=== PATIENT | female | born 1975 | race Caucasian/White ===

== ENCOUNTER 2020-04-11 20:56 | Emergency (ER) | payer MEDICAID ==
[~2020-04-11] VITALS: Ht 157 cm; Wt 61.3 kg
--- OUTSIDE RECORDS SUMMARY | 2020-04-11 21:02 | XMS REPORT | CCD ---
Author Author PRAVEENA PETE Organization Unknown Address [address] [place], [place] [id number] Care Team Providers Care Pipe Line Walker Name Role Phone MIGUEL GRULLON MD Attphys CHACHA Razo NASST Vital Signs Vital Sign Value Unit Date/Time Recent/I nitial? Weight Measured 141 lbs 02/17/2015 05:51 Initial VS Height 61 in 02/17/2015 05:51 Initi al VS BMI (Body Mass Index) 26.64 kg/m^2 02/17/2015 05 :51 Initial VS BSA (Body Surface Area) 1.66 m^2 02/17/2015 05:51 Initial VS BP Systolic 100 mmHg 02/17/2015 05:51 Initial VS BP Diastolic 61 mmHg 02/17/2015 05:51 Initial VS Respiratory Rate 18 bpm 02/17/2015 05:51 Initial VS Heart Rate 76 bpm 02/17/2015 05:51 I nitial VS O2 % BldC Oximetry 98 % 02/17/2015 05:51 Initial VS Body Temperature 98.3 degrees 02/17/2015 05:51 Initial VS BP Systolic 114 mmHg 02/19/2015 06:00 Most Recent VS BP Diastolic 66 mmHg 02/19/2015 06:00 Most Recent VS Respiratory Rate 18 bpm 02/19/2015 06:00 Most Recent VS Heart Rate 77 bpm 02/19/2015 06:00 M ost Recent VS O2 % BldC Oximetry 99 % 02/19/2015 06:00 Most Recent VS Body Temperature 98.2 degrees 02/19/2015 06:00 Most Recent VS Allergies Allergy Code Allergy Type Reaction Status No Known Allergies 0 No known allergies Active Procedures Procedure Code Procedure Type Date LOW CERVICAL 741 ICD-9 CM, Volume 3 02/17/2015 REMOVE BOTH FALLOP TUBES 6651 ICD-9 CM, Volume 3 02/17/2015 PATHOLOGY ORDER [id number] SNOMED CT 02/17/2015 [id number] ^CBC W/AUTO DIFF [id number] [facility] CT 5 CBC W/ AUTO DIFF (RFLX MAN DIFF IF IND) [id number] SN [facility] CT 02/17/2015 TYPE AND SCREEN [id number] [facility] CT 02/17/2015 INCENTIVE SPIROMETRY EA 15 MINUTES [id number] [facility] CT 02/17/2015 History of Immunizations Immunization Code Date influenza, split (incl. purified surface antigen) 15 09/05/2008 DTaP-Hep B-IPV 110 08/24/2003 Problems Problem Code Start Date Resolved Date Sta tus delivery [id number] 02/17/2015 Active Results CBC W/ AUTO DIFF (RFLX MAN DIFF IF IND) - Collect Date/Time: 02/17/2015 05:55 Test Name Code Test Result Test Units Jonna t Ref Range WBC 07287-4 11.3 TH/CMM L=4.5 H=1 0.8 RBC 789-8 3.54 ML/CMM L=4.20 H=5. 40 HGB 718-7 11.4 G/DL L=12.0 H=16 .0 HCT 4544-3 33.9 % L=37.0 H=47 .0 MCV 96 FL L=81 H=99 MCH 32.2 PG L=27.0 H=33 .0 MCHC 33.6 G/DL L=31.0 H=36 .0 RDW SD 48 FL L=36 H=50 RDW CV 13.8 % L=0.0 H=14 .8 MPV 9.9 FL L=9.3 H=12 .5 PLT 777-3 337 TH/CMM L=130 H=44 0 NRBC# 0.00 TH/CMM L=0.00 H=0. 00 NRBC% 0.0 /100WBC L=0.0 H=2 .0 %NEUT 68.6 % %LYMP 19.6 % %MONO 10.4 % %EOS 1.3 % %BASO 0.1 % #NEUT 7.74 TH/CMM L=2.10 H=8. 20 #LYMP 2.22 TH/CMM L=0.90 H=5. 20 #MONO 1.18 TH/CMM L=0.16 H=1. 00 #EOS 0.15 TH/CMM L=0.00 H=0. 80 #BASO 0.01 TH/CMM L=0.00 H=0. 20 MANUAL DIFF NOT IND N/A HEMOGRAM - Collect Date/Time: 02/18/2015 06:45 Test Name Code Test Result Test Units Jonna t Ref Range WBC 56409-4 18.5 TH/CMM L=4.5 H=1 0.8 RBC 789-8 3.24 ML/CMM L=4.20 H=5. 40 HGB 718-7 10.4 G/DL L=12.0 H=16 .0 HCT 4544-3 31.3 % L=37.0 H=47 .0 MCV 97 FL L=81 H=99 MCH 32.1 PG L=27.0 H=33 .0 MCHC 33.2 G/DL L=31.0 H=36 .0 RDW SD 50 FL L=36 H=50 RDW CV 14.0 % L=0.0 H=14 .8 MPV 10.0 FL L=9.3 H=12 .5 PLT 777-3 318 TH/CMM L=130 H=44 0 NRBC# 0.00 TH/CMM L=0.00 H=0. 00 NRBC% 0.0 /100WBC L=0.0 H=2 .0 TYPE AND SCREEN - Collect Date/Time: 08:00 Test Name Code Test Result Test Units Jonna t Ref Range ABO/Rh Type B Positive N/A Antibody Screen-Gel Negative N/A Active Medications Medication Code Dose Units Frequency Rou te Modification Start Date/Time Ferrous Sulfate 325MG Oral Tablet [id number] 325 M ILLIGRAMS PCBID BY MOUTH 02/19/2015 08:17 Ibuprofen 800MG Oral Tablet 058542 800 MILLIGR AMS EVERY 8 HOURS BY MOUTH 02/19/2015 08:17 oxyCODONE And Acetaminophen 5MG-325MG Oral Tablet [id number] 1 TABLET NEEDED BY MOUTH 02/19/2015 08:17 Oral Tablet 499299 1 EACH DAILY ORAL 02/19/2015 08:17 Medications Administered During Visit Medication Dose Units Frequency Route D ate/Time of Last Dose LR 1000ML IV [PREDEFINED] CONT IV IV 02/17/2015 18:04 VITAMIN TABS 1 TAB DAILY PO 02/19/2015 09:15 IBUPROFEN (MOTRIN) TAB:800 MG 800 MG Q8H PO 02/19/2015 06:05 SIMETHICONE [MYLICON] CHEW TAB: 80 MG 80 MG PRN CHEW 02/18/2015 21:38 PERCOCET 5/325 MG TABLET (ROXICET) 1 TAB PRN PO 02/19/2015 09:15 LR 1000ML IV [PREDEFINED] CONT IV IV 02/18/2015 01:07 Encounters Encounter Diagnosis Diagnosis Code Start Date PREV C-SECT NOS-DELIVER 48160 02/17/2015 Social History Smoking Status Code Start Date End Date Current every day smoker [id number] Patient Decision Aids Unknown or Not Available. Discharge Instructions You were admitted to [facility] on 02/17/2015 with a principal diagnosis of PREV C-SECT NOS-DELIVER. You had the following procedures done: LOW CERVICAL REMOVE BOTH FALLOP TUBES You were discharged from [facility] on 02/19/2015. Should you have any questions prior to discharge, please contact a member of your healthcare team. If you have left the hospital and have any questions, please contact your primary care physician. DIET: Regular, As tolerated. HOME MEDICATION INSTRUCTIONS: Continue taking your vitamins, Continue Home Meds as listed above. DON'T continue home meds, Call doc before taking new or OTC meds. IF : Breastfeed on demand, Incr flds and cals to promote mlk prdctn. Avoid spicy/gas producing foods, Exprs milk every 3-4 hrs if unable to BF. If breast engorgement occurs:, apply moist heat/massage/or icepacks. Wear supportive bra, Ensure areola latch 1-1.5"past nipple. Observe for cracked and bleeding nipples. Use "soothies"for sore or cracked nipple. Use tea bags for sore or cracked nipples. Colostrum to nipples after each feed. ACTIVITIES: Refrain from smoking, Rest as possible. Limit walking,standing & stair climbing, No heavy lifting. Gradually resume normal activity. HYGIENE: May shower, Use daniela-bottle with Betasept:. after each urine and BM until flow stops. Change pads with each urination or BM. BOWEL MOVEMENTS Stool softeners as needed, Avoid constipation. May take senokot, Milk of Magnesia. SEXUAL ACTIVITY Refrain from intercourse until pp exam. [id number] Abdominal exercises in 3-4 wks, Start slowly and increase as raf. Post blues; Hormonal changes You may have emotional changes, You may be tearful. This shouldn't last more than 2-3 wks, Call physician if you are concerned. PAIN MANAGEMENT Non drug pain control methods, When to contact physician. NOTIFY PHYSICIAN OF: Chills, fever, painful urination, foul- smelling vaginal discharge. bleeding more than a period, temperature is greater than 100.4. dizziness or fainting, Painful breasts, Red, hot and extremely HARD breasts. redness or drainage from incision, unrelieved pain with medication. nausea or vomiting, cough or shortness of breath. cramping or swelling of legs. RELEVANT CONTACT INFORMATION: Dr. Fernie Proctor: [phone]. FOLLOW-UP: Post visit: See in __6____ wks. Follow up with Dr. Grullon on 02/23/15 for staple removal. Call office for appt. TREATMENTS: Always keep incisional area dry & clean, Cover incision with light dressing. Leave incision open to air if desired, Tucks, frequent sitz baths. stool softeners and hemmorrhoid cream, Wash incision with soap and water. Cleanse with alcohol several times per d, No driving for at least 1 week. Leave steri-strips intact. SPECIAL INSTRUCTIONS: If you receive a Rubella vaccine:, is not recommended for 3 mnths. If you have cold/canker sores:, do not kiss/nuzzle NB til lesions clear. Wear binder as desires. IMPORTANT: INSURE YOUR BABY! Provided info on need to insure baby!. PATIENT/FAMILY UNDERSTANDS INSTRUCTIONS: Verbalizes. PATIENT PORTAL EDUCATION INFO PROVIDED? YES, patient verbalized understanding. PATIENT PORTAL DEMONSTRATION PERFORMED? YES, patient verbalized understanding. DISCHARGED TO: Home. ACCOMPANIED BY: , placed in car seat. MODE OF TRANSPORTATION: Via wheelchair, to car. Chief Complaint and Reason For Visit Chief Complaint Date of Onset OB REPEAT CSECTION Function Status Unknown or Not Available. Plan of Care Unknown or Not Available. Referral/Transition of Care Unknown or Not Available.
--- OUTSIDE RECORDS SUMMARY | 2020-04-11 21:02 | XMS REPORT ---
Discharge Summary 2.1 Created on: PRAVEENA FUENTES : 1975 Sex: Female Author Author PRAVEENA LOONEY Organization Unknown Address [address] [place], [place] [address] Care Team Providers Care Nuclear Medicine Officer Name Role Phone GLADYS TEAL Watchlist LOVELY FOISTER Watchlist Xwatchlist DANISH Slater MD [facility] MAGI Deng MD [facility] Deng MD Secondary Functional Status No Data Found Immunization Immunization Date Status Additional Notes Code Code System influenza, split (incl. purified surface antigen) 09/05/2008 Completed 15 CVX DTaP-Hep B-IPV 08/24/2003 Completed 110 CVX Mental Status No Data Found Results RETIC COUNT - Collect Date/Time: 018 06:46 [facility] [employer] [facility] ID: [id number] [address], [place], [address] [facility] ID: [id number] [address] [address], [place], [address] LOINC: 77206-7 Test Value Unit Reference Range Code Code System RETIC % 1.30 % L=0.50 H=1.70 RETIC # 4.63 10^4/uL L=1.64 H=7.76 IRF 9.9 % L=3.0 H=15.9 CBC W/ AUTO DIFF (RFLX MAN DIFF IF IND) - Collect Date/Time: 09/28/2018 06:46 [facility] ID: [id number] [address], [place], [address] [facility] ID: [id number] [address], [place], [address] LOINC: 50520-3 Test Value Unit Reference Range Code Code System WBC 7.5 TH/CMM L=4.5 H=10.8 24284-0 LOINC RBC 3.58 ML/CMM L=4.20 H=5.40 789-8 LOINC HGB 11.4 G/DL L=12.0 H=16.0 718-7 LOINC HCT 35.1 % L=37.0 H=47.0 4544-3 LOINC MCV 98 FL L=81 H=99 MCH 31.8 PG L=27.0 H=33.0 MCHC 32.5 G/DL L=31.0 H=36.0 RDW SD 47 FL L=36 H=50 RDW CV 13.9 % L=0.0 H=14.8 MPV 9.1 FL L=9.3 H=12.5 PLT 349 TH/CMM L=130 H=440 777-3 LOINC NRBC# L=0.00 H=0.00 NRBC% L=0.0 H=2.0 %NEUT 59.7 % %LYMP 24.1 % %MONO 11.5 % %EOS 4.3 % %BASO 0.4 % #NEUT 4.48 TH/CMM L=2.10 H=8.20 #LYMP 1.81 TH/CMM L=0.90 H=5.20 #MONO 0.86 TH/CMM L=0.16 H=1.00 #EOS 0.32 TH/CMM L=0.00 H=0.80 #BASO 0.03 TH/CMM L=0.00 H=0.20 MANUAL DIFF SEE BELOW SEGS 51 % BANDS 4 % LYMPHS 31 % MONOS 8 % EOS 5 % BASO METAS 1 % MYELO PROS BLASTS ATYP LYMPHS RBC MORPH VITAMIN B12 & FOLATE - Collect Date/Time : 09/28/2018 06:46 [facility] ID: [id number] [address] [facility] [address], [place], [place], [address] [employer] ID: [id number] [address] [facility] [address], [place], [place], [address] LOINC: Test Value Unit Reference Range Code Code System VITAMIN B12 276 PG/ML L=213 H=816 2132-9 LOINC FOLATE 14.50 ng/mL 2284-8 LOINC FERRITIN - Collect Date/Time: 09/28/2018 06:46 [facility] ID: [id number] [address], [place], [place], [address] [facility] ID: [id number] [address] [address], [place], [place], [address] LOINC: 2276-4 Test Value Unit Reference Range Code Code System FERRITIN 50 ng/mL L=10 H=291 2276-4 LOINC IRON PANEL - Collect Date/Time: 09/28/20 06:46 [facility] ID: [id number] - [id number] [address], [place], [place], [address] [facility] ID: [id number] [address] [facility] [address], [place], [place], [address] LOINC: 2500-7 Test Value Unit Reference Range Code Code System IRON TOTAL 50 MCG/DL L=50 H=212 2498-4 LOINC Transferrin 170 MG/DL L=175 H=375 3034-6 LOINC TIBC Calculation 213 MG/ DL L=250 H=450 %Saturation Calc 24 % L=15 H=55 T4 - Collect Date/Time: 09/28/2018 06:46 [facility] ID: [id number] [address] [address] [address], [place], [place], [address] [facility] ID: [id number] [address], [place], [address] LOINC: 3026-2 Test Value Unit Reference Range Code Code System T4 6.8 UG/DL L=4.5 H=12.0 3026-2 LOINC PHOSPHORUS - Collect Date/Time: 09/28/20 18 06:46 [facility] ID: [id number] [address], [place], [place], [address] [facility] ID: [id number] [address], [place], [place], [address] LOINC: 2777-1 Test Value Unit Reference Range Code Code System PHOSPHORUS 3.0 MG/DL L=2.5 H=4.5 2777-1 LOINC MAGNESIUM - Collect Date/Time: 8 06:46 [facility] ID: [id number] [address], [place], [place], [address] [facility] ID: [id number] [address], [place], [place], [address] LOINC: 17053-2 Test Value Unit Reference Range Code Code System MAGNESIUM 2.1 MG/DL L=1.7 H=2.8 92831-4 LOINC COMPREHENSIVE METABOLIC PANEL - Collect Date/Time: 09/28/2018 06:46 [facility] ID: [id number] [address], [place], [place], [address] [facility] ID: [id number] [address], [place], [place], [address] LOINC: 89335-8 Test Value Unit Reference Range Code Code System GLUCOSE 89 MG/DL L=70 H=100 2345-7 LOINC SODIUM 143 MEQ/L L=135 H=148 2951-2 LOINC POTASSIUM 4.0 MEQ/L L=3.5 H=5.3 2823-3 LOINC CHLORIDE 112 MEQ/L L=96 H=110 2075-0 LOINC CO2 26 MEQ/L L=22 H=29 2028-9 LOINC BUN 6 MG/DL L=8 H=22 3094-0 LOINC CREATININE 0.6 MG/DL L=0.6 H=1.6 2160-0 LOINC SGOT/AST 17 IU/L L=10 H=40 1920-8 LOINC SGPT/ALT 11 IU/L L=8 H=54 1742-6 LOINC ALK PHOS 46 IU/L L=35 H=115 6768-6 LOINC TOTAL PROTEIN 5.3 G/DL L=5.5 H=8.5 2885-2 LOINC ALBUMIN 3.5 G/DL L=3.1 H=5.4 1751-7 LOINC TOTAL BILI 0.4 MG/DL L=0.0 H=1.5 1975-2 LOINC CALCIUM 8.2 MG/DL L=8.2 H=10.6 45241-0 LOINC AGE 43 yrs GFR NonAA 109 GFR AA 132 eGFR 109 mL/min/1.7 eGFR AA* >60 GASTROINTESTINAL PANEL - Collect Date/Ti me: 09/28/2018 04:10 [facility] [employer] ID: [id number] [address], [place], [address] [facility] ID: [id number] [address] [address] [address], [place], [address] LOINC: Test Value Unit Reference Range Code Code System Campylobacter Not Detected NEG: Not Detected C difficile A/B Not Detected NEG: Not Detected Plesiomonas shigell Not Detected NEG: Not Detected Salmonella Not Detected NEG: Not Detected Vibrio Not Detected NEG: Not Detected Vibrio cholerae Not Detected NEG: Not Detected Yersinia enterocoli Not Detected NEG: Not Detected Enteroaggreg E coli Not Detected NEG: Not Detected Enteropathog E coli Not Detected NEG: Not Detected Enterotoxigen E coli Not Detected NEG: Not Detected Shiga-like E coli Not Detected NEG: Not Detected E coli O157 Not Detected NEG: Not Detected Shigella/Enter Ecoli Not Detected NEG: Not Detected Cryptosporidium Not Detected NEG: Not Detected Cyclospora cayetanen Not Detected NEG: Not Detected Entamoeba histolytic Not Detected NEG: Not Detected Giardia lamblia Not Detected NEG: Not Detected Adenovirus F 40/41 Not Detected NEG: Not Detected Astrovirus Not Detected NEG: Not Detected Norovirus GI/GII Not Detected NEG: Not Detected Rotavirus A Not Detected NEG: Not Detected Sapovirus Not Detected NEG: Not Detected OCCULT BLOOD iFOBT - Collect Date/Time: 09/28/2018 04:10 [facility] ID: [id number] [address] [facility] [address], [place], [place], [address] [facility] [employer] ID: [id number] [address], [place], [place], [address] LOINC: 2335-8 Test Value Unit Reference Range Code Code System OCC BLD STOOL POSITIVE NORMAL: NEGATIVE 2335-8 LOINC HEMOGLOBIN A1C - Collect Date/Time: 08/31 06:30 [facility] ID: [id number] [address], [place], [place], [address] [facility] [employer] ID: [id number] [address] [facility] [address], [place], [place], [address] LOINC: 74663-7 Test Value Unit Reference Range Code Code System HGB A1C 5.0 % L=4.0 H=6.4 76840-9 LOINC Est Avg Glucose 96.8 mg/ dL 28797-4 LOINC PHOSPHORUS - Collect Date/Time: 09/27/20 06:30 [facility] [employer] ID: [id number] [address] [facility] [address], [place], [address] [employer] ID: [id number] [address] [facility] [address], [place], [place], [address] LOINC: 2777-1 Test Value Unit Reference Range Code Code System PHOSPHORUS 2.4 MG/DL L=2.5 H=4.5 2777-1 LOINC LIPID PANEL - Collect Date/Time: 06:30 [facility] [employer] ID: [id number] [address] [facility] [address], [place], [place], [address] [facility] ID: [id number] [address] [facility] [address] [place], [place], [address] LOINC: 70023-4 Test Value Unit Reference Range Code Code System TRIGLYCERIDES 73 MG/DL L=0 H=135 3043-7 LOINC CHOLESTEROL 148 MG/DL L=0 H=199 2093-3 LOINC HDL 22 MG/DL L=29 H=89 2085-9 LOINC TOT CHOL/HDL 6.7 L=0.0 H=5.0 LDL (CALC) 111 MG/DL L=0 H=129 44963-6 LOINC TSH - Collect Date/Time: 09/27/2018 06:3 0 [facility] [employer] ID: [id number] [address] [facility] [address], [address] [facility] ID: [id number] [address] [facility] [facility] [address] [place], [place], [address] LOINC: 15588-8 Test Value Unit Reference Range Code Code System TSH 0.27 mIU/L L=0.35 H=4.94 37305-6 LOINC COMPREHENSIVE METABOLIC PANEL - Collect Date/Time: 09/27/2018 06:30 [facility] ID: [id number] [address], [place], [place], [address] [facility] [employer] [facility] ID: [id number] [address], [place], [place], [address] LOINC: 63520-6 Test Value Unit Reference Range Code Code System GLUCOSE 95 MG/DL L=70 H=100 2345-7 LOINC SODIUM 142 MEQ/L L=135 H=148 2951-2 LOINC POTASSIUM 3.1 MEQ/L L=3.5 H=5.3 2823-3 LOINC CHLORIDE 110 MEQ/L L=96 H=110 2075-0 LOINC CO2 24 MEQ/L L=22 H=29 2028-9 LOINC BUN 10 MG/DL L=8 H=22 3094-0 LOINC CREATININE 0.7 MG/DL L=0.6 H=1.6 2160-0 LOINC SGOT/AST 16 IU/L L=10 H=40 1920-8 LOINC SGPT/ALT 6 IU/L L=8 H=54 1742-6 LOINC ALK PHOS 51 IU/L L=35 H=115 6768-6 LOINC TOTAL PROTEIN 5.6 G/DL L=5.5 H=8.5 2885-2 LOINC ALBUMIN 3.4 G/DL L=3.1 H=5.4 1751-7 LOINC TOTAL BILI 0.8 MG/DL L=0.0 H=1.5 1975-2 LOINC CALCIUM 8.1 MG/DL L=8.2 H=10.6 14517-1 LOINC AGE 43 yrs GFR NonAA 91 GFR AA 110 eGFR 91 mL/min/1.7 eGFR AA* >60 CBC W/ AUTO DIFF (RFLX MAN DIFF IF IND) - Collect Date/Time: 09/27/2018 06:30 [facility] ID: [id number] [address], [place], [place], [address] [facility] [employer] [facility] ID: [id number] [address], [place], [place], [address] LOINC: 30770-5 Test Value Unit Reference Range Code Code System WBC 9.4 TH/CMM L=4.5 H=10.8 84654-3 LOINC RBC 3.60 ML/CMM L=4.20 H=5.40 789-8 LOINC HGB 11.5 G/DL L=12.0 H=16.0 718-7 LOINC HCT 34.0 % L=37.0 H=47.0 4544-3 LOINC MCV 94 FL L=81 H=99 MCH 31.9 PG L=27.0 H=33.0 MCHC 33.8 G/DL L=31.0 H=36.0 RDW SD 46 FL L=36 H=50 RDW CV 13.2 % L=0.0 H=14.8 MPV 9.0 FL L=9.3 H=12.5 PLT 351 TH/CMM L=130 H=440 777-3 LOINC NRBC# 0.00 TH/CMM L=0.00 H=0.00 NRBC% 0.0 /100WBC L=0.0 H=2.0 %NEUT 70.8 % %LYMP 17.7 % %MONO 10.4 % %EOS 0.0 % %BASO 0.5 % #NEUT 6.66 TH/CMM L=2.10 H=8.20 #LYMP 1.67 TH/CMM L=0.90 H=5.20 #MONO 0.98 TH/CMM L=0.16 H=1.00 #EOS 0.00 TH/CMM L=0.00 H=0.80 #BASO 0.05 TH/CMM L=0.00 H=0.20 MANUAL DIFF NOT IND HEPATITIS PANEL + HBsAb - Collect Date/T radha: 09/26/2018 14:25 [facility] ID: [id number] [address], [place], [address] LOINC: 05457-8 Test Value Unit Reference Range Code Code System Hep A Ab, IgM Negative Negative 25472-1 LOINC HBsAg Screen Negative Negative 5196-1 LOINC Hep B Core Ab, IgM Negative Negative 31630-4 LOINC Hep B Surface Ab, Qual Non Reactive 33053-5 LOINC HCV Ab < 0.1 s/coratio 0.0-0.9 17451-9 LOINC Comment: COMMENT LACTIC ACID - Collect Date/Time: 018 14:25 [place] [employer] ID: [id number] [address] [facility] [address], [place], [place], [address] [facility] ID: [id number] [address] [facility] [address], [place], [place], [address] LOINC: 2524-7 Test Value Unit Reference Range Code Code System LACTIC ACID 1.5 mmol/L L=0.5 H=1.6 2524-7 LOINC UA ROUTINE C&S IF IND - Collect Date/Gustavo e: 09/26/2018 10:40 [facility] ID: [id number] [address], [place], [place], [address] [facility] ID: [id number] [address] [facility] [address], [place], [place], [address] LOINC: Test Value Unit Reference Range Code Code System COLOR YELLOW NL: YELLOW APPEARANCE SL CLOUDY NL: CLEAR SPEC GRAV 1.015 NL: 1.002 - 1.022 pH 7.5 N L: 5 - 9 PROTEIN 30 NL: NEGATIVE mg/dl GLUCOSE NEGATIVE NL: NEGATIVE mg/dl KETONE 15 NL: NEGATIVE mg/dl BILIRUBIN SMALL NL: NEGATIVE BLOOD MODERATE NL: NEGATIVE NITRITE NEGATIVE NL: NEGATIVE LEUK SCREEN NEGATIVE NL: NEGATIVE MICRO INDICATED? SEE BELOW WBC/HPF RARE NL: NEGATIVE RBC/HPF 10-20 NL: NEGATIVE CASTS/LPF NEGATIVE NL: NEGATIVE CRYSTALS NEGATIVE NL: NEGATIVE MUCOUS THRDS FEW NL: NEGATIVE BACTERIA FEW NL: NEGATIVE EPITH CELLS 1+ SQUAMOUS NL: NEGATIVE TRICHOMONAS NEGATIVE NL: NEGATIVE YEAST NEGATIVE NL: NEGATIVE CULT SET UP? NO PT/PTT - Collect Date/Time: 09/26/2018 0 8:30 [facility] ID: [id number] [address] [facility] [address], [place], [address] [facility] ID: [id number] [address] [facility] [facility] [address], [place], [address] LOINC: Test Value Unit Reference Range Code Code System PROTIME 13.5 SEC L=9.4 H=12.5 5964-2 LOINC INR 1.2 88926-5 LOINC PTT 26.3 SEC L=25.1 H=36.5 3173-2 LOINC COMPREHENSIVE METABOLIC PANEL - Collect Date/Time: 09/26/2018 08:30 [facility] ID: [id number] [address] [facility] [address], [place], [address] [facility] ID: [id number] [address] [facility] [facility] [address], [place], [address] LOINC: Test Value Unit Reference Range Code Code System GLUCOSE 163 MG/DL L=70 H=100 2345-7 LOINC SODIUM 140 MEQ/L L=135 H=148 2951-2 LOINC POTASSIUM 2.8 MEQ/L L=3.5 H=5.3 2823-3 LOINC CHLORIDE 95 MEQ/L L=96 H=110 2075-0 LOINC CO2 24 MEQ/L L=22 H=29 2028-9 LOINC BUN 25 MG/DL L=8 H=22 3094-0 LOINC CREATININE 0.9 MG/DL L=0.6 H=1.6 2160-0 LOINC SGOT/AST 23 IU/L L=10 H=40 1920-8 LOINC SGPT/ALT 9 IU/L L=8 H=54 1742-6 LOINC ALK PHOS 76 IU/L L=35 H=115 6768-6 LOINC TOTAL PROTEIN 8.6 G/DL L=5.5 H=8.5 2885-2 LOINC ALBUMIN 5.1 G/DL L=3.1 H=5.4 1751-7 LOINC TOTAL BILI 1.1 MG/DL L=0.0 H=1.5 1975-2 LOINC CALCIUM 10.4 MG/DL L=8.2 H=10.6 47757-0 LOINC AGE 43 yrs GFR NonAA 68 GFR AA 82 eGFR 68 mL/min/1.7 eGFR AA* >60 LIPASE - Collect Date/Time: 09/26/2018 0 8:30 [facility] [employer] ID: [id number] [address] [facility] [address], [place], [place], [address] [facility] ID: [id number] [address] [facility] [address], [place], [place], [address] LOINC: Test Value Unit Reference Range Code Code System LIPASE 10 U/L L=8 H=78 3040-3 LOINC LACTIC ACID - Collect Date/Time: 018 08:30 [facility] ID: [id number] [address] [facility] [facility] [address], [place], [place], [address] [facility] [employer] ID: [id number] [address] [facility] [address], [place], [place], [address] LOINC: Test Value Unit Reference Range Code Code System LACTIC ACID 3.7 mmol/L L=0.5 H=1.6 2524-7 LOINC C REACTIVE PROTEIN - Collect Date/Time: 09/26/2018 08:30 [facility] ID: [id number] [address] [facility] [address], [place], [place], [address] [facility] [employer] ID: [id number] [address] [facility] [address], [place], [place], [address] LOINC: Test Value Unit Reference Range Code Code System C REACTIVE PROTEIN 3.5 M G/DL L=0.0 H=1.0 1988-5 LOINC CBC W/ AUTO DIFF (RFLX MAN DIFF IF IND) - Collect Date/Time: 09/26/2018 08:30 [facility] ID: [id number] [address] [facility] [address] [place], [place], [address] [facility] ID: [id number] [address] [facility] [address] [place], [place], [address] LOINC: Test Value Unit Reference Range Code Code System WBC 17.5 TH/CMM L=4.5 H=10.8 68004-2 LOINC RBC 4.86 ML/CMM L=4.20 H=5.40 789-8 LOINC HGB 15.1 G/DL L=12.0 H=16.0 718-7 LOINC HCT 43.3 % L=37.0 H=47.0 4544-3 LOINC MCV 89 FL L=81 H=99 MCH 31.1 PG L=27.0 H=33.0 MCHC 34.9 G/DL L=31.0 H=36.0 RDW SD 41 FL L=36 H=50 RDW CV 12.7 % L=0.0 H=14.8 MPV 8.9 FL L=9.3 H=12.5 PLT 471 TH/CMM L=130 H=440 777-3 LOINC NRBC# 0.00 TH/CMM L=0.00 H=0.00 NRBC% 0.0 /100WBC L=0.0 H=2.0 %NEUT 88.4 % %LYMP 5.6 % %MONO 5.3 % %EOS 0.0 % %BASO 0.2 % #NEUT 15.45 TH/CMM L=2.10 H=8.20 #LYMP 0.97 TH/CMM L=0.90 H=5.20 #MONO 0.92 TH/CMM L=0.16 H=1.00 #EOS 0.00 TH/CMM L=0.00 H=0.80 #BASO 0.03 TH/CMM L=0.00 H=0.20 MANUAL DIFF SEE BELOW SEGS 90 % BANDS 1 % LYMPHS 5 % MONOS 4 % EOS BASO METAS MYELO PROS BLASTS ATYP LYMPHS RBC MORPH ABDOMEN ACUTE SERIES - Completed: 2017 10:41 LOINC: EXAMINATION:ABDOMEN ACUTE SERIESREASON F OR EXAM:Abdominal Pain;Nausea/Vomiting COMPARISON:01/30/2018FINDINGS:The cardiac silhouette is normal in size.No consolidation, pleural effusion, or sizable pneumothorax. Generalized paucity of bowel gas without visualized bowel dilation.Mild to moderate rectosigmoid colon fecal burden.Probable pelvic phleboliths.IMPRESSION:No acute abdominal radiographic findings.Reviewed and Electronically Signed by: Delon Jean Date/Time: 09/26/2018 11:38 AMJob ID#: [id number] CT ABD AND PELVIS W/CONTRAST - Completed : 09/26/2018 11:42 LOINC: EXAMINATION: CT ABD AND PELVIS W/CONTRAS T REASON FOR EXAM:sepsis ;Abdominal Pain;Nausea/Vomiting, leukocytosis COMPARISON:Same day ultrasoundTECHNIQUE:CT of the abdomen and pelvis with intravenous contrast. Coronal reformats were obtained. 100 ml of Omnipaque-300 was administered intravenously.Automated exposure control was performed using [employer]ose [employer], which adjusts mA and/or kV according to patient size.FINDINGS:Vessels: Calcified and noncalcified aortoiliac atherosclerotic plaque.Lymph nodes: No bulky lymphadenopathy.Liver: Minimal triangular focal fatty infiltration along the anterior falciform ligament.Gallbladder: Nonspecific gallbladder distension.Biliary tree: No intra or extrahepatic biliary ductal dilation. Pancreas: Unremarkable.Spleen: Unremarkable.Adrenal glands: Unremarkable.Kidneys and ureters: Subcentimeter hypoattenuating renal structures too small to accurately characterize.Bladder: Unremarkable.Bowel: Pronounced distal gastric wall thickening. No bowel dilation. The appendix is unremarkable. Colonic wall thickening.Peritoneum: No ascites, free air, or other focal fluid collection.Reproductive organs: Grossly unremarkable.Abdominopelvic wall: Unremarkable.Osseous structures: Unremarkable.IMPRESSION:Pronounced distal gastric wall thickening, the differential includes gastritis versus peptic ulcer disease. A follow-up endoscopy may be helpful for additional evaluation.Colonic wall thickening consider incomplete distension versus low-grade colitis.Additional findings as above. Early report discussed with Dr. Smiley.Reviewed and Electronically Signed by: Delon Jean Date/Time: 09/26/2018 12:02 PMJob ID#: [id number] [employer] (SINGLE [employer]GAN) - Completed: 1 11/26/2017 12:01 LOINC: EXAMINATION:US ABD LTD (SINGLE ORGAN)MARY SON FOR EXAM:Abdominal Pain;Nausea/Vomiting; right upper quadrant abdominal painCOMPARISON:None available.TECHNIQUE:The right upper quadrant of the abdomen was examined with ultrasound.FINDINGS:Pancreas: Unremarkable where visualized. Aorta: Calcified atherosclerotic plaque.Gallbladder: Nonspecific gallbladder distension without visualized calculi or wall thickening. Positive Chun sign, if there is clinical concern for biliary dyskinesis a follow-up HIDA scan may be helpful.Common bile duct: The common bile duct measures 2 mm in diameter.Liver: Unremarkable.Right kidney: Partially visualized, no gross right hydronephrosis. Inferior vena cava: Unremarkable where visualized.IMPRESSION:Nonspecific gallbladder distension. Reviewed and Electronically Signed by: Delon Jean Date/Time: 09/27/2018 12:15 PMJob ID#: [id number] Social History Type Status Start Date End Date Code Code System Smoking History Current every day smoker 212308681 SNOMED-CT Smoking History Never smoker (Never Smoked ) 480968844 SNOMED-CT Vital Signs Vital Sign Value Unit Graham Value Graham Unit Date/Time Recent/Initial? Code Cod e System Body Mass Index 22.67 kg /m2 09/27/2018 03:35 Most Recent 90818-9 [facility] Body Mass Index 22.18 kg /m2 09/26/2018 13:45 Inital 74107-8 LOINC Systolic Blood Pressure 92 mm[Hg] 09/28/2018 11:02 Most Recent 8480-6 LOINC Diastolic Blood Pressure 60 mm[Hg] 09/28/2018 11:02 Most Recent 8462-4 INC Systolic Blood Pressure 100 mm[Hg] 09/26/2018 13:45 Inital 8480-6 LOINC Diastolic Blood Pressure 62 mm[Hg] 09/26/2018 13:45 Inital 8462-4 LOINC Body Surface Area 1.53 m2 09/27/2018 03:35 Most Recent 3140-1 LOINC Body Surface Area 1.51 m2 09/26/2018 13:45 Inital 3140-1 LOINC Height 154.9400 cm 61.00 in 09/27/2018 03:35 Most Recent 8302-2 LOINC Height 154.9400 cm 61.00 in 09/26/2018 13:45 Init al 8302-2 LOINC O2 Saturation 94 % 09/28/2018 11:02 Most Recent 06797-5 LOINC O2 Saturation 97 % 09/26/2018 13:45 Inita l 41622-5 LOINC Pulse 97.0 /min 09/28/2018 11:02 Most Recent 8867-4 LOINC Pulse 83.0 /min 09/26/2018 13:45 Inita l 8867-4 LOINC Respiration 18 /min 09/28/2018 11:02 Most Recent 9279-1 LOINC Respiration 16 /min 09/26/2018 13:45 Inita l 9279-1 LOINC Temperature 36.8 Marina 98.2 F 09/28/2018 11:02 Most Recent 8310-5 LOINC Temperature 36.7 Marina 98.1 F 09/26/2018 13:45 Inita l 8310-5 LOINC Weight 54.4311 kg 120.00 lbs 09/27/2018 03:35 Mos t Recent 80781-2 LOINC Weight 53.2404 kg 117.37 lbs 09/26/2018 13:45 Ini vanessa 24216-0 LOINC Assessment You had the following problems: SEPSIS GASTRITIS DEHYDRATION DEPRESSION ANXIETY PANIC DISORDER GERD ASTHMA Hospital Discharge Instructions Should you have any questions prior to discharge, please contact a member of your healthcare team. If you have left the hospital and have any questions, please contact your primary care physician. HOME MEDICATION INSTRUCTIONS: Continue home meds as instructed. HOME MEDS RETURNED TO PATIENT: N/A. HOME DIET: Regular. ACTIVITY INSTRUCTIONS(list limitations): Activity as Tolerated. SCRIPTS WRITTEN BY DOCTOR GIVEN TO PATIENT? No-none written by physician:. FOLLOW UP APPOINTMENT: Follow-up with PCP in 1 week. Follow-up in 2 weeks with surgery for positive FOCT gastritis. Call to make appointments. Dr. Fernandez [phone] CONTACT PHYSICIAN IF YOU EXPERIENCE ANY: Nausea/Vomiting, pain, fever, or blood in stool. PERSONAL ITEMS RETURNED: N/A. INSTRUCTIONS GIVEN AND DISCHARGE TO: Patient. INSTRUCTIONS GIVEN BY (TYPE IN NAME AND DATE) Chung Rodarte RN Reason For Referral No Data Found Hospital Course You were admitted to [facility] on 09/26/2018 12:43 Medications Medication Start Date En d Date Route Frequency Dose Code Code System Levaquin 750MG Oral Tablet 09/28/2018 Unknown BY MOUTH DAILY 1 TABLET 549837 RxNorm Protonix 40MG Oral Tablet, Enteric Coated 09/28/2018 Unknown BY MOUTH DAILY 1 TABLET 668004 RxNorm Zofran 4MG Oral Tablet, Disintegrating 09/28/2018 Unknown BY MOUTH 1 TABLET 266716 RxNorm hydrOXYzine HCl 25MG Oral Tablet 8 Unknown ORAL NEEDED EVERY 8 HR 25 MILLIGRAMS 200807 RxN orm ZyPREXA 10MG Oral Tablet 09/28/2018 Unknown ORAL AT BEDTIME 10 MILLIGRAMS 752303 RxNorm Vraylar 3MG Oral Capsule 09/28/2018 Unknown ORAL DAILY 3 MILLIGRAMS 9837721 RxNorm Symbicort 160/4.5 160MCG-4.5MCG/1 Actu I nhalation Aerosol Liquid 09/28/2018 Unknown INHAL ATION TWO TIMES A DAY 2 PUFF 1 258286 RxNorm Sertraline 50MG Oral Tablet 09/28/2018 Unknown ORAL DAILY 50 MILLIGRAMS 004679 RxNorm Propranolol HCl 20MG Oral Tablet 8 Unknown ORAL TWO TIMES A DAY 20 MILLIGRAMS 166959 RxN orm ProAir HFA 0.09MG/1 INH Inhalation Aerosol Powder 09/28/2018 Unknown INHALATION NEEDED EVERY 4 HR 2 PUFF RxNorm Flonase 0.05MG/Actuation Nasal [place] 09/28/2018 Unknown NASAL DAILY 2 SPRAY 3511649 RxNorm Procedures Procedure Name Date Stat us Code Code System C section completed 48784087 SNOMED CT [place] tooth completed 95171659 SNOMED CT Tonsillectomy completed 804399560 SNOMED CT Implants No Data Found Problems Problem Start Date Resol bobby Date Status Code Code System SEPSIS active 26518467 SNOMED-CT GASTRITIS active 1343733 SNOMED-CT DEHYDRATION active 72359812 SNOMED-CT DEPRESSION active 39635141 SNOMED-CT ANXIETY active 17217076 SNOMED-CT PANIC DISORDER active 439973522 SNOMED-CT GERD a ctive 215620896 SNOMED-CT ASTHMA active 144678118 SNOMED-CT CERVICAL CANCER 2017 resolved 779055379 SNOME D-CT DELIVERY 08/31 resolved 694768904 SNOME D-CT Allergies Allergy Substance Reaction Severity Start Date Concern Status Code Code System No Known Drug Allergies Active RxNorm Plan of Treatment T3 TOTAL 09/28/2018 STEPHANIE C: 3053-6 Encounters No Data Found Goals No Data Found Discharge Medications No Data Found Discharge Diagnosis No Data Found Health Concerns Section No Data Found
--- OUTSIDE RECORDS SUMMARY | 2020-04-11 21:02 | XMS REPORT ---
Discharge Summary 2.1 Created on: PRAVEENA FUENTES : 1975 Sex: Female Author Author PRAVEENA ALBERT Organization Unknown Address [address] [place], [place] [address] Care Team Providers Care Agent Producer Name Role Phone [employer]AD[employer] TEAL Watchlist LOVELY FOISTER Watchlist Xwatchlist DANISH Slater MD Attending [facility] ER Erdoc1 MAGI Deng MD [facility] Deng MD Secondary Functional Status No Data Found Immunization Immunization Date Status Additional Notes Code Code System influenza, split (incl. purified surface antigen) 09/05/2008 Completed 15 CVX DTaP-Hep B-IPV 08/24/2003 Completed 110 CVX Mental Status No Data Found Results RETIC COUNT - Collect Date/Time: 018 06:46 [employer] ID: [id number] - [id number] [address] [facility] [address], [place], [place], [address] [facility] [employer] ID: [id number] [address] [facility] [address], [place], [place], [address] LOINC: 32518-6 Test Value Unit Reference Range Code Code System RETIC % 1.30 % L=0.50 H=1.70 RETIC # 4.63 10^4/uL L=1.64 H=7.76 IRF 9.9 % L=3.0 H=15.9 CBC W/ AUTO DIFF (RFLX MAN DIFF IF IND) - Collect Date/Time: 09/28/2018 06:46 [facility] [employer] ID: [id number] [address] [facility] [address], [place], [place], [address] [employer] ID: [id number] [address], [address] LOINC: 27307-4 Test Value Unit Reference Range Code Code System WBC 7.5 TH/CMM L=4.5 H=10.8 10564-8 LOINC RBC 3.58 ML/CMM L=4.20 H=5.40 789-8 [...] FOLATE - Collect Date/Time : 09/28/2018 06:46 [employer] ID: [id number] [address], [place], [address] [facility] [employer] ID: [id number] [address], [place], [address] LOINC: Test Value Unit Reference Range Code Code System VITAMIN B12 276 PG/ML L=213 H=816 2132-9 LOINC FOLATE 14.50 ng/mL 2284-8 LOINC FERRITIN - Collect Date/Time: 09/28/2018 06:46 [employer] ID: [id number] [address], [place], [address] [facility] [employer] ID: [id number] [address] [facility] [address], [place], [place], [address] LOINC: 2276-4 Test Value Unit Reference Range Code Code System FERRITIN 50 ng/mL L=10 H=291 2276-4 LOINC IRON PANEL - Collect Date/Time: 09/28/20 06:46 [facility] [employer] ID: [id number] [address] [facility] [address], [place], [place], [address] [employer] ID: [id number] [address] [facility] [address], [place], [address] LOINC: 2500-7 Test Value Unit Reference Range Code Code System IRON TOTAL 50 MCG/DL L=50 H=212 2498-4 LOINC Transferrin 170 MG/DL L=175 H=375 3034-6 LOINC TIBC Calculation 213 MG/ DL L=250 H=450 %Saturation Calc 24 % L=15 H=55 T4 - Collect Date/Time: 09/28/2018 06:46 [facility] [employer] ID: [id number] [address] [facility] [address], [place], [address] [employer] ID: [id number] [address], [place], [place], [address] LOINC: 3026-2 Test Value Unit Reference Range Code Code System T4 6.8 UG/DL L=4.5 H=12.0 3026-2 LOINC PHOSPHORUS - Collect Date/Time: 09/28/20 18 06:46 [facility] ID: [id number] [address], [place], [place], [address] [facility] ID: [id number] [address], [place], [place], [address] LOINC: 2777-1 Test Value Unit Reference Range Code Code System PHOSPHORUS 3.0 MG/DL L=2.5 H=4.5 2777-1 LOINC MAGNESIUM - Collect Date/Time: 8 06:46 [facility] ID: [id number] [address], [place], [place], [address] [facility] ID: [id number] [address], [place], [place], [address] LOINC: 47183-8 Test Value Unit Reference Range Code Code System MAGNESIUM 2.1 MG/DL L=1.7 H=2.8 89958-6 LOINC COMPREHENSIVE METABOLIC PANEL - Collect Date/Time: 09/28/2018 06:46 [facility] ID: [id number] [address], [place], [place], [address] [facility] ID: [id number] [address], [place], [place], [address] LOINC: 08954-9 Test Value Unit Reference Range Code Code [...] 1975-2 LOINC CALCIUM 8.2 MG/DL L=8.2 H=10.6 73546-5 LOINC AGE 43 yrs GFR NonAA 109 GFR AA 132 eGFR 109 mL/min/1.7 eGFR AA* >60 GASTROINTESTINAL PANEL - Collect Date/Ti me: 09/28/2018 04:10 [facility] [employer] ID: [id number] [address] [facility] [address], [place], [address] [employer] ID: [id number] [address] [facility] [address], [place], [place], [address] LOINC: Test Value Unit Reference Range Code [...] BLOOD iFOBT - Collect Date/Time: 09/28/2018 04:10 [employer] ID: [id number] [address] [facility] [address], [place], [address] [facility] [employer] ID: [id number] [address] [facility] [address], [address] LOINC: 2335-8 Test Value Unit Reference Range Code Code System OCC BLD STOOL POSITIVE NORMAL: NEGATIVE 2335-8 LOINC HEMOGLOBIN A1C - Collect Date/Time: 08/31 06:30 [facility] [employer] ID: [id number] [address] [facility] [address], [address] [employer] ID: [id number] [address] [facility] [address], [place], [address] LOINC: 23679-0 Test Value Unit Reference Range Code Code System HGB A1C 5.0 % L=4.0 H=6.4 12854-5 LOINC Est Avg Glucose 96.8 mg/ dL 74072-5 LOINC PHOSPHORUS - Collect Date/Time: 09/27/20 06:30 [facility] [employer] ID: [id number] [address] [facility] [address], [place], [address] [employer] ID: [id number] [address], [place], [place], [address] LOINC: 2777-1 Test Value Unit Reference Range Code Code System PHOSPHORUS 2.4 MG/DL L=2.5 H=4.5 2777-1 LOINC LIPID PANEL - Collect Date/Time: 06:30 [facility] ID: [id number] [address], [place], [place], [address] [employer] ID: [id number] [address], [place], [place], [address] LOINC: 11000-5 Test Value Unit Reference Range Code Code System TRIGLYCERIDES 73 MG/DL L=0 H=135 3043-7 LOINC CHOLESTEROL 148 MG/DL L=0 H=199 2093-3 LOINC HDL 22 MG/DL L=29 H=89 2085-9 LOINC TOT CHOL/HDL 6.7 L=0.0 H=5.0 LDL (CALC) 111 MG/DL L=0 H=129 07098-4 LOINC TSH - Collect Date/Time: 09/27/2018 06:3 0 [employer] ID: [id number] [address], [place], [place], [address] [facility] ID: [id number] [address], [place], [place], [address] LOINC: 36830-9 Test Value Unit Reference Range Code Code System TSH 0.27 mIU/L L=0.35 H=4.94 73173-2 LOINC COMPREHENSIVE METABOLIC PANEL - Collect Date/Time: 09/27/2018 06:30 [facility] [employer] ID: [id number] [address] [facility] [address], [place], [place], [address] [employer] ID: [id number] [address], [place], [address] LOINC: 69607-8 Test Value Unit Reference Range Code Code [...] 1975-2 LOINC CALCIUM 8.1 MG/DL L=8.2 H=10.6 61376-3 LOINC AGE 43 yrs GFR NonAA 91 GFR AA 110 eGFR 91 mL/min/1.7 eGFR AA* >60 CBC W/ AUTO DIFF (RFLX MAN DIFF IF IND) - Collect Date/Time: 09/27/2018 06:30 [facility] [employer] [facility] ID: [id number] [address], [place], [address] [employer] ID: [id number] [address], [place], [address] LOINC: 75779-6 Test Value Unit Reference Range Code Code System WBC 9.4 TH/CMM L=4.5 H=10.8 58869-8 LOINC RBC 3.60 ML/CMM L=4.20 H=5.40 789-8 [...] HBsAb - Collect Date/T radha: 09/26/2018 14:25 [facility] ID: [id number] [address], [place], [place], [address] LOINC: 30003-8 Test Value Unit Reference Range Code Code System Hep A Ab, IgM Negative Negative 77209-4 LOINC HBsAg Screen Negative Negative 5196-1 LOINC Hep B Core Ab, IgM Negative Negative 17964-6 LOINC Hep B Surface Ab, Qual Non Reactive 94930-0 LOINC HCV Ab < 0.1 s/coratio 0.0-0.9 99954-7 LOINC Comment: COMMENT LACTIC ACID - Collect Date/Time: 018 14:25 [facility] ID: [id number] [address] [facility] [address] [place], [place], [address] [facility] ID: [id number] [address] [facility] [address] [place], [place], [address] LOINC: 2524-7 Test Value Unit Reference Range Code Code System LACTIC ACID 1.5 mmol/L L=0.5 H=1.6 2524-7 LOINC UA ROUTINE C&S IF IND - Collect Date/Gustavo e: 09/26/2018 10:40 [facility] [employer] ID: [id number] [address] [facility] [address] [place], [place], [address] [facility] ID: [id number] [address] [facility] [address] [place], [place], [address] LOINC: Test Value Unit Reference Range Code [...] PT/PTT - Collect Date/Time: 09/26/2018 0 8:30 [facility] [employer] ID: [id number] [address] [facility] [address] [place], [place], [address] [facility] ID: [id number] [address], [place], [place], [address] LOINC: Test Value Unit Reference Range Code Code System PROTIME 13.5 SEC L=9.4 H=12.5 5964-2 LOINC INR 1.2 49923-5 LOINC PTT 26.3 SEC L=25.1 H=36.5 3173-2 LOINC COMPREHENSIVE METABOLIC PANEL - Collect Date/Time: 09/26/2018 08:30 [facility] ID: [id number] [address], [place], [place], [address] [facility] ID: [id number] [address], [place], [place], [address] LOINC: Test Value Unit Reference Range Code [...] 1975-2 LOINC CALCIUM 10.4 MG/DL L=8.2 H=10.6 19936-5 LOINC AGE 43 yrs GFR NonAA 68 GFR AA 82 eGFR 68 mL/min/1.7 eGFR AA* >60 LIPASE - Collect Date/Time: 09/26/2018 0 8:30 [facility] ID: [id number] [address], [place], [place], [address] [facility] ID: [id number] [address], [place], [place], [address] LOINC: Test Value Unit Reference Range Code Code System LIPASE 10 U/L L=8 H=78 3040-3 LOINC LACTIC ACID - Collect Date/Time: 018 08:30 [facility] ID: [id number] [address], [place], [place], [address] [facility] ID: [id number] [address], [place], [place], [address] LOINC: Test Value Unit Reference Range Code Code System LACTIC ACID 3.7 mmol/L L=0.5 H=1.6 2524-7 LOINC C REACTIVE PROTEIN - Collect Date/Time: 09/26/2018 08:30 [facility] ID: [id number] [address], [place], [place], [address] [facility] ID: [id number] [address], [place], [place], [address] LOINC: Test Value Unit Reference Range Code Code System C REACTIVE PROTEIN 3.5 M G/DL L=0.0 H=1.0 1988-5 LOINC CBC W/ AUTO DIFF (RFLX MAN DIFF IF IND) - Collect Date/Time: 09/26/2018 08:30 [facility] ID: [id number] [address] [facility] [address], [address] [facility] ID: [id number] [address] [facility] [address], [address] LOINC: Test Value Unit Reference Range Code Code System WBC 17.5 TH/CMM L=4.5 H=10.8 03506-0 LOINC RBC 4.86 ML/CMM L=4.20 H=5.40 789-8 [...] Delon Jean Date/Time: 09/26/2018 11:38 AMJob ID#: [id number] CT ABD AND PELVIS W/CONTRAST - Completed : 09/26/2018 11:42 LOINC: EXAMINATION: CT ABD AND PELVIS W/CONTRAS T REASON FOR EXAM:sepsis ;Abdominal Pain;Nausea/Vomiting, leukocytosis COMPARISON:Same day ultrasoundTECHNIQUE:CT of the abdomen and pelvis with intravenous contrast. Coronal reformats were obtained. 100 ml of Omnipaque-300 was administered intravenously.Automated exposure control was performed using [employer] Dose Management, which adjusts mA and/or kV [...] with Dr. Smiley.Reviewed and Electronically Signed by: Deoln Jean Date/Time: 09/26/2018 12:02 PMJob ID#: [id number] US ABD LTD (SINGLE ORGAN) - Completed: 11/26/2017 12:01 LOINC: EXAMINATION:US ABD LTD (SINGLE [...] Delon Jean Date/Time: 09/27/2018 12:15 PMJob ID#: [id number] Social History Type Status Start Date End Date Code Code System Smoking History Current every day smoker 090817479 SNOMED-CT Smoking History Never smoker (Never Smoked ) 930474706 SNOMED-CT Vital Signs Vital Sign Value Unit [place] Value [place] Unit Date/Time Recent/Initial? Code Cod e System Body Mass Index 22.67 kg /m2 09/27/2018 03:35 Most Recent 79330-3 LOINC Body Mass Index 22.18 kg /m2 09/26/2018 13:45 Inital 32497-2 LOINC Systolic Blood Pressure 92 mm[Hg] 09/28/2018 11:02 Most Recent 8480-6 LOINC Diastolic Blood Pressure 60 mm[Hg] 09/28/2018 11:02 Most Recent 8462-4 LOINC Systolic Blood Pressure 100 mm[Hg] 09/26/2018 13:45 Inital 8480-6 LOINC Diastolic Blood Pressure 62 mm[Hg] 09/26/2018 13:45 Inital 8462-4 LOINC Body Surface Area 1.53 m2 09/27/2018 03:35 Most Recent 3140-1 LOINC Body Surface Area 1.51 m2 09/26/2018 13:45 Inital 3140-1 LOINC Height 154.9400 cm 61.00 in 09/27/2018 03:35 Most Recent 8302-2 LOINC Height 154.9400 cm 61.00 in 09/26/2018 13:45 Init ok 8302-2 LOINC O2 Saturation 94 % 09/28/2018 11:02 Most Recent 59891-9 LOINC O2 Saturation 97 % 09/26/2018 13:45 Inita l 74154-5 LOINC Pulse 97.0 /min 09/28/2018 11:02 Most [...] 120.00 lbs 09/27/2018 03:35 Mos t Recent 38081-5 LOINC Weight 53.2404 kg 117.37 lbs 09/26/2018 13:45 Ini vanessa 97386-6 LOINC Assessment You had the following problems: [...] gastritis. Call to make appointments. Dr. Fernandez [phone] CONTACT PHYSICIAN IF YOU EXPERIENCE ANY: Nausea/Vomiting, pain, fever, or blood in stool. PERSONAL ITEMS RETURNED: N/A. INSTRUCTIONS GIVEN AND DISCHARGE TO: Patient. INSTRUCTIONS GIVEN BY (TYPE IN NAME AND DATE) Chung Rodarte RN Reason For Referral No Data Found Hospital Course You were admitted to [facility] on 09/26/2018 12:43 with a principal diagnosis of Sepsis, unspecified organism You were discharged from [facility] on 09/28/2018 13:10 Medications Medication Start Date En d Date Route Frequency Dose Code Code System Levaquin 750MG Oral Tablet 09/28/2018 Unknown BY MOUTH DAILY 1 TABLET 921643 RxNorm Protonix 40MG Oral Tablet, Enteric Coated 09/28/2018 Unknown BY MOUTH DAILY 1 TABLET 778572 RxNorm Zofran 4MG Oral Tablet, Disintegrating 09/28/2018 Unknown BY MOUTH 1 TABLET 359784 RxNorm hydrOXYzine HCl 25MG Oral Tablet 8 Unknown ORAL NEEDED EVERY 8 HR 25 MILLIGRAMS 977485 RxN orm ZyPREXA 10MG Oral Tablet 09/28/2018 Unknown ORAL AT BEDTIME 10 MILLIGRAMS 736970 RxNorm Vraylar 3MG Oral Capsule 09/28/2018 Unknown ORAL DAILY 3 MILLIGRAMS 0142230 RxNorm Symbicort 160/4.5 160MCG-4.5MCG/1 Actu I nhalation Aerosol Liquid 09/28/2018 Unknown INHAL ATION TWO TIMES A DAY 2 PUFF 1 025277 RxNorm Sertraline 50MG Oral Tablet 09/28/2018 Unknown ORAL DAILY 50 MILLIGRAMS 391922 RxNorm Propranolol HCl 20MG Oral Tablet 8 Unknown ORAL TWO TIMES A DAY 20 MILLIGRAMS 055039 RxN orm ProAir HFA 0.09MG/1 INH Inhalation Aerosol Powder 09/28/2018 Unknown INHALATION NEEDED EVERY 4 HR 2 PUFF RxNorm Flonase 0.05MG/Actuation Nasal [place] 09/28/2018 Unknown NASAL DAILY 2 SPRAY 5182107 RxNorm Procedures Procedure Name Date Stat us Code Code System C section completed 06032373 SNOMED CT [place] tooth completed 34660019 SNOMED CT Tonsillectomy completed 088616427 SNOMED CT Implants No Data Found Problems Problem Start Date Resol bobby Date Status Code Code System SEPSIS active 73104523 SNOMED-CT GASTRITIS active 2027250 SNOMED-CT DEHYDRATION active 07522302 SNOMED-CT DEPRESSION active 10586558 SNOMED-CT ANXIETY active 69745596 SNOMED-CT PANIC DISORDER active 019116483 SNOMED-CT GERD a ctive 834229885 SNOMED-CT ASTHMA active 960577515 SNOMED-CT CERVICAL CANCER 2017 resolved 999714655 SNOME D-CT DELIVERY 08/31 resolved 537124359 SNOME D-CT Allergies Allergy Substance Reaction Severity Start Date Concern Status Code Code System No Known Drug Allergies Active RxNorm Plan of Treatment T3 TOTAL 09/28/2018 LOIN C: 3053-6 Encounters No Data Found Goals No Data Found Discharge Medications No Data Found Discharge Diagnosis Discharge Diagnosis Diagnosis Code Start Date Sepsis, unspecified organism A419 09/26/2018 Health Concerns Section No Data Found
--- OUTSIDE RECORDS SUMMARY | 2020-04-11 21:02 | XMS REPORT | CCD ---
Author PRAVEENA Mcneill Organization Unknown Address [address] [place], [place] [address] Care Team Providers Care Project Associate Name Role Phone HALL, JOHN DO Attphys HALL, JOHN DO Prisurg Vital Signs Unknown or Not Available. Allergies Allergy Code Allergy Type Reaction Status No Known Allergies 0 No known allergies Active Procedures Unknown or Not Available. History of Immunizations Immunization Code Date influenza, split (incl. purified surface antigen) 15 09/05/2008 DTaP-Hep B-IPV 110 08/24/2003 Problems Problem Code Start Date Resolved Date Sta tus delivery 385996620 02/17/2015 Active Results Unknown or Not Available. Active Medications Medication Code Dose Units Frequency Rou te Modification Start Date/Time Ibuprofen 800MG Oral Tablet 249685 800 MILLIGR AMS EVERY 8 HOURS BY MOUTH 02/19/2015 08:17 Prescription Detail 800 MILLIGRAMS BY MOUTH MIGDALIA RY 8 HOURS prn oxyCODONE And Acetaminophen 5MG-325MG Oral Tablet 8655589 1 TABLET NEEDED BY MOUTH 02/19/2015 08:17 Prescription Detail 1 TABLET BY MOUTH NEEDED Oral Tablet 102009 1 EACH DAILY ORAL 02/19/2015 08:17 Prescription Detail 1 EACH ORAL DAILY Medications Administered During Visit Unknown or Not Available. Encounters Unknown or Not Available. Social History Smoking Status Code Start Date End Date Current every day smoker 861645111 Patient Decision Aids Unknown or Not Available. Discharge Instructions You were admitted to [facility] on 11/10/2015 05:18 with a principal diagnosis of Allergy, unspecified, initial encounter You were discharged from [facility] on 11/10/2015 07:33 Should you have any questions prior to discharge, please contact a member of your healthcare team. If you have left the hospital and have any questions, please contact your primary care physician. Chief Complaint and Reason For Visit Chief Complaint Date of Onset EYE PROBLEM HAND AND LEG SWELLING FLANK PAIN Function Status Unknown or Not Available. Plan of Care Unknown or Not Available. Referral/Transition of Care Unknown or Not Available.
--- OUTSIDE RECORDS SUMMARY | 2020-04-11 21:03 | XMS REPORT ---
Author Author Ana Gilliam Organization [facility] Address [address] [place], [place] [address] Care Team Providers Care Director [employer] Name Role Phone India Gilliam PCP Allergies and Adverse Reactions Name Reaction Notes NO KNOWN DRUG ALLERGIES Plan of Treatment Planned Activity Comments Planned Date Planned Time Plan/Goal Pap smear auto thin prep w manual MD screen 02/28/2019 12:00 AM Medications Active Name Start Date Estimated Completion Date SIG Co mments Diflucan 150 mg oral tablet 02/27/2019 02/28/2019 take 1 tablet (150 mg) by oral route once for 1 day Name Start Date Expiration Date SIG Comments Flagyl 500 mg oral tablet 01/14/2015 01/21/2015 take 1 tablet (500 mg) by oral route 2 times per day for 7 days Discontinued Name Start Date Discontinued Date SIG Comments Xanax 1 mg oral tablet 02/16/2015 take 1 ta blet by oral route 3 times a day as needed Dexedrine oral 15mg 02/16/2015 Take 2 table ts in the morning and 2 in the afternoon Concept DHA 35-1-200 mg oral capsule 07/14/2014 10/04/2017 take 1 capsule by oral route once daily for 30 days nystatin 100,000 unit/gram topical powder 02/25/2015 017 apply to the affected area(s) by topical route 2- 3 times per day Trintellix oral 02/27/2019 Flagyl 500 mg oral tablet 10/09/2017 02/27/2019 take 1 tablet (500 mg) by oral route 2 times per day for 7 days Problem List Description Status Onset Anxiety Active Headache Active Vital Signs Date Time BP-Sys(mm[Hg] BP-Pearl(mm[Hg]) HR(bpm) RR(rpm) Temp WT HT HC BMI BSA BMI Percentile O2 Sat(%) 02/27/2019 11:12:00 AM 94 mmHg 67 mmHg 60 bpm 98.8 F 124 lbs 61.5 in 23.0499 kg/m 1.5622 m 10/04/2017 11:11:00 AM 100 mmHg 59 mmHg 66 bpm 99.9 F 124 lbs 61.5 in 23.05 kg/m2 1.56 m2 02/27/2015 10:01:00 AM 126 mmHg 74 mmHg 73 bpm 98.7 F 02/25/2015 1:36:00 PM 117 mmHg 76 mmHg 72 bpm 99.1 F 02/16/2015 11:09:00 AM 111 mmHg 67 mmHg 82 bpm 97.8 F 141.375 lbs 61. 5 in 26.2797 kg/m 1.6681 m 100 % 07/10/2014 9:49:00 AM 110 mmHg 71 mmHg 120 bpm 99 F 112.5 lbs 61.5 i n 20.91 kg/m2 1.49 m2 Social History Name Description Comments Alcohol Current every day stopped when she fou nd out she was Tobacco Current every day smoker Denies illicit substance abuse No history of foreign travel History of Procedures Date Ordered Description Order Status 10/04/2017 12:00 AM SPECIMEN HANDLING OFFICE-LAB Reviewed 10/04/2017 12:00 AM CYTOPATH C/V THIN LAYER Reviewed 10/04/2017 12:00 AM MAMMOGRAM BOTH BREASTS Reviewed 07/10/2014 12:00 AM CYTOPATH C/V THIN LAYER Reviewed 07/10/2014 12:00 AM SPECIMEN HANDLING OFFICE-LAB Reviewed 07/10/2014 12:00 AM N.GONORRHOEAE DNA AMP PROB Reviewed 07/10/2014 12:00 AM CHLAMYDIA CULTURE Reviewed 07/10/2014 12:00 AM HIV-1ANTIBODY Reviewed 07/10/2014 12:00 AM URINALYSIS AUTO W/SCOPE Reviewed 07/10/2014 12:00 AM OBSTETRIC PANEL Reviewed 07/10/2014 12:00 AM US PREG UTERUS REAL TIME W/IMAGE DCMTN T RANSVAG Reviewed 07/10/2014 12:00 AM Urine toxicology screen Reviewed 12/24/2014 12:00 AM Type and screen Reviewed 12/24/2014 12:00 AM GLUCOSE TOLERANCE TEST (GTT) Reviewed 12/24/2014 12:00 AM COMPLETE CBC W/AUTO DIFF WBC Reviewed 01/01/2015 12:00 AM GLUCOSE TOLERANCE TEST (GTT) Reviewed 01/23/2015 12:00 AM CULTURE OTHR SPECIMN AEROBIC Reviewed 01/29/2015 12:00 AM OB US LIMITED FETUS(S) Reviewed 02/16/2015 12:00 AM COMPLETE CBC W/AUTO DIFF WBC Reviewed 02/16/2015 12:00 AM Type and screen Reviewed Results Summary Date and Description Results 07/10/2014 11:10 AM WBC 12.5 RBC 3.88 HGB 12.30 g/dLHCT 36.60 %MCV 94.0 fLMCH 31.70 pgMCHC 33.60 g/dLRDW SD 46 RDW CV 13.50 %MPV 8.80 fLPLT 385 NRBC# 0.00 NRBC% 0.0 %NEUT 75.50 %%LYMP 14.80 %%MONO 7.40 %%EOS 2.10 %%BASO 0.20 %#NEUT 9.42 #LYMP 1.84 #MONO 0.92 #EOS 0.26 #BASO 0.03 MANUAL DIFF NOT IND HBsAg Screen Negative HIV AG/AB COMBO 0.08 RPR Non Reactive Rubella Antibodies, IgG 3.75 Index 07/10/2014 11:14 AM Cannabinoids (THC) NEGATIVE Phencyclidine (PCP) NEGATIVE Cocaine NEGATIVE Methamphetamine NEGATIVE Opiates NEGATIVE Amphetamine NON- NEGATIVE Benzodiazepines NON-NEGATIVE Tricyclic Antidepres NEGATIVE Methadone NEGATIVE Barbiturates NEGATIVE Oxycodone NEGATIVE Propoxyphene (PPX) NEGATIVE COLOR YELLOW APPEARANCE CLEAR SPEC GRAV 1.010 pH 6.0 PROTEIN NEGATIVE GLUCOSE NEGATIVE KETONE NEGATIVE BILIRUBIN NEGATIVE BLOOD TRACE-INTACT NITRITE NEGATIVE LEUK SCREEN NEGATIVE WBC/HPF RARE RBC/HPF RARE CASTS/LPF NEGATIVE CRYSTALS NEGATIVE MUCOUS THRDS NEGATIVE BACTERIA FEW EPITH CELLS FEW SQUAMOUS TRICHOMONAS NEGATIVE YEAST NEGATIVE CULT ORDERED YES 12/24/2014 12:38 PM WBC 13.0 RBC 3.91 HGB 12.60 g/dLHCT 37.50 %MCV 96.0 fLMCH 32.20 pgMCHC 33.60 g/dLRDW SD 48 RDW CV 13.70 %MPV 9.40 fLPLT 508 NRBC# 0.00 NRBC% 0.0 %NEUT 73.50 %%LYMP 19.40 %%MONO 5.90 %%EOS 0.90 %%BASO 0.30 %#NEUT 9.53 #LYMP 2.51 #MONO 0.77 #EOS 0.12 #BASO 0.04 MANUAL DIFF SEE BELOW SEGS 71 LYMPHS 19 MONOS 10 ANISO 1+ 10/04/2017 11:39 AM Pap Smear Collected History Of Immunizations Not available. History of Past Illness Name Date of Onset Comments Anxiety Headache test confirmed positive Jul 10 2014 9:50AM , High Risk Dec 24 2014 11:45AM Impaired glucose tolerance test (oral) Jan 01 2015 1:15PM Group B Strep Screening, Jan 23 2015 10:52AM Uterine size date discrepancy; antepartum condition or complication Jan 23 2015 12:03PM Advanced maternal age in multigravida Jan 23 2015 12:03PM Tobacco abuse Jan 23 2015 12:03PM Candidiasis Feb 27 2015 10:03AM Routine gynecological examination Oct 04 2017 11:20AM Encounter for screening mammogram for malignant neopla sm of breast Oct 04 2017 11:20AM Encounter for screening mammogram for breast cancer Oct 04 3:53PM Routine gynecological examination Feb 27 2019 11:16AM Encounter for screening mammogram for breast cancer February 27 11:45AM Genital ulcer, female Feb 27 2019 11:16AM Vaginal yeast infection Feb 27 2019 11:16AM Payers Insurance Name Company Name Plan Name Plan Number Policy Number Jourdan cy Group Number Start Date A[employer]na Better Health - [place] A[employer] Better Health - [place]HC [id number] N/A [employer] [place] [employer] [place] [id number] N/[place] [employer] [place] [employer] [place] [id number] N/A History of Encounters Visit Date Visit Type Provider 02/27/2019 Office visit India saucedo CONSUMER EDUCATION SPECIALIST 09/26/2018 [facility] Heber Gan MD 10/04/2017 Office visit 10/04/2017 Office visit India saucedo CONSUMER EDUCATION SPECIALIST 02/27/2015 Office visit YANIRA GRULLON MD 02/25/2015 Office visit YANIRA GRULLON MD 02/17/2015 [facility] Miko Medley MD 02/17/2015 [facility] YANIRA GRULLON MD 02/16/2015 Office visit Yanira Grullon MD 02/09/2015 Office visit Fernie Tse MD 02/02/2015 Office visit Fernie Tse MD 01/23/2015 Office visit Fernie Tse MD 01/07/2015 Office visit Fernie Tse MD 12/24/2014 Office visit Fernie Tse MD 10/01/2014 Office visit Fernie Tse MD 08/27/2014 Office visit Fernie Tse MD 07/10/2014 Office visit Fernie Tse MD
--- OUTSIDE RECORDS SUMMARY | 2020-04-11 21:03 | XMS REPORT ---
Author Author Ana Gilliam Organization [facility] Address [address] [place], [place] [address] Care Team Providers Care Cooler Room Worker Name Role Phone India Gilliam PCP Allergies and Adverse Reactions Name Reaction Notes NO KNOWN DRUG ALLERGIES Plan of Treatment Planned Activity Comments Planned Date Planned Time Plan/Goal Pap smear auto thin prep w manual MD screen 10/04/2017 12:00 AM Medications Active Name Start Date Estimated Completion Date SIG Co mments Trintellix oral Name Start Date Expiration Date SIG Comments [...] topical route 2- 3 times per day Problem List Description Status Onset Anxiety Active Headache Active Vital Signs Date Time BP-Sys(mm[Hg] BP-Pearl(mm[Hg]) HR(bpm) RR(rpm) Temp WT HT HC BMI BSA BMI Percentile O2 Sat(%) 10/04/2017 11:11:00 AM 100 mmHg 59 mmHg [...] 99 F 112.5 lbs 61.5 i n 20.9122 kg/m 1.49 m2 Social History Name Description Comments Alcohol Current every day stopped when she fou nd out she was Tobacco Current every day smoker Denies illicit substance abuse No history of foreign travel History of Procedures Date Ordered Description Order Status 10/04/2017 12:00 AM MAMMOGRAM BOTH BREASTS Reviewed [...] 71 LYMPHS 19 MONOS 10 ANISO 1+ History Of Immunizations Not available. History of [...] mammogram for breast cancer Oct 04 3:53PM Payers Insurance Name Company Name Plan Name Plan Number Policy Number Jourdan cy Group Number Start Date [employer] [place] [employer] [place] [id number] N/[place] [employer] [place] [employer] [place] [id number] N/A History of Encounters Visit Date Visit Type Provider 10/04/2017 Office visit 10/04/2017 Office visit India saucedo MANAGEMENT AIDE 02/27/2015 Office visit YANIRA GRULLON MD 02/25/2015 Office visit YANIRA GRULLON MD 02/17/2015 Hospital Miko Medley MD 02/17/2015 [facility] YANIRA GRULLON MD 02/16/2015 Office visit Yanira [...]
--- OUTSIDE RECORDS SUMMARY | 2020-04-11 21:03 | XMS REPORT ---
Author Author Ana Gilliam Organization [facility] Address [address] [place], [place] [address] Care Team Providers Care Wig Dresser Name Role Phone India Gilliam PCP Allergies [...] sm of breast Oct 04 2017 11:20AM Payers Insurance Name Company Name Plan Name Plan Number Policy Number Jourdan cy Group Number Start Date [employer] [place] [employer] [place] [id number] N/[place] [employer] [place] [employer] [place] [id number] N/A History of Encounters Visit Date Visit Type Provider 10/04/2017 Office visit 10/04/2017 Office visit India saucedo ELECTRIC SEALING MACHINE OPERATOR 02/27/2015 Office visit YANIRA GRULLON MD 02/25/2015 Office visit YANIRA GRULLON MD 02/17/2015 Hospital Miko Medley MD 02/17/2015 [facility] YANIRA GRULLON MD 02/16/2015 Office visit [...]
--- OUTSIDE RECORDS SUMMARY | 2020-04-11 21:03 | XMS REPORT ---
Author Author Ana Gilliam Organization [facility] Address [address] [place], [place] [address] Care Team Providers Care Mcat Tutor Name Role Phone India Gilliam PCP Allergies and Adverse Reactions Name Reaction Notes NO KNOWN DRUG ALLERGIES Plan of Treatment Planned Activity Comments Planned Date Planned Time Plan/Goal Pap smear auto thin prep w manual MD screen 02/27/2019 11:42 AM Medications Active Name Start Date Estimated [...] mammogram for breast cancer February 27 11:45AM Payers Insurance Name Company Name Plan Name Plan Number Policy Number Jourdan cy Group Number Start Date Aetna Better Health - [facility] Aetna [employer] [facility] - [facility] [id number] N/A [employer] [place] [employer] - [facility] [place] State [place] [id number] N/A [employer] [place] [employer] [place] [id number] N/A History of Encounters Visit Date Visit Type Provider 02/27/2019 Office visit India saucedo DECONTAMINATION TECHNICIAN 09/26/2018 [facility] Heber Gan MD 10/04/2017 Office visit 10/04/2017 Office visit India saucedo DECONTAMINATION TECHNICIAN 02/27/2015 Office visit YANIRA GRULLON MD 02/25/2015 Office visit YANIRA GRULLON MD 02/17/2015 [facility] Miko Medley MD 02/17/2015 [facility] YANIRA GRULLON MD 02/16/2015 Office visit [...]
--- OUTSIDE RECORDS SUMMARY | 2020-04-11 21:03 | XMS REPORT ---
Author Author Ana Gilliam Organization [facility] Address [address] [place], [place] [address] Care Team Providers Care Silk Screen Operator Name Role Phone India Gilliam PCP Allergies [...] Plan [employer] [place] [id number] N/[place] [employer] [place] [employer] [place] [id number] N/A History of Encounters Visit Date Visit Type Provider 10/04/2017 Office visit 10/04/2017 Office visit India saucedo ELECTRIC ORGAN ASSEMBLER 02/27/2015 Office visit YANIRA GRULLON MD 02/25/2015 Office visit YANIRA GRULLON MD 02/17/2015 Hospital Miko Medley MD 02/17/2015 [facility] YANIRA GRULLON MD 02/16/2015 Office [...]
--- OUTSIDE RECORDS SUMMARY | 2020-04-11 21:03 | XMS REPORT ---
Author Author Ana Gilliam Organization [facility] Address [address] [place], [place] [address] Care Team Providers Care Morning Babysitter Name Role Phone India Gilliam PCP Allergies and Adverse Reactions Name Reaction Notes NO KNOWN DRUG ALLERGIES Plan of Treatment Planned Activity Comments Planned Date Planned Time Plan/Goal Pap smear auto thin prep w manual MD screen 02/27/2019 11:42 AM Medications Name Start Date Expiration Date SIG Comments [...] - RHC [employer] Better Health - [place]HC [id number] N/A [employer] [place] [employer] [place] [id number] N/[place] [employer] [place] [employer] [place] [id number] N/A History of Encounters Visit Date Visit Type Provider 02/27/2019 Office visit India saucedo SPANISH INSTRUCTOR 09/26/2018 [facility] Heber Gan MD 10/04/2017 Office visit 10/04/2017 Office visit India saucedo SPANISH INSTRUCTOR 02/27/2015 Office visit YANIRA GRULLON MD 02/25/2015 Office visit YANIRA GRULLON MD 02/17/2015 [facility] Miko Medley MD 02/17/2015 [facility] YANIRA GRULLON MD 02/16/2015 Office [...]
--- OUTSIDE RECORDS SUMMARY | 2020-04-11 21:03 | XMS REPORT ---
Author Author Ana Gilliam Organization [facility] Address [address] [place], [place] [address] Care Team Providers Care Frame Straightener Name Role Phone India Gilliam PCP Allergies and Adverse Reactions Name Reaction Notes NO KNOWN DRUG ALLERGIES Plan of Treatment Not available. Medications Active Name Start Date Estimated Completion Date SIG Co mments Flagyl 500 mg oral tablet 03/05/2019 take 4 tablets (2 gram) by oral route once Name Start Date Expiration Date SIG Comments Flagyl 500 mg oral tablet 01/14/2015 01/21/2015 take 1 tablet (500 mg) by oral route 2 times per day for 7 days Diflucan 150 mg oral tablet 02/27/2019 02/28/2019 take 1 tablet (150 mg) by oral route once for 1 day Discontinued Name Start Date Discontinued Date SIG [...] 10/04/2017 12:00 AM MAMMOGRAM BOTH BREASTS Reviewed 02/28/2019 12:00 AM CYTOPATH C/V THIN LAYER Returned 02/28/2019 12:00 AM Genital Ulcer Disease Panel Reviewed 07/10/2014 12:00 AM CYTOPATH C/V THIN [...] Date Aetna Better Health - RHC Aetna [facility] - [place] [id number] N/A [employer] - [place] State [place] [employer] [place] [id number] N/[place] [employer] [place] [employer] [place] State Plan [id number] N/A History of Encounters Visit Date Visit Type Provider 02/27/2019 Office visit India saucedo RESTAURANT CREW PERSON 09/26/2018 [facility] Heber Gan MD 10/04/2017 Office visit 10/04/2017 Office visit India saucedo RESTAURANT CREW PERSON 02/27/2015 Office visit YANIRA GRULLON MD 02/25/2015 Office visit YANIRA GRULLON MD 02/17/2015 [facility] Miko Medley MD 02/17/2015 [facility] YANIRA GRULLON MD 02/16/2015 Office visit Yanira [...]
--- OUTSIDE RECORDS SUMMARY | 2020-04-11 21:04 | XMS REPORT ---
Author Author Ana Sawant Doctor Organization [facility] Address Unknown Phone Unavailable Care Team Providers Care Manager Ethics Name Role Phone Migration, Doctor Unavailable Unavailable PROBLEMS Type Condition ICD9-CM Code CYB13-QO Code Onset Dates Condition S tatus SNOMED Code Problem Non-seasonal allergic rhinitis, unspecified trigger J30.89 Active 78726206 Problem Tobacco use disorder F17.200 Active 773607061 Problem Moderate persistent asthma without complication J4 5.40 Active 383744864 Problem Panic disorder F41.0 Active 90567 1005 Problem PTSD (post-traumatic stress disorder) F43.10 Active [id number] ALLERGIES No Information ENCOUNTERS Encounter Location Date Diagnosis [facility] [address] [id number] [place] [address] May, PTSD (post-traumatic stress disorder) F4 3.10 [facility] [address] [id number] [place] [address] Jan, Acute severe exacerbation of moderate pe rsistent asthma J45.41 ; Non- seasonal allergic rhinitis, unspecified trigger J30.89 ; Acute non-recurrent maxillary sinusitis J01.00 and Tobacco use disorder F17.200 [facility] [address] [facility] [id number] [address] [place] [phone] Jan, [facility] [address] [facility] [id number] [address] [place] [id number] Jan, [facility] [address] [facility] [id number] [address] [place] [id number] Aug, [facility] [address] [facility] [id number] [address] [place] [phone] Aug, [facility] [address] [facility] [id number] [address] [place] [address] Jul, [facility] [address] [facility] [id number] [address] [place] [address] Jul, [facility] [address] [id number] [address] [place] [address], [place] [address] Jul, [facility] [address] [id number] [address] [place] [address], [place] [address] Jul, [facility] [address] [id number] [address] [place] [address], [place] [address] Jul, [facility] [address] [id number] [address] [place] [address], [place] [address] Jul, [facility] [address] [id number] [address] [place] [address], [place] [address] Jul, [facility] [address] [id number] [address] [place] [address], [place] [address] May, [facility] [address] [id number] [address] [place] [address], [place] [address] Apr, [facility] [address] [id number] [address] [place] [address], [place] [address] Apr, [facility] [address] [id number] [address] [place] [address], [place] [address] Mar, [facility] [address] [id number] [address] [place] [address], [place] [address] February, [facility] [address] [id number] [address] [place] [address], [place] [address] February, [facility] [address] [id number] [address] [place] [address], [place] [address] Jan, [facility] [address] [id number] [address] [place] [address], [place] [address] Dec, [facility] [address] [id number] [address] [place] [address], [place] [address] Dec, [facility] [address] [id number] [address] [place] [address], [place] [address] Nov, [facility] [address] [id number] [address] [place] [phone] Oct, [facility] [address] [id number] [address] [place] [phone] Oct, [facility] [address] [id number] [address] [place] [address] Aug, [facility] [address] [id number] [address] [place] [id number] Jul, [facility] [address] [id number] [address] [place] [phone] Jul, [facility] [address] [id number] [address] [place] [phone] Jul, [facility] [address] [id number] [address] [place] [id number] Sep, [facility] [address] [id number] [address] [place] [phone] Aug, IMMUNIZATIONS No Known Immunizations SOCIAL HISTORY Never Assessed REASON FOR VISIT EMR-[facility] PLAN OF CARE VITAL SIGNS MEDICATIONS No Known Medications RESULTS No Results PROCEDURES No Known procedures INSTRUCTIONS MEDICATIONS ADMINISTERED No Known Medications MEDICAL (GENERAL) HISTORY Type Description Date Medical History anxiety Medical History panic disorder Medical History Tobacco use disorder Medical History Tobacco use disorder Medical History PTSD (post-traumatic stress disorder) Medical History Panic disorder Medical History Non-seasonal allergic rhinitis, unspecif ied trigger Medical History Moderate persistent asthma without compl ication Surgical History section X 5 Hospitalization History child Hospitalization History inpatient treatment psychiatric x 3, last one 2007
--- OUTSIDE RECORDS SUMMARY | 2020-04-11 21:04 | XMS REPORT ---
Author Author Ana Sawant Doctor Organization [facility] Address Unknown Phone Unavailable Care Team Providers Care Currency Examiner Name Role Phone Migration, Doctor Unavailable Unavailable PROBLEMS Type Condition ICD9-CM Code LIU83-XB Code Onset Dates Condition S tatus SNOMED Code Problem Non-seasonal allergic rhinitis, unspecified trigger J30.89 Active 80329868 Problem Tobacco use disorder F17.200 Active 787463185 Problem Moderate persistent asthma without complication J4 5.40 Active 399507313 Problem Panic disorder F41.0 Active 49914 1005 Problem PTSD (post-traumatic stress disorder) F43.10 Active 23083918 ALLERGIES No Information ENCOUNTERS Encounter Location Date Diagnosis [facility] [address] [id number] [place] [address] May, PTSD (post-traumatic stress disorder) F4 3.10 [facility] [address] [id number] [place] [address] Jan, Acute severe exacerbation of moderate pe rsistent asthma J45.41 ; Non- seasonal allergic rhinitis, unspecified trigger J30.89 ; Acute non-recurrent maxillary sinusitis J01.00 and Tobacco use disorder F17.200 [facility] [address] [facility] [id number] [address] [place] [address] Jan, [facility] [address] [facility] [id number] [address] [place] [address] Jan, [facility] [address] [facility] [id number] [address] [place] [address] Aug, [facility] [address] [facility] [id number] [address] [place] [address] Aug, [facility] [address] [facility] [id number] [address] [place] [address] Jul, [facility] [address] [facility] [id number] [address] [place] [address] Jul, [facility] [address] [id number] [address] [place] [address], [place] [address] Jul, [facility] [address] [id number] [address] [place] [address], [place] [address] Jul, [facility] [address] [id number] [address] [place] [address], [place] [address] Jul, [facility] [address] [id number] [address] [place] [address], [place] [address] Jul, [facility] [address] [id number] [address] [place] [address], [place] [address] Jul, [facility] [address] [id number] [address] [place] [address], [place] [address] May, [facility] [address] [id number] [address] [place] [address], [place] [address] Apr, [facility] [address] [id number] [address] [place] [address], [place] [address] Apr, [facility] [address] [id number] [address] [place] [address], [place] [address] Mar, [facility] [address] [id number] [address] [place] [address], [place] [address] February, [facility] [address] [id number] [address] [place] [address], [place] [address] February, [facility] [address] [id number] [address] [place] [address], [place] [address] Jan, [facility] [address] [id number] [address] [place] [address], [place] [address] Dec, [facility] [address] [id number] [address] [place] [address], [place] [address] Dec, [facility] [address] [id number] [address] [place] [address], [place] [address] Nov, [facility] [address] [id number] [address] [place] [address] Oct, [facility] [address] [id number] [address] [place] [address] Oct, [facility] [address] [id number] [address] [place] [address] Aug, [facility] [address] [id number] [address] [place] [address] Jul, [facility] [address] [id number] [address] [place] [address] Jul, [facility] [address] [id number] [address] [place] [address] Jul, [facility] [address] [id number] [address] [place] [address] Sep, [facility] [address] [id number] [address] [place] [address] Aug, IMMUNIZATIONS No Known Immunizations SOCIAL HISTORY Never Assessed REASON FOR VISIT EMR-[facility] PLAN OF CARE VITAL SIGNS MEDICATIONS No [...]
--- OUTSIDE RECORDS SUMMARY | 2020-04-11 21:04 | XMS REPORT ---
Author Author [facility] Organization [facility] Address [address] [place], [place] [address] Care Team Providers Care Rf Design Engineer Name Role Phone PCP Unavailable Allergies and Adverse Reactions Name Reaction Notes NO KNOWN DRUG ALLERGIES Plan of Treatment Planned Activity Comments Planned Date Planned Time Plan/Goal COMPLETE CBC W/AUTO DIFF WBC 02/16/2015 12:00 AM Medications Active Name Start Date Estimated Completion Date SIG Co mments Concept DHA Oral capsule 35-1-200 mg 07/14/2014 take 1 capsule by oral route once daily for 30 days nystatin topical powder 100,000 unit/gram 02/25/2015 apply to the affected area(s) by topical route 2- 3 times per day Name Start Date Expiration Date SIG Comments Flagyl oral tablet 500 mg 01/14/2015 01/21/2015 take 1 tablet (500 mg) by oral route 2 times per day for 7 days Discontinued Name Start Date Discontinued Date SIG Comments Xanax oral tablet 1 mg 02/16/2015 take 1 ta blet by oral route 3 times a day as needed Dexedrine oral 15mg 02/16/2015 Take 2 table ts in the morning and 2 in the afternoon Problem List Description Status Onset Anxiety Active Headache Active Vital Signs Date Time BP-Sys(mm[Hg] BP-Pearl(mm[Hg]) HR(bpm) RR(rpm) Temp WT HT HC BMI BSA BMI Percentile O2 Sat(%) 02/27/2015 10:01:00 AM 126 mmHg 74 mmHg 73 bpm 98.7 F 02/25/2015 1:36:00 PM 117 mmHg 76 mmHg 72 bpm 99.1 F 02/16/2015 11:09:00 AM 111 mmHg 67 mmHg 82 bpm 97.8 F 141.375 lbs 61. 5 in 26.28 kg/m2 1.67 m2 100 % 07/10/2014 9:49:00 AM 110 mmHg 71 mmHg 120 bpm 99 F 112.5 lbs 61.5 i n 20.9122 kg/m 1.488 m Social History Name Description Comments Alcohol stopped when she fou nd out she was Tobacco Current every day smoker Denies illicit substance abuse No history of foreign travel History of Procedures Date Ordered Description Order Status 07/10/2014 12:00 AM CYTOPATH C/V THIN LAYER Returned 07/10/2014 12:00 AM SPECIMEN HANDLING OFFICE-LAB Reviewed 07/10/2014 12:00 AM N.GONORRHOEAE DNA AMP PROB Returned 07/10/2014 12:00 AM CHLAMYDIA CULTURE Returned 07/10/2014 12:00 AM HIV-1ANTIBODY Returned 07/10/2014 12:00 AM URINALYSIS AUTO W/SCOPE Returned 07/10/2014 12:00 AM OBSTETRIC PANEL Returned 07/10/2014 12:00 AM Urine toxicology screen Returned 12/24/2014 12:00 AM GLUCOSE TOLERANCE TEST (GTT) Returned 12/24/2014 12:00 AM COMPLETE CBC W/AUTO DIFF WBC Returned 01/01/2015 12:00 AM GLUCOSE TOLERANCE TEST (GTT) Returned 01/23/2015 12:00 AM CULTURE OTHR SPECIMN AEROBIC Returned 01/29/2015 12:00 AM OB US LIMITED FETUS(S) Returned Results Summary Data and Description Results 07/10/2014 11:10 AM WBC 12.5 RBC 3.88 HGB 12.30 g/dLHCT 36.60 %MCV 94.0 fLMCH 31.70 pgMCHC 33.60 g/dLRDW CV 13.50 %MPV 8.80 fLPLT 385 %NEUT 75.50 %%LYMP 14.80 %%MONO 7.40 %%EOS 2.10 %%BASO 0.20 %#NEUT 9.42 #LYMP 1.84 #MONO 0.92 #EOS 0.26 #BASO 0.03 HBsAg Screen Negative HIV AG/AB COMBO 0.08 07/10/2014 11:14 AM Cannabinoids (THC) NEGATIVE Phencyclidine (PCP) NEGATIVE Cocaine NEGATIVE Methamphetamine NEGATIVE Opiates NEGATIVE Amphetamine NON- NEGATIVE Benzodiazepines NON-NEGATIVE Methadone NEGATIVE Barbiturates NEGATIVE Oxycodone NEGATIVE Propoxyphene (PPX) NEGATIVE COLOR YELLOW APPEARANCE CLEAR SPEC GRAV 1.010 pH 6.0 PROTEIN NEGATIVE GLUCOSE NEGATIVE KETONE NEGATIVE BILIRUBIN NEGATIVE BLOOD TRACE-INTACT NITRITE NEGATIVE LEUK SCREEN NEGATIVE CASTS/LPF NEGATIVE CRYSTALS NEGATIVE MUCOUS THRDS NEGATIVE BACTERIA FEW EPITH CELLS FEW SQUAMOUS TRICHOMONAS NEGATIVE YEAST NEGATIVE 12/24/2014 12:38 PM WBC 13.0 RBC 3.91 HGB 12.60 g/dLHCT 37.50 %MCV 96.0 fLMCH 32.20 pgMCHC 33.60 g/dLRDW CV 13.70 %MPV 9.40 fLPLT 508 %NEUT 73.50 %%LYMP 19.40 %%MONO 5.90 %%EOS 0.90 %%BASO 0.30 %#NEUT 9.53 #LYMP 2.51 #MONO 0.77 #EOS 0.12 #BASO 0.04 History Of Immunizations Not available. History of [...] 2015 12:03PM Candidiasis Feb 27 2015 10:03AM Payers Insurance Name Company Name Plan Name Plan Number Policy Number Jourdan cy Group Number Start Date [employer] [place] [employer] [place] [id number] N/A History of Encounters Visit Date Visit Type Provider 02/27/2015 Office visit YANIRA GRULLON MD 02/25/2015 Office visit Yanira Grullon MD 02/16/2015 Office visit Yanira Grullon MD 02/09/2015 Office visit Fernie Tse MD 02/02/2015 Office visit Fernie Tse MD 01/23/2015 Office visit Fernie Tse MD 01/07/2015 Office visit Fernie Tse MD 12/24/2014 Office visit Fernie Tse MD 10/01/2014 Office visit Fernie Tse MD 08/27/2014 Office visit Fernie Tse MD 07/10/2014 Office visit Fernie Tse MD
--- OUTSIDE RECORDS SUMMARY | 2020-04-11 21:04 | XMS REPORT ---
Author Author Ana WREN CLARISSE Organization [facility] Address [address] [place] [address] Care Team Providers Care Site Promotion Agent Name Role Phone CHADMICK CABEZASA Unavailable PROBLEMS Type Condition ICD9-CM Code UUF18-AT Code Onset Dates Condition S tatus SNOMED Code Problem Tobacco use disorder F17.200 Active 140150236 Problem Non-seasonal allergic rhinitis, unspecified trigger J30.89 Active 02570427 Problem Moderate persistent asthma without complication J4 5.40 Active 820591120 Problem PTSD (post-traumatic stress disorder) F43.10 Active 58738345 Problem Panic disorder F41.0 Active 62739 1005 ALLERGIES No Known Allergies ENCOUNTERS Encounter Location Date Diagnosis [facility] [address] [id number] [place] [address] Jul, [facility] [address] [id number] [place] [address] May, PTSD (post-traumatic stress disorder) F4 3.10 [facility] [address] [id number] [place] [address] Jan, Acute severe exacerbation of moderate pe rsistent asthma J45.41 ; Non- seasonal allergic rhinitis, unspecified trigger J30.89 ; Acute non-recurrent maxillary sinusitis J01.00 and Tobacco use disorder F17.200 [facility] [address] [facility] [id number] [address] [place] [address] Jan, [facility] [address] [facility] [id number] [address] [place] [address] Jan, [facility] [address] [facility] [id number] [address] [place] [address] Aug, [facility] [address] [facility] [id number] [address] [place] [address] Aug, [facility] [address] [id number] [address] [place] [address], [place] [address] Jul, [facility] [address] [id number] [address] [place] [address], [place] [address] Jul, [facility] [address] [id number] [address] [place] [address], [place] [address] Jul, [facility] [address] [id number] [address] [place] [address], [place] [address] Jul, [facility] [address] [id number] [address] [place] [address], [place] [address] Jul, [facility] [address] [id number] [address] [place] [address], [place] [address] Jul, [facility] [address] [id number] [address] [place] [address], [place] [address] Jul, [facility] [address] [id number] [address] [place] [address], [place] [address] May, [facility] [address] [id number] [address] [place] [address], [place] [address] Apr, [facility] [address] [id number] [address] [place] [address], [place] [address] Apr, [facility] [address] [id number] [address] [place] [address], [place] [address] Mar, [facility] [address] [id number] [address] [place] [address], [place] [address] February, [facility] [address] [id number] [address] [place] [address], [place] [address] February, [facility] [address] [id number] [address] [place] [address], [place] [address] Jan, [facility] [address] [id number] [address] [place] [address], [place] [address] Dec, [facility] [address] [id number] [address] [place] [address] Dec, [facility] [address] [id number] [address] [place] [address] Nov, [facility] [address] [id number] [address] [place] [address] Oct, [facility] [address] [id number] [address] [place] [address] Oct, [facility] [address] [id number] [address] [place] [address] Aug, [facility] [address] [id number] [address] [place] [address] Jul, [facility] [address] [id number] [address] [place] [address] Jul, [facility] [address] [id number] [address] [place] [address] Jul, [facility] [address] [id number] [address] [place] [address] Sep, [facility] [address] [id number] [address] [place] [address] Aug, IMMUNIZATIONS No Known Immunizations SOCIAL HISTORY Never Assessed REASON FOR VISIT intake PLAN OF CARE Activity Details Follow Up 6 Weeks Reason: VITAL SIGNS MEDICATIONS Medication Instructions Dosage Frequency Start Date End Date Duration S tatus Multivitamin Active HydrOXYzine HCl 25 MG Orally TID prn 0.5-2 tabs May, 30 day(s) Active Zoloft 50 MG Orally Once a day 0.5 tablet for one week then t betsy full tablet 24h May, 30 day(s) Active RESULTS No Results PROCEDURES No Known procedures [...]
--- OUTSIDE RECORDS SUMMARY | 2020-04-11 21:04 | XMS REPORT | Continuity of Care Document ---
Demographics Preferred Language Unknown Marital Status Unknown Baptism Affiliation Unknown Race Unknown Ethnic Group Unknown Author Organization Unknown Address Unknown Phone Unavailable Allergies Active Description Code Type Severity Reaction Onset Reported/Identified Relationship to Patient Clinical Status Yes No Known Allergies 22720440 N/A N/A Yes No Known Drug Allergies 92716304 N/A N/A Yes No Known Environmental Allergies 98882 997 N/A N/A Yes No Known Food Allergies 64853959 N/A N/A Medications There is no data. 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 Results There is no data. Encounters ACCT No. Visit Date/Time Discharge Status Pt. Type Provider Facility Loc./Unit Complaint [id number] 02/27/2019 11:42:56 Document Registration [id number] 09/26/2018 08:21:33 Document Registration [id number] 09/26/2018 08:05:50 Document Registration [id number] 08/28/2018 10:07:11 Document Registration [id number] 01/30/2018 08:01:09 Document Registration [id number] 10/16/2017 07:25:11 Document Registration [id number] 10/16/2017 07:20:58 Document Registration [id number] 10/04/2017 15:48:52 Document Registration [id number] 02/27/2019 12:05:29 02/27/2019 23:59: 59 CLS Outpatient India Gilliam [id number] 10/11/2018 16:27:20 10/11/2018 23:59: 59 CLS Outpatient Heber Gan [id number] 10/04/2017 12:05:00 10/04/2017 23:59: 59 CLS Outpatient [place] Gilliam [id number] 06/08/2015 21:27:15 06/08/2015 23:59: 59 CLS Outpatient Miko Medley [id number] 06/08/2015 21:27:14 06/08/2015 23:59: 59 CLS Outpatient Tse, Fernie Smith [id number] 02/27/2015 10:55:45 02/27/2015 23:59: 59 CLS Outpatient Tse, Fernie Smith [id number] 02/25/2015 14:29:04 02/25/2015 23:59: 59 CLS Outpatient TseFernie [id number] 02/16/2015 11:58:53 02/16/2015 23:59: 59 CLS Outpatient Lainey Vázquez [id number] 02/09/2015 12:16:26 02/09/2015 23:59: 59 CLS Outpatient Tse, Fernie Smith [id number] 02/02/2015 12:32:15 02/02/2015 23:59: 59 CLS Outpatient Tse, Fernie Smith [id number] 01/23/2015 11:32:46 01/23/2015 23:59: 59 CLS Outpatient TseFernie [id number] 10/01/2014 16:18:48 10/01/2014 23:59: 59 CLS Outpatient TseFernie [id number] 08/27/2014 10:43:53 08/27/2014 23:59: 59 CLS Outpatient TseFernie [id number] 07/10/2014 10:16:53 07/10/2014 23:59: 59 CLS Outpatient TseFernie [id number] 01/29/2018 14:20:00 01/29/2018 23:59:5 9 CLS Outpatient GUILLE CALDERON LACSandie GASTON [id number] 06/19/2012 15:33:00 06/19/2012 23:59:5 9 CLS Outpatient STEVO MAJOR APRN
--- OUTSIDE RECORDS SUMMARY | 2020-04-11 21:04 | XMS REPORT ---
Author Author Ana Sawant Doctor Organization [facility] Address Unknown Phone Unavailable Care Team Providers Care Photographer Still Name Role Phone Migration, Doctor Unavailable Unavailable PROBLEMS Type Condition ICD9-CM Code GNK00-NR Code Onset Dates Condition S tatus SNOMED Code Problem Non-seasonal allergic rhinitis, unspecified trigger J30.89 Active 81799273 Problem Tobacco use disorder F17.200 Active 162107103 Problem Moderate persistent asthma without complication J4 5.40 Active 347202636 Problem Panic disorder F41.0 Active 11739 1005 Problem PTSD (post-traumatic stress disorder) F43.10 Active 60427376 ALLERGIES No Information ENCOUNTERS Encounter Location Date Diagnosis [facility] [address] [id number] [place] [address] May, PTSD (post-traumatic stress disorder) F4 3.10 [facility] [address] [id number] [place] [address] Jan, Acute severe exacerbation of moderate pe rsistent asthma J45.41 ; Non- seasonal allergic rhinitis, unspecified trigger J30.89 ; Acute non-recurrent maxillary sinusitis J01.00 and Tobacco use disorder F17.200 [facility] [address] [facility] [id number] [address] [place] [address] Jan, [facility] [address] [facility] [id number] [address] [place] [address] Jan, [facility] [address] [facility] [id number] [address] [place] [address] Aug, [facility] [address] [facility] [id number] [address] [place] [address] Aug, [facility] [address] [facility] [id number] [address] [place] [address] Jul, [facility] [address] [facility] [id number] [address] [place] [address] Jul, [facility] [address] [id number] [address] [place] [address], [place] [address] Jul, [facility] [address] [id number] [address] [place] [address], [place] [address] Jul, [facility] [address] [id number] [address] [place] [address], [place] [address] Jul, [facility] [address] [id number] [address] [place] [address], [place] [address] Jul, [facility] [address] [id number] [address] [place] [address], [place] [address] Jul, [facility] [address] [id number] [address] [place] [address], [place] [address] May, [facility] [address] [id number] [address] [place] [address], [place] [address] Apr, [facility] [address] [id number] [address] [place] [address], [place] [address] Apr, [facility] [address] [id number] [address] [place] [address], [place] [address] Mar, [facility] [address] [id number] [address] [place] [address], [place] [address] February, [facility] [address] [id number] [address] [place] [address], [place] [address] February, [facility] [address] [id number] [address] [place] [address], [place] [address] Jan, [facility] [address] [id number] [address] [place] [address], [place] [address] Dec, [facility] [address] [id number] [address] [place] [address], [place] [address] Dec, [facility] [address] [id number] [address] [place] [address], [place] [address] Nov, [facility] [address] [id number] [address] [place] [address] Oct, [facility] [address] [id number] [address] [place] [address] Oct, [facility] [address] [id number] [address] [place] [address] Aug, [facility] [address] [id number] [address] [place] [address] Jul, [facility] [address] [id number] [address] [place] [address] Jul, [facility] [address] [id number] [address] [place] [address] Jul, [facility] [address] [id number] [address] [place] [address] Sep, [facility] [address] [id number] [address] [place] [address] Aug, IMMUNIZATIONS No Known Immunizations SOCIAL HISTORY Never Assessed REASON FOR VISIT EMR-[facility] [place] PLAN OF CARE VITAL SIGNS MEDICATIONS No [...]
--- OUTSIDE RECORDS SUMMARY | 2020-04-11 21:04 | XMS REPORT ---
Author Author Ana Sawant Doctor Organization [facility] Address Unknown Phone Unavailable Care Team Providers Care Food Trades Assistants Name Role Phone Migration, Doctor Unavailable Unavailable PROBLEMS Type Condition ICD9-CM Code ZBF26-CO Code Onset Dates Condition S tatus SNOMED Code Problem Non-seasonal allergic rhinitis, unspecified trigger J30.89 Active 27132248 Problem Tobacco use disorder F17.200 Active 844228029 Problem Moderate persistent asthma without complication J4 5.40 Active 931749347 Problem Panic disorder F41.0 Active 65776 1005 Problem PTSD (post-traumatic stress disorder) F43.10 Active 85495732 ALLERGIES No Information ENCOUNTERS Encounter Location Date Diagnosis [facility] [address] [id number] [place] [address] Jan, [facility] [employer] [address] [id number] [place] [address] May, PTSD (post-traumatic stress disorder) F4 3.10 [facility] [employer] [address] [id number] [place] [address] Jan, Acute severe exacerbation of moderate pe rsistent asthma J45.41 ; Non- seasonal allergic rhinitis, unspecified trigger J30.89 ; Acute non-recurrent maxillary sinusitis J01.00 and Tobacco use disorder F17.200 [facility] [place] [address] [id number] [address] [place] [phone] Jan, [facility] [place] [address] [id number] [address] [place] [address] Jan, [facility] [place] [address] [id number] [address] [place] [phone] Aug, [facility] [place] [address] [id number] [address] [place] [phone] Aug, [facility] [place] [address] [id number] [address] [place] [address] Jul, [facility] [address] [id number] [address] [place] [address], [place] [address] Jul, [facility] [address] [id number] [address] [place] [address], [place] [address] Jul, [facility] [address] [id number] [address] [place] [address], [place] [address] Jul, [facility] [address] [id number] [address] [place] [address], [place] [address] Jul, [facility] [address] [id number] [address] [place] [address], [place] [address] Jul, [facility] [address] [id number] [address] [place] [address], [place] [address] Jul, [facility] [address] [id number] [address] [place] [address], [place] [address] May, [facility] [address] [id number] [address] [place] [address], [place] [address] Apr, [facility] [address] [id number] [address] [place] [address], [place] [address] Apr, [facility] [address] [id number] [address] [place] [address], [place] [address] Mar, [facility] [address] [id number] [address] [place] [address], [place] [address] February, [facility] [address] [id number] [address] [place] [address], [place] [address] February, [facility] [address] [id number] [address] [place] [address], [place] [address] Jan, [facility] [address] [id number] [address] [place] [address], [place] [address] Dec, [facility] [address] [id number] [address] [place] [address], [place] [address] Dec, [facility] [address] [id number] [address] [place] [phone] Nov, [facility] [place] [address] [id number] [address] [place] [phone] Oct, [facility] [place] [address] [id number] [address] [place] [phone] Oct, [facility] [place] [address] [id number] [address] [place] [phone] Aug, [facility] [place] [address] [id number] [address] [place] [phone] Jul, [facility] [place] [address] [id number] [address] [place] [phone] Jul, [facility] [place] [address] [id number] [address] [place] [phone] Jul, [facility] [place] [address] [id number] [address] [place] [phone] Sep, [facility] [place] [address] [id number] [address] [place] [phone] Aug, IMMUNIZATIONS No Known Immunizations SOCIAL HISTORY Never Assessed REASON FOR VISIT [facility] PLAN OF CARE VITAL SIGNS MEDICATIONS Medication Instructions Dosage Frequency Start Date End Date Duration S tatus Ambien 10 mg 1 tablet by Oral route 1 time per dayPRN May, Active Xanax 1 mg 1 tablet by Oral route 3 times per day Jul Active dextroamphetamine 15 mg 2 Capsule by Ora l route 2 times per dayin morning and at noon for adhd Jul, Active RESULTS No Results PROCEDURES No Known [...]
--- OUTSIDE RECORDS SUMMARY | 2020-04-11 21:04 | XMS REPORT ---
Author Author Ana Gililam Organization [facility] Address [address] [place], [place] [address] Care Team Providers Care Mail Teller Name Role Phone India Gilliam PCP Allergies and Adverse Reactions Name Reaction Notes NO KNOWN DRUG ALLERGIES Plan of Treatment Not available. Medications Active Name Start Date Estimated Completion Date SIG Co mments Trintellix oral Flagyl 500 mg oral tablet 10/09/2017 take 1 tablet (500 mg) by oral route 2 times per day for 7 days Name Start Date Expiration Date SIG Comments [...] Plan [employer] [id number] N[place] [employer] [place] [employer] [place] [id number] N/A History of Encounters Visit Date Visit Type Provider 10/04/2017 Office visit 10/04/2017 Office visit India Bob n FERRYBOAT PILOT 02/27/2015 Office visit YANIRA GRULLON MD 02/25/2015 Office visit YANIRA GRULLON MD 02/17/2015 [facility] Miko Medley MD 02/17/2015 [facility] YANIRA GRULLON MD 02/16/2015 Office visit Yanira Grullon MD 02/09/2015 Office visit Fernie Tse MD 02/02/2015 Office visit Fernie Tse MD 01/23/2015 Office visit Fernie Tse MD 01/07/2015 Office visit Fernei Tse MD 12/24/2014 Office visit Fernie Tse MD 10/01/2014 Office visit Fernie Tse MD 08/27/2014 Office visit Fernie Tse MD 07/10/2014 Office visit Fernie Tse MD
--- OUTSIDE RECORDS SUMMARY | 2020-04-11 21:04 | XMS REPORT ---
Author Author Ana CHIU Organization [facility] Address [address] [place] [address] Care Team Providers Care Retoucher Name Role Phone AUSTYN CHIU Unavailable PROBLEMS Type Condition ICD9-CM Code XTN22-LG Code Onset Dates Condition S tatus SNOMED Code Problem Tobacco use disorder F17.200 Active 700430051 Problem Non-seasonal allergic rhinitis, unspecified trigger J30.89 Active 41989137 Problem Moderate persistent asthma without complication J4 5.40 Active 651542686 Problem PTSD (post-traumatic stress disorder) F43.10 Active 28437310 Problem Panic disorder F41.0 Active 48164 1005 ALLERGIES No Known Allergies ENCOUNTERS Encounter Location Date Diagnosis [facility] [id number] [place] [address] Jan, Acute severe exacerbation of moderate pe rsistent asthma J45.41 ; Non- seasonal allergic rhinitis, unspecified trigger J30.89 ; Acute non-recurrent maxillary sinusitis J01.00 and Tobacco use disorder F17.200 [facility] [place] [address] [facility] [id number] [address] [place] [address] Jan, [facility] [place] [address] [facility] [id number] [address] [place] [phone] Jan, [facility] [place] [address] [facility] [id number] [address] [place] [phone] Aug, [facility] [place] [address] [facility] [id number] [address] [place] [phone] Aug, [facility] [place] [address] [facility] [id number] [address] [place] [phone] Jul, [facility] [place] [address] [facility] [id number] [address] [place] [phone] Jul, [facility] [address] [id number] [address] [place] [address], [place] [address] Jul, [facility] [address] [id number] [address] [place] [address], [place] [address] Jul, [facility] [address] [id number] [address] [place] [address], [place] [address] Jul, [facility] [address] [id number] [address] [place] [address], [place] [address] Jul, [facility] [address] [id number] [address] [place] [address], [place] [address] Jul, [facility] [address] [id number] [address] [place] [address], [place] [address] May, [facility] [address] [id number] [address] [place] [address], [place] [address] Apr, [facility] [address] [id number] [address] [place] [address], [place] [address] Apr, [facility] [address] [id number] [address] [place] [address], [place] [address] Mar, [facility] [address] [id number] [address] [place] [address], [place] [address] February, [facility] [address] [id number] [address] [place] [address], [place] [address] February, [facility] [address] [id number] [address] [place] [address], [place] [address] Jan, [facility] [address] [id number] [address] [place] [address], [place] [address] Dec, [facility] [address] [id number] [address] [place] [address], [place] [address] Dec, [facility] [address] [id number] [address] [place] [address], [place] [address] Nov, [facility] [address] [id number] [address] [place] [phone] Oct, [facility] [place] [address] [id number] [address] [place] [phone] Oct, [facility] [place] [address] [id number] [address] [place] [address] Aug, [facility] [place] [address] [id number] [address] [place] [phone] Jul, [facility] [place] [address] [id number] [address] [place] [phone] Jul, [facility] [place] [address] [id number] [address] [place] [phone] Jul, [facility] [place] [address] [id number] [address] [place] [phone] Sep, [facility] [place] [address] [facility] [id number] [address] [place] [address] Aug, IMMUNIZATIONS No Known Immunizations SOCIAL HISTORY Never Assessed REASON FOR VISIT Congestion, Pt states being congested for aboout 6 months., Pt has a productive cough, sinus drainage, Rt ear pain. GIANNA Gutierrez PLAN OF CARE Activity Details Follow Up 2 Weeks Reason:Cough VITAL SIGNS Height 61.5 in 2018-01-29 Weight 125.8 lbs 2018-01-29 Temperature 98.7 degrees Fahrenheit 2018-01-29 Heart Rate 94 bpm 2018-01-29 Respiratory Rate 18 2018-01-29 Oximetry 97 % 2018-01-29 BMI 23.38 kg/m2 2018-01-29 Blood pressure systolic 100 mmHg 2018-01-29 Blood pressure diastolic 62 mmHg 2018-01-29 MEDICATIONS Medication Instructions Dosage Frequency Start Date End Date Duration S tatus PredniSONE 10 mg Orally Once a day 4 tablets 24h 5 d ays Active Augmentin 875-125 MG Orally every 12 hrs 1 tablet 12h 10 days Active Symbicort 160-4.5 MCG/ACT Inhalation Twice a day 2 puffs 12h Active Flonase 50 MCG/ACT Nasally Once a day 2 sprays in each nostril 24h Active ProAir HFA 108 (90 Base) MCG/ACT Inhalation every 4 hrs 2 pu ffs as needed for cough or wheezing 4h Active RESULTS Name Result Date Reference Range Xray : Chest (PA lateral) 2018-01-30 Xray : Chest (PA lateral) 2018-01-30 PROCEDURES No Known procedures INSTRUCTIONS MEDICATIONS ADMINISTERED [...]
--- OUTSIDE RECORDS SUMMARY | 2020-04-11 21:04 | XMS REPORT ---
Author Author Ana Sawant Doctor Organization [facility] Address Unknown Phone Unavailable Care Team Providers Care Naval Architect Specialist Name Role Phone Migration, Doctor Unavailable Unavailable PROBLEMS Type Condition ICD9-CM Code IMT02-KM Code Onset Dates Condition S tatus SNOMED Code Problem Non-seasonal allergic rhinitis, unspecified trigger J30.89 Active 65117169 Problem Tobacco use disorder F17.200 Active 806158873 Problem Moderate persistent asthma without complication J4 5.40 Active 621944231 Problem Panic disorder F41.0 Active 74720 1005 Problem PTSD (post-traumatic stress disorder) F43.10 Active 50500498 ALLERGIES No Information ENCOUNTERS Encounter Location Date Diagnosis [address] [id number] [place] [address] Mar, [place] [address] [id number] [address] [place] [phone] Jan, PTSD (post-traumatic stress disorder) F43.[address] [address] Jul, PTSD (post-traumatic stress disorder) F43.10 [facility] [address] [id number] [place] [address] May, PTSD (post-traumatic stress disorder) F4 3.10 [facility] [address] [id number] [place] [address] Jan, Acute severe exacerbation of moderate pe rsistent asthma J45.41 ; Non- seasonal allergic rhinitis, unspecified trigger J30.89 ; Acute non-recurrent maxillary sinusitis J01.00 and Tobacco use disorder F17.200 [place] [address] [id number] [address] [place] [address] Jan, [place] [address] [address] Jan, [facility] [address] [id number] [address] [place] [address], [place] [address] Aug, [facility] [address] [id number] [address] [place] [address], [place] [address] Aug, [facility] [address] [id number] [address] [place] [address], [place] [address] Jul, [facility] [address] [id number] [address] [place] [address], [place] [address] Jul, [facility] [address] [id number] [address] [place] [address], [place] [address] Jul, [facility] [address] [id number] [address] [place] [address], [place] [address] Jul, [facility] [address] [id number] [address] [place] [address], [place] [address] Jul, [facility] [address] [id number] [address] [place] [address], [place] [address] Jul, [facility] [address] [id number] [address] [place] [address], [place] [address] Jul, [facility] [address] [id number] [address] [place] [address], [place] [address] May, [facility] [address] [id number] [address] [place] [address], [place] [address] Apr, [facility] [address] [id number] [address] [place] [address], [place] [address] Apr, [facility] [address] [id number] [address] [place] [address], [place] [address] Mar, [facility] [address] [id number] [address] [place] [address], [place] [address] February, [facility] [address] [id number] [address] [place] [address], [place] [address] February, [facility] [address] [id number] [address] [place] [phone] Jan, [facility] [place] [address] [id number] [address] [place] [address] Dec, [facility] [place] [address] [id number] [address] [place] [phone] Dec, [facility] [place] [address] [id number] [address] [place] [address] Nov, [facility] [place] [address] [id number] [address] [place] [address] Oct, [facility] [place] [address] [id number] [address] [place] [address] Oct, [facility] [place] [address] [id number] [address] [place] [address] Aug, [facility] [place] [address] [id number] [address] [place] [address] Jul, [facility] [place] [address] [id number] [address] [place] [address] Jul, [facility] [place] [address] [id number] [address] [place] [phone] Jul, [facility] [place] [address] [id number] [address] [place] [address] Sep, [facility] [place] [address] [id number] [address] [place] [address] Aug, IMMUNIZATIONS No Known Immunizations SOCIAL HISTORY Never Assessed REASON FOR VISIT PLAN OF CARE VITAL SIGNS Height 61.5 in 2012-04-19 Heart Rate 88 bpm 2012-04-19 Blood pressure systolic 108 mmHg 2012-04-19 Blood pressure diastolic 70 mmHg 2012-04-19 MEDICATIONS Unknown Medications RESULTS No Results PROCEDURES No Known [...]
--- OUTSIDE RECORDS SUMMARY | 2020-04-11 21:04 | XMS REPORT | CCD ---
Author Author PRAVEENA ALSTON Organization Unknown Address [address] [facility] [address] [place], [place] [id number] Care Team Providers Care Shirt Line Operator Name Role Phone [facility], ERIN DO Attphys [facility], ERIN DO Prisurg Vital Signs Unknown. Allergies Allergy Code Allergy Type Reaction Status No Known Allergies 0 No known allergies Active Procedures Unknown. History of Immunizations Unknown. Problems Unknown. Results Unknown. Medications Unknown. Medications Administered Unknown. Encounters Encounter Diagnosis Diagnosis Code Start Date FX METATARSAL-CLOSED 21582 05/14/2014 Social History Smoking Status Code Start Date End Date Current every day smoker [id number] Patient Decision Aids Unknown. Discharge Instructions You were admitted to [facility] on 05/14/2014 with a principle diagnosis of FX METATARSAL-CLOSED. You were discharged from [facility] on 05/14/2014. Should you have any questions prior to discharge, please contact a member of your healthcare team. If you have left the hospital and have any questions, please contact your primary care physician. Chief Complaint and Reason For Visit Chief Complaint Date of Onset FOOT PAIN LAC ON FACE Function Status Unknown. Referral/Transition of Care Unknown.
--- OUTSIDE RECORDS SUMMARY | 2020-04-11 21:04 | XMS REPORT ---
Author Author [facility] Organization [facility] Address [address] [place], [place] [address] Care Team Providers Care Residential Program Director Name Role Phone PCP Unavailable Allergies and [...] HC BMI BSA BMI Percentile O2 Sat(%) 02/25/2015 1:36:00 PM 117 mmHg 76 mmHg 72 bpm 99.1 F 02/16/2015 11:09:00 AM 111 mmHg 67 mmHg 82 bpm 97.8 F 141.375 lbs 61. 5 in 26.2797 kg/m 1.6681 m 100 % 07/10/2014 9:49:00 AM 110 mmHg 71 mmHg 120 bpm 99 F 112.5 lbs 61.5 i n 20.91 kg/m2 1.49 m2 Social History Name Description Comments Alcohol stopped [...] 12:03PM Tobacco abuse Jan 23 2015 12:03PM Payers Insurance Name Company Name Plan Name Plan Number Policy Number Jourdan cy Group Number Start Date [employer] [place] [employer] [id number] N/A History of Encounters Visit Date Visit Type Provider 02/25/2015 Office visit Yanira Grullon MD 02/16/2015 [...]
[2020-04-11] MEDS ORDERED: QUET100T PO (21:20)
[2020-04-11] MEDS ORDERED: SERT100T PO (21:20)
[2020-04-11] MEDS ORDERED: NS IV 1000 ML 1,000 ML IV SCH (21:25)
[2020-04-11] MEDS ORDERED: fentaNYL INJECTION 100 MCG/2 ML AMP IVP ONE (21:30)
[2020-04-11 21:42] LABS: BASOPHILS % (AUTO) 1 % (0-10); EOSINOPHILS # (AUTO) 0.2 10^3/uL (0.0-0.3); EOSINOPHILS % (AUTO) 2 % (0-10); HEMATOCRIT 46 % (35-52); HEMOGLOBIN 15.9 G/DL (11.5-16.0); LYMPHOCYTES # (AUTO) 2.7 X 10^3 (1.0-4.0); LYMPHOCYTES % (AUTO) 32 % (12-44); MEAN CORPUSCULAR HEMOGLOBIN 33 PG (25-34); MEAN CORPUSCULAR HGB CONC 35 G/DL (32-36); MEAN CORPUSCULAR VOLUME 93 FL (80-99); MEAN PLATELET VOLUME 8.9 FL (7.4-10.4); MONOCYTES # (AUTO) 0.8 X 10^3 (0.0-1.0); MONOCYTES % (AUTO) 10 % (0-12); NEUTROPHILS # (AUTO) 4.6 X 10^3 (1.8-7.8); NEUTROPHILS % (AUTO) 56 % (42-75); PLATELET COUNT 466 10^3/uL (130-400); RED CELL DISTRIBUTION WIDTH 14.9 % (10.0-14.5); WHITE BLOOD COUNT 8.4 10^3/uL (4.3-11.0)
[2020-04-11 21:54] LABS: ALBUMIN 4.2 GM/DL (3.2-4.5); CHLORIDE 108 MMOL/L (98-107); POTASSIUM 2.8 MMOL/L (3.6-5.0); SODIUM 143 MMOL/L (135-145)
[2020-04-11 21:55] LABS: CALCIUM 8.8 MG/DL (8.5-10.1)
[2020-04-11 21:57] LABS: GLUCOSE 94 MG/DL (70-105); TOTAL PROTEIN 7.3 GM/DL (6.4-8.2)
[2020-04-11 21:58] LABS: BILIRUBIN,TOTAL 0.4 MG/DL (0.1-1.0); CARBON DIOXIDE 23 MMOL/L (21-32)
[2020-04-11 22:00] LABS: ALKALINE PHOSPHATASE 78 U/L (40-136); GFR ESTIMATED > 60
[2020-04-11 22:01] LABS: BUN/CREATININE RATIO 9
[2020-04-11 22:03] LABS: ALANINE AMINOTRANSFERASE 11 U/L (0-55)
[2020-04-11] MEDS ORDERED: HOLD METFORMIN - RECEIVED CONTRAST 20 ML VIAL IV SCH (22:15)
[2020-04-11] MEDS ORDERED: IOHEXOL 350 MG/ML 100 ML (OMNIPAQUE 350) VIAL IV ONE (22:15)
[2020-04-11] MEDS ORDERED: NS 100 ML (IVPB) BAG IV ONE (22:15)
[2020-04-11 23:11] LABS: BILIRUBIN,URINE NEGATIVE (NEGATIVE); CLARITY,URINE CLEAR; COLOR,URINE YELLOW; GLUCOSE, URINE (UA) NEGATIVE (NEGATIVE); KETONES,URINE NEGATIVE (NEGATIVE); LEUKOCYTE ESTERASE ,URINE NEGATIVE (NEGATIVE); NITRITE,URINE NEGATIVE (NEGATIVE); PH,URINE 6.5 (5-9); PROTEIN,URINE NEGATIVE (NEGATIVE)
[2020-04-11 23:18] LABS: BACTERIA,URINE NEGATIVE /HPF; RBC,URINE 0-2 /HPF; SQUAMOUS EPITHELIAL CELL,UR RARE /HPF
--- NOTE | 2020-04-11 23:20 | ED Fall/Injury ---
General Chief Complaint: Trauma-Non Activation Stated Complaint: L HIP LAC, SOB Nursing Triage Note: PATIENT FELL ON METAL BARS AT THE PARK. SHE IS COMPLAINING OF LEFT HIP/GROIN PAIN. THERE IS AN ABRASION PRESENT WITH BRUISING AND SWELLING. PATIENT ALSO COMPLAINING OF LEFT RIB PAIN THAT GETS WORSE WITH TAKING A DEEP BREATH. NO BRUISING OR DEFORMITIES FOUND TO RIB AREA. Source: patient Exam Limitations: no limitations History of Present Illness Date Seen by Provider: Apr 11, 2020 Time Seen by Provider: 21:20 Initial Comments This 44-year-old woman presents to the emergency room by private vehicle with pain in the left upper quadrant and left lower chest after falling on monkey bar-like playground equipment. She struck her left side directly on the metal bars. She now has pain with breathing and moving. She is quite concerned and in mild distress. She has also an abrasion on the right groin/hip area. There was no head or neck injury. Occurred: just prior to arrival Allergies and Home Medications Allergies Coded Allergies: No Known Drug Allergies (Unverified , 04/11/20) Home Medications Quetiapine Fumarate 100 Mg Tablet, 100 MG PO Q6H, (Reported) Sertraline HCl 100 Mg Tablet, 100 MG PO DAILY, (Reported) Patient Home Medication List Home Medication List Reviewed: Yes Review of Systems Review of Systems Constitutional: no symptoms reported Eyes: No Symptoms Reported Ears, Nose, Mouth, Throat: no symptoms reported Respiratory: see HPI Cardiovascular: no symptoms reported Gastrointestinal: see HPI Genitourinary: no symptoms reported : No Musculoskeletal: see HPI Skin: no symptoms reported Psychiatric/Neurological: No Symptoms Reported Past Hzerdxu-Ezidjw-Vjrlxm Hx Patient Social History Alcohol Use: Occasionally Uses Recreational Drug Use: No Smoking Status: Current Everyday Smoker Type Used: Cigarettes 2nd Hand Smoke Exposure: No Recent Foreign Travel: No Contact w/Someone Who Travel: No Recent Infectious Disease Expo: No Recent Hopitalizations: No Physical Abuse: No Sexual Abuse: No Mistreated: No Fear: No Immunizations Up To Date Tetanus Booster (TDap): Unknown Seasonal Allergies Seasonal Allergies: No Past Medical History Surgeries: Yes (LEEP, X 5) Section Respiratory: No Cardiac: No Neurological: No Last Menstrual Period: Apr 11, 2020 Genitourinary: No Gastrointestinal: No Musculoskeletal: No Endocrine: No HEENT: No Cancer: No Psychosocial: Yes Depression Physical Exam Vital Signs Vital Signs - First Documented 04/11/20 21:00 Temp 36.2 Pulse 110 Resp 16 B/P (MAP) 92/79 (83) Pulse Ox 96 O2 Delivery Room Air Capillary Refill : Less Than 3 Seconds Height, Weight, BMI Height: '" Weight: lbs. oz. 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, no motor/sensory deficits, alert, oriented x 3, other (anxious) Skin: warm/dry, ecchymosis Progress/Results/Core Measures Results/Orders Lab Results Laboratory Tests Test 04/11/20 21:30 04/11/20 23:04 Range/Units White Blood Count 8.4 4.3-11.0 10^3/uL Red Blood Count 4.89 4.35-5.85 10^6/uL Hemoglobin 15.9 11.5-16.0 G/DL Hematocrit 46 35-52 % Mean Corpuscular Volume 93 80-99 FL Mean Corpuscular Hemoglobin 33 25-34 PG Mean Corpuscular Hemoglobin Concent 35 32-36 G/DL Red Cell Distribution Width 14.9 H 10.0-14.5 % Platelet Count 466 H 130-400 10^3/uL Mean Platelet Volume 8.9 7.4-10.4 FL Neutrophils (%) (Auto) 56 42-75 % Lymphocytes (%) (Auto) 32 12-44 % Monocytes (%) (Auto) 10 0-12 % Eosinophils (%) (Auto) 2 0-10 % Basophils (%) (Auto) 1 0-10 % Neutrophils # (Auto) 4.6 1.8-7.8 X 10^3 Lymphocytes # (Auto) 2.7 1.0-4.0 X 10^3 Monocytes # (Auto) 0.8 0.0-1.0 X 10^3 Eosinophils # (Auto) 0.2 0.0-0.3 10^3/uL Basophils # (Auto) 0.0 0.0-0.1 10^3/uL Sodium Level 143 135-145 MMOL/L Potassium Level 2.8 L 3.6-5.0 MMOL/L Chloride Level 108 H 98-107 MMOL/L Carbon Dioxide Level 23 21-32 MMOL/L Anion Gap 12 5-14 MMOL/L Blood Urea Nitrogen 6 L 7-18 MG/DL Creatinine 0.70 0.60-1.30 MG/DL Estimat Glomerular Filtration Rate > 60 BUN/Creatinine Ratio 9 Glucose Level 94 70-105 MG/DL Calcium Level 8.8 8.5-10.1 MG/DL Corrected Calcium 8.6 8.5-10.1 MG/DL Total Bilirubin 0.4 0.1-1.0 MG/DL Aspartate Amino Transf (AST/SGOT) 27 5-34 U/L Alanine Aminotransferase (ALT/SGPT) 11 0-55 U/L Alkaline Phosphatase 78 40-136 U/L Total Protein 7.3 6.4-8.2 GM/DL Albumin 4.2 3.2-4.5 GM/DL Serum Alcohol 265 H <10 MG/DL Urine Color YELLOW Urine Clarity CLEAR Urine pH 6.5 5-9 Urine Specific [place] <=1.005 1.016-1.022 Urine Protein NEGATIVE NEGATIVE Urine Glucose (UA) NEGATIVE NEGATIVE Urine Ketones NEGATIVE NEGATIVE Urine Nitrite NEGATIVE NEGATIVE Urine Bilirubin NEGATIVE NEGATIVE Urine Urobilinogen 0.2 < = 1.0 MG/DL Urine Leukocyte Esterase NEGATIVE NEGATIVE Urine RBC (Auto) 3+ H NEGATIVE Urine RBC 0-2 /HPF Urine WBC NONE /HPF Urine Squamous Epithelial Cells RARE /HPF Urine Crystals NONE /LPF Urine Bacteria NEGATIVE /HPF Urine Casts NONE /LPF Urine Mucus NEGATIVE /LPF Urine Culture Indicated NO My Orders Orders - INES ABREU MD Alcohol (04/11/20 21:25) Cbc With Automated Diff (04/11/20 21:25) Comprehensive Metabolic Panel (04/11/20 21:25) Ua Culture If Indicated (04/11/20 21:25) Ed Iv/Invasive Line Start (04/11/20 21:25) Ns Iv 1000 Ml (Sodium Chloride 0.9%) (04/11/20 21:25) Fentanyl Injection (Sublimaze Injection (04/11/20 21:30) Ct Chest/Abdomen/Pelvis W (04/11/20 21:25) Iohexol Injection (Omnipaque 350 Mg/Ml 1 (04/11/20 22:15) Received Contrast (Hold Metformin- Contr (04/11/20 22:15) Ns (Ivpb) (Sodium Chloride 0.9% Ivpb Bag (04/11/20 22:15) Ketorolac Injection (Toradol Injection) (04/11/20 23:30) Medications Given in ED Vital Signs/I&O 04/11/20 04/11/20 21:00 23:30 Temp 36.2 36.5 Pulse 110 107 Resp 16 18 B/P (MAP) 92/79 (83) 97/76 (83) Pulse Ox 96 97 O2 Delivery Room Air Room Air 04/12/20 00:00 Intake Total 1000 ml Balance 1000 ml Blood Pressure Mean: 83 Progress Progress Note : Progress Note Patient's pain was treated first with fentanyl and then with Toradol. CT imaging was obtained as she had both tenderness in the soft portion of the abdomen and the chest wall. No injuries were identified at the time of her ER visit. However, the [employer] over read of the CT suggested possible eighth rib fracture. I've been unable to contact the patient to communicate this. Patient received a liter of IV fluid and had been discharged home. Diagnostic Imaging Diagonstic Imaging: CT Plain Films/CT/US/NM/MRI: chest, abdomen, pelvis Comments CT scan was viewed by me and [employer] report reviewed. No serious injuries were identified on stat rad report were by my interpretation. The [employer] over read however did suggested possible eighth rib fracture. I did attempt to contact the patient by phone. Her number was not a working number and no alternative contacts were noted. NAME: PRAVEENA FUENTES MED REC#: [id number] PT STATUS: DEP ER : 1975 PHYSICIAN: INES ABREU MD ADMIT DATE: 04/11/20/ER Signed Date of Exam:04/11/20 CT CHEST/ABDOMEN/PELVIS W PROCEDURE: CT chest, abdomen, and pelvis with contrast. TECHNIQUE: Multiple contiguous axial images were obtained through the chest, abdomen, and pelvis after the administration of intravenous contrast. Auto Exposure Controls were utilized during the CT exam to meet ALARA standards for radiation dose reduction. INDICATION: Fall, complaining of left hip and groin pain. Patient also complains of left rib pain. CT CHEST: No definite mediastinal hematoma or great vessel injury is identified. No pericardial or pleural fluid is identified. No pneumothorax or pulmonary contusion is seen. There is some minimal scarring or subsegmental atelectasis in the posterior left lower lobe. There is a questionable nondisplaced fracture involving the lateral aspect of the left 8th rib. No other rib fractures are identified. IMPRESSION: Probable nondisplaced left lateral 8th rib fracture. No other significant abnormalities detected. CT abdomen and pelvis: No focal liver or splenic laceration is seen. Gallbladder is unremarkable. The pancreas, adrenal glands and kidneys are unremarkable. Aorta is non-aneurysmal. Bowel loops are normal caliber. There is no free fluid identified. There is a cyst in the right adnexa measuring 4.5 cm likely ovarian. The uterus and bladder are unremarkable. Bony structures are unremarkable. IMPRESSION: 1. Right adnexal cyst. 2. No evidence of abdominal or pelvic visceral injury. Dictated by: Dictated on workstation # [id number] Dict: 04/12/2012 Trans: 04/12/20 [id number] [id number] Interpreted by: JIMMY CARLOS MD Electronically signed by: JIMMY CARLOS MD 04/12/20 1341 Departure Impression Primary Impression: Contusion, chest wall Qualified Codes: S20.212A - Contusion of left front wall of thorax, initial encounter Additional Impressions: Contusion of left hip Qualified Codes: S70.02XA - Contusion of left hip, initial encounter Fall from playground equipment Qualified Codes: W09.8XXA - Fall on or from other playground equipment, initial encounter Rib fracture Qualified Codes: S22.32XA - Fracture of one rib, left side, initial encounter for closed fracture Disposition: HOME, SELF-CARE Condition: Improved Departure-Patient Inst. Decision time for Depature: 23:19 Referrals: NO,LOCAL PHYSICIAN (PCP/Family) Primary Care Physician Patient Instructions: Contusion (DC) Add. Discharge Instructions: You may ice injured areas in 20 minute intervals. You may take ibuprofen up to 600 mg every 6 hours as needed and/or Tylenol (acetaminophen) up to 1000 mg every 6 hours as needed. Return to care if you have worsening symptoms. All discharge instructions reviewed with patient and/or family. Voiced u dotty. INES ABREU MD Apr 11, 2020 23:20
[2020-04-11 23:30] VITALS: BP 97/76
[2020-04-11] MEDS ORDERED: KETOROLAC 30 MG/ML VIAL IVP ONE (23:30)
--- NOTE | 2020-04-12 06:25 | Diagnostic Imaging Report ---
PROCEDURE: CT chest, abdomen, and pelvis with contrast. TECHNIQUE: Multiple contiguous axial images were obtained through the chest, abdomen, and pelvis after the administration of intravenous contrast. Auto Exposure Controls were utilized during the CT exam to meet ALARA standards for radiation dose reduction. INDICATION: Fall, complaining of left hip and groin pain. Patient also complains of left rib pain. CT CHEST: No definite mediastinal hematoma or great vessel injury is identified. No pericardial or pleural fluid is identified. No pneumothorax or pulmonary contusion is seen. There is some minimal scarring or subsegmental atelectasis in the posterior left lower lobe. There is a questionable nondisplaced fracture involving the lateral aspect of the left 8th rib. No other rib fractures are identified. IMPRESSION: Probable nondisplaced left lateral 8th rib fracture. No other significant abnormalities detected. CT abdomen and pelvis: No focal liver or splenic laceration is seen. Gallbladder is unremarkable. The pancreas, adrenal glands and kidneys are unremarkable. Aorta is non-aneurysmal. Bowel loops are normal caliber. There is no free fluid identified. There is a cyst in the right adnexa measuring 4.5 cm likely ovarian. The uterus and bladder are unremarkable. Bony structures are unremarkable. IMPRESSION: 1. Right adnexal cyst. 2. No evidence of abdominal or pelvic visceral injury. Dictated by: Dictated on workstation # [id number]
== END 2020-04-11 23:31 | disposition home or self-care (01) ==
LOC: EDUNIT# 20:56 → ER 20:58
DX: S22.32XA Fracture of one rib, left side, initial encounter for closed fracture (principal); S20.212A Contusion of left front wall of thorax, initial encounter; S70.02XA Contusion of left hip, initial encounter; F32.9 Major depressive disorder, single episode, unspecified; F17.210 Nicotine dependence, cigarettes, uncomplicated; W09.8XXA Fall on or from other playground equipment, initial encounter; Y92.830 Public park as the place of occurrence of the external cause
CPT/HCPCS: 36415; 71260; 74177; 80053; 80320; 81000; 85025

== ENCOUNTER 2020-10-31 09:39 | Emergency (ER) | payer MEDICAID ==
[~2020-10-31] VITALS: Ht 154.9 cm; Wt 63.5 kg
[~2020-10-31 09:39] MED LIST: QUET100T PO; SERT100T PO
--- NOTE | 2020-10-31 10:08 | ED Psychosocial ---
General Chief Complaint: Psych/Social Disorder Stated Complaint: ANXIETY ATTACK Nursing Triage Note: Pt reports waking up feeling anxious today. Pt reports having a panic attack. Pt reports taking two seroquel 100 mg this morning. Pt reports dry heaving. Source: patient Exam Limitations: no limitations History of Present Illness Date Seen by Provider: Oct 31, 2020 Time Seen by Provider: 10:08 Initial Comments Patient is a 45-year-old female who presents to the emergency department today with a chief complaint of a panic attack. Patient states she woke up this morning with symptoms of rapid heartbeat and anxiety and shortness of breath and feeling like "I just want to crawl out of my skin". Patient has a long history of anxiety disorder. She has a therapist that she sees [facility]. Patient is on Seroquel for her panic disorder. She is had 1 previous hospitalization approximately 10 years ago for panic disorder. She denies any recent illnesses, fevers, chills, productive cough. No GI or complaints. All other review of systems reviewed and negative except as stated. Timing/Duration: just prior to arrival Associated Symptoms: anxiety, impaired concentration, other (short of breath) Allergies and Home Medications Allergies Coded Allergies: No Known Drug Allergies (Unverified , 04/11/20) Home Medications Quetiapine Fumarate 100 Mg Tablet, 100 MG PO Q6H, (Reported) Sertraline HCl 100 Mg Tablet, 100 MG PO DAILY, (Reported) Patient Home Medication List Home Medication List Reviewed: Yes Review of Systems Constitutional: see HPI EENTM: no symptoms reported Respiratory: short of breath Cardiovascular: no symptoms reported Gastrointestinal: no symptoms reported Genitourinary: no symptoms reported Musculoskeletal: no symptoms reported Skin: no symptoms reported All Other Systems Reviewed Negative Unless Noted: Yes Past Zotxlvx-Pheqxd-Jamlcr Hx Patient Social History Alcohol Use: Occasionally Uses Recreational Drug Use: No Smoking Status: Current Everyday Smoker Type Used: Cigarettes 2nd Hand Smoke Exposure: No Recent Foreign Travel: No Contact w/Someone Who Travel: No Recent Infectious Disease Expo: No Recent Hopitalizations: No Immunizations Up To Date Tetanus Booster (TDap): Unknown Seasonal Allergies Seasonal Allergies: No Past Medical History Surgeries: Yes (LEEP, X 5) Section Respiratory: No Cardiac: No Neurological: No Last Menstrual Period: Oct 27, 2020 Genitourinary: No Gastrointestinal: No Musculoskeletal: No Endocrine: No HEENT: No Cancer: No Psychosocial: Yes Depression Physical Exam Vital Signs - First Documented 10/31/20 09:45 Temp 37.0 Pulse 123 Resp 24 B/P (MAP) 114/82 (93) Pulse Ox 95 O2 Delivery Room Air Capillary Refill : Less Than 3 Seconds Height, Weight, BMI Height: '" Weight: lbs. oz. kg; 26.00 BMI Method: General Appearance: WD/WN, mild distress HEENT: PERRL/EOMI Neck: full range of motion, supple Respiratory: lungs clear, normal breath sounds, no respiratory distress Cardiovascular: regular rate, rhythm Gastrointestinal: non tender, soft Extremities: normal range of motion, non-tender, normal inspection Neurologic/Psychiatric: alert, oriented x 3, other (anxious) Appearance/Memory: appropriate appearance, appropriate insight, neat, no memory impairment Behavior/Eye Contact: good eye contact, increased rate of speech Thoughts/Hallucinations: normal thought pattern, no apparent hallucination Skin: normal color, warm/dry Progress/Results/Core Measures Results/Orders My Orders Orders - BURAK WARNER MD Hydroxyzine Cap/Tab (Vistaril) (10/31/20 10:15) Medications Given in ED Current Medications Medications Dose Ordered Sig/Talia Route Start Time Stop Time Status Last Admin Dose Admin Hydroxyzine Pamoate 50 mg ONCE ONCE PO 10/31/20 10:15 10/31/20 10:16 DC 10/31/20 10:21 50 MG Vital Signs/I&O 10/31/20 09:45 Temp 37.0 Pulse 123 Resp 24 B/P (MAP) 114/82 (93) Pulse Ox 95 O2 Delivery Room Air Blood Pressure Mean: 93 Progress Progress Note : Time: 10:47 Progress Note Patient is feeling better and would like to be discharged. Will send her home with a prescription of vistaril. Encouraged to follow up with her therapist. Counseling-Symptomatic: 3-10 Minutes Follow-up with PCP to: Discuss Further Options Departure Impression Primary Impression: Panic attack Disposition: 01 HOME, SELF-CARE Condition: Stable Departure-Patient Inst. Decision time for Depature: 10:48 Referrals: [facility] NO,LOCAL PHYSICIAN (PCP) Primary Care Physician Patient Instructions: Anxiety, Adult ED Add. Discharge Instructions: Continue your routine prescribed daily medications. I have given you a prescription for Vistaril you can use 1 to 2 tablets every 6 hours as needed for anxiety and panic. Please follow-up with your psychotherapist. Return to the emergency room for any worsening symptoms or new concerns. Scripts Hydroxyzine Pamoate (Vistaril) 25 Mg Capsule 25 MG PO Q6H PRN for ANXIETY, #20 CAP Prov: BURAK WARNER MD 10/31/20 BURAK WARNER MD Oct 31, 2020 10:08
[2020-10-31] MEDS ORDERED: hydrOXYzine (VISTARIL/ATARAX) 25 MG capsule/tablet PO ONE (10:15)
[2020-10-31 10:55] VITALS: BP 114/82
[2020-10-31] MEDS ORDERED: HYDR25CA PO (10:56)
== END 2020-10-31 10:55 | disposition home or self-care (01) ==
LOC: EDUNIT# 09:39 → ER 09:41
DX: F41.0 Panic disorder [episodic paroxysmal anxiety] (principal); F41.9 Anxiety disorder, unspecified; F17.210 Nicotine dependence, cigarettes, uncomplicated; F32.9 Major depressive disorder, single episode, unspecified
CPT/HCPCS: 99283

== ENCOUNTER 2021-01-24 14:32 | Emergency (ER) | payer MEDICAID ==
[~2021-01-24] VITALS: Ht 157 cm; Wt 58.0 kg
[~2021-01-24 14:32] MED LIST changes: +HYDR25CA PO
[2021-01-24] MEDS ORDERED: NS IV 1000 ML 1,000 ML ONE (14:36)
[2021-01-24] MEDS ORDERED: ONDANSETRON 4 MG/2 ML (SDV) Z0FRAN ONE (14:36)
[2021-01-24] MEDS ORDERED: LORazepam INJ 2 MG/ML (ATIVAN) VIAL ONE (14:37)
[2021-01-24] MEDS ORDERED: LORazepam INJ 2 MG/ML (ATIVAN) VIAL IVP PRN ×2 (14:45→16:15)
[2021-01-24] MEDS ORDERED: ONDANSETRON 4 MG/2 ML (SDV) Z0FRAN IVP ONE (14:45)
[2021-01-24] MEDS ORDERED: NS IV 1000 ML 1,000 ML IV SCH (14:45)
--- NOTE | 2021-01-24 14:47 | ED General ---
General Stated Complaint: POSS ALCOHOL POISONING/ANXIETY Source of Information: Patient, Family Exam Limitations: No Limitations History of Present Illness Date Seen by Provider: Jan 24, 2021 Time Seen by Provider: 14:42 Initial Comments Patient presents to ER with anxiety and possible alcohol poisoning. Over the past 3 days she has had 1/5 of a liter of vodka which began after she lost her mother 3 days ago. Her last drink was yesterday none today. She feels very anxious as if she may crawl out of her own skin she states. She is not homicidal or suicidal. She typically does not drink alcohol. She is on Seroquel for anxiety and has not missed any doses. She does smoke cigarettes .She is unable to keep water down because of recurrent vomiting but she denies any abdominal pain. Timing/Duration: 1-2 Days Severity: Moderate Associated Systoms: No Headaches; Nausea/Vomiting Allergies and Home Medications Allergies Coded Allergies: No Known Drug Allergies (Unverified , 04/11/20) Home Medications Diazepam 5 Mg Tablet, 5 MG PO BID Prescribed by: BETO DELAROSA on 01/24/21 1658 Hydroxyzine Pamoate 25 Mg Capsule, 25 MG PO Q6H PRN for ANXIETY Prescribed by: BURAK WARNER on 10/31/20 1056 Potassium Chloride 20 Meq Tablet.er, 40 MEQ PO DAILY Prescribed by: BETO DELAROSA on 01/24/21 1657 Quetiapine Fumarate 100 Mg Tablet, 100 MG PO Q6H, (Reported) Sertraline HCl 100 Mg Tablet, 100 MG PO DAILY, (Reported) Patient Home Medication List Home Medication List Reviewed: Yes Review of Systems Review of Systems Constitutional: see HPI EENTM: see HPI Respiratory: no symptoms reported Cardiovascular: no symptoms reported Gastrointestinal: No abdominal pain, No diarrhea; nausea, vomiting Genitourinary: no symptoms reported Musculoskeletal: no symptoms reported Skin: no symptoms reported Psychiatric/Neurological: See HPI, Anxiety Past Wrpkexn-Vyzojd-Scbptj Hx Patient Social History Type Used: Cigarettes 2nd Hand Smoke Exposure: No Recent Hopitalizations: No Immunizations Up To Date Tetanus Booster (TDap): Unknown Seasonal Allergies Seasonal Allergies: No Past Medical History Surgeries: Yes (LEEP, X 5) Section Respiratory: No Cardiac: No Neurological: No Genitourinary: No Gastrointestinal: No Musculoskeletal: No Endocrine: No HEENT: No Cancer: No Psychosocial: Yes Depression Physical Exam Vital Signs Vital Signs - First Documented 01/24/21 14:35 Temp 36.4 Pulse 136 Resp 24 B/P (MAP) 113/95 (101) Capillary Refill : Height, Weight, BMI Height: '" Weight: lbs. oz. kg; 26.00 BMI Method: General Appearance: No Apparent Distress, WD/WN, Anxious, Other (Tachycardia rate of 140-150 very anxious appearing) Eyes: Bilateral Eye Normal Inspection, Bilateral Eye PERRL, Bilateral Eye EOMI Respiratory: Normal Breath Sounds, No Accessory Muscle Use Cardiovascular: Normal Peripheral Pulses, Tachycardia Gastrointestinal: Normal Bowel Sounds, Non Tender, Soft Extremity: Normal Capillary Refill, Normal Inspection Neurologic/Psychiatric: Alert, Oriented x3 Skin: Normal Color, Warm/Dry Progress/Results/Core Measures Suspected Sepsis SIRS Temperature: Pulse: Respiratory Rate: Laboratory Tests 01/24/21 14:30: White Blood Count 15.5H Blood Pressure / Mean: Laboratory Tests 01/24/21 14:30: Creatinine 0.70, INR Comment 1.0, Platelet Count 445H, Total Bilirubin 0.7 Results/Orders Lab Results Laboratory Tests Test 01/24/21 14:30 Range/Units White Blood Count 15.5 H 4.3-11.0 10^3/uL Red Blood Count 5.09 3.80-5.11 10^6/uL Hemoglobin 15.9 11.5-16.0 g/dL Hematocrit 46 35-52 % Mean Corpuscular Volume 91 80-99 fL Mean Corpuscular Hemoglobin 31 25-34 pg Mean Corpuscular Hemoglobin Concent 34 32-36 g/dL Red Cell Distribution Width 13.6 10.0-14.5 % Platelet Count 445 H 130-400 10^3/uL Mean Platelet Volume 8.9 L 9.0-12.2 fL Immature Granulocyte % (Auto) 1 % Neutrophils (%) (Auto) 85 H 42-75 % Lymphocytes (%) (Auto) 9 L 12-44 % Monocytes (%) (Auto) 6 0-12 % Eosinophils (%) (Auto) 0 0-10 % Basophils (%) (Auto) 0 0-10 % Neutrophils # (Auto) 13.1 H 1.8-7.8 10^3/uL Lymphocytes # (Auto) 1.4 1.0-4.0 10^3/uL Monocytes # (Auto) 0.9 0.0-1.0 10^3/uL Eosinophils # (Auto) 0.0 0.0-0.3 10^3/uL Basophils # (Auto) 0.1 0.0-0.1 10^3/uL Immature Granulocyte # (Auto) 0.1 0.0-0.1 10^3/uL Neutrophils % (Manual) 85 % Lymphocytes % (Manual) 9 % Monocytes % (Manual) 6 % Acanthocytes MARKED Blood Morphology Comment NA Prothrombin Time 13.6 12.2-14.7 SEC INR Comment 1.0 0.8-1.4 Sodium Level 140 135-145 MMOL/L Potassium Level 2.5 *L 3.6-5.0 MMOL/L Chloride Level 93 L 98-107 MMOL/L Carbon Dioxide Level 25 21-32 MMOL/L Anion Gap 22 H 5-14 MMOL/L Blood Urea Nitrogen 7 7-18 MG/DL Creatinine 0.70 0.60-1.30 MG/DL Estimat Glomerular Filtration Rate > 60 BUN/Creatinine Ratio 10 Glucose Level 110 H 70-105 MG/DL Calcium Level 8.5 8.5-10.1 MG/DL Corrected Calcium 8.4 L 8.5-10.1 MG/DL Magnesium Level 1.8 1.6-2.4 MG/DL Total Bilirubin 0.7 0.1-1.0 MG/DL Aspartate Amino Transf (AST/SGOT) 22 5-34 U/L Alanine Aminotransferase (ALT/SGPT) 12 0-55 U/L Alkaline Phosphatase 103 40-136 U/L Total Protein 7.1 6.4-8.2 GM/DL Albumin 4.1 3.2-4.5 GM/DL Lipase 7 L 8-78 U/L Serum Alcohol < 10 <10 MG/DL My Orders Orders - BETO DELAROSA APRN Cbc With Automated Diff (01/24/21 14:40) Comprehensive Metabolic Panel (01/24/21 14:40) Protime With Inr (01/24/21 14:40) Lorazepam Injection (Ativan Injection) (01/24/21 14:45) Ns Iv 1000 Ml (Sodium Chloride 0.9%) (01/24/21 14:45) Ondansetron Injection (Zofran Injectio (01/24/21 14:45) Lipase (01/24/21 14:40) Ns Iv 1000 Ml (Sodium Chloride 0.9%) (01/24/21 14:36) Ondansetron Injection (Zofran Injectio (01/24/21 14:36) Lorazepam Injection (Ativan Injection) (01/24/21 14:37) Alcohol (01/24/21 14:58) Manual Differential (01/24/21 14:30) Potassium Cl 10meq/50ml Ivpb (Kcl 10 Meq (01/24/21 15:30) Potassium Chloride (Tablet) (K Dur Table (01/24/21 15:30) Ns Iv 500 Ml (Sodium Chloride 0.9%) (01/24/21 15:30) Magnesium (01/24/21 15:23) Ekg Tracing (01/24/21 15:26) Lorazepam Injection (Ativan Injection) (01/24/21 16:15) Medications Given in ED Current Medications Medications Dose Ordered Sig/Talia Route Start Time Stop Time Status Last Admin Dose Admin Lorazepam 0.5 mg ONCE PRN IVP 01/24/21 16:15 01/24/21 16:08 0.25 MG Lorazepam 1 mg ONCE PRN IVP 01/24/21 14:45 01/24/21 14:45 1 MG Ondansetron HCl 8 mg ONCE ONCE IVP 01/24/21 14:45 01/24/21 14:46 DC 01/24/21 14:44 8 MG Potassium Chloride 40 meq ONCE ONCE PO 01/24/21 15:30 01/24/21 15:31 DC 01/24/21 16:08 40 MEQ Vital Signs/I&O 01/24/21 14:35 Temp 36.4 Pulse 136 Resp 24 B/P (MAP) 113/95 (101) Capillary Refill : Departure Communication (Admissions) 1525-her heart rate has fallen to 110 sinus after only 1 L of fluids and 1 mg of lorazepam. Blood pressure 110/79. Nausea is improved. She does have a low potassium. Will obtain an EKG, supplement her with IV and oral potassium. 1812-heart rate 107 is sinus. Blood pressure 119/86. Respiratory rate is 18. No ectopy on monitor other than sinus tachycardia. She received 20 mEq of IV potassium and 40 mEq of oral potassium. We will discharged home with continued replacement over the next 2 to 3 days. Impression Primary Impression: Hypokalemia Additional Impressions: Anxiety Alcohol use Disposition: 01 HOME, SELF-CARE Condition: Improved Departure-Patient Inst. Decision time for Depature: 16:56 Referrals: NO,LOCAL PHYSICIAN (PCP/Family) Primary Care Physician Patient Instructions: Hypokalemia (DC), Anxiety, Adult (DC) Add. Discharge Instructions: 1. Return to ER for any concerns. Take the potassium supplement as directed. Anxiety medication as needed. Return to ER for any concerns. Scripts Diazepam (Valium) 5 Mg Tablet 5 MG PO BID, #2 TAB Prov: BETO DELAROSA APRN 01/24/21 Potassium Chloride (K-Tab ER) 20 Meq Tablet.er 40 MEQ PO DAILY, #6 TAB Prov: BETO DELAROSA APRN 01/24/21 BETO DELAROSA APRN Jan 24, 2021 14:47
[2021-01-24 15:00] LABS: ALBUMIN 4.1 GM/DL (3.2-4.5); CHLORIDE 93 MMOL/L (98-107); SODIUM 140 MMOL/L (135-145)
[2021-01-24 15:01] LABS: CALCIUM 8.5 MG/DL (8.5-10.1)
[2021-01-24 15:02] LABS: BASOPHILS # (AUTO) 0.1 10^3/uL (0.0-0.1); BASOPHILS % (AUTO) 0 % (0-10); EOSINOPHILS % (AUTO) 0 % (0-10); GLUCOSE 110 MG/DL (70-105); HEMATOCRIT 46 % (35-52); HEMOGLOBIN 15.9 g/dL (11.5-16.0); LYMPHOCYTES # (AUTO) 1.4 10^3/uL (1.0-4.0); LYMPHOCYTES % (AUTO) 9 % (12-44); MEAN CORPUSCULAR HEMOGLOBIN 31 pg (25-34); MEAN CORPUSCULAR HGB CONC 34 g/dL (32-36); MEAN CORPUSCULAR VOLUME 91 fL (80-99); MEAN PLATELET VOLUME 8.9 fL (9.0-12.2); MONOCYTES # (AUTO) 0.9 10^3/uL (0.0-1.0); MONOCYTES % (AUTO) 6 % (0-12); NEUTROPHILS # (AUTO) 13.1 10^3/uL (1.8-7.8); NEUTROPHILS % (AUTO) 85 % (42-75); PLATELET COUNT 445 10^3/uL (130-400); TOTAL PROTEIN 7.1 GM/DL (6.4-8.2); WHITE BLOOD COUNT 15.5 10^3/uL (4.3-11.0)
[2021-01-24 15:03] LABS: CARBON DIOXIDE 25 MMOL/L (21-32)
[2021-01-24 15:04] LABS: BILIRUBIN,TOTAL 0.7 MG/DL (0.1-1.0)
[2021-01-24 15:05] LABS: ALKALINE PHOSPHATASE 103 U/L (40-136)
[2021-01-24 15:06] LABS: GFR ESTIMATED > 60
[2021-01-24 15:07] LABS: BUN/CREATININE RATIO 10
[2021-01-24 15:09] LABS: ALANINE AMINOTRANSFERASE 12 U/L (0-55); LIPASE 7 U/L (8-78)
[2021-01-24 15:13] LABS: PROTHROMBIN TIME PATIENT 13.6 SEC (12.2-14.7)
[2021-01-24 15:23] LABS: POTASSIUM 2.5 MMOL/L (3.6-5.0)
[2021-01-24] MEDS ORDERED: POTASSIUM CL 10MEQ/50ML IVPB 50 ML IV SCH (15:30)
[2021-01-24] MEDS ORDERED: NS IV 500 ML 500 ML IV SCH (15:30)
[2021-01-24] MEDS ORDERED: KCL 20 MEQ TAB (K-DUR) PO ONE (15:30)
[2021-01-24 16:03] LABS: ACANTHOCYTES MARKED; LYMPHOCYTES % (MANUAL) 9 %; MONOCYTES % (MANUAL) 6 %; NEUTROPHILS % (MANUAL) 85 %
[2021-01-24] MEDS ORDERED: DIAZ5TAB PO (16:57)
[2021-01-24] MEDS ORDERED: POTA-53 PO (16:57)
[2021-01-24 18:20] VITALS: BP 119/86
== END 2021-01-24 18:22 | disposition home or self-care (01) ==
LOC: EDUNIT# 14:32 → ER 14:33
DX: E87.6 Hypokalemia (principal); F41.9 Anxiety disorder, unspecified; F10.99 Alcohol use, unspecified with unspecified alcohol-induced disorder; F32.9 Major depressive disorder, single episode, unspecified
CPT/HCPCS: 36415; 80053; 80320; 83690; 83735; 85007; 85027; 85610; 93005

== ENCOUNTER 2021-03-18 17:52 | Emergency (ER) | payer MEDICAID ==
[~2021-03-18] VITALS: Ht 154 cm; Wt 63.5 kg
[~2021-03-18 17:52] MED LIST changes: +DIAZ5TAB PO; +POTA-53 PO
--- NOTE | 2021-03-18 18:10 | ED Chest Pain ---
General Stated Complaint: CHEST PAIN/ANXIETY Source: patient Exam Limitations: no limitations History of Present Illness Date Seen by Provider: March 18, 2021 Time Seen by Provider: 18:08 Initial Comments To ER with reports of central chest tightness and anxiety that started at about 11:45 AM today. History of anxiety. She is got spasms in both of her hands that are bothering her as well. Severity/Quality: moderate Location: central Radiation: no radiation Activities at Onset: none ASA po SCRAP PICKER: No NTG SL SCRAP PICKER: No Associated Symptoms: shortness of breath Allergies and Home Medications Allergies Coded Allergies: No Known Drug Allergies (Unverified , 04/11/20) Home Medications Diazepam 5 Mg Tablet, 5 MG PO BID Prescribed by: BETO DELAROSA on 01/24/21 1658 Hydroxyzine Pamoate 25 Mg Capsule, 25 MG PO Q6H PRN for ANXIETY Prescribed by: BURAK WARNER on 10/31/20 1056 Potassium Chloride 20 Meq Tablet.er, 40 MEQ PO DAILY Prescribed by: BETO DELAROSA on 01/24/21 1657 Quetiapine Fumarate 100 Mg Tablet, 100 MG PO Q6H, (Reported) Sertraline HCl 100 Mg Tablet, 100 MG PO DAILY, (Reported) Patient Home Medication List Home Medication List Reviewed: Yes Review of Systems Review of Systems Constitutional: see HPI; No chills, No fever EENTM: No Symptoms Reported Respiratory: No Symptoms Reported Cardiovascular: See HPI, Chest Pain Gastrointestinal: See HPI Genitourinary: No Symptoms Reported Musculoskeletal: no symptoms reported Skin: no symptoms reported Psychiatric/Neurological: See HPI, Anxiety Endocrine: No Symptoms Reported Hematologic/Lymphatic: No Symptoms Reported Past Kariudf-Mwrvnq-Xlbfms Hx Patient Social History Type Used: Cigarettes 2nd Hand Smoke Exposure: No Recent Hopitalizations: No Immunizations Up To Date Tetanus Booster (TDap): Unknown Seasonal Allergies Seasonal Allergies: No Past Medical History Surgeries: Yes (LEEP, X 5) Section Respiratory: No Cardiac: No Neurological: No Genitourinary: No Gastrointestinal: No Musculoskeletal: No Endocrine: No HEENT: No Cancer: No Psychosocial: Yes Depression Physical Exam Vital Signs Vital Signs - First Documented 03/18/21 18:00 Temp 37.5 Pulse 110 Resp 20 B/P (MAP) 115/85 (95) O2 Delivery Room Air Capillary Refill : Height, Weight, BMI Height: '" Weight: lbs. oz. kg; 23.00 BMI Method: General Appearance: No Apparent Distress, WD/WN, Anxious Respiratory: Normal Breath Sounds, No Accessory Muscle Use, No Respiratory Distress Cardiovascular: Regular Rate, Rhythm, Normal Peripheral Pulses Gastrointestinal: Non Tender, Soft Extremity: Normal Capillary Refill, Normal Inspection Neurologic/Psychiatric: Alert, Oriented x3 Skin: Normal Color, Warm/Dry Other comments Anxious appearing, carpal spasms bilaterally Progress/Results/Core Measures Results/Orders Lab Results Laboratory Tests Test 03/18/21 18:15 Range/Units White Blood Count 8.2 4.3-11.0 10^3/uL Red Blood Count 4.94 3.80-5.11 10^6/uL Hemoglobin 15.6 11.5-16.0 g/dL Hematocrit 44 35-52 % Mean Corpuscular Volume 90 80-99 fL Mean Corpuscular Hemoglobin 32 25-34 pg Mean Corpuscular Hemoglobin Concent 35 32-36 g/dL Red Cell Distribution Width 14.6 H 10.0-14.5 % Platelet Count 391 130-400 10^3/uL Mean Platelet Volume 8.8 L 9.0-12.2 fL Immature Granulocyte % (Auto) 0 % Neutrophils (%) (Auto) 67 42-75 % Lymphocytes (%) (Auto) 21 12-44 % Monocytes (%) (Auto) 11 0-12 % Eosinophils (%) (Auto) 0 0-10 % Basophils (%) (Auto) 1 0-10 % Neutrophils # (Auto) 5.5 1.8-7.8 10^3/uL Lymphocytes # (Auto) 1.7 1.0-4.0 10^3/uL Monocytes # (Auto) 0.9 0.0-1.0 10^3/uL Eosinophils # (Auto) 0.0 0.0-0.3 10^3/uL Basophils # (Auto) 0.1 0.0-0.1 10^3/uL Immature Granulocyte # (Auto) 0.0 0.0-0.1 10^3/uL D-Dimer < 0.27 0.00-0.49 UG/ML Sodium Level 139 135-145 MMOL/L Potassium Level 3.0 L 3.6-5.0 MMOL/L Chloride Level 98 98-107 MMOL/L Carbon Dioxide Level 30 21-32 MMOL/L Anion Gap 11 5-14 MMOL/L Blood Urea Nitrogen 10 7-18 MG/DL Creatinine 0.65 0.60-1.30 MG/DL Estimat Glomerular Filtration Rate > 60 BUN/Creatinine Ratio 15 Glucose Level 109 H 70-105 MG/DL Calcium Level 9.0 8.5-10.1 MG/DL Corrected Calcium 9.0 8.5-10.1 MG/DL Total Bilirubin 0.4 0.1-1.0 MG/DL Aspartate Amino Transf (AST/SGOT) 24 5-34 U/L Alanine Aminotransferase (ALT/SGPT) 14 0-55 U/L Alkaline Phosphatase 73 40-136 U/L Troponin I < 0.028 <0.028 NG/ML Total Protein 6.9 6.4-8.2 GM/DL Albumin 4.0 3.2-4.5 GM/DL Serum Alcohol 17 H <10 MG/DL My Orders Orders - BETO DELAROSA APRN Cbc With Automated Diff (03/18/21 18:07) Comprehensive Metabolic Panel (03/18/21 18:07) Troponin I (03/18/21 18:07) Ekg Tracing (03/18/21 18:07) Fibrin Degradation Products (03/18/21 18:07) Chest 1 View, Ap/Pa Only (03/18/21 18:07) Alcohol (03/18/21 18:07) Ed Iv/Invasive Line Start (03/18/21 18:07) Lorazepam Injection (Ativan Injection) (03/18/21 18:15) Medications Given in ED Current Medications Medications Dose Ordered Sig/Talia Route Start Time Stop Time Status Last Admin Dose Admin Lorazepam 2 mg ONCE ONCE IVP 03/18/21 18:15 03/18/21 18:16 DC 03/18/21 18:22 2 MG Vital Signs/I&O 03/18/21 03/18/21 18:00 18:00 Temp 37.5 Pulse 110 Resp 20 B/P (MAP) 115/85 (95) O2 Delivery Room Air Room Air Departure Impression Primary Impression: Anxiety Additional Impression: Chest pain Disposition: 01 HOME, SELF-CARE Condition: Stable Departure-Patient Inst. Decision time for Depature: 19:07 Referrals: NO,LOCAL PHYSICIAN (PCP) Primary Care Physician Patient Instructions: Chest Pain That Is Not Caused by the Heart (DC) Add. Discharge Instructions: 1. 1. Return to ER for any concerns. Scripts Hydroxyzine Pamoate (Vistaril) 25 Mg Capsule 25 MG PO Q4H PRN for ANXIETY, #14 CAP Prov: BETO DELAROSA APRN 03/18/21 Potassium Chloride (Potassium Chloride) 20 Meq Tablet.er 20 MEQ PO DAILY, #10 TAB Prov: BETO DELAROSA APRN 03/18/21 BETO DELAROSA APRN March 18, 2021 18:10
[2021-03-18] MEDS: LORazepam INJ 2 MG/ML (ATIVAN) VIAL IVP ONE (18:22)
[2021-03-18 18:23] LABS: BASOPHILS # (AUTO) 0.1 10^3/uL (0.0-0.1); BASOPHILS % (AUTO) 1 % (0-10); EOSINOPHILS % (AUTO) 0 % (0-10); HEMATOCRIT 44 % (35-52); HEMOGLOBIN 15.6 g/dL (11.5-16.0); LYMPHOCYTES # (AUTO) 1.7 10^3/uL (1.0-4.0); LYMPHOCYTES % (AUTO) 21 % (12-44); MEAN CORPUSCULAR HEMOGLOBIN 32 pg (25-34); MEAN CORPUSCULAR HGB CONC 35 g/dL (32-36); MEAN CORPUSCULAR VOLUME 90 fL (80-99); MEAN PLATELET VOLUME 8.8 fL (9.0-12.2); MONOCYTES # (AUTO) 0.9 10^3/uL (0.0-1.0); MONOCYTES % (AUTO) 11 % (0-12); NEUTROPHILS # (AUTO) 5.5 10^3/uL (1.8-7.8); NEUTROPHILS % (AUTO) 67 % (42-75); PLATELET COUNT 391 10^3/uL (130-400); WHITE BLOOD COUNT 8.2 10^3/uL (4.3-11.0)
[2021-03-18 18:37] LABS: CHLORIDE 98 MMOL/L (98-107); SODIUM 139 MMOL/L (135-145)
[2021-03-18 18:40] LABS: GLUCOSE 109 MG/DL (70-105); TOTAL PROTEIN 6.9 GM/DL (6.4-8.2)
[2021-03-18 18:41] LABS: BILIRUBIN,TOTAL 0.4 MG/DL (0.1-1.0); CARBON DIOXIDE 30 MMOL/L (21-32)
[2021-03-18 18:43] LABS: ALKALINE PHOSPHATASE 73 U/L (40-136); CREATININE SERUM 0.65 MG/DL (0.60-1.30); GFR ESTIMATED > 60
[2021-03-18 18:44] LABS: BUN/CREATININE RATIO 15
[2021-03-18 18:46] LABS: ALANINE AMINOTRANSFERASE 14 U/L (0-55)
--- NOTE | 2021-03-18 19:03 | Diagnostic Imaging Report ---
EXAMINATION: Chest 1 view. HISTORY: Chest pain. COMPARISON: 01/05/2009. FINDINGS: The lungs are clear without edema or pneumonia. No pleural effusion or pneumothorax. Heart size is normal. IMPRESSION: Clear lungs. Dictated by: Dictated on workstation # [id number]
[2021-03-18] MEDS ORDERED: HYDR25CA PO (19:09)
[2021-03-18] MEDS ORDERED: POTA-51 PO (19:09)
[2021-03-18 19:18] VITALS: BP 122/96
== END 2021-03-18 19:18 | disposition home or self-care (01) ==
LOC: EDUNIT# 17:52 → ER 17:54
DX: R07.9 Chest pain, unspecified (principal); F41.9 Anxiety disorder, unspecified; F32.9 Major depressive disorder, single episode, unspecified; Z79.899 Other long term (current) drug therapy
CPT/HCPCS: 36415; 71045; 80053; 80320; 84484; 85025; 85379; 93005

== ENCOUNTER 2021-04-05 09:25 | Emergency (ER) | payer MEDICARE, MEDICAID ==
[~2021-04-05] VITALS: Ht 154 cm; Wt 63.5 kg
[~2021-04-05 09:25] MED LIST changes: +POTA-51 PO
--- NOTE | 2021-04-05 09:54 | ED Psychosocial ---
General Chief Complaint: Psych/Social Disorder Stated Complaint: PANIC ATTACK Nursing Triage Note: PT PRESENTS TO ED FOR AN ANXIETY ATTACK THAT STARTED THIS MORNING AROUND 0400. PT STATES HER HANDS LOCK UP WHEN THIS HAPPENS. PT AMB. TO ROOM 05 WITH ASSISSTANCE OF PARTNER. Source: patient Exam Limitations: no limitations History of Present Illness Date Seen by Provider: Apr 05, 2021 Time Seen by Provider: 09:45 Initial Comments Patient is a 45-year-old female who presents to the emergency department today with a chief complaint of "panic attack". Patient states that she woke up suddenly from sleep this morning at around 4 AM with symptoms of shortness of breath and nausea. Patient states that her hands are "cramping up". Patient states that she has had prior emergency room visits for panic and she believes she was treated with Ativan. Patient is on multiple medications for depression and PTSD. She denies any homicidal or suicidal ideation, no auditory or visual hallucinations. She does not believe she needs to be hospitalized for this attack. She denies recent illnesses such as fevers, chills, productive cough. She is as stated a little short of breath and nauseous all morning. She denies abdominal pain or chest pain. She states she had a little chest discomfort when she first woke up with her symptoms. She is a smoker. All other review of systems reviewed and negative except as stated above. Timing/Duration: this morning Associated Symptoms: anxiety Allergies and Home Medications Allergies Coded Allergies: No Known Drug Allergies (Unverified , 04/11/20) Home Medications Diazepam 5 Mg Tablet, 5 MG PO BID Prescribed by: BETO DELAROSA on 01/24/21 165 Hydroxyzine Pamoate 25 Mg Capsule, 25 MG PO Q6H PRN for ANXIETY Prescribed by: BURAK WARNER on 10/31/20 1056 Hydroxyzine Pamoate 25 Mg Capsule, 25 MG PO Q4H PRN for ANXIETY Prescribed by: BETO DELAROSA on 03/18/211908 Potassium Chloride 20 Meq Tablet.er, 40 MEQ PO DAILY Prescribed by: BETO DELAROSA on 01/24/211656 Potassium Chloride 20 Meq Tablet.er, 20 MEQ PO DAILY Prescribed by: BETO DELAROSA on 03/18/211908 Quetiapine Fumarate 100 Mg Tablet, 100 MG PO Q6H, (Reported) Sertraline HCl 100 Mg Tablet, 100 MG PO DAILY, (Reported) Patient Home Medication List Home Medication List Reviewed: Yes Review of Systems Constitutional: see HPI EENTM: no symptoms reported Respiratory: short of breath Cardiovascular: no symptoms reported Gastrointestinal: nausea Genitourinary: no symptoms reported Musculoskeletal: no symptoms reported Skin: no symptoms reported Psychiatric/Neurological: Anxiety, Emotional Problems, Tingling (Hands "cramping up") Past Wucrtta-Yszsia-Jfbshx Hx Patient Social History Alcohol Use: Occasionally Uses Number of Drinks Today: 0 Alcohol Beverage of Choice: Vodka Smoking Status: Current Everyday Smoker Type Used: Cigarettes 2nd Hand Smoke Exposure: No Recent Infectious Disease Expo: No Recent Hopitalizations: No Immunizations Up To Date Tetanus Booster (TDap): Unknown Seasonal Allergies Seasonal Allergies: No Past Medical History Surgeries: Yes (LEEP, X 5) Section Respiratory: No Cardiac: No Neurological: No Genitourinary: No Gastrointestinal: No Musculoskeletal: No Endocrine: No HEENT: No Cancer: No Psychosocial: Yes Depression Physical Exam Vital Signs - First Documented 04/05/21 04/05/21 09:31 10:54 Temp 36.5 Pulse 118 Resp 18 B/P (MAP) 120/89 (99) Pulse Ox 20 O2 Delivery Room Air Capillary Refill : Less Than 3 Seconds Height, Weight, BMI Height: '" Weight: lbs. oz. kg; 26.00 BMI Method: General Appearance: WD/WN, mild distress HEENT: PERRL/EOMI Neck: full range of motion Respiratory: lungs clear, normal breath sounds, no respiratory distress, no accessory muscle use Cardiovascular: regular rate, rhythm, tachycardia Gastrointestinal: non tender, soft Extremities: non-tender, normal inspection, no pedal edema Neurologic/Psychiatric: hand winder II-XII nml as tested, no motor/sensory deficits, alert, normal mood/affect, oriented x 3 Appearance/Memory: appropriate appearance (Slightly disheveled) Behavior/Eye Contact: cooperative, good eye contact, normal speech Thoughts/Hallucinations: normal thought pattern, no apparent hallucination Skin: normal color, warm/dry Progress/Results/Core Measures Results/Orders My Orders Orders - BURAK WARNER MD Lorazepam Tablet (Ativan Tablet) (04/05/21 09:55) Ondansetron Oral Dissolve Tab (Zofran (04/05/21 10:00) Medications Given in ED Current Medications Medications Dose Ordered Sig/Talia Route Start Time Stop Time Status Last Admin Dose Admin Ondansetron HCl 4 mg ONCE ONCE PO 04/05/21 10:00 04/05/21 10:01 DC 04/05/21 10:08 4 MG Vital Signs/I&O 04/05/21 04/05/21 09:31 10:54 Temp 36.5 35.6 Pulse 118 106 Resp 18 B/P (MAP) 120/89 (99) 108/79 Pulse Ox 20 97 O2 Delivery Room Air Room Air Blood Pressure Mean: 99 Progress Progress Note : Time: 10:45 Progress Note Patient is feeling better after p.o. Ativan and Zofran. Resting comfortably. It is of note that the patient did drop her oxygen saturations while resting quietly down to 85% or so. Patient is counseled again on smoking cessation. She is advised to use her home nebulizer as previously prescribed. She verbalizes understanding. Patient seems ready for discharge. All questions are sought and answered. Counseling-Symptomatic: 3-10 Minutes Departure Impression Primary Impression: Anxiety attack Disposition: HOME, SELF-CARE Condition: Stable Departure-Patient Inst. Decision time for Depature: 10:46 Referrals: [facility],LOCAL PHYSICIAN (PCP) Primary Care Physician Patient Instructions: Anxiety, Adult ED Add. Discharge Instructions: Continue your home daily medications as previously prescribed. Please try and cut down on smoking and quit. Return to the emergency room for any new, concerning or emergent complaints. Please follow-up with your primary care physician. Scripts Ondansetron (Ondansetron Odt) 4 Mg Tab.rapdis 4 MG PO Q6H PRN for nausea and vomiting, #20 TAB Prov: BURAK WARNER MD 04/05/21 BURAK WARNER MD Apr 05, 2021 09:54
[2021-04-05] MEDS ORDERED: LORazepam 0.5 MG (ATIVAN) TABLET PO STA (09:55)
[2021-04-05] MEDS ORDERED: ONDANSETRON 4 MG (ZOFRAN) ORAL DISSOLVE TAB PO ONE (10:00)
[2021-04-05 10:54] VITALS: BP 108/79
[2021-04-05] MEDS ORDERED: ONDA4TAB11 PO (11:44)
[2021-04-05] MEDS ORDERED: POTA20PA28 PO (20:21)
== END 2021-04-05 10:54 | disposition home or self-care (01) ==
LOC: EDUNIT# 09:25 → ER 09:28
DX: F41.0 Panic disorder [episodic paroxysmal anxiety] (principal); F32.9 Major depressive disorder, single episode, unspecified; F17.210 Nicotine dependence, cigarettes, uncomplicated; Z71.6 Tobacco abuse counseling; Z79.899 Other long term (current) drug therapy
CPT/HCPCS: 99283

== ENCOUNTER 2021-04-05 17:58 | Emergency (ER) | payer MEDICARE, MEDICAID ==
[~2021-04-05] VITALS: Ht 160 cm; Wt 72.6 kg
[~2021-04-05 17:58] MED LIST changes: +ONDA4TAB11 PO
[2021-04-05] MEDS ORDERED: LORazepam 0.5 MG (ATIVAN) TABLET PO STA (18:14)
[2021-04-05] MEDS ORDERED: ONDANSETRON 4 MG (ZOFRAN) ORAL DISSOLVE TAB PO STA (18:14)
--- NOTE | 2021-04-05 18:15 | ED General ---
General Chief Complaint: Abdominal/GI Problems Stated Complaint: "POSS ALCOHOL POISONING" Source of Information: Patient, Family Exam Limitations: No Limitations History of Present Illness Date Seen by Provider: Apr 05, 2021 Time Seen by Provider: 17:55 Initial Comments ER with nausea vomiting. She was seen here this morning for the same and given Zofran. She took 1 at noon and then decided to get drunk. She is now here because she thinks she might be alcohol poisoned. Shes still puking. Timing/Duration: 12 Hours Severity: Moderate Associated Systoms: Nausea/Vomiting Allergies and Home Medications Allergies Coded Allergies: No Known Drug Allergies (Unverified , 04/11/20) Home Medications Diazepam 5 Mg Tablet, 5 MG PO BID Prescribed by: BETO DELAROSA on 01/24/21 1658 Hydroxyzine Pamoate 25 Mg Capsule, 25 MG PO Q6H PRN for ANXIETY Prescribed by: BURAK WARNER on 10/31/20 1056 Hydroxyzine Pamoate 25 Mg Capsule, 25 MG PO Q4H PRN for ANXIETY Prescribed by: BETO DELAROSA on 03/18/21 1909 Ondansetron 4 Mg Tab.rapdis, 4 MG PO Q6H PRN for nausea and vomiting Prescribed by: BURAK WARNER on 04/05/21 1144 Potassium Chloride 20 Meq Tablet.er, 40 MEQ PO DAILY Prescribed by: BETO DELAROSA on 01/24/21 1657 Potassium Chloride 20 Meq Tablet.er, 20 MEQ PO DAILY Prescribed by: BETO DELAROSA on 03/18/21 1909 Quetiapine Fumarate 100 Mg Tablet, 100 MG PO Q6H, (Reported) Sertraline HCl 100 Mg Tablet, 100 MG PO DAILY, (Reported) Patient Home Medication List Home Medication List Reviewed: Yes Review of Systems Review of Systems Constitutional: see HPI EENTM: see HPI Respiratory: no symptoms reported Genitourinary: no symptoms reported Musculoskeletal: no symptoms reported Skin: no symptoms reported Psychiatric/Neurological: No Symptoms Reported Hematologic/Lymphatic: No Symptoms Reported Immunological/Allergic: no symptoms reported Past Vmfjrbc-Mpnaer-Bdatlo Hx Patient Social History Alcohol Beverage of Choice: Vodka Type Used: Cigarettes 2nd Hand Smoke Exposure: No Recent Hopitalizations: No Immunizations Up To Date Tetanus Booster (TDap): Unknown Seasonal Allergies Seasonal Allergies: No Past Medical History Surgeries: Yes (LEEP, X 5) Section Respiratory: No Cardiac: No Neurological: No Genitourinary: No Gastrointestinal: No Musculoskeletal: No Endocrine: No HEENT: No Cancer: No Psychosocial: Yes Depression Physical Exam Vital Signs Vital Signs - First Documented 04/05/21 18:05 Temp 37.0 Pulse 87 Resp 16 B/P (MAP) 113/87 (96) O2 Delivery Room Air Capillary Refill : Height, Weight, BMI Height: '" Weight: lbs. oz. kg; 26.00 BMI Method: General Appearance: No Apparent Distress, WD/WN, Other (Alert and oriented no distress) Eyes: Bilateral Eye Normal Inspection, Bilateral Eye PERRL, Bilateral Eye EOMI Neck: Full Range of Motion, Normal Inspection Respiratory: No Accessory Muscle Use, No Respiratory Distress Cardiovascular: Regular Rate, Rhythm, Normal Peripheral Pulses Gastrointestinal: Normal Bowel Sounds, Non Tender, Soft Neurologic/Psychiatric: Alert, Oriented x3 Skin: Normal Color, Warm/Dry Progress/Results/Core Measures Suspected Sepsis SIRS Temperature: Pulse: Respiratory Rate: Laboratory Tests 04/05/21 18:45: White Blood Count 15.6H Blood Pressure / Mean: Laboratory Tests 04/05/21 18:45: Creatinine 0.72, INR Comment 1.0, Platelet Count 411H, Total Bilirubin 0.9 Results/Orders Lab Results Laboratory Tests Test 04/05/21 18:40 04/05/21 18:45 Range/Units Urine Color ASIF H Urine Clarity CLEAR Urine pH 5.5 5-9 Urine Specific [place] 1.020 1.016-1.022 Urine Protein TRACE H NEGATIVE Urine Glucose (UA) NEGATIVE NEGATIVE Urine Ketones NEGATIVE NEGATIVE Urine Nitrite NEGATIVE NEGATIVE Urine Bilirubin NEGATIVE NEGATIVE Urine Urobilinogen 0.2 < = 1.0 MG/DL Urine Leukocyte Esterase NEGATIVE NEGATIVE Urine RBC (Auto) 3+ H NEGATIVE Urine RBC 2-5 H /HPF Urine WBC 0-2 /HPF Urine Crystals PRESENT H /LPF Urine Amorphous Sediment RARE ROGER URATES H /LPF Urine Bacteria NEGATIVE /HPF Urine Casts NONE /LPF Urine Mucus SMALL H /LPF Urine Culture Indicated NO Urine Opiates Screen NEGATIVE NEGATIVE Urine Oxycodone Screen NEGATIVE NEGATIVE Urine Methadone Screen NEGATIVE NEGATIVE Urine Propoxyphene Screen NEGATIVE NEGATIVE Urine Barbiturates Screen NEGATIVE NEGATIVE Ur Tricyclic Antidepressants Screen POSITIVE H NEGATIVE Urine Phencyclidine Screen NEGATIVE NEGATIVE Urine Amphetamines Screen NEGATIVE NEGATIVE Urine Methamphetamines Screen NEGATIVE NEGATIVE Urine Benzodiazepines Screen POSITIVE H NEGATIVE Urine Cocaine Screen NEGATIVE NEGATIVE Urine Cannabinoids Screen POSITIVE H NEGATIVE White Blood Count 15.6 H 4.3-11.0 10^3/uL Red Blood Count 5.29 H 3.80-5.11 10^6/uL Hemoglobin 16.8 H 11.5-16.0 g/dL Hematocrit 47 35-52 % Mean Corpuscular Volume 88 80-99 fL Mean Corpuscular Hemoglobin 32 25-34 pg Mean Corpuscular Hemoglobin Concent 36 32-36 g/dL Red Cell Distribution Width 14.8 H 10.0-14.5 % Platelet Count 411 H 130-400 10^3/uL Mean Platelet Volume 9.1 9.0-12.2 fL Immature Granulocyte % (Auto) 1 % Neutrophils (%) (Auto) 78 H 42-75 % Lymphocytes (%) (Auto) 16 12-44 % Monocytes (%) (Auto) 5 0-12 % Eosinophils (%) (Auto) 0 0-10 % Basophils (%) (Auto) 1 0-10 % Neutrophils # (Auto) 12.1 H 1.8-7.8 10^3/uL Lymphocytes # (Auto) 2.5 1.0-4.0 10^3/uL Monocytes # (Auto) 0.8 0.0-1.0 10^3/uL Eosinophils # (Auto) 0.0 0.0-0.3 10^3/uL Basophils # (Auto) 0.1 0.0-0.1 10^3/uL Immature Granulocyte # (Auto) 0.1 0.0-0.1 10^3/uL Neutrophils % (Manual) 78 % Lymphocytes % (Manual) 16 % Monocytes % (Manual) 5 % Basophils % (Manual) 1 % Blood Morphology Comment NORMAL Prothrombin Time 13.1 12.2-14.7 SEC INR Comment 1.0 0.8-1.4 Sodium Level 141 135-145 MMOL/L Potassium Level 2.9 L 3.6-5.0 MMOL/L Chloride Level 99 98-107 MMOL/L Carbon Dioxide Level 24 21-32 MMOL/L Anion Gap 18 H 5-14 MMOL/L Blood Urea Nitrogen 9 7-18 MG/DL Creatinine 0.72 0.60-1.30 MG/DL Estimat Glomerular Filtration Rate > 60 BUN/Creatinine Ratio 13 Glucose Level 106 H 70-105 MG/DL Calcium Level 9.0 8.5-10.1 MG/DL Corrected Calcium 8.8 8.5-10.1 MG/DL Total Bilirubin 0.9 0.1-1.0 MG/DL Aspartate Amino Transf (AST/SGOT) 42 H 5-34 U/L Alanine Aminotransferase (ALT/SGPT) 19 0-55 U/L Alkaline Phosphatase 76 40-136 U/L Total Protein 7.2 6.4-8.2 GM/DL Albumin 4.2 3.2-4.5 GM/DL Serum Test, Qualitative NEGATIVE NEGATIVE Serum Alcohol 262 H <10 MG/DL My Orders Orders - BETO DELAROSA APRN Protime With Inr (04/05/21 18:09) Cbc With Automated Diff (04/05/21 18:09) Comprehensive Metabolic Panel (04/05/21 18:09) Alcohol (04/05/21 18:09) Ua Culture If Indicated (04/05/21 18:09) Drug Screen Stat (Urine) (04/05/21 18:09) Hcg,Qualitative Serum (04/05/21 18:09) Ekg Tracing (04/05/21 18:09) Lorazepam Tablet (Ativan Tablet) (04/05/21 18:14) Ondansetron Oral Dissolve Tab (Zofran (04/05/21 18:14) Manual Differential (04/05/21 18:45) Promethazine Injection (Phenergan Injec (04/05/21 19:15) Ns Iv 1000 Ml (Sodium Chloride 0.9%) (04/05/21 19:15) Antacid Suspension (Mylanta Suspension (04/05/21 19:30) Lidocaine 2% Viscous 15 Ml (Xylocaine Vi (04/05/21 19:30) Lorazepam Injection (Ativan Injection) (04/05/21 19:30) Potassium Chloride (Tablet) (K Dur Table (04/05/21 20:30) Medications Given in ED Current Medications Medications Dose Ordered Sig/Talia Route Start Time Stop Time Status Last Admin Dose Admin Al Hydrox/Mg Hydrox/Simethicone 30 ml ONCE ONCE PO 04/05/21 19:30 04/05/21 19:32 DC 04/05/21 19:40 30 ML Lidocaine HCl 10 ml ONCE ONCE PO 04/05/21 19:30 04/05/21 19:32 DC 04/05/21 19:41 10 ML Lorazepam 1 mg ONCE ONCE IVP 04/05/21 19:30 04/05/21 19:32 DC 04/05/21 19:40 1 MG Promethazine HCl 25 mg ONCE ONCE IVP 04/05/21 19:15 04/05/21 19:16 DC 04/05/21 19:20 25 MG Vital Signs/I&O 04/05/21 18:05 Temp 37.0 Pulse 87 Resp 16 B/P (MAP) 113/87 (96) O2 Delivery Room Air Capillary Refill : Departure Communication (Admissions) Her EKG is normal sinus rhythm no ST segment change Impression Primary Impression: Alcohol use Additional Impressions: Hypokalemia Nausea and vomiting Disposition: 01 HOME, SELF-CARE Condition: Stable Departure-Patient Inst. Decision time for Depature: 19:21 Referrals: NO,LOCAL PHYSICIAN (PCP/Family) Primary Care Physician Patient Instructions: No Instuctions Given Add. Discharge Instructions: All discharge instructions reviewed with patient and/or family. Voiced understanding. Scripts Potassium Chloride (Potassium Chloride) 20 Meq Packet 20 MEQ PO BID, #6 PACKET Prov: BETO DELAROSA [employer]INKLING TRUCK DRIVER 04/05/21 BETO DELAROSA [employer]LING TRUCK DRIVER Apr 05, 2021 18:15
[2021-04-05 18:49] LABS: BILIRUBIN,URINE NEGATIVE (NEGATIVE); CLARITY,URINE CLEAR; COLOR,URINE AMBER; GLUCOSE, URINE (UA) NEGATIVE (NEGATIVE); KETONES,URINE NEGATIVE (NEGATIVE); LEUKOCYTE ESTERASE ,URINE NEGATIVE (NEGATIVE); NITRITE,URINE NEGATIVE (NEGATIVE); PH,URINE 5.5 (5-9); PROTEIN,URINE TRACE (NEGATIVE)
[2021-04-05 18:51] LABS: BASOPHILS # (AUTO) 0.1 10^3/uL (0.0-0.1); BASOPHILS % (AUTO) 1 % (0-10); EOSINOPHILS % (AUTO) 0 % (0-10); HEMATOCRIT 47 % (35-52); HEMOGLOBIN 16.8 g/dL (11.5-16.0); LYMPHOCYTES # (AUTO) 2.5 10^3/uL (1.0-4.0); LYMPHOCYTES % (AUTO) 16 % (12-44); MEAN CORPUSCULAR HEMOGLOBIN 32 pg (25-34); MEAN CORPUSCULAR HGB CONC 36 g/dL (32-36); MEAN CORPUSCULAR VOLUME 88 fL (80-99); MEAN PLATELET VOLUME 9.1 fL (9.0-12.2); MONOCYTES # (AUTO) 0.8 10^3/uL (0.0-1.0); MONOCYTES % (AUTO) 5 % (0-12); NEUTROPHILS # (AUTO) 12.1 10^3/uL (1.8-7.8); NEUTROPHILS % (AUTO) 78 % (42-75); PLATELET COUNT 411 10^3/uL (130-400); WHITE BLOOD COUNT 15.6 10^3/uL (4.3-11.0)
[2021-04-05 19:03] LABS: AMPHETAMINE SCREEN, URINE NEGATIVE (NEGATIVE); BARBITURATE SCREEN URINE NEGATIVE (NEGATIVE); BENZODIAZEPINES SCREEN URINE POSITIVE (NEGATIVE); CANNABINOID SCREEN, URINE POSITIVE (NEGATIVE); COCAINE SCREEN URINE NEGATIVE (NEGATIVE); METHADONE STAT NEGATIVE (NEGATIVE); METHAMPHETAMINE SCREEN URINE S NEGATIVE (NEGATIVE); OPIATE SCREEN URINE NEGATIVE (NEGATIVE); OXYCODONE STAT NEGATIVE (NEGATIVE); TRICYCLIC ANTIDEPRESSANTS SCRE POSITIVE (NEGATIVE)
[2021-04-05 19:04] LABS: PROPOXYPHENE STAT NEGATIVE (NEGATIVE)
[2021-04-05 19:07] LABS: PROTHROMBIN TIME PATIENT 13.1 SEC (12.2-14.7)
[2021-04-05 19:11] LABS: AMORPHOUS SEDIMENT,UR RARE AMOR URATES /LPF; BACTERIA,URINE NEGATIVE /HPF; WBC,URINE 0-2 /HPF
[2021-04-05 19:12] LABS: ALANINE AMINOTRANSFERASE 19 U/L (0-55); ALBUMIN 4.2 GM/DL (3.2-4.5); ALKALINE PHOSPHATASE 76 U/L (40-136); BILIRUBIN,TOTAL 0.9 MG/DL (0.1-1.0); BUN/CREATININE RATIO 13; CARBON DIOXIDE 24 MMOL/L (21-32); CHLORIDE 99 MMOL/L (98-107); CREATININE SERUM 0.72 MG/DL (0.60-1.30); GFR ESTIMATED > 60; GLUCOSE 106 MG/DL (70-105); POTASSIUM 2.9 MMOL/L (3.6-5.0); SODIUM 141 MMOL/L (135-145); TOTAL PROTEIN 7.2 GM/DL (6.4-8.2)
[2021-04-05] MEDS ORDERED: PROMETHAZINE INJ 25 MG/ML (PHENERGAN) AMP IVP ONE (19:15)
[2021-04-05] MEDS ORDERED: NS IV 1000 ML 1,000 ML IV SCH (19:15)
[2021-04-05 19:26] LABS: BASOPHILS % (MANUAL) 1 %; LYMPHOCYTES % (MANUAL) 16 %; MONOCYTES % (MANUAL) 5 %; NEUTROPHILS % (MANUAL) 78 %; RBC MORPH NORMAL
[2021-04-05] MEDS ORDERED: ANTACID SUSP 30 ML UDC (MYLANTA) PO ONE (19:30)
[2021-04-05] MEDS ORDERED: LIDOCAINE 2% VISCOUS 15 ML UDC PO ONE (19:30)
[2021-04-05] MEDS ORDERED: LORazepam INJ 2 MG/ML (ATIVAN) VIAL IVP ONE (19:30)
[2021-04-05] MEDS ORDERED: POTA20PA28 PO (20:21)
[2021-04-05 20:30] VITALS: BP 119/64
[2021-04-05] MEDS ORDERED: KCL 20 MEQ TAB (K-DUR) PO ONE (20:30)
== END 2021-04-05 20:29 | disposition home or self-care (01) ==
LOC: EDUNIT# 17:58 → ER 17:59
DX: E87.6 Hypokalemia (principal); R11.2 Nausea with vomiting, unspecified; F32.9 Major depressive disorder, single episode, unspecified; Z72.89 Other problems related to lifestyle; Z79.899 Other long term (current) drug therapy
CPT/HCPCS: 80053; 80306; 81000; 84703; 85007; 85025; 85027; 85610; G0480; 36415; 80320; 93005

== ENCOUNTER 2021-04-07 14:28 | Emergency (ER) | payer MEDICARE, MEDICAID ==
[~2021-04-07] VITALS: Ht 154 cm; Wt 64.4 kg
[~2021-04-07 14:28] MED LIST changes: +POTA20PA28 PO
[2021-04-07 14:54] LABS: BASOPHILS % (AUTO) 0 % (0-10); EOSINOPHILS # (AUTO) 0.1 10^3/uL (0.0-0.3); EOSINOPHILS % (AUTO) 1 % (0-10); HEMATOCRIT 42 % (35-52); HEMOGLOBIN 14.7 g/dL (11.5-16.0); LYMPHOCYTES # (AUTO) 0.9 10^3/uL (1.0-4.0); LYMPHOCYTES % (AUTO) 10 % (12-44); MEAN CORPUSCULAR HEMOGLOBIN 32 pg (25-34); MEAN CORPUSCULAR HGB CONC 35 g/dL (32-36); MEAN CORPUSCULAR VOLUME 92 fL (80-99); MEAN PLATELET VOLUME 9.4 fL (9.0-12.2); MONOCYTES # (AUTO) 0.4 10^3/uL (0.0-1.0); MONOCYTES % (AUTO) 5 % (0-12); NEUTROPHILS # (AUTO) 7.3 10^3/uL (1.8-7.8); NEUTROPHILS % (AUTO) 83 % (42-75); PLATELET COUNT 261 10^3/uL (130-400); WHITE BLOOD COUNT 8.7 10^3/uL (4.3-11.0)
--- NOTE | 2021-04-07 14:56 | ED Cardiac General ---
History of Present Illness General Chief Complaint: Chest Pain Stated Complaint: CP Nursing Triage Note: pt brought to ER via [facility] from [facility] with c/o chestp ain. Pt states approximately 3 days ago she had a anxiety attack and vomited. She began to have pain in her throat 3 days ago and the pain radiates into the midsternal chest and into the left breast area. Pain gets worse with eating or drinking. Source: patient Exam Limitations: no limitations History of Present Illness Date Seen by Provider: Apr 07, 2021 Time Seen by Provider: 14:32 Initial Comments This is a well appearing 45-year-old female who present to the ER via [facility] for complaints of chest pain that has been present for approximately 3 days. States 3 days ago she had a really bad anxiety attack and vomited. States pain began after vomiting and originates in her throat. Whenever she takes a drink or tends to eat anything the pain radiates into her midsternal chest and left breast area. At rest said it feels like something is stuck on the right side of her throat. Currently denying active chest pain at this time. Denies fever, chills, cough, shortness of breath, nausea, vomiting, diarrhea, abdominal pain. Does smoke half a pack of cigarettes per day. Has occasional alcoholic beverage. Denies any illicit drug use. Denies any cardiac history. NTG SL SUPERVISOR BLOOD: No ASA po SUPERVISOR BLOOD: Yes (324 mg) Allergies and Home Medications Allergies Coded Allergies: No Known Drug Allergies (Unverified , 04/11/20) Home Medications Diazepam 5 Mg Tablet, 5 MG PO BID Prescribed by: BETO DELAROSA on 01/24/21 1658 Hydroxyzine Pamoate 25 Mg Capsule, 25 MG PO Q6H PRN for ANXIETY Prescribed by: BURAK WARNER on 10/31/20 1056 Hydroxyzine Pamoate 25 Mg Capsule, 25 MG PO Q4H PRN for ANXIETY Prescribed by: BETO DELAROSA on 03/18/21 1909 Ondansetron 4 Mg Tab.rapdis, 4 MG PO Q6H PRN for nausea and vomiting Prescribed by: BURAK WARNER on 04/05/21 1144 Potassium Chloride 20 Meq Tablet.er, 40 MEQ PO DAILY Prescribed by: BETO DELAROSA on 01/24/21 1657 Potassium Chloride 20 Meq Tablet.er, 20 MEQ PO DAILY Prescribed by: BETO DELAROSA on 03/18/21 190 Potassium Chloride 20 Meq Packet, 20 MEQ PO BID Prescribed by: BETO DELAROSA on 04/05/212020 Quetiapine Fumarate 100 Mg Tablet, 100 MG PO Q6H, (Reported) Sertraline HCl 100 Mg Tablet, 100 MG PO DAILY, (Reported) Sucralfate 1 Gm Tablet, 1 GM PO TIDAC Prescribed by: FREDDY VILLARREAL on 04/07/21 1541 Patient Home Medication List Home Medication List Reviewed: Yes Review of Systems Review of Systems Constitutional: no symptoms reported EENTM: See HPI Respiratory: No Symptoms Reported Cardiovascular: See HPI Gastrointestinal: No Symptoms Reported Genitourinary: No Symptoms Reported Musculoskeletal: no symptoms reported Skin: no symptoms reported Psychiatric/Neurological: No Symptoms Reported Endocrine: No Symptoms Reported Hematologic/Lymphatic: No Symptoms Reported Past Gewljcs-Rsbniw-Jxyvtl Hx Patient Social History Alcohol Use: Occasionally Uses Number of Drinks Today: FF Alcohol Beverage of Choice: Vodka Smoking Status: Current Everyday Smoker Type Used: Cigarettes 2nd Hand Smoke Exposure: No Recent Infectious Disease Expo: No Recent Hopitalizations: No Immunizations Up To Date Tetanus Booster (TDap): Unknown Seasonal Allergies Seasonal Allergies: No Past Medical History Surgeries: Yes (LEEP, X 5) Section Respiratory: No Cardiac: No Neurological: No Last Menstrual Period: Mar 30, 2021 Genitourinary: No Gastrointestinal: No Musculoskeletal: No Endocrine: No HEENT: No Cancer: No Psychosocial: Yes Anxiety, PTSD, Depression Physical Exam Vital Signs Vital Signs - First Documented 04/07/21 14:28 Temp 36.2 Pulse 122 Resp 16 B/P (MAP) 97/47 (64) Pulse Ox 97 O2 Delivery Room Air Capillary Refill : Less Than 3 Seconds Height, Weight, BMI Height: '" Weight: lbs. oz. kg; 27.00 BMI Method: General Appearance: No Apparent Distress, WD/WN HEENT: PERRL/EOMI, TMs Normal, Normal ENT Inspection, Pharynx Normal, Other Neck: Full Range of Motion, Supple; No Lymphadenopathy (L), No Lymphadenopathy (R); Other (Tenderness to palpation over right anterior neck.) Respiratory: Chest Non Tender, Lungs Clear, Normal Breath Sounds, No Accessory Muscle Use Cardiovascular: Regular Rate, Rhythm, No Edema, No Murmur, Normal Peripheral Pulses Gastrointestinal: Normal Bowel Sounds, Non Tender, Soft Extremity: Normal Capillary Refill, Normal Inspection Neurologic/Psychiatric: Alert, Oriented x3, No Motor/Sensory Deficits, Normal Mood/Affect Skin: Normal Color, Warm/Dry Progress/Results/Core Measures Results/Orders Lab Results Laboratory Tests Test 04/07/21 14:45 Range/Units White Blood Count 8.7 4.3-11.0 10^3/uL Red Blood Count 4.57 3.80-5.11 10^6/uL Hemoglobin 14.7 11.5-16.0 g/dL Hematocrit 42 35-52 % Mean Corpuscular Volume 92 80-99 fL Mean Corpuscular Hemoglobin 32 25-34 pg Mean Corpuscular Hemoglobin Concent 35 32-36 g/dL Red Cell Distribution Width 15.2 H 10.0-14.5 % Platelet Count 261 130-400 10^3/uL Mean Platelet Volume 9.4 9.0-12.2 fL Immature Granulocyte % (Auto) 1 % Neutrophils (%) (Auto) 83 H 42-75 % Lymphocytes (%) (Auto) 10 L 12-44 % Monocytes (%) (Auto) 5 0-12 % Eosinophils (%) (Auto) 1 0-10 % Basophils (%) (Auto) 0 0-10 % Neutrophils # (Auto) 7.3 1.8-7.8 10^3/uL Lymphocytes # (Auto) 0.9 L 1.0-4.0 10^3/uL Monocytes # (Auto) 0.4 0.0-1.0 10^3/uL Eosinophils # (Auto) 0.1 0.0-0.3 10^3/uL Basophils # (Auto) 0.0 0.0-0.1 10^3/uL Immature Granulocyte # (Auto) 0.1 0.0-0.1 10^3/uL Prothrombin Time 12.5 12.2-14.7 SEC INR Comment 0.9 0.8-1.4 Activated Partial Thromboplast Time 31 24-35 SEC D-Dimer 0.28 0.00-0.49 UG/ML Sodium Level 139 135-145 MMOL/L Potassium Level 3.2 L 3.6-5.0 MMOL/L Chloride Level 99 98-107 MMOL/L Carbon Dioxide Level 26 21-32 MMOL/L Anion Gap 14 5-14 MMOL/L Blood Urea Nitrogen 6 L 7-18 MG/DL Creatinine 0.67 0.60-1.30 MG/DL Estimat Glomerular Filtration Rate > 60 BUN/Creatinine Ratio 9 Glucose Level 115 H 70-105 MG/DL Calcium Level 9.6 8.5-10.1 MG/DL Corrected Calcium 9.8 8.5-10.1 MG/DL Magnesium Level 1.7 1.6-2.4 MG/DL Total Bilirubin 0.8 0.1-1.0 MG/DL Aspartate Amino Transf (AST/SGOT) 36 H 5-34 U/L Alanine Aminotransferase (ALT/SGPT) 18 0-55 U/L Alkaline Phosphatase 72 40-136 U/L Myoglobin 18.0 10.0-92.0 NG/ML Troponin I < 0.028 <0.028 NG/ML Total Protein 6.6 6.4-8.2 GM/DL Albumin 3.7 3.2-4.5 GM/DL My Orders Orders - FREDDY VILLARREAL APRN Cbc With Automated Diff (04/07/21 14:43) Magnesium (04/07/21 14:43) Chest 1 View, Ap/Pa Only (04/07/21 14:43) Ekg Tracing (04/07/21 14:43) Comprehensive Metabolic Panel (04/07/21 14:43) Myoglobin Serum (04/07/21 14:43) Protime With Inr (04/07/21 14:43) Partial Thromboplastin Time (04/07/21 14:43) O2 (04/07/21 14:43) Monitor-Rhythm Ecg Trace Only (04/07/21 14:43) Ed Iv/Invasive Line Start (04/07/21 14:43) Fibrin Degradation Products (04/07/21 14:43) Troponin I (04/07/21 14:43) Ketorolac Injection (Toradol Injection) (04/07/21 15:15) Pantoprazole Injection (Protonix Injecti (04/07/21 15:15) Lidocaine 2% Viscous 15 Ml (Xylocaine Vi (04/07/21 15:30) Antacid Suspension (Mylanta Suspension (04/07/21 15:30) Medications Given in ED Vital Signs/I&O 04/07/21 04/07/21 14:28 15:50 Temp 36.2 Pulse 122 105 Resp 16 16 B/P (MAP) 97/47 (64) 100/82 Pulse Ox 97 96 O2 Delivery Room Air Room Air Blood Pressure Mean: 64 Progress Progress Note : Progress Note Patient examined and in no acute distress. She is not actively having chest pain at this time. States that the discomfort is in the right side of her neck whenever she attempts to drink anything it causes severe sharp pain in her neck that radiates down into her chest. She is a little tachycardic, but states that she did take her propanolol this morning. Orders placed for cardiac work-up. Chest x-ray negative for acute pathology. Cardiac work-up negative. Discussed case with Dr. Melo that this appears to be a form of esophagitis. As patient is stable, states he will see her in office tomorrow and to call to schedule appointment. She was given GI cocktail and Toradol which did improve her symptoms. Reviewed discharge plan of care and she is agreeable with plan. Initial ECG Impression Date: Apr 07, 2021 Initial ECG Impression Time: 14:29 Initial ECG Rate: 108 Initial ECG Rhythm: S.Tach Initial ECG Intervals: Normal Initial ECG Impression: Nonspecific Changes Diagnostic Imaging Diagonstic Imaging: Xray Plain Films/CT/US/NM/MRI: chest Comments [facility], [place] NAME: PRAVEENA FUENTES [facility] REC#: [id number] PT STATUS: DEP ER : 1975 PHYSICIAN: FREDDY VILLARREAL APRN ADMIT DATE: 04/07/21/ER Signed Date of Exam:04/07/21 CHEST 1 VIEW, AP/PA ONLY INDICATION: Chest pain. EXAMINATION: Portable chest at 3:18 PM. FINDINGS: The heart size and pulmonary vascularity are normal. The lungs are clear. There are no effusions or pneumothoraces. IMPRESSION: Negative chest. Dictated by: Dictated on workstation # [id number] Dict: 04/07/21 1520 Trans: 04/07/21 1601 [id number] Interpreted by: TORRES ESCALERA MD Electronically signed by: TORRES ESCALERA MD 04/07/21 1601 Reviewed: Reviewed by Me Departure Impression Primary Impression: Esophagitis Disposition: HOME, SELF-CARE Condition: Improved Departure-Patient Inst. Decision time for Depature: 15:32 Referrals: NO,LOCAL PHYSICIAN (PCP/Family) Primary Care Physician Patient Instructions: Chest Pain That Is Not Caused by the Heart (DC) Add. Discharge Instructions: Plan: 1. Follow up with Dr. Melo April 08 at 3:00pm. 2. Take Sulcarafate one hour before meals. You can dilute tablet in small amount of water and drink as a slurry. 3. Return for any new, concerning, or worsening symptoms. All discharge instructions reviewed with patient and/or family. Voiced understanding. Scripts Sucralfate (Carafate) 1 Gm Tablet 1 GM PO TIDAC for 7 Days, #21 TAB 0 Refills Prov: FREDDY VILLARREAL ELECTRON BEAM OPERATOR 04/07/21 Copy Copies To 1: GABINO MELO STORMY D ELECTRON BEAM OPERATOR Apr 07, 2021 14:56
[2021-04-07 15:08] LABS: ALBUMIN 3.7 GM/DL (3.2-4.5)
[2021-04-07 15:09] LABS: CHLORIDE 99 MMOL/L (98-107); POTASSIUM 3.2 MMOL/L (3.6-5.0); SODIUM 139 MMOL/L (135-145)
[2021-04-07 15:10] LABS: CALCIUM 9.6 MG/DL (8.5-10.1); INR 0.9 (0.8-1.4); PROTHROMBIN TIME PATIENT 12.5 SEC (12.2-14.7)
[2021-04-07 15:11] LABS: GLUCOSE 115 MG/DL (70-105); TOTAL PROTEIN 6.6 GM/DL (6.4-8.2)
[2021-04-07 15:12] LABS: CARBON DIOXIDE 26 MMOL/L (21-32)
[2021-04-07 15:13] LABS: BILIRUBIN,TOTAL 0.8 MG/DL (0.1-1.0)
[2021-04-07 15:14] LABS: ALKALINE PHOSPHATASE 72 U/L (40-136)
[2021-04-07 15:15] LABS: CREATININE SERUM 0.67 MG/DL (0.60-1.30); GFR ESTIMATED > 60
[2021-04-07] MEDS ORDERED: PANTOPRAZOLE 40 MG (PROTONIX) VIAL IV ONE (15:15)
[2021-04-07] MEDS ORDERED: KETOROLAC 30 MG/ML VIAL IVP ONE (15:15)
[2021-04-07 15:16] LABS: BUN/CREATININE RATIO 9
[2021-04-07 15:17] LABS: ALANINE AMINOTRANSFERASE 18 U/L (0-55); MAGNESIUM 1.7 MG/DL (1.6-2.4)
--- NOTE | 2021-04-07 15:21 | Diagnostic Imaging Report ---
INDICATION: Chest pain. EXAMINATION: Portable chest at 3:18 PM. FINDINGS: The heart size and pulmonary vascularity are normal. The lungs are clear. There are no effusions or pneumothoraces. IMPRESSION: Negative chest. Dictated by: Dictated on workstation # [id number]
[2021-04-07] MEDS ORDERED: LIDOCAINE 2% VISCOUS 15 ML UDC PO ONE (15:30)
[2021-04-07] MEDS ORDERED: ANTACID SUSP 30 ML UDC (MYLANTA) PO ONE (15:30)
[2021-04-07] MEDS ORDERED: SUCR1TAB36 PO (15:41)
[2021-04-07 15:50] VITALS: BP 100/82
== END 2021-04-07 15:50 | disposition home or self-care (01) ==
LOC: EDUNIT# 14:28 → ER 14:30
DX: K20.90 Esophagitis, unspecified without bleeding (principal); F41.9 Anxiety disorder, unspecified; F32.9 Major depressive disorder, single episode, unspecified; F17.210 Nicotine dependence, cigarettes, uncomplicated; Z79.899 Other long term (current) drug therapy
CPT/HCPCS: 36415; 71045; 80053; 83735; 83874; 84484; 85025; 85379; 85610; 85730; 93005; 93041

== ENCOUNTER 2021-04-26 05:30 | Outpatient (RCR) | payer MEDICARE, MEDICAID ==
[~2021-04-26] VITALS: Ht 154.9 cm; Wt 65.8 kg
[~2021-04-26 05:30] MED LIST changes: +PROP40TA5 PO; +QUET400T PO; +SUCR1TAB36 PO
== END 2021-04-26 09:11 | disposition home or self-care (01) ==
LOC: PREOP 05:30
PROVIDERS: ATTEND Surgery
DX: Z01.812 Encounter for preprocedural laboratory examination (principal); R10.13 Epigastric pain; R13.10 Dysphagia, unspecified; Z20.822 Contact with and (suspected) exposure to COVID-19
CPT/HCPCS: 87635

== ENCOUNTER 2021-05-07 09:34 | Emergency (ER) | payer MEDICARE, MEDICAID ==
[~2021-05-07] VITALS: Ht 154 cm; Wt 65.0 kg
[2021-05-07 09:54] LABS: BASOPHILS # (AUTO) 0.1 10^3/uL (0.0-0.1); BASOPHILS % (AUTO) 1 % (0-10); EOSINOPHILS % (AUTO) 0 % (0-10); HEMATOCRIT 45 % (35-52); HEMOGLOBIN 15.9 g/dL (11.5-16.0); LYMPHOCYTES # (AUTO) 2.4 10^3/uL (1.0-4.0); LYMPHOCYTES % (AUTO) 25 % (12-44); MEAN CORPUSCULAR HEMOGLOBIN 32 pg (25-34); MEAN CORPUSCULAR HGB CONC 35 g/dL (32-36); MEAN CORPUSCULAR VOLUME 90 fL (80-99); MEAN PLATELET VOLUME 9.5 fL (9.0-12.2); MONOCYTES # (AUTO) 0.8 10^3/uL (0.0-1.0); MONOCYTES % (AUTO) 8 % (0-12); NEUTROPHILS # (AUTO) 6.1 10^3/uL (1.8-7.8); NEUTROPHILS % (AUTO) 65 % (42-75); PLATELET COUNT 389 10^3/uL (130-400); WHITE BLOOD COUNT 9.4 10^3/uL (4.3-11.0)
[2021-05-07 10:00] LABS: CHLORIDE 99 MMOL/L (98-107); POTASSIUM 3.1 MMOL/L (3.6-5.0); PROTHROMBIN TIME PATIENT 13.3 SEC (12.2-14.7); SODIUM 137 MMOL/L (135-145)
[2021-05-07] MEDS ORDERED: LORazepam INJ 2 MG/ML (ATIVAN) VIAL IVP ONE (10:00)
[2021-05-07] MEDS ORDERED: PROPRANOLOL 20 MG (INDERAL) TABLET PO ONE (10:00)
[2021-05-07 10:01] LABS: CALCIUM 9.4 MG/DL (8.5-10.1)
[2021-05-07 10:02] LABS: GLUCOSE 110 MG/DL (70-105)
[2021-05-07 10:03] LABS: CARBON DIOXIDE 20 MMOL/L (21-32)
[2021-05-07 10:05] LABS: ALKALINE PHOSPHATASE 79 U/L (40-136)
[2021-05-07 10:06] LABS: CREATININE SERUM 0.74 MG/DL (0.60-1.30); GFR ESTIMATED > 60
[2021-05-07 10:07] LABS: BUN/CREATININE RATIO 15
[2021-05-07 10:09] LABS: ALANINE AMINOTRANSFERASE 18 U/L (0-55)
--- NOTE | 2021-05-07 11:00 | ED Chest Pain ---
General Chief Complaint: Chest Pain Stated Complaint: CP Nursing Triage Note: TO ED PER EMS REPORTS THAT SHE WOKE UP 2AM WITH CHEST PAIN AND IN A PANIC. HAS PMH OF PANIC ATTACK. REPORTS PAIN WORSE ON INSPIRATION. Source: patient Exam Limitations: no limitations History of Present Illness Date Seen by Provider: May 07, 2021 Time Seen by Provider: 09:37 Initial Comments Here with report of right upper chest pain that started at about 2 AM and has persisted since. States it feels like a panic attack. She will occasionally have to come in for this. She is out of her propranolol and did not take her yesterday dose. She has called for refill. Denies nausea, vomiting, weakness or diaphoresis. Denies fever chills. Does report numbness and tingling in her hands and states that her hands are cramping. States this is typical when she has been breathing fast. 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) NTG SL SYNTHETIC STAPLE EXTRUDER: No Associated Symptoms: No abdominal pain, No diaphoresis, No fever/chills, No isac sea/vomiting, No shortness of breath, No weakness Allergies and Home Medications Allergies Coded Allergies: No Known Drug Allergies (Unverified , 04/11/20) Home Medications Propranolol HCl 40 Mg Tablet, 40 MG PO BID, (Reported) Quetiapine Fumarate 400 Mg Tablet, 400 MG PO DAILY, (Reported) Sertraline HCl 100 Mg Tablet, 100 MG PO DAILY, (Reported) Patient Home Medication List Home Medication List Reviewed: Yes Review of Systems Review of Systems Constitutional: see HPI; No chills, No fever EENTM: No Symptoms Reported Respiratory: See HPI; Denies Cough, Denies Wheezing Cardiovascular: Chest Pain, Lightheadedness, Palpitations Gastrointestinal: Denies Nausea, Denies Vomiting Genitourinary: No Symptoms Reported Musculoskeletal: no symptoms reported Psychiatric/Neurological: See HPI, Anxiety, Numbness Endocrine: No Symptoms Reported All Other Systems Reviewed Negative Unless Noted: Yes Past Vcrkvph-Cerfwz-Grtvtz Hx Patient Social History Tobacco Use?: Yes Tobacco type used: Cigarettes Substance use?: No Alcohol Use?: Yes Alcohol Frequency: Once in a while Immunizations Up To Date Tetanus Booster (TDap): Unknown Influenza Vaccine Up-to-Date: No; Not Current First/Initial COVID19 Vaccinat: NO VACCAINE Seasonal Allergies Seasonal Allergies: Yes Past Medical History Surgeries: Yes Section Respiratory: No Cardiac: Yes Hypertension Neurological: No Genitourinary: No Gastrointestinal: No Musculoskeletal: No Endocrine: No HEENT: No Cancer: No Psychosocial: Yes Anxiety, Depression Integumentary: No Blood Disorders: No Family Medical History Reviewed Nursing Family Hx No Pertinent Family Hx Physical Exam Vital Signs Vital Signs - First Documented 05/07/21 09:38 Temp 37.0 Pulse 115 Resp 18 B/P (MAP) 129/69 (89) Pulse Ox 98 Capillary Refill : Less Than 3 Seconds Height, Weight, BMI Height: '" Weight: lbs. oz. kg; 27.00 BMI Method: General Appearance: WD/WN, Anxious HEENT: PERRL/EOMI, Pharynx Normal Neck: Non Tender, Supple Respiratory: Lungs Clear, Normal Breath Sounds Cardiovascular: No Murmur, Tachycardia Gastrointestinal: Non Tender, Soft Extremity: Normal Range of Motion, Non Tender Neurologic/Psychiatric: Alert, Oriented x3 Skin: Normal Color, Warm/Dry Progress/Results/Core Measures Results/Orders Lab Results Laboratory Tests Test 05/07/21 09:40 Range/Units White Blood Count 9.4 4.3-11.0 10^3/uL Red Blood Count 4.97 3.80-5.11 10^6/uL Hemoglobin 15.9 11.5-16.0 g/dL Hematocrit 45 35-52 % Mean Corpuscular Volume 90 80-99 fL Mean Corpuscular Hemoglobin 32 25-34 pg Mean Corpuscular Hemoglobin Concent 35 32-36 g/dL Red Cell Distribution Width 14.6 H 10.0-14.5 % Platelet Count 389 130-400 10^3/uL Mean Platelet Volume 9.5 9.0-12.2 fL Immature Granulocyte % (Auto) 1 % Neutrophils (%) (Auto) 65 42-75 % Lymphocytes (%) (Auto) 25 12-44 % Monocytes (%) (Auto) 8 0-12 % Eosinophils (%) (Auto) 0 0-10 % Basophils (%) (Auto) 1 0-10 % Neutrophils # (Auto) 6.1 1.8-7.8 10^3/uL Lymphocytes # (Auto) 2.4 1.0-4.0 10^3/uL Monocytes # (Auto) 0.8 0.0-1.0 10^3/uL Eosinophils # (Auto) 0.0 0.0-0.3 10^3/uL Basophils # (Auto) 0.1 0.0-0.1 10^3/uL Immature Granulocyte # (Auto) 0.1 0.0-0.1 10^3/uL Prothrombin Time 13.3 12.2-14.7 SEC INR Comment 1.0 0.8-1.4 Activated Partial Thromboplast Time 31 24-35 SEC Sodium Level 137 135-145 MMOL/L Potassium Level 3.1 L 3.6-5.0 MMOL/L Chloride Level 99 98-107 MMOL/L Carbon Dioxide Level 20 L 21-32 MMOL/L Anion Gap 18 H 5-14 MMOL/L Blood Urea Nitrogen 11 7-18 MG/DL Creatinine 0.74 0.60-1.30 MG/DL Estimat Glomerular Filtration Rate > 60 BUN/Creatinine Ratio 15 Glucose Level 110 H 70-105 MG/DL Calcium Level 9.4 8.5-10.1 MG/DL Corrected Calcium 9.4 8.5-10.1 MG/DL Magnesium Level 2.0 1.6-2.4 MG/DL Total Bilirubin 1.0 0.1-1.0 MG/DL Aspartate Amino Transf (AST/SGOT) 29 5-34 U/L Alanine Aminotransferase (ALT/SGPT) 18 0-55 U/L Alkaline Phosphatase 79 40-136 U/L Myoglobin 27.3 10.0-92.0 NG/ML Troponin I < 0.028 <0.028 NG/ML Total Protein 7.0 6.4-8.2 GM/DL Albumin 4.0 3.2-4.5 GM/DL My Orders Orders - TORRES FLETCHER MD Cbc With Automated Diff (05/07/21 09:43) Magnesium (05/07/21 09:43) Chest 1 View, Ap/Pa Only (05/07/21 09:43) Ekg Tracing (05/07/21 09:43) Comprehensive Metabolic Panel (05/07/21 09:43) Myoglobin Serum (05/07/21 09:43) Protime With Inr (05/07/21 09:43) Partial Thromboplastin Time (7/9/21 09:43) O2 (05/07/21 09:43) Monitor-Rhythm Ecg Trace Only (05/07/21 09:43) Lipid Panel (05/08/21 06:00) Ed Iv/Invasive Line Start (05/07/21 09:43) Troponin I (05/07/21 09:43) Lorazepam Injection (Ativan Injection) (05/07/21 10:00) Propranolol Tablet (Inderal Tablet) (05/07/21 10:00) Medications Given in ED Current Medications Medications Dose Ordered Sig/Talia Route Start Time Stop Time Status Last Admin Dose Admin Lorazepam 0.5 mg ONCE ONCE IVP 05/07/21 10:00 05/07/21 10:01 DC 05/07/21 10:00 0.5 MG Propranolol HCl 40 mg ONCE ONCE PO 05/07/21 10:00 05/07/21 10:01 DC 05/07/21 10:06 40 MG Vital Signs/I&O 05/07/21 09:38 Temp 37.0 Pulse 115 Resp 18 B/P (MAP) 129/69 (89) Pulse Ox 98 Blood Pressure Mean: 89 Initial ECG Impression Date: May 07, 2021 Initial ECG Impression Time: 09:37 Initial ECG Rate: 95 Initial ECG Rhythm: S.Tach Comment Sinus rhythm with mild tachycardia. No evidence of ST elevation CO. Normal axis. Similar to previous of 04/07/2021. Interpreted by me. Diagnostic Imaging Diagonstic Imaging: Xray Plain Films/CT/US/NM/MRI: chest Comments No acute findings Reviewed: Reviewed by Me Departure Impression Primary Impression: Chest pain Qualified Codes: R07.9 - Chest pain, unspecified Additional Impression: Anxiety Disposition: 01 HOME, SELF-CARE Condition: Improved Departure-Patient Inst. Decision time for Depature: 11:01 Referrals: NO,LOCAL PHYSICIAN (PCP/Family) Primary Care Physician Patient Instructions: Anxiety, Adult (DC), Chest Pain, Adult ED Add. Discharge Instructions: All discharge instructions reviewed with patient and/or family. Voiced understanding. Take meds as prescribed. Follow up with your doctor in a few days for recheck. Return for worse pain, fever, vomiting, weakness or other concerns as needed. TORRES FLETCHER MD May 07, 2021 11:00
--- NOTE | 2021-05-07 11:01 | Diagnostic Imaging Report ---
Indication: Chest pain. Time of exam: 10:50 AM Correlation is made with prior chest from 04/07/2021. The heart size is normal. The pulmonary vascularity is unremarkable. The lungs are clear. No infiltrate, effusion or pneumothorax is detected. Impression: No acute cardiopulmonary process is detected. Dictated by: Dictated on workstation # [id number]
[2021-05-07 11:28] VITALS: BP 118/92
== END 2021-05-07 11:28 | disposition home or self-care (01) ==
LOC: ER 09:35
DX: R07.9 Chest pain, unspecified (principal); F41.9 Anxiety disorder, unspecified; I10 Essential (primary) hypertension; F32.9 Major depressive disorder, single episode, unspecified; Z79.899 Other long term (current) drug therapy
CPT/HCPCS: 36415; 71045; 80053; 83735; 83874; 84484; 85025; 85610; 85730; 93041

== ENCOUNTER 2021-05-28 05:29 | Outpatient (RCR) | payer MEDICAID, MEDICARE ==
[~2021-05-28] VITALS: Ht 154.9 cm; Wt 65.8 kg
[2021-05-31] MEDS ORDERED: ACET-2267 PO (10:15)
[2021-05-31] MEDS ORDERED: IBUP-2473 PO (10:15)
[2021-05-31] MEDS ORDERED: MULT-577 PO (10:15)
[2021-05-31] MEDS ORDERED: MIRT-69 PO (10:15)
[2021-05-31] MEDS ORDERED: SERT-414 PO (10:15)
[2021-05-31] MEDS ORDERED: PROP40TA5 PO (10:15)
[2021-05-31] MEDS ORDERED: QUET200T29 PO (10:15)
[2021-06-01] MEDS ORDERED: ALPR0.5T7 PO (12:48)
[2021-08-04] MEDS ORDERED: LORA-404 PO (11:59)
[2021-08-04] MEDS ORDERED: SERT50TA2 PO (11:59)
== END 2021-08-22 | disposition home or self-care (01) ==
LOC: PREOP 05:29
PROVIDERS: ATTEND Surgery
DX: Z01.818 Encounter for other preprocedural examination (principal)

== ENCOUNTER 2021-05-30 08:34 | Observation (INO) | payer MEDICAID, MEDICARE ==
[~2021-05-30] VITALS: Ht 165 cm; Wt 100.0 kg
--- NOTE | 2021-05-30 09:21 | ED Psychosocial ---
General Chief Complaint: Psych/Social Disorder Stated Complaint: ANXIETY ATTACK Source: patient, family Exam Limitations: no limitations History of Present Illness Date Seen by Provider: May 30, 2021 Time Seen by Provider: 09:21 Initial Comments Ana is a 46-year-old female who presents to the emergency department today with a chief complaint of panic and anxiety, nausea and vomiting and right upper quadrant abdominal pain. She relates that her mother about a month and a half ago and her daughter just in [place] in the service 9 days ago. She states that she went on a "drinking binge" over the course of the last 4 days and has had about 2/5 of vodka. Patient states that she feels like she almost drink herself to . She has a history of depression and anxiety she follows with [facility]. She has reached out to them but has not established an appointment. Patient denies any recent illnesses, fevers, chills, cough, Covid concerns. She is not having chest pain or shortness of breath. She does feel like her heart is about to "jump out of my chest". No history of A. fib in the past or coronary artery disease that she is aware of. She does not have a primary care physician. Patient denies any suicidal or homicidal ideation. She is fighting feelings of anger and despair. Otherwise has appropriate insight. All other review of systems reviewed and negative except as stated. Timing/Duration: week Severity: severe Associated Symptoms: anxiety, impaired concentration Allergies and Home Medications Allergies Coded Allergies: No Known Drug Allergies (Unverified , 04/11/20) Home Medications Quetiapine Fumarate 400 Mg Tablet, 400 MG PO DAILY, (Reported) Sertraline HCl 100 Mg Tablet, 100 MG PO DAILY, (Reported) Patient Home Medication List Home Medication List Reviewed: Yes Review of Systems Constitutional: see HPI EENTM: no symptoms reported Respiratory: no symptoms reported Cardiovascular: palpitations Gastrointestinal: abdominal pain (RUQ), nausea, vomiting Genitourinary: no symptoms reported : No Musculoskeletal: no symptoms reported Psychiatric/Neurological: Anxiety, Depressed, Emotional Problems All Other Systems Reviewed Negative Unless Noted: Yes Past Iogplip-Rubbjb-Hftaio Hx Patient Social History Tobacco Use?: Yes Tobacco type used: Cigarettes Smoking Status: Current Everyday Smoker Substance use?: No Alcohol Use?: Yes Alcohol type: Hard Liquor Alcohol Frequency: Once in a while Pt feels they are or have been: No Immunizations Up To Date Tetanus Booster (TDap): Unknown Seasonal Allergies Seasonal Allergies: Yes Past Medical History Surgeries: Yes Section Respiratory: No Cardiac: Yes Hypertension Neurological: No Genitourinary: No Gastrointestinal: No Musculoskeletal: No Endocrine: No HEENT: No Cancer: No Psychosocial: Yes Anxiety, Depression Integumentary: No Blood Disorders: No Family Medical History No Pertinent Family Hx Physical Exam Vital Signs - First Documented 05/30/21 08:50 Temp 36.1 Pulse 164 Resp 24 B/P (MAP) 106/96 (99) Pulse Ox 97 O2 Delivery Room Air Capillary Refill : Height, Weight, BMI Height: '" Weight: lbs. oz. kg; 27.42 BMI Method: General Appearance: WD/WN, moderate distress HEENT: normal ENT inspection Neck: normal inspection Respiratory: lungs clear, normal breath sounds, no respiratory distress, no accessory muscle use Cardiovascular: tachycardia Gastrointestinal: soft, tenderness (Right upper quadrant) Extremities: non-tender, normal inspection Neurologic/Psychiatric: no motor/sensory deficits, alert, normal mood/affect, oriented x 3 Appearance/Memory: appropriate appearance Behavior/Eye Contact: cooperative, good eye contact, normal speech Thoughts/Hallucinations: normal thought pattern, no apparent hallucination Skin: normal color, warm/dry Progress/Results/Core Measures Results/Orders Lab Results Laboratory Tests Test 05/30/21 09:00 05/30/21 09:47 Range/Units White Blood Count 27.5 H 4.3-11.0 10^3/uL Red Blood Count 4.84 3.80-5.11 10^6/uL Hemoglobin 15.7 11.5-16.0 g/dL Hematocrit 44 35-52 % Mean Corpuscular Volume 91 80-99 fL Mean Corpuscular Hemoglobin 32 25-34 pg Mean Corpuscular Hemoglobin Concent 36 32-36 g/dL Red Cell Distribution Width 14.6 H 10.0-14.5 % Platelet Count 425 H 130-400 10^3/uL Mean Platelet Volume 9.7 9.0-12.2 fL Immature Granulocyte % (Auto) 1 % Neutrophils (%) (Auto) 87 H 42-75 % Lymphocytes (%) (Auto) 7 L 12-44 % Monocytes (%) (Auto) 6 0-12 % Eosinophils (%) (Auto) 0 0-10 % Basophils (%) (Auto) 0 0-10 % Neutrophils # (Auto) 23.9 H 1.8-7.8 10^3/uL Lymphocytes # (Auto) 1.8 1.0-4.0 10^3/uL Monocytes # (Auto) 1.6 H 0.0-1.0 10^3/uL Eosinophils # (Auto) 0.0 0.0-0.3 10^3/uL Basophils # (Auto) 0.1 0.0-0.1 10^3/uL Immature Granulocyte # (Auto) 0.2 H 0.0-0.1 10^3/uL Neutrophils % (Manual) 82 % Lymphocytes % (Manual) 4 % Monocytes % (Manual) 7 % Eosinophils % (Manual) 1 % Band Neutrophils 6 % Blood Morphology Comment NORMAL Sodium Level 143 135-145 MMOL/L Potassium Level 3.3 L 3.6-5.0 MMOL/L Chloride Level 97 L 98-107 MMOL/L Carbon Dioxide Level 19 L 21-32 MMOL/L Anion Gap 27 H 5-14 MMOL/L Blood Urea Nitrogen 8 7-18 MG/DL Creatinine 0.82 0.60-1.30 MG/DL Estimat Glomerular Filtration Rate 75 BUN/Creatinine Ratio 10 Glucose Level 135 H 70-105 MG/DL Calcium Level 9.1 8.5-10.1 MG/DL Corrected Calcium 8.9 8.5-10.1 MG/DL Total Bilirubin 0.7 0.1-1.0 MG/DL Aspartate Amino Transf (AST/SGOT) 34 5-34 U/L Alanine Aminotransferase (ALT/SGPT) 11 0-55 U/L Alkaline Phosphatase 76 40-136 U/L Total Protein 8.0 6.4-8.2 GM/DL Albumin 4.3 3.2-4.5 GM/DL Lipase 14 8-78 U/L Salicylates Level < 5.0 L 5.0-20.0 MG/DL Acetaminophen Level < 10 L 10-30 UG/ML Serum Alcohol 130 H <10 MG/DL Urine Color YELLOW Urine Clarity CLEAR Urine pH 5.5 5-9 Urine Specific [place] >=1.030 1.016-1.022 Urine Protein NEGATIVE NEGATIVE Urine Glucose (UA) NEGATIVE NEGATIVE Urine Ketones NEGATIVE NEGATIVE Urine Nitrite NEGATIVE NEGATIVE Urine Bilirubin NEGATIVE NEGATIVE Urine Urobilinogen 0.2 < = 1.0 MG/DL Urine Leukocyte Esterase 1+ H NEGATIVE Urine RBC (Auto) 2+ H NEGATIVE Urine RBC RARE /HPF Urine WBC 10-25 H /HPF Urine Squamous Epithelial Cells 2-5 /HPF Urine Crystals NONE /LPF Urine Bacteria MODERATE H /HPF Urine Casts NONE /LPF Urine Mucus MODERATE H /LPF Urine Culture Indicated YES Urine Test NEGATIVE NEGATIVE Urine Opiates Screen NEGATIVE NEGATIVE Urine Oxycodone Screen NEGATIVE NEGATIVE Urine Methadone Screen NEGATIVE NEGATIVE Urine Propoxyphene Screen NEGATIVE NEGATIVE Urine Barbiturates Screen NEGATIVE NEGATIVE Ur Tricyclic Antidepressants Screen POSITIVE H NEGATIVE Urine Phencyclidine Screen NEGATIVE NEGATIVE Urine Amphetamines Screen NEGATIVE NEGATIVE Urine Methamphetamines Screen NEGATIVE NEGATIVE Urine Benzodiazepines Screen NEGATIVE NEGATIVE Urine Cocaine Screen NEGATIVE NEGATIVE Urine Cannabinoids Screen POSITIVE H NEGATIVE My Orders Orders - BURAK WARNER MD Ed Iv/Invasive Line Start (05/30/21 09:22) Cbc With Automated Diff (05/30/21 09:22) Comprehensive Metabolic Panel (05/30/21 09:22) Salicylate (05/30/21 09:22) Acetaminophen (05/30/21 09:22) Alcohol (05/30/21 09:22) Drug Screen Stat (Urine) (05/30/21 09:22) Hcg,Qualitative Urine (05/30/21 09:22) Ua Culture If Indicated (05/30/21 09:22) Ns Iv 1000 Ml (Sodium Chloride 0.9%) (05/30/21 09:30) Promethazine Injection (Phenergan Injec (05/30/21 09:30) Lorazepam Injection (Ativan Injection) (05/30/21 09:22) Manual Differential (05/30/21 09:00) Lipase (05/30/21 10:37) Urine Culture (05/30/21 09:47) Ceftriaxone (Rocephin) (05/30/21 11:30) Lorazepam Injection (Ativan Injection) (05/30/21 11:46) Diltiazem Injection (Cardizem Injection) (05/30/21 12:00) Ekg Tracing (05/30/21 12:36) Ns Iv 1000 Ml (Sodium Chloride 0.9%) (05/30/21 13:00) Medications Given in ED Current Medications Medications Dose Ordered Sig/Talia Route Start Time Stop Time Status Last Admin Dose Admin Ceftriaxone Sodium 1000 mg/ Sterile Water 10 ml @ 200 mls/hr ONCE ONCE IV 05/30/21 11:30 05/30/21 11:32 DC 05/30/21 11:33 200 MLS/HR Diltiazem HCl 20 mg ONCE ONCE IVP 05/30/21 12:00 05/30/21 12:01 DC 05/30/21 11:58 20 MG Promethazine HCl 25 mg ONCE ONCE IVP 05/30/21 09:30 05/30/21 09:31 DC 05/30/21 09:31 25 MG Vital Signs/I&O 05/30/21 08:50 Temp 36.1 Pulse 164 Resp 24 B/P (MAP) 106/96 (99) Pulse Ox 97 O2 Delivery Room Air Progress Progress Note : Time: 11:45 Progress Note Patient reevaluated after 2 L of normal saline and 25 mg of Phenergan, she still nauseated and still going 150. I suspect that her heart rate in the 150s is really atrial fibrillation with rapid ventricular response. I am going to give her a little Cardizem. I discussed the case with Dr. Springer on for the hospitalist service. Will admit the patient observation for monitoring further fluid resuscitation. Patient's heart rate was down to 141 with second EKG does look a lot like sinus tachycardia. Will give the patient 1 more liter of fluids with MVI and thiamine. Initial ECG Impression Date: May 30, 2021 Initial ECG Impression Time: 09:10 Initial ECG Rate: 156 Initial ECG Rhythm: S.Tach, A Fib/Flutter Initial ECG Intervals OR 125 QRS 83 QTC 585 EKG : EKG Time: 13:03 Rate: 141 Rhythm: S.Tach Intervals: QT (440) ECG Comparisson: Changed Departure Communication (Admissions) Time/Spoke to Admitting Phy: 11:[address] Springer Impression Primary Impression: Alcoholic ketoacidosis Additional Impression: Atrial fibrillation with rapid ventricular response Disposition: ADMITTED INPATIENT Condition: Stable Admissions Decision to Admit Reason: Admit from ER (General) Decision to Admit/Date: May 30, 2021 Time/Decision to Admit Time: 11:48 Departure-Patient Inst. Referrals: NO,LOCAL PHYSICIAN (PCP/Family) Primary Care Physician BURAK WARNER MD May 30, 2021 09:21
[2021-05-30] MEDS ORDERED: LORazepam INJ 2 MG/ML (ATIVAN) VIAL IVP STA ×2 (09:22→11:46)
[2021-05-30] MEDS: NS IV 1000 ML 1,000 ML IV SCH ×5 (09:29→19:01)
[2021-05-30 09:30] LABS: ALBUMIN 4.3 GM/DL (3.2-4.5); CHLORIDE 97 MMOL/L (98-107); POTASSIUM 3.3 MMOL/L (3.6-5.0); SODIUM 143 MMOL/L (135-145)
[2021-05-30] MEDS ORDERED: PROMETHAZINE INJ 25 MG/ML (PHENERGAN) AMP IVP ONE (09:30)
[2021-05-30 09:31] LABS: CALCIUM 9.1 MG/DL (8.5-10.1)
[2021-05-30 09:32] LABS: GLUCOSE 135 MG/DL (70-105)
[2021-05-30 09:33] LABS: CARBON DIOXIDE 19 MMOL/L (21-32)
[2021-05-30 09:34] LABS: BILIRUBIN,TOTAL 0.7 MG/DL (0.1-1.0)
[2021-05-30 09:36] LABS: ALKALINE PHOSPHATASE 76 U/L (40-136); CREATININE SERUM 0.82 MG/DL (0.60-1.30); GFR ESTIMATED 75
[2021-05-30 09:38] LABS: BUN/CREATININE RATIO 10
[2021-05-30 09:39] LABS: ALANINE AMINOTRANSFERASE 11 U/L (0-55); SALICYLATE < 5.0 MG/DL (5.0-20.0)
[2021-05-30 09:40] LABS: BASOPHILS # (AUTO) 0.1 10^3/uL (0.0-0.1); BASOPHILS % (AUTO) 0 % (0-10); EOSINOPHILS % (AUTO) 0 % (0-10); HEMATOCRIT 44 % (35-52); HEMOGLOBIN 15.7 g/dL (11.5-16.0); LYMPHOCYTES # (AUTO) 1.8 10^3/uL (1.0-4.0); LYMPHOCYTES % (AUTO) 7 % (12-44); MEAN CORPUSCULAR HEMOGLOBIN 32 pg (25-34); MEAN CORPUSCULAR HGB CONC 36 g/dL (32-36); MEAN CORPUSCULAR VOLUME 91 fL (80-99); MEAN PLATELET VOLUME 9.7 fL (9.0-12.2); MONOCYTES # (AUTO) 1.6 10^3/uL (0.0-1.0); MONOCYTES % (AUTO) 6 % (0-12); NEUTROPHILS # (AUTO) 23.9 10^3/uL (1.8-7.8); NEUTROPHILS % (AUTO) 87 % (42-75); PLATELET COUNT 425 10^3/uL (130-400); WHITE BLOOD COUNT 27.5 10^3/uL (4.3-11.0)
[2021-05-30 09:42] LABS: ACETAMINOPHEN < 10 UG/ML (10-30)
[2021-05-30 09:54] LABS: BILIRUBIN,URINE NEGATIVE (NEGATIVE); CLARITY,URINE CLEAR; COLOR,URINE YELLOW; GLUCOSE, URINE (UA) NEGATIVE (NEGATIVE); KETONES,URINE NEGATIVE (NEGATIVE); LEUKOCYTE ESTERASE ,URINE 1+ (NEGATIVE); NITRITE,URINE NEGATIVE (NEGATIVE); PH,URINE 5.5 (5-9); PROTEIN,URINE NEGATIVE (NEGATIVE)
[2021-05-30 09:59] LABS: HCG,QUALITATIVE URINE NEGATIVE (NEGATIVE)
[2021-05-30 10:15] LABS: AMPHETAMINE SCREEN, URINE NEGATIVE (NEGATIVE); BARBITURATE SCREEN URINE NEGATIVE (NEGATIVE); CANNABINOID SCREEN, URINE POSITIVE (NEGATIVE); COCAINE SCREEN URINE NEGATIVE (NEGATIVE); METHADONE STAT NEGATIVE (NEGATIVE); METHAMPHETAMINE SCREEN URINE S NEGATIVE (NEGATIVE); OPIATE SCREEN URINE NEGATIVE (NEGATIVE); TRICYCLIC ANTIDEPRESSANTS SCRE POSITIVE (NEGATIVE)
[2021-05-30 10:16] LABS: BENZODIAZEPINES SCREEN URINE NEGATIVE (NEGATIVE); OXYCODONE STAT NEGATIVE (NEGATIVE); PROPOXYPHENE STAT NEGATIVE (NEGATIVE)
[2021-05-30 10:26] LABS: BAND NEUTROPHILS 6 %; EOSINOPHILS % (MANUAL) 1 %; LYMPHOCYTES % (MANUAL) 4 %; MONOCYTES % (MANUAL) 7 %; NEUTROPHILS % (MANUAL) 82 %; RBC MORPH NORMAL
[2021-05-30 10:35] LABS: RBC,URINE RARE /HPF
[2021-05-30 10:36] LABS: BACTERIA,URINE MODERATE /HPF
[2021-05-30] MEDS ORDERED: cefTRIAXone 1,000 MG in WATER (STERILE) FOR INJECTION 10 ML IV ONE (11:30)
[2021-05-30] MEDS ORDERED: NS IV 1000 ML 1,000 ML IV SCH (13:15)
--- NOTE | 2021-05-30 14:58 | History & Physical-Hospitalist ---
History of Present Illness HPI/Chief Complaint Pt is a 46yoCF with anxiety and depression who presented to the ER due to anxiety. She has been having a few very hard days with her anxiety and had panic attacks. She lost her mother last month and found out her daughter in [place] 9 days ago. She attempted to console her grief with alcohol and has been on a drinking binge for 4 days. She normally only drinks socially. She has drank roughly 2 fifths in that time frame. She feels a little better now that she has had some fluids and her heart is not racing as fast. She has no other concerns. Source: patient Date Seen 05/30/21 Time Seen by a Provider: 14:52 Attending Physician Dc Springer MD PCP No,Local Physician Referring Physician Date of Admission May 30, 2021 at 12:39 Home Medications & Allergies Home Medications Reviewed patient Home Medication Reconciliation performed by pharmacy medication reconciliations research and development technician and/or nursing. Patients Allergies have been reviewed. Allergies Allergies Coded Allergies No Known Drug Allergies (Unverified04/11/20) Past Zbekwzl-Zsgzmu-Midoki Hx Patient Social History Tobacco Use?: Yes Tobacco type used: Cigarettes (10 per day) Smoking Status: Current Everyday Smoker Substance use?: No Alcohol Use?: Yes Alcohol type: Hard Liquor Alcohol Frequency: Once in a while Pt feels they are or have been: No Immunizations Up To Date Tetanus Booster (TDap): Unknown Seasonal Allergies Seasonal Allergies: Yes Current Status Advance Directives: No Communicates: Verbally Primary Language: Faroese Preferred Spoken Language: Faroese Is interpretation needed?: No Past Medical History Surgeries: Section Hypertension Anxiety, Depression Blood Disorders: No Family Medical History Reviewed Nursing Family Hx No Pertinent Family Hx Review of Systems Constitutional: weakness EENTM: no symptoms reported Respiratory: cough (chronic) Cardiovascular: No edema; palpitations Gastrointestinal: nausea Genitourinary: no symptoms reported Musculoskeletal: no symptoms reported Skin: no symptoms reported Psychiatric/Neurological: See HPI Physical Exam Physical Exam Vital Signs Vital Signs - First Documented 05/30/21 08:50 Temp 36.1 Pulse 164 Resp 24 B/P (MAP) 106/96 (99) Pulse Ox 97 O2 Delivery Room Air Capillary Refill : Less Than 3 Seconds Height, Weight, BMI Height: '" Weight: lbs. oz. kg; 36.00 BMI Method: General Appearance: No Apparent Distress, WD/WN, Anxious, Other (occasionally tearful) HEENT: PERRL/EOMI, Moist Mucous Membranes; No Scleral Icterus (L), No Scleral Icterus (R) Neck: Normal Inspection, Supple Respiratory: Lungs Clear, No Accessory Muscle Use, No Respiratory Distress Cardiovascular: Regular Rate, Rhythm, No Murmur Gastrointestinal: Normal Bowel Sounds, Non Tender, Soft Extremity: Normal Capillary Refill, No Calf Tenderness, No Pedal Edema Neurologic/Psychiatric: Alert, Oriented x3, Normal Mood/Affect Results Results/Procedures Labs Laboratory Tests 05/30/21 09:00 Patient resulted labs reviewed. Assessment/Plan Admission Diagnosis Alcoholic ketoacidosis Admission Status: Inpatient Order (span 2 midnights) Reason for Inpatient Admission: see below Assessment and Plan Alcoholic ketoacidosis Dehydration Acute grief reaction Continue IVF Does have a high anion gap likely related to alochol use and dehydration though interestedin urine ketones are negative, denies ingestion Will repeat BMP Continue on banana bag career services director consulted Continue home meds phenergan prn Prolonged Qt Monitor on tele avoid zofran UTI Continue rocephin Await cultures Tobacco abuse offered nicotine patch, she declines DVT ppx: Lovenox Diagnosis/Problems Diagnosis/Problems (1) Dehydration (2) Alcoholic ketoacidosis Status: Acute (3) Anxiety Status: Acute (4) Alcohol use Status: Acute (5) Nausea and vomiting Status: Acute (6) Panic attack Status: Acute Clinical Quality Measures Smoking Cessation Counseling: Counseling-Symptomatic: 3-10 Minutes DC SPRINGER MD May 30, 2021 14:58
[2021-05-30 15:00] VITALS: BP 164/74
[2021-05-30] MEDS ORDERED: LORazepam INJ 2 MG/ML (ATIVAN) VIAL IVP PRN (15:15)
[2021-05-30 15:29] VITALS: BP 106/96
[2021-05-30] MEDS: LORazepam 0.5 MG (ATIVAN) TABLET PO PRN ×2 (15:35→23:31)
[2021-05-30] MEDS ORDERED: RT-ALBUTEROL SULF 2.5 MG/3 ML PRE-MIX VIAL INH PRN (15:45)
[2021-05-30 15:57] LABS: CALCIUM 7.3 MG/DL (8.5-10.1); CREATININE SERUM 0.62 MG/DL (0.60-1.30); POTASSIUM 2.6 MMOL/L (3.6-5.0)
[2021-05-30 16:00] VITALS: BP 117/81
[2021-05-30] MEDS: PROMETHAZINE INJ 25 MG/ML (PHENERGAN) AMP IV PRN (16:40)
[2021-05-30] MEDS ORDERED: KCL 20 MEQ TAB (K-DUR) PO ONE (16:45)
[2021-05-30 20:00] VITALS: BP 122/73
[2021-05-30] MEDS: diphenhydrAMINE 25 MG TAB (BENADRYL) PO PRN (21:14)
[2021-05-30] MEDS: ACETAMINOPHEN 500 MG TAB (TYLENOL) PO PRN (23:31)
[2021-05-30 23:32] VITALS: BP 116/61
[2021-05-31] MEDS: NS IV 1000 ML 1,000 ML IV SCH ×4 (02:28→20:22)
[2021-05-31] MEDS: PROMETHAZINE INJ 25 MG/ML (PHENERGAN) AMP IV PRN (02:32)
[2021-05-31 03:45] VITALS: BP 125/84
[2021-05-31 07:14] LABS: ALBUMIN 3.1 GM/DL (3.2-4.5)
[2021-05-31 07:16] LABS: CALCIUM 6.9 MG/DL (8.5-10.1)
[2021-05-31 07:17] LABS: TOTAL PROTEIN 5.2 GM/DL (6.4-8.2)
[2021-05-31 07:19] LABS: BILIRUBIN,TOTAL 1.2 MG/DL (0.1-1.0)
[2021-05-31 07:21] LABS: CREATININE SERUM 0.6 MG/DL (0.60-1.30)
[2021-05-31 07:24] LABS: MAGNESIUM 1.3 MG/DL (1.6-2.4)
[2021-05-31 07:26] LABS: POTASSIUM 2.5 MMOL/L (3.6-5.0)
[2021-05-31] MEDS: MAGNESIUM 1 GM/100 ML IVPB 100 ML IV SCH ×5 (07:30→11:22)
[2021-05-31] MEDS: KCL 20 MEQ TAB (K-DUR) PO SCH (07:30)
[2021-05-31] MEDS: POTASSIUM CL 10MEQ/50ML IVPB 50 ML IV SCH ×7 (07:30→13:41)
[2021-05-31] MEDS: LORazepam 0.5 MG (ATIVAN) TABLET PO PRN ×2 (08:11→16:56)
[2021-05-31 08:13] LABS: BASOPHILS % (AUTO) 0 % (0-10); EOSINOPHILS % (AUTO) 0 % (0-10); HEMATOCRIT 35 % (35-52); LYMPHOCYTES # (AUTO) 1.3 10^3/uL (1.0-4.0); LYMPHOCYTES % (AUTO) 12 % (12-44); MEAN CORPUSCULAR HEMOGLOBIN 33 pg (25-34); MEAN CORPUSCULAR HGB CONC 35 g/dL (32-36); MEAN CORPUSCULAR VOLUME 94 fL (80-99); MEAN PLATELET VOLUME 9.9 fL (9.0-12.2); MONOCYTES # (AUTO) 0.7 10^3/uL (0.0-1.0); MONOCYTES % (AUTO) 7 % (0-12); NEUTROPHILS # (AUTO) 8.4 10^3/uL (1.8-7.8); NEUTROPHILS % (AUTO) 80 % (42-75); PLATELET COUNT 271 10^3/uL (130-400); WHITE BLOOD COUNT 10.5 10^3/uL (4.3-11.0)
[2021-05-31 08:32] VITALS: BP 114/70
[2021-05-31] MEDS: ACETAMINOPHEN 500 MG TAB (TYLENOL) PO PRN ×3 (08:38→19:03)
[2021-05-31] MEDS ORDERED: THIAMINE INJECTION 100 MG in NS (IVPB) 50 ML IV SCH (09:00)
[2021-05-31] MEDS ORDERED: QUET200T29 PO (10:15)
[2021-05-31] MEDS ORDERED: SERT-414 PO (10:15)
[2021-05-31] MEDS ORDERED: MULT-577 PO (10:15)
[2021-05-31] MEDS ORDERED: PROP40TA5 PO (10:15)
[2021-05-31] MEDS ORDERED: MIRT-69 PO (10:15)
[2021-05-31] MEDS ORDERED: IBUP-2473 PO (10:15)
[2021-05-31] MEDS ORDERED: ACET-2267 PO (10:15)
[2021-05-31 11:24] VITALS: BP 118/77
[2021-05-31] MEDS ORDERED: SERTRALINE 100 MG (ZOLOFT) TAB PO ONE (13:15)
--- NOTE | 2021-05-31 13:25 | Progress Note - Hospitalist ---
Subjective HPI/CC On Admission Date Seen by Provider: May 31, 2021 Time Seen by Provider: 10:00 Pt is a 46yoCF with anxiety and depression who presented to the ER due to anxiety. She has been having a few very hard days with her anxiety and had panic attacks. She lost her mother last month and found out her daughter in [place] 9 days ago. She attempted to console her grief with alcohol and has been on a drinking binge for 4 days. She normally only drinks socially. She has drank roughly 2 fifths in that time frame. She feels a little better now that she has had some fluids and her heart is not racing as fast. She has no other concerns. Subjective/Events-last exam She is feeling better today. She is still a bit shaky. She has not had any nausea or vomiting since last night. She is depressed. She is anxious. Objective Exam Vital Signs Vital Signs Date Time Temp Pulse Resp B/P (MAP) Pulse Ox O2 Delivery O2 Flow Rate FiO2 05/31/21 11:24 36.3 113 20 118/77 (91) 98 Room Air 05/30/21 15:29 21 Capillary Refill : Less Than 3 Seconds General Appearance: Anxious, Mild Distress, Obese Respiratory: Lungs Clear, Normal Breath Sounds, No Respiratory Distress Cardiovascular: Regular Rate, Rhythm, No Edema, No Murmur Gastrointestinal: Normal Bowel Sounds, Non Tender, Soft Extremity: Normal Inspection, Non Tender, No Pedal Edema Neurologic/Psychiatric: Alert, Oriented x3, Depressed Affect, Other (Tremulous) Skin: Normal Color, Warm/Dry Results/Procedures Lab Laboratory Tests 05/30/21 15:06 05/31/21 06:54 05/31/21 06:56 Patient resulted labs reviewed. Assessment/Plan Assessment and Plan Assess & Plan/Chief Complaint Alcohol abuse Hypokalemia Hypomagnesemia Social work consulted, appreciate assistance Monitor replace electrolytes as needed Acute grief reaction Depression and anxiety Continue home meds, Zoloft and Seroquel Add Xanax Prolonged Qt Monitor on tele avoid zofran UTI Continue rocephin Await cultures Tobacco abuse offered nicotine patch, declined DVT ppx: Lovenox Acute alcohol intoxication, resolved Alcoholic ketoacidosis, resolved Dehydration, resolved Leukocytosis, resolved Diagnosis/Problems Diagnosis/Problems (1) Grief reaction Status: Acute (2) Acute alcohol intoxication Status: Acute Qualifiers: Complication of substance-induced condition: uncomplicated Qualified Codes: F10.920 - Alcohol use, unspecified with intoxication, uncomplicated (3) Alcohol abuse Status: Acute (4) Hypokalemia Status: Acute (5) Hypomagnesemia Status: Acute (6) Anxiety and depression Status: Acute Clinical Quality Measures Smoking Cessation Counseling: Counseling-Symptomatic: 3-10 Minutes LYNSEY LITTLE MD May 31, 2021 13:24
[2021-05-31 15:35] VITALS: BP 106/64
[2021-05-31] MEDS ORDERED: KCL 20 MEQ TAB (K-DUR) PO ONE ×3 (18:30→22:30)
[2021-05-31 19:45] VITALS: BP 108/65
[2021-05-31] MEDS: PROPRANOLOL 20 MG (INDERAL) TABLET PO SCH (20:23)
[2021-05-31] MEDS: ALPRAZolam 0.5 MG (XANAX) TAB PO SCH (20:23)
[2021-05-31] MEDS: QUEtiapine 200 MG (SEROquel) TAB IMMEDIATE RELEASE PO SCH (20:23)
[2021-05-31] MEDS: diphenhydrAMINE 25 MG TAB (BENADRYL) PO PRN (23:29)
[2021-05-31 23:59] VITALS: BP 98/67
[2021-06-01] MEDS: NS IV 1000 ML 1,000 ML IV SCH ×2 (03:00→11:43)
[2021-06-01] MEDS: LORazepam 0.5 MG (ATIVAN) TABLET PO PRN (03:08)
[2021-06-01 03:44] VITALS: BP 96/60
[2021-06-01 06:00] LABS: POTASSIUM 3.6 MMOL/L (3.6-5.0)
[2021-06-01 06:01] LABS: CALCIUM 6.9 MG/DL (8.5-10.1)
[2021-06-01 06:06] LABS: CREATININE SERUM 0.56 MG/DL (0.60-1.30)
[2021-06-01 06:08] LABS: MAGNESIUM 2.2 MG/DL (1.6-2.4)
[2021-06-01] MEDS: POTASSIUM CL 10MEQ/50ML IVPB 50 ML IV SCH (06:09)
[2021-06-01] MEDS: MAGNESIUM 1 GM/100 ML IVPB 100 ML IV SCH (06:09)
[2021-06-01] MEDS: KCL 20 MEQ TAB (K-DUR) PO SCH (06:10)
[2021-06-01 08:00] VITALS: BP 92/51
[2021-06-01] MEDS: PROPRANOLOL 20 MG (INDERAL) TABLET PO SCH (08:34)
[2021-06-01] MEDS: QUEtiapine 200 MG (SEROquel) TAB IMMEDIATE RELEASE PO SCH ×2 (08:34→13:01)
[2021-06-01] MEDS: ALPRAZolam 0.5 MG (XANAX) TAB PO SCH (08:34)
[2021-06-01] MEDS: ACETAMINOPHEN 500 MG TAB (TYLENOL) PO PRN (08:57)
[2021-06-01] MEDS ORDERED: SERTRALINE 100 MG (ZOLOFT) TAB PO SCH (09:00)
[2021-06-01 11:52] VITALS: BP 100/60
[2021-06-01] MEDS ORDERED: ALPR0.5T7 PO (12:48)
[2021-06-01 13:34] VITALS: BP 100/60
--- NOTE | 2021-06-01 16:46 | Discharge Summary ---
Discharge Summary Hospital Course Was the Problem List Reviewed?: Yes Problems/Dx: (1) Grief reaction Status: Acute (2) Acute alcohol intoxication Status: Acute Qualifiers: Qualified Codes: F10.920 - Alcohol use, unspecified with intoxication, uncomplicated (3) Alcohol abuse Status: Acute (4) Hypokalemia Status: Acute (5) Hypomagnesemia Status: Acute (6) Anxiety and depression Status: Acute Hospital Course Date of Admission: May 30, 2021 at 12:39 Admission Diagnosis : Acute alcohol intoxication and dehydration Family Physician/Provider: GretchenLocal Physician Date of Discharge: 06/01/21 Discharge Diagnosis: Acute alcohol intoxication and dehydration Hospital Course: Ana Garcia is a 46 year old female who recently lost her mother and her daughter in the past month who presented with acute alcohol intoxication and dehydration. She was treated with IV fluids. She had electrolyte abnormalities which were corrected. She was suffering from acute grief. She was continued on her chronic Zoloft and Seroquel. She was started on Xanax and this improved her anxiety. She was given a small supply of Xanax. She was set up to see a coun selor. She was encouraged to stop smoking and drinking. She will follow up with [facility]. She was discharged in stable condition. Labs and Pending Lab Test: Laboratory Tests 05/31/21 17:45: Potassium Level 3.0L 06/01/21 05:45: Potassium Level 3.6, Sodium Level 138, Chloride Level 112H, Carbon Dioxide Level 17L, Anion Gap 9, Blood Urea Nitrogen 2L, Creatinine 0.56L, Estimat Glomerular Filtration Rate 117, BUN/Creatinine Ratio 4, Glucose Level 89, Calcium Level 6.9L, Magnesium Level 2.2 Microbiology 05/30/21 Urine Culture - Final, Complete Gram Pos Mixed Bacterial Maritza Strep anginosus Home Meds Active Alprazolam 0.5 Mg Tablet 0.5 Mg PO BID 7 Days Reported Ibuprofen 200 Mg Tablet 400-600 Mg PO Q8H PRN Tylenol Extra Strength (Acetaminophen) 500 Mg Tablet 1,000 Mg PO Q8H PRN Vitamins For Hair (Multivitamin) 1 Each Tablet 1 Each PO DAILY Mirtazapine 30 Mg Tablet 30 Mg PO HS Sertraline HCl 100 Mg Tablet 200 Mg PO DAILY TAKES 2 (100MG) TABS Quetiapine Fumarate 200 Mg Tablet 200 Mg PO BID PRN Propranolol HCl 40 Mg Tablet 40 Mg PO BID Assessment/Pt Instructions Take medications as prescribed. Follow up with PCP. Follow up with counselor. Return with worsening symptoms. Discharge Planning: <30 minutes discharge planning Discharge Instructions Discharge Diet: No Restrictions Activity as Tolerated: Yes Discharge Physical Examination Vital Signs Vital Signs Date Time Temp Pulse Resp B/P (MAP) Pulse Ox O2 Delivery O2 Flow Rate FiO2 06/01/21 13:34 36.7 78 18 100/60 98 Room Air 05/30/21 15:29 21 General Appearance: No Apparent Distress, Anxious, Obese Respiratory: Lungs Clear, Normal Breath Sounds, No Respiratory Distress Cardiovascular: Regular Rate, Rhythm, No Edema, No Murmur Gastrointestinal: Normal Bowel Sounds, Non Tender, Soft Extremity: Normal Inspection, Non Tender, No Pedal Edema Skin: Normal Color, Warm/Dry Neurologic/Psychiatric: Alert, Oriented x3, Depressed Affect Allergies: Coded Allergies: No Known Drug Allergies (Unverified , 05/30/21) Copy Copies To 1: [facility] [place] Date of Admission May 30, 2021 at 12:39 Date of Discharge Jun 01, 2021 at 13:37 Discharge Date: Jun 01, 2021 Discharge Time: 13:37 Admission Diagnosis Alcoholic ketoacidosis Discharge Diagnosis Acute alcohol intoxication Electrolyte abnormalities Acute grief reaction Depression and anxiety (1) Grief reaction Status: Acute (2) Acute alcohol intoxication Status: Acute Qualifiers: Qualified Codes: F10.920 - Alcohol use, unspecified with intoxication, uncomplicated (3) Alcohol abuse Status: Acute (4) Hypokalemia Status: Acute (5) Hypomagnesemia Status: Acute (6) Anxiety and depression Status: Acute Clinical Quality Measures Smoking Cessation Counseling: Counseling-Symptomatic: 3-10 Minutes LYNSEY LITTLE MD Jun 01, 2021 16:46
== END 2021-06-01 13:34 | disposition home or self-care (01) ==
LOC: EDUNIT# 08:34 → ER 08:36 → UNDOADMOB 12:39 → 4TH 12:39 → UNDODISOB 06-01 13:37
PROVIDERS: ADMIT Family Medicine; ATTEND Internal Medicine
DX: F10.129 Alcohol abuse with intoxication, unspecified (principal); E86.0 Dehydration; F43.20 Adjustment disorder, unspecified; N39.0 Urinary tract infection, site not specified; E83.42 Hypomagnesemia; E87.6 Hypokalemia; I10 Essential (primary) hypertension; E87.2 Acidosis; I48.91 Unspecified atrial fibrillation; E84.9 Cystic fibrosis, unspecified; F17.210 Nicotine dependence, cigarettes, uncomplicated; R94.31 Abnormal electrocardiogram [ECG] [EKG]; F41.9 Anxiety disorder, unspecified; F32.9 Major depressive disorder, single episode, unspecified; Z79.899 Other long term (current) drug therapy
CPT/HCPCS: 36415; 80048; 80053; 80306; 80320; 80329; 81000; 83690; 83735; 84132; 84703; 85007; 85025; 85027; 87088; 93005; 96361; 96374; 96375; 96376; G0378

== ENCOUNTER 2021-07-07 04:15 | Emergency (ER) | payer MEDICARE, MEDICAID ==
[~2021-07-07 04:15] MED LIST changes: +ACET-2267 PO; +ALPR0.5T7 PO; +IBUP-2473 PO; +MIRT-69 PO; +MULT-577 PO; +QUET200T29 PO; +SERT-414 PO
[2021-07-07] MEDS ORDERED: LORazepam INJ 2 MG/ML (ATIVAN) VIAL IVP ONE ×2 (04:45→07:30)
[2021-07-07] MEDS ORDERED: LACTATED RINGERS 1,000 ML IV ONE (04:45)
[2021-07-07] MEDS ORDERED: ONDANSETRON 4 MG/2 ML (SDV) Z0FRAN IVP ONE (04:45)
--- NOTE | 2021-07-07 04:53 | ED Chest Pain ---
General Stated Complaint: PANIC ATTACK Source: patient Exam Limitations: no limitations (KELSIE CORNEJO) History of Present Illness Date Seen by Provider: Jul 07, 2021 Time Seen by Provider: 04:30 Initial Comments Patient presents ER by private conveyance with significant other chief complaint that about 10:00 last night she started to experience a constant sharp pain across the front of her chest. This set off her panic attack and anxiety so she said she had a couple beers to see if that would help calm her down. She says this only made her pain worse. Her pain has been constant. She continued to get more anxious and decided to come to the ER. She sees [facility] for primary care. She has no personal history of coronary disease. She does have a history of GERD and reflux. She is having nausea and some retching. She is a daily drinker. She denies recreational drugs but smokes about 1/2 pack of cigarettes per day. She denies diabetes, hypertension, hyperlipidemia. She states her father of a heart attack in his mid 50s. (KELSIE CORNEJO) Allergies and Home Medications Allergies Coded Allergies: No Known Drug Allergies (Unverified , 05/30/21) Patient Home Medication List Home Medication List Reviewed: Yes (KELSIE CORNEJO) Acetaminophen (Tylenol Extra Strength) 500 Mg Tablet, 1,000 MG PO Q8H PRN for PAIN-MILD (1-4), (Reported) Entered as Reported by: VIPUL MCCONNELL on 05/31/21 1015 Alprazolam (Alprazolam) 0.5 Mg Tablet, 0.5 MG PO BID Prescribed by: LYNSEY LITTLE on 06/01/21 1249 Ibuprofen (Ibuprofen) 200 Mg Tablet, 400-600 MG PO Q8H PRN for PAIN-MILD (1-4), (Reported) Entered as Reported by: VIPUL MCCONNELL on 05/31/21 1015 Mirtazapine (Mirtazapine) 30 Mg Tablet, 30 MG PO HS, (Reported) Entered as Reported by: VIPUL MCCONNELL on 05/31/21 1015 Multivitamin (Vitamins For Hair) 1 Each Tablet, 1 EACH PO DAILY, (Reported) Entered as Reported by: VIPUL MCCONNELL on 05/31/21 1015 Propranolol HCl (Propranolol HCl) 40 Mg Tablet, 40 MG PO BID, (Reported) Entered as Reported by: VIPUL MCCONNELL on 05/31/21 1015 Quetiapine Fumarate (Quetiapine Fumarate) 200 Mg Tablet, 200 MG PO BID PRN for ANXIETY, (Reported) Entered as Reported by: VIPUL MCCONNELL on 05/31/21 1015 Sertraline HCl (Sertraline HCl) 100 Mg Tablet, 200 MG PO DAILY, (Reported) Entered as Reported by: VIPUL MCCONNELL on 05/31/21 1015 Review of Systems Review of Systems Constitutional: No chills, No fever, No malaise EENTM: No Blurred Vision, No Double Vision Respiratory: Denies Cough, Denies Shortness of Air Cardiovascular: See HPI, Chest Pain; Denies Lightheadedness, Denies Palpitations, Denies Syncope Gastrointestinal: See HPI; Denies Abdominal Pain, Denies Constipated, Denies Diarrhea; Nausea, Vomiting Genitourinary: Denies Burning, Denies Discharge Musculoskeletal: No back pain, No joint pain (KELSIE CORNEJO) All Other Systems Reviewed Negative Unless Noted: Yes (KELSIE CORNEJO) Past Vavybtl-Gkmwba-Sedaei Hx Patient Social History Tobacco Use?: Yes Tobacco type used: Cigarettes Smoking Status: Current Everyday Smoker Smokeless Tobacco Frequency: Never a User Use of E-Cig and/or Vaping dev: No Substance use?: No Alcohol Use?: Yes Alcohol type: Beer Alcohol Frequency: Daily (KELSIE CORNEJO) Immunizations Up To Date Tetanus Booster (TDap): Unknown (KELSIE CORNEJO) Seasonal Allergies Seasonal Allergies: Yes (KELSIE CORNEJO) Past Medical History Surgeries: Yes Section Respiratory: No Cardiac: Yes Hypertension Neurological: No Genitourinary: No Gastrointestinal: No Musculoskeletal: No Endocrine: No HEENT: No Cancer: No Psychosocial: Yes Anxiety, Depression Integumentary: No Blood Disorders: No (KELSIE CORNEJO) Family Medical History No Pertinent Family Hx (KELSIE CORNEJO) Physical Exam Vital Signs Vital Signs - First Documented 07/07/21 04:30 Temp 36.1 Pulse 117 Resp 22 B/P (MAP) 136/112 (120) Pulse Ox 98 O2 Delivery Room Air (BURAK WARNER MD) Vital Signs Capillary Refill : (KELSIE CORNEJO) Height, Weight, BMI Height: '" Weight: lbs. oz. kg; 36.73 BMI Method: General Appearance: Anxious, Mild Distress HEENT: PERRL/EOMI, Pharynx Normal, Moist Mucous Membranes Neck: Full Range of Motion, Normal Inspection, Non Tender Respiratory: Chest Non Tender, Lungs Clear, Normal Breath Sounds, No Accessory Muscle Use, No Respiratory Distress Cardiovascular: Regular Rate, Rhythm, No Edema, No Murmur, Normal Peripheral Pulses Gastrointestinal: Normal Bowel Sounds, No Organomegaly, Non Tender, Soft Extremity: Normal Capillary Refill, Normal Inspection, No Pedal Edema Neurologic/Psychiatric: Alert, Oriented x3, Other (Anxious affect) Skin: Normal Color, Warm/Dry (CHANTAL,KELSIE J) Progress/Results/Core Measures Results/Orders Lab Results Laboratory Tests Test 07/07/21 04:58 07/07/21 05:15 07/07/21 07:00 Range/Units White Blood Count 10.4 4.3-11.0 10^3/uL Red Blood Count 4.29 3.80-5.11 10^6/uL Hemoglobin 14.5 11.5-16.0 g/dL Hematocrit 41 35-52 % Mean Corpuscular Volume 95 80-99 fL Mean Corpuscular Hemoglobin 34 25-34 pg Mean Corpuscular Hemoglobin Concent 36 32-36 g/dL Red Cell Distribution Width 14.7 H 10.0-14.5 % Platelet Count 453 H 130-400 10^3/uL Mean Platelet Volume 8.9 L 9.0-12.2 fL Immature Granulocyte % (Auto) 0 % Neutrophils (%) (Auto) 68 42-75 % Lymphocytes (%) (Auto) 16 12-44 % Monocytes (%) (Auto) 12 0-12 % Eosinophils (%) (Auto) 3 0-10 % Basophils (%) (Auto) 1 0-10 % Neutrophils # (Auto) 7.1 1.8-7.8 10^3/uL Lymphocytes # (Auto) 1.7 1.0-4.0 10^3/uL Monocytes # (Auto) 1.2 H 0.0-1.0 10^3/uL Eosinophils # (Auto) 0.3 0.0-0.3 10^3/uL Basophils # (Auto) 0.1 0.0-0.1 10^3/uL Immature Granulocyte # (Auto) 0.0 0.0-0.1 10^3/uL Prothrombin Time 13.4 12.2-14.7 SEC INR Comment 1.0 0.8-1.4 Activated Partial Thromboplast Time 28 24-35 SEC Sodium Level 143 135-145 MMOL/L Potassium Level 2.8 L 3.6-5.0 MMOL/L Chloride Level 100 98-107 MMOL/L Carbon Dioxide Level 22 21-32 MMOL/L Anion Gap 21 H 5-14 MMOL/L Blood Urea Nitrogen 11 7-18 MG/DL Creatinine 0.67 0.60-1.30 MG/DL Estimat Glomerular Filtration Rate 95 BUN/Creatinine Ratio 16 Glucose Level 109 H 70-105 MG/DL Calcium Level 8.7 8.5-10.1 MG/DL Corrected Calcium 8.8 8.5-10.1 MG/DL Magnesium Level 2.2 1.6-2.4 MG/DL Total Bilirubin 0.4 0.1-1.0 MG/DL Aspartate Amino Transf (AST/SGOT) 22 5-34 U/L Alanine Aminotransferase (ALT/SGPT) 11 0-55 U/L Alkaline Phosphatase 61 40-136 U/L Myoglobin 31.6 10.0-92.0 NG/ML Troponin I < 0.028 < 0.028 <0.028 NG/ML Total Protein 6.9 6.4-8.2 GM/DL Albumin 3.9 3.2-4.5 GM/DL Lipase 14 8-78 U/L Urine Color YELLOW Urine Clarity CLEAR Urine pH 6.5 5-9 Urine Specific [place] 1.025 H 1.016-1.022 Urine Protein TRACE H NEGATIVE Urine Glucose (UA) NEGATIVE NEGATIVE Urine Ketones TRACE H NEGATIVE Urine Nitrite NEGATIVE NEGATIVE Urine Bilirubin NEGATIVE NEGATIVE Urine Urobilinogen 1.0 < = 1.0 MG/DL Urine Leukocyte Esterase NEGATIVE NEGATIVE Urine RBC (Auto) 2+ H NEGATIVE Urine RBC 5-10 H /HPF Urine WBC NONE /HPF Urine Squamous Epithelial Cells 5-10 /HPF Urine Crystals NONE /LPF Urine Bacteria NEGATIVE /HPF Urine Casts NONE /LPF Urine Mucus LARGE H /LPF Urine Culture Indicated NO Urine Opiates Screen NEGATIVE NEGATIVE Urine Oxycodone Screen NEGATIVE NEGATIVE Urine Methadone Screen NEGATIVE NEGATIVE Urine Propoxyphene Screen NEGATIVE NEGATIVE Urine Barbiturates Screen NEGATIVE NEGATIVE Ur Tricyclic Antidepressants Screen POSITIVE H NEGATIVE Urine Phencyclidine Screen NEGATIVE NEGATIVE Urine Amphetamines Screen NEGATIVE NEGATIVE Urine Methamphetamines Screen NEGATIVE NEGATIVE Urine Benzodiazepines Screen NEGATIVE NEGATIVE Urine Cocaine Screen NEGATIVE NEGATIVE Urine Cannabinoids Screen POSITIVE H NEGATIVE (BURAK WARNER MD) My Orders Orders - BURAK WARNER MD Lorazepam Injection (Ativan Injection) (07/07/21 07:30) (BURAK WARNER MD) Medications Given in ED Current Medications Medications Dose Ordered Sig/Talia Route Start Time Stop Time Status Last Admin Dose Admin Al Hydrox/Mg Hydrox/Simethicone 30 ml ONCE ONCE PO 07/07/21 05:45 07/07/21 05:47 DC 07/07/21 06:06 30 ML Aspirin 324 mg ONCE ONCE PO 07/07/21 05:00 07/07/21 05:01 DC 07/07/21 05:27 324 MG Lactated Ringer's 1,000 ml @ 0 mls/hr Q0M ONCE IV 07/07/21 04:45 07/07/21 04:47 DC 07/07/21 05:18 999 MLS/HR Lidocaine HCl 15 ml ONCE ONCE PO 07/07/21 05:45 07/07/21 05:47 DC 07/07/21 06:06 15 ML Lorazepam 1 mg ONCE ONCE IVP 07/07/21 07:30 07/07/21 07:31 DC 07/07/21 07:28 1 MG Lorazepam 2 mg ONCE ONCE IVP 07/07/21 04:45 07/07/21 04:47 DC 07/07/21 05:18 2 MG Ondansetron HCl 8 mg ONCE ONCE IVP 07/07/21 04:45 07/07/21 04:47 DC 07/07/21 05:18 8 MG Potassium Chloride 50 ml @ 50 mls/hr ONCE ONCE IV 07/07/21 05:30 07/07/21 06:29 DC 07/07/21 05:27 50 MLS/HR (BURAK WARNER MD) Vital Signs/I&O 07/07/21 04:30 Temp 36.1 Pulse 117 Resp 22 B/P (MAP) 136/112 (120) Pulse Ox 98 O2 Delivery Room Air (BURAK WARNER MD) Progress Progress Note #1: Time: 04:57 Progress Note The patient does appear quite anxious probably owing to her history of anxiety disorder. 2 mg of Ativan have been ordered in addition to a liter of fluids. She has mild tachycardia around 100 bpm which goes down after the provider leaves the room. Certainly the possibility for pancreatitis, gastritis, esophagitis, coronary disease or chest wall pain are all in the differential. Blood pressures in the low normal range of 120/80 so we will address her nausea with some Zofran give her some IV fluids and after her nausea is under control we will trial a GI cocktail. Aspirin will be given. If this does not improve her pain will consider the use of nitroglycerin. If she has an initial negative troponin then she would have 3 points HEART Pathway Score. Low risk; 0.9-1.7% 30-day MACE. Progress Note #2: Time: 05:45 Progress Note After the Ativan, Zofran and aspirin the patient states she is feeling much bet ter although she still having some residual chest pain. She is much more comfortable and no longer feeling anxious. Plan to do a delta troponin at 0700 and a GI cocktail. Her potassium is a little low but the magnesium is okay. 10 mEq of potassium IV were ordered. (KELSIE CORNEJO) Progress Note : Time: 07:36 Progress Note Patient reassessed, resting comfortable. remains a little tachycardic, but denies any CP, SOB. She was complaining of a little bit of a return of her anxiety symptoms with nausea so an additional 1mg of ativan was ordered. This should help her tachycardia (120's). Pox is 95% on room air. BP is good. Patient states she has no further medical needs. Second troponin is is ne gative. Urged her to follow up with [facility] regarding further evaluation and risk stratification of CAD. says he will call and follow up. ADvised her of her low potassium and recommended oral replacement with diet. Return precautions given. All questions are sought and answered. (BURAK WARNER MD) Initial ECG Impression Date: Jul 07, 2021 Initial ECG Impression Time: 04:47 Initial ECG Rate: 91 Initial ECG Rhythm: Normal Sinus Initial ECG Intervals: QT (483) Initial ECG Impression: Normal Initial ECG Comparisson: Unchanged Comment No clinically relevant ST elevation or depression with normal sinus rhythm. (KELSIE CORNEJO) Diagnostic Imaging Diagonstic Imaging: Xray Plain Films/CT/US/NM/MRI: chest Reviewed: Reviewed by Me (KELSIE CORNEJO) Transfer of Care Time: 06:00 Care transferred to: Dr. Warner (KELSIE CORNEJO) Departure Impression Primary Impression: Chest pain Qualified Codes: R07.9 - Chest pain, unspecified Additional Impressions: Gastroesophageal reflux disease Qualified Codes: K21.9 - Gastro-esophageal reflux disease without esophagitis Anxiety attack Hypokalemia Disposition: HOME, SELF-CARE Condition: Stable Departure-Patient Inst. Decision time for Depature: 07:41 (BURAK WARNER MD) Referrals: [facility],LOCAL PHYSICIAN (PCP) Primary Care Physician Patient Instructions: Chest Pain That Is Not Caused by the Heart (DC), Hypokalemia (DC) Add. Discharge Instructions: Continue your home daily medications as prescribed. Your potassium was a little low today - this can be replaced with diet - drink electrolyte arreola/ Pedialyte to help with this. Please call and follow up with [facility] today. Schedule an appointment for early next week. Come back to the Emergency Department for any new, emergent or concerning symptoms. Copy Copies To 1: MORGAN CHANG TITUS J Jul 07, 2021 04:53 BURAK WARNER MD Jul 07, 2021 07:41
[2021-07-07] MEDS ORDERED: NITROGLYCERIN 0.4 MG SL TABS BTL 25'S SL PRN (05:00)
[2021-07-07] MEDS ORDERED: ASPIRIN 81 MG CHEW (CHILDREN'S ASA) PO ONE (05:00)
[2021-07-07 05:05] LABS: BASOPHILS # (AUTO) 0.1 10^3/uL (0.0-0.1); BASOPHILS % (AUTO) 1 % (0-10); EOSINOPHILS # (AUTO) 0.3 10^3/uL (0.0-0.3); EOSINOPHILS % (AUTO) 3 % (0-10); HEMATOCRIT 41 % (35-52); HEMOGLOBIN 14.5 g/dL (11.5-16.0); LYMPHOCYTES # (AUTO) 1.7 10^3/uL (1.0-4.0); LYMPHOCYTES % (AUTO) 16 % (12-44); MEAN CORPUSCULAR HEMOGLOBIN 34 pg (25-34); MEAN CORPUSCULAR HGB CONC 36 g/dL (32-36); MEAN CORPUSCULAR VOLUME 95 fL (80-99); MEAN PLATELET VOLUME 8.9 fL (9.0-12.2); MONOCYTES # (AUTO) 1.2 10^3/uL (0.0-1.0); MONOCYTES % (AUTO) 12 % (0-12); NEUTROPHILS # (AUTO) 7.1 10^3/uL (1.8-7.8); NEUTROPHILS % (AUTO) 68 % (42-75); PLATELET COUNT 453 10^3/uL (130-400); WHITE BLOOD COUNT 10.4 10^3/uL (4.3-11.0)
[2021-07-07 05:19] LABS: ALBUMIN 3.9 GM/DL (3.2-4.5); CHLORIDE 100 MMOL/L (98-107); POTASSIUM 2.8 MMOL/L (3.6-5.0); PROTHROMBIN TIME PATIENT 13.4 SEC (12.2-14.7); SODIUM 143 MMOL/L (135-145)
[2021-07-07 05:20] LABS: CALCIUM 8.7 MG/DL (8.5-10.1)
[2021-07-07 05:21] LABS: GLUCOSE 109 MG/DL (70-105); TOTAL PROTEIN 6.9 GM/DL (6.4-8.2)
[2021-07-07 05:22] LABS: CARBON DIOXIDE 22 MMOL/L (21-32)
[2021-07-07 05:23] LABS: BILIRUBIN,TOTAL 0.4 MG/DL (0.1-1.0)
[2021-07-07 05:25] LABS: ALKALINE PHOSPHATASE 61 U/L (40-136); CREATININE SERUM 0.67 MG/DL (0.60-1.30); GFR ESTIMATED 95
[2021-07-07 05:26] LABS: BUN/CREATININE RATIO 16
[2021-07-07 05:28] LABS: ALANINE AMINOTRANSFERASE 11 U/L (0-55); MAGNESIUM 2.2 MG/DL (1.6-2.4)
[2021-07-07 05:29] LABS: BILIRUBIN,URINE NEGATIVE (NEGATIVE); CLARITY,URINE CLEAR; COLOR,URINE YELLOW; GLUCOSE, URINE (UA) NEGATIVE (NEGATIVE); KETONES,URINE TRACE (NEGATIVE); LEUKOCYTE ESTERASE ,URINE NEGATIVE (NEGATIVE); NITRITE,URINE NEGATIVE (NEGATIVE); PH,URINE 6.5 (5-9); PROTEIN,URINE TRACE (NEGATIVE)
[2021-07-07] MEDS ORDERED: POTASSIUM CL 10MEQ/50ML IVPB 50 ML IV ONE (05:30)
[2021-07-07 05:37] LABS: BACTERIA,URINE NEGATIVE /HPF
[2021-07-07 05:38] LABS: AMPHETAMINE SCREEN, URINE NEGATIVE (NEGATIVE); BARBITURATE SCREEN URINE NEGATIVE (NEGATIVE); BENZODIAZEPINES SCREEN URINE NEGATIVE (NEGATIVE); CANNABINOID SCREEN, URINE POSITIVE (NEGATIVE); COCAINE SCREEN URINE NEGATIVE (NEGATIVE); METHADONE STAT NEGATIVE (NEGATIVE); METHAMPHETAMINE SCREEN URINE S NEGATIVE (NEGATIVE); OPIATE SCREEN URINE NEGATIVE (NEGATIVE); OXYCODONE STAT NEGATIVE (NEGATIVE); PROPOXYPHENE STAT NEGATIVE (NEGATIVE); TRICYCLIC ANTIDEPRESSANTS SCRE POSITIVE (NEGATIVE)
[2021-07-07] MEDS ORDERED: FAMOTIDINE 20 MG (PEPCID) TABLET PO STA (05:44)
[2021-07-07] MEDS ORDERED: LIDOCAINE 2% VISCOUS 15 ML UDC PO ONE (05:45)
[2021-07-07] MEDS ORDERED: ANTACID SUSP 30 ML UDC (MYLANTA) PO ONE (05:45)
[2021-07-07 07:54] VITALS: BP 116/84
--- NOTE | 2021-07-07 12:34 | Diagnostic Imaging Report ---
EXAM: CHEST 1 VIEW, AP/PA ONLY. INDICATION: Chest pain. COMPARISON: Chest radiograph 05/07/2021. FINDINGS: Normal heart size and central pulmonary vascularity. No focal pulmonary opacity. No pleural effusion or pneumothorax. No acute osseous findings. No significant change. IMPRESSION: No acute cardiopulmonary findings. Dictated by: Dictated on workstation # [id number]
== END 2021-07-07 07:54 | disposition home or self-care (01) ==
LOC: EDUNIT# 04:15 → ER 04:18
DX: F41.0 Panic disorder [episodic paroxysmal anxiety] (principal); K21.9 Gastro-esophageal reflux disease without esophagitis; E87.6 Hypokalemia; I10 Essential (primary) hypertension; F32.9 Major depressive disorder, single episode, unspecified; F17.210 Nicotine dependence, cigarettes, uncomplicated; Z79.899 Other long term (current) drug therapy
CPT/HCPCS: 36415; 71045; 80053; 80306; 81000; 83690; 83735; 83874; 84484; 84703; 85025; 85610; 85730; 93005

== ENCOUNTER 2021-08-04 10:17 | Emergency (ER) | payer MEDICAID, MEDICARE ==
[~2021-08-04] VITALS: Ht 61 cm; Wt 65.8 kg
[2021-08-04] MEDS ORDERED: SERT50TA2 PO (11:59)
[2021-08-04] MEDS ORDERED: LORA-404 PO (11:59)
[2021-08-04] MEDS ORDERED: ALPRAZolam 0.5 MG (XANAX) TAB PO SCH (12:00)
--- NOTE | 2021-08-04 12:00 | ED General ---
General Chief Complaint: Psych/Social Disorder Stated Complaint: PANIC ATTACK Nursing Triage Note: Pt arrives via POV from home with c/o increased anxiety/panic attack; onset three days r/t her daughter passing away. Pt reports chest tightness, states this feels the same as her chronic anxiety. Pt also reports increased alcohol use over the past two days, last drink was at 0230 today. Pt denies regular alcohol use before this. Pt denies SI/HI at this time. Source of Information: Patient Exam Limitations: No Limitations History of Present Illness Date Seen by Provider: Aug 04, 2021 Time Seen by Provider: 11:57 Initial Comments To ER with anxiety increased for the past 2 to 3 days after the passing of her daughter. Has been using alcohol to cope. She takes Seroquel but denies much improvement from that. She has an appointment at 840 in the morning with [facility]. Timing/Duration: 2-3 Days Severity: Moderate Allergies and Home Medications Allergies Coded Allergies: No Known Drug Allergies (Unverified , 05/30/21) Patient Home Medication List Home Medication List Reviewed: Yes Acetaminophen (Tylenol Extra Strength) 500 Mg Tablet, 1,000 MG PO Q8H PRN for PAIN-MILD (1-4), (Reported) Entered as Reported by: VIPUL MCCONNELL on 05/31/21 1015 Alprazolam (Alprazolam) 0.5 Mg Tablet, 0.5 MG PO BID Prescribed by: LYNSEY LITTLE on 06/01/21 1249 Ibuprofen (Ibuprofen) 200 Mg Tablet, 400-600 MG PO Q8H PRN for PAIN-MILD (1-4), (Reported) Entered as Reported by: VIPUL MCCONNELL on 05/31/21 1015 Mirtazapine (Mirtazapine) 30 Mg Tablet, 30 MG PO HS, (Reported) Entered as Reported by: VIPUL MCCONNELL on 05/31/21 1015 Multivitamin (Vitamins For Hair) 1 Each Tablet, 1 EACH PO DAILY, (Reported) Entered as Reported by: VIPUL MCCONNELL on 05/31/21 1015 Propranolol HCl (Propranolol HCl) 40 Mg Tablet, 40 MG PO BID, (Reported) Entered as Reported by: VIPUL MCCONNELL on 05/31/21 1015 Quetiapine Fumarate (Quetiapine Fumarate) 200 Mg Tablet, 200 MG PO BID PRN for ANXIETY, (Reported) Entered as Reported by: VIPUL MCCONNELL on 05/31/21 1015 Sertraline HCl (Sertraline HCl) 100 Mg Tablet, 200 MG PO DAILY, (Reported) Entered as Reported by: VIPUL MCCONNELL on 05/31/21 1015 Review of Systems Review of Systems Constitutional: see HPI EENTM: see HPI Respiratory: no symptoms reported Cardiovascular: no symptoms reported Genitourinary: no symptoms reported Musculoskeletal: no symptoms reported Skin: no symptoms reported Psychiatric/Neurological: No Symptoms Reported Hematologic/Lymphatic: No Symptoms Reported Past Iibelvc-Lttgor-Skrapk Hx Patient Social History Tobacco Use?: Yes Tobacco type used: Cigarettes Smoking Status: Current Everyday Smoker Use of E-Cig and/or Vaping dev: No Substance use?: No Alcohol Use?: Yes Pt feels they are or have been: No Immunizations Up To Date Tetanus Booster (TDap): Unknown Seasonal Allergies Seasonal Allergies: Yes Past Medical History Surgeries: Yes Section Respiratory: No Cardiac: Yes Hypertension Neurological: No Genitourinary: No Gastrointestinal: No Musculoskeletal: No Endocrine: No HEENT: No Cancer: No Psychosocial: Yes Anxiety, Depression Integumentary: No Blood Disorders: No Family Medical History No Pertinent Family Hx Physical Exam Vital Signs Vital Signs - First Documented 08/04/21 10:46 Temp 36.8 Pulse 109 Resp 20 B/P (MAP) 111/74 (86) Pulse Ox 98 O2 Delivery Room Air Capillary Refill : Less Than 3 Seconds Height, Weight, BMI Height: '" Weight: lbs. oz. kg; 176.00 BMI Method: General Appearance: No Apparent Distress, WD/WN Eyes: Bilateral Eye Normal Inspection, Bilateral Eye PERRL, Bilateral Eye EOMI Respiratory: No Accessory Muscle Use, No Respiratory Distress Cardiovascular: Regular Rate, Rhythm, Normal Peripheral Pulses Gastrointestinal: Normal Bowel Sounds, Non Tender, Soft Extremity: Normal Capillary Refill, Normal Inspection Neurologic/Psychiatric: Alert, Oriented x3 Skin: Normal Color, Warm/Dry Progress/Results/Core Measures Suspected Sepsis SIRS Temperature: Pulse: 109 Respiratory Rate: 20 Blood Pressure 111 /74 Mean: 86 Results/Orders My Orders Orders - BETO DELAROSA APRN Alprazolam Tablet (Xanax Tablet) (08/04/21 12:00) Vital Signs/I&O 08/04/21 10:46 Temp 36.8 Pulse 109 Resp 20 B/P (MAP) 111/74 (86) Pulse Ox 98 O2 Delivery Room Air Capillary Refill : Less Than 3 Seconds Blood Pressure Mean: 86 Departure Impression Primary Impression: Anxiety Disposition: 01 HOME, SELF-CARE Condition: Stable Departure-Patient Inst. Decision time for Depature: 11:58 Referrals: NO,LOCAL PHYSICIAN (PCP/Family) Primary Care Physician Patient Instructions: Anxiety, Adult (DC) Scripts Lorazepam (Ativan) 0.5 Mg Tablet 0.5 MG PO BID PRN for ANXIETY for 7 Days, #2 TAB Prov: BETO DELAROSA APRN 08/04/21 Sertraline HCl (Zoloft) 50 Mg Tablet 50 MG PO DAILY, #20 TAB Prov: BETO DELAROSA APRN 08/04/21 BETO DELAROSA APRN Aug 04, 2021 12:00
[2021-08-04 12:15] VITALS: BP 111/74
== END 2021-08-04 12:16 | disposition home or self-care (01) ==
LOC: EDUNIT# 10:17 → ER 10:19
DX: F41.9 Anxiety disorder, unspecified (principal); I10 Essential (primary) hypertension; F32.9 Major depressive disorder, single episode, unspecified; F17.210 Nicotine dependence, cigarettes, uncomplicated; Z79.899 Other long term (current) drug therapy
CPT/HCPCS: 99285

== ENCOUNTER 2021-08-21 23:14 | Emergency (ER) | payer MEDICAID ==
[~2021-08-21] VITALS: Ht 154.9 cm; Wt 63.6 kg
[~2021-08-21 23:14] MED LIST changes: +LORA-404 PO; +SERT50TA2 PO
[2021-08-21] MEDS ORDERED: LORazepam 0.5 MG (ATIVAN) TABLET PO STA (23:51)
--- NOTE | 2021-08-21 23:59 | ED Psychosocial ---
General Chief Complaint: Psych/Social Disorder Stated Complaint: PANIC ATTACK/CHEST TIGHTNESS/RACING HEART Nursing Triage Note: PATIENT STATES THAT SHE IS HAVING AN "ANXIETY ATTACK" AND THAT SHE TAKES SEROQUEL 400MG AND "ANOTHER MED THAT I CAN'T REMEMBER" TO HELP WHEN THIS HAPPENS. HOWEVER, IT HAS NOT HELPED TONIGHT. SHE ALSO DRANK TWO MIMOSAS TO "TRY TO HELP CALM HER DOWN". Source: patient Exam Limitations: no limitations History of Present Illness Date Seen by Provider: Aug 21, 2021 Time Seen by Provider: 23:44 Initial Comments Patient is a 46-year-old female who presents to the emergency department today with a chief complaint of anxiety and panic attack onset around 10 AM this m orning. Patient states that she takes Seroquel, 200 mg in the morning, afternoon and 400 at night. Patient states that she took her nightly dose prior to arrival. She does not really have a trigger for her anxiety panic today. States that she has an appointment with [facility] on August 28. Patient denies any suicidal or homicidal ideation. She denies aud itory and visual hallucinations. She states that she feels safe at home. Has had multiple visits to the emergency department for anxiety and panic in the past. Per review of the medical record the patient is very upset and depressed over the of her daughter in the . Patient denies any recent illnesses such as fever, chills, cough or congestion. She is mildly nauseated. She complains of chest "tightness". Denies a history of hypertension. Is a smoker. No GI or complaints. All other review of systems reviewed and negative except as stated. Timing/Duration: this morning Severity: severe Associated Symptoms: anxiety Allergies and Home Medications Allergies Coded Allergies: No Known Drug Allergies (Unverified , 05/30/21) Patient Home Medication List Home Medication List Reviewed: Yes Acetaminophen (Tylenol Extra Strength) 500 Mg Tablet, 1,000 MG PO Q8H PRN for PAIN-MILD (1-4), (Reported) Entered as Reported by: VIPUL MCCONNELL on 05/31/21 1015 Alprazolam (Alprazolam) 0.5 Mg Tablet, 0.5 MG PO BID Prescribed by: LYNSEY LITTLE on 06/01/21 1249 Ibuprofen (Ibuprofen) 200 Mg Tablet, 400-600 MG PO Q8H PRN for PAIN-MILD (1-4), (Reported) Entered as Reported by: VIPUL MCCONNELL on 05/31/21 1015 Lorazepam (Ativan) 0.5 Mg Tablet, 0.5 MG PO BID PRN for ANXIETY Prescribed by: BETO DELAROSA on 08/04/21 1200 Mirtazapine (Mirtazapine) 30 Mg Tablet, 30 MG PO HS, (Reported) Entered as Reported by: VIPUL MCCONNELL on 05/31/21 1015 Multivitamin (Vitamins For Hair) 1 Each Tablet, 1 EACH PO DAILY, (Reported) Entered as Reported by: VIPUL MCCONNELL on 05/31/21 1015 Propranolol HCl (Propranolol HCl) 40 Mg Tablet, 40 MG PO BID, (Reported) Entered as Reported by: VIPUL CMCONNELL on 05/31/21 1015 Quetiapine Fumarate (Quetiapine Fumarate) 200 Mg Tablet, 200 MG PO BID PRN for ANXIETY, (Reported) Entered as Reported by: VIPUL MCCONNELL on 05/31/21 1015 Sertraline HCl (Sertraline HCl) 100 Mg Tablet, 200 MG PO DAILY, (Reported) Entered as Reported by: VIPUL MCCONNELL on 05/31/21 1015 Sertraline HCl (Zoloft) 50 Mg Tablet, 50 MG PO DAILY Prescribed by: BETO DELAROSA on 08/04/21 1159 Review of Systems Constitutional: see HPI EENTM: no symptoms reported Respiratory: no symptoms reported Cardiovascular: other (chest "tightness") Gastrointestinal: nausea Genitourinary: no symptoms reported Musculoskeletal: no symptoms reported Skin: no symptoms reported Psychiatric/Neurological: Anxiety, Depressed, Emotional Problems All Other Systems Reviewed Negative Unless Noted: Yes Past Thbsjll-Aojhyd-Tpuznh Hx Immunizations Up To Date Tetanus Booster (TDap): Unknown Seasonal Allergies Seasonal Allergies: Yes Past Medical History Surgeries: Yes Section Respiratory: No Cardiac: Yes Hypertension Neurological: No Genitourinary: No Gastrointestinal: No Musculoskeletal: No Endocrine: No HEENT: No Cancer: No Psychosocial: Yes Anxiety, Depression Integumentary: No Blood Disorders: No Family Medical History No Pertinent Family Hx Physical Exam Vital Signs - First Documented 08/21/21 23:35 Temp 36.5 Pulse 96 Resp 22 B/P (MAP) 119/100 (106) Pulse Ox 94 O2 Delivery Room Air Capillary Refill : Less Than 3 Seconds Height, Weight, BMI Height: '" Weight: lbs. oz. kg; 26.00 BMI Method: General Appearance: WD/WN, no apparent distress HEENT: PERRL/EOMI Neck: full range of motion, supple, normal inspection Respiratory: no respiratory distress, no accessory muscle use, wheezing (expiratory wheezes bilaterally; no distress noted) Cardiovascular: regular rate, rhythm, other (normal peripheral pulses) Gastrointestinal: normal bowel sounds, non tender, soft Extremities: normal range of motion, non-tender, normal inspection, no pedal edema, no calf tenderness Neurologic/Psychiatric: alert, normal mood/affect, oriented x 3 Appearance/Memory: appropriate appearance, appropriate insight, neat, no memory impairment Behavior/Eye Contact: cooperative, good eye contact Thoughts/Hallucinations: normal thought pattern, no apparent hallucination Skin: normal color, warm/dry Progress/Results/Core Measures Results/Orders My Orders Orders - BURAK WARNER MD Ekg Tracing (08/21/21 23:51) Lorazepam Tablet (Ativan Tablet) (08/21/21 23:51) Vital Signs/I&O 08/21/21 23:35 Temp 36.5 Pulse 96 Resp 22 B/P (MAP) 119/100 (106) Pulse Ox 94 O2 Delivery Room Air Blood Pressure Mean: 106 Progress Progress Note : Time: 00:33 Progress Note patient re-evaluated states she is feeling better. ready for discharge. counselled on smoking and etoh cessation. Initial ECG Impression Date: Aug 22, 2021 Initial ECG Impression Time: 23:56 Initial ECG Rate: 88 Initial ECG Rhythm: Normal Sinus Initial ECG Intervals: Normal Initial ECG Impression: Normal Departure Impression Primary Impression: Anxiety Disposition: 01 HOME, SELF-CARE Condition: Stable Departure-Patient Inst. Decision time for Depature: 23:57 Referrals: [facility] NO,LOCAL PHYSICIAN (PCP) Primary Care Physician Patient Instructions: Anxiety, Adult (DC) Add. Discharge Instructions: Continue your daily medications as prescribed. Try and avoid alcohol use as a treatment for your anxiety - it is actually a depressant and can make your symptoms worse. Keep your followup with [facility] on the 28 of August. Return to the ER for any new, concerning or emergent complaints. BURAK WARNER MD Aug 21, 2021 23:59
[2021-08-22 00:49] VITALS: BP 124/82
== END 2021-08-22 00:52 | disposition home or self-care (01) ==
LOC: EDUNIT# 23:14 → ER 23:17
DX: F41.9 Anxiety disorder, unspecified (principal); I10 Essential (primary) hypertension; F32.9 Major depressive disorder, single episode, unspecified; Z79.899 Other long term (current) drug therapy
CPT/HCPCS: 93005

== ENCOUNTER 2021-09-19 06:31 | Emergency (ER) | payer MEDICAID ==
[~2021-09-19] VITALS: Ht 155 cm; Wt 64.0 kg
[2021-09-19 06:34] VITALS: BP 124/91
--- NOTE | 2021-09-19 06:48 | ED Psychosocial ---
General Chief Complaint: Psych/Social Disorder Stated Complaint: ANXIETY, ETOH Source: patient Exam Limitations: no limitations History of Present Illness Date Seen by Provider: Sep 19, 2021 Time Seen by Provider: 06:31 Initial Comments Patient to the ER by EMS from home with chief complaint that in the last 2 weeks she is lost her mother and her daughter. She says she has been binge drinking vodka daily since then. She says she wants to quit that. She is not having any pain nausea fever chills cough shortness of air. She did finally set up an appointment for counseling 9 days from now at the clinic. She is not a daily drinker before this. She says she is never had DTs or seizures. She states she has a history of depression. Says her daughter was her greatest cheerleader. She denies suicidal or homicidal ideation. Allergies and Home Medications Allergies Coded Allergies: No Known Drug Allergies (Unverified , 05/30/21) Patient Home Medication List Home Medication List Reviewed: Yes Acetaminophen (Tylenol Extra Strength) 500 Mg Tablet, 1,000 MG PO Q8H PRN for PAIN-MILD (1-4), (Reported) Entered as Reported by: VIPUL MCCONNELL on 05/31/21 1015 Alprazolam (Alprazolam) 0.5 Mg Tablet, 0.5 MG PO BID Prescribed by: LYNSEY LITTLE on 06/01/21 1249 Ibuprofen (Ibuprofen) 200 Mg Tablet, 400-600 MG PO Q8H PRN for PAIN-MILD (1-4), (Reported) Entered as Reported by: VIPUL MCCONNELL on 05/31/21 1015 Lorazepam (Ativan) 0.5 Mg Tablet, 0.5 MG PO BID PRN for ANXIETY Prescribed by: BETO DELAROSA on 08/04/21 1200 Mirtazapine (Mirtazapine) 30 Mg Tablet, 30 MG PO HS, (Reported) Entered as Reported by: VIPUL MCCONNELL on 05/31/21 1015 Multivitamin (Vitamins For Hair) 1 Each Tablet, 1 EACH PO DAILY, (Reported) Entered as Reported by: VIPUL MCCONNELL on 05/31/21 1015 Propranolol HCl (Propranolol HCl) 40 Mg Tablet, 40 MG PO BID, (Reported) Entered as Reported by: VIPUL MCCONNELL on 05/31/21 1015 Quetiapine Fumarate (Quetiapine Fumarate) 200 Mg Tablet, 200 MG PO BID PRN for ANXIETY, (Reported) Entered as Reported by: VIPUL MCCONNELL on 05/31/21 1015 Sertraline HCl (Sertraline HCl) 100 Mg Tablet, 200 MG PO DAILY, (Reported) Entered as Reported by: VIPUL MCCONNELL on 05/31/21 1015 Sertraline HCl (Zoloft) 50 Mg Tablet, 50 MG PO DAILY Prescribed by: BETO DELAROSA on 08/04/21 1159 Review of Systems Constitutional: No chills, No fever EENTM: No ear discharge, No ear pain Respiratory: No cough, No short of breath Cardiovascular: No chest pain, No edema Gastrointestinal: No abdominal pain, No nausea, No vomiting Genitourinary: No discharge, No dysuria Musculoskeletal: No back pain, No joint pain Psychiatric/Neurological: Denies Anxiety; Depressed All Other Systems Reviewed Negative Unless Noted: Yes Past Tzsczoj-Sqrcvx-Zenhkh Hx Patient Social History Use of E-Cig and/or Vaping dev: No Substance use?: No Alcohol Use?: Yes Alcohol type: Hard Liquor Alcohol Frequency: Daily (X2 weeks) Immunizations Up To Date Tetanus Booster (TDap): Unknown Seasonal Allergies Seasonal Allergies: Yes Past Medical History Surgery/Hospitalization HX: IONANXIETY, PTSD, PAST HX OF PHYSICAL ABUSE, Surgeries: Yes Section Respiratory: No Cardiac: Yes Hypertension Neurological: No Genitourinary: No Gastrointestinal: No Musculoskeletal: No Endocrine: No HEENT: No Cancer: No Psychosocial: Yes Anxiety, Depression Integumentary: No Blood Disorders: No Family Medical History No Pertinent Family Hx Physical Exam Capillary Refill : Height, Weight, BMI Height: '" Weight: lbs. oz. kg; 26.00 BMI Method: General Appearance: WD/WN, mild distress HEENT: PERRL/EOMI, pharynx normal Neck: full range of motion, normal inspection Respiratory: no respiratory distress, no accessory muscle use Cardiovascular: normal peripheral pulses, regular rate, rhythm Gastrointestinal: non tender, soft Extremities: non-tender, normal inspection Neurologic/Psychiatric: alert, oriented x 3, other (Tearful affect) Appearance/Memory: appropriate appearance, appropriate insight, neat Behavior/Eye Contact: cooperative, good eye contact, normal speech Thoughts/Hallucinations: normal thought pattern, no apparent hallucination Skin: normal color, warm/dry Progress/Results/Core Measures Progress Progress Note : Time: 06:45 Progress Note Patient wants to quit drinking. No history of DTs. Did some brief grief counseling. She is not having any physical complaint today. Reinforced the need for grief counseling. She states she wants to quit drinking. We can provide her with some Ativan. She is alert oriented not slurring her speech walking without difficulty. Departure Impression Primary Impression: Grief reaction Additional Impression: Alcohol use Disposition: HOME, SELF-CARE Condition: Stable Departure-Patient Inst. Decision time for Depature: 06:54 Referrals: NO,LOCAL PHYSICIAN (PCP/Family) Primary Care Physician Patient Instructions: Dealing With , Adult, Alcohol Use Disorder ED Add. Discharge Instructions: Tylenol Motrin as necessary for headache. Drink lots of fluids to rehydrate yourself. Eat a greasy meal and take a nap today. Keep your follow-up appointment with your grief counselor. If you begin to have thoughts of self-harm and you can call [phone] ([phone]). If you feel like you are having some withdrawal cravings you may take 1 tablet of Ativan every 8 hours as necessary. All discharge instructions reviewed with patient and/or family. Voiced understanding. Scripts Lorazepam (Ativan) 1 Mg Tablet 1 MG PO Q8H PRN for ANXIETY for 3 Days, #6 TAB 0 Refills Prov: KELSIE CORNEJO 09/19/21 KELSIE CORNEJO Sep 19, 2021 06:48
[2021-09-19] MEDS ORDERED: LORA-405 PO (06:55)
== END 2021-09-19 06:59 | disposition home or self-care (01) ==
LOC: EDUNIT# 06:31 → ER 06:32
DX: F43.20 Adjustment disorder, unspecified (principal); F10.99 Alcohol use, unspecified with unspecified alcohol-induced disorder; I10 Essential (primary) hypertension; F41.9 Anxiety disorder, unspecified; F32.9 Major depressive disorder, single episode, unspecified; Z79.899 Other long term (current) drug therapy
CPT/HCPCS: 99283

== ENCOUNTER 2021-09-19 13:59 | Emergency (ER) | payer MEDICAID ==
[~2021-09-19] VITALS: Ht 157.5 cm; Wt 65.8 kg
[~2021-09-19 13:59] MED LIST changes: +LORA-405 PO
--- NOTE | 2021-09-19 14:27 | ED General ---
General Stated Complaint: VOMITING ANXIETY ISSUES Source of Information: Patient Exam Limitations: No Limitations History of Present Illness Date Seen by Provider: Sep 19, 2021 Time Seen by Provider: 14:24 Initial Comments To ER by POCurly with c/o anxiety, nausea/vomiting that is preventing her from taking the ativan she was given earlier this morning when she presented here for anxiety. No abdominal pain. Reports onging ETOH use. Timing/Duration: Constant Severity: Moderate Associated Systoms: Nausea/Vomiting Allergies and Home Medications Allergies Coded Allergies: No Known Drug Allergies (Unverified , 05/30/21) Patient Home Medication List Home Medication List Reviewed: Yes Acetaminophen (Tylenol Extra Strength) 500 Mg Tablet, 1,000 MG PO Q8H PRN for PAIN-MILD (1-4), (Reported) Entered as Reported by: VIPUL MCCONNELL on 05/31/21 1015 Alprazolam (Alprazolam) 0.5 Mg Tablet, 0.5 MG PO BID Prescribed by: LYNSEY LITTLE on 06/01/21 1249 Ibuprofen (Ibuprofen) 200 Mg Tablet, 400-600 MG PO Q8H PRN for PAIN-MILD (1-4), (Reported) Entered as Reported by: VIPUL MCCONNELL on 05/31/21 1015 Lorazepam (Ativan) 0.5 Mg Tablet, 0.5 MG PO BID PRN for ANXIETY Prescribed by: BETO DELAROSA on 08/04/21 1200 Lorazepam (Ativan) 1 Mg Tablet, 1 MG PO Q8H PRN for ANXIETY Prescribed by: KELSIE CORNEJO on 09/19/21 0655 Mirtazapine (Mirtazapine) 30 Mg Tablet, 30 MG PO HS, (Reported) Entered as Reported by: VIPUL MCCONNELL on 05/31/21 1015 Multivitamin (Vitamins For Hair) 1 Each Tablet, 1 EACH PO DAILY, (Reported) Entered as Reported by: VIPUL MCCONNELL on 05/31/21 1015 Propranolol HCl (Propranolol HCl) 40 Mg Tablet, 40 MG PO BID, (Reported) Entered as Reported by: VIPUL MCCONNELL on 05/31/21 1015 Quetiapine Fumarate (Quetiapine Fumarate) 200 Mg Tablet, 200 MG PO BID PRN for ANXIETY, (Reported) Entered as Reported by: VIPUL MCCONNELL on 05/31/21 1015 Sertraline HCl (Sertraline HCl) 100 Mg Tablet, 200 MG PO DAILY, (Reported) Entered as Reported by: VIPUL MCCONNELL on 05/31/21 1015 Sertraline HCl (Zoloft) 50 Mg Tablet, 50 MG PO DAILY Prescribed by: BETO DELAROSA on 08/04/21 1159 Review of Systems Review of Systems Constitutional: see HPI EENTM: see HPI Respiratory: no symptoms reported Gastrointestinal: nausea, vomiting Genitourinary: no symptoms reported Musculoskeletal: no symptoms reported Skin: no symptoms reported Psychiatric/Neurological: No Symptoms Reported Hematologic/Lymphatic: No Symptoms Reported Past Lvshmou-Vnzgei-Mhslma Hx Immunizations Up To Date Tetanus Booster (TDap): Unknown First/Initial COVID19 Vaccinat: NO VACCAINE Second COVID19 Vaccination Art: NO VACCAINE Seasonal Allergies Seasonal Allergies: Yes Past Medical History Surgery/Hospitalization HX: ANXIETY, DEPRESSION, PTSD, PAST HX OF PHYSICAL ABUSE, , HTN Surgeries: Yes Section Respiratory: No Cardiac: Yes Hypertension Neurological: No Genitourinary: No Gastrointestinal: No Musculoskeletal: No Endocrine: No HEENT: No Cancer: No Psychosocial: Yes Anxiety, Depression Integumentary: No Blood Disorders: No Family Medical History No Pertinent Family Hx Physical Exam Vital Signs Vital Signs - First Documented 09/19/21 14:17 Temp 36.5 Pulse 122 Resp 19 B/P (MAP) 113/95 (101) O2 Delivery Room Air Capillary Refill : Height, Weight, BMI Height: '" Weight: lbs. oz. kg; 26.00 BMI Method: General Appearance: No Apparent Distress, WD/WN, Other (And oriented, pleasant. Cooperative no distress. Tachycardia with a rate sinus 130s.) Eyes: Bilateral Eye Normal Inspection, Bilateral Eye PERRL Neck: Full Range of Motion, Normal Inspection Respiratory: No Accessory Muscle Use, No Respiratory Distress Cardiovascular: Normal Peripheral Pulses, Tachycardia Gastrointestinal: Normal Bowel Sounds, Non Tender, Soft Extremity: Normal Capillary Refill, Normal Inspection Neurologic/Psychiatric: Alert, Oriented x3 Skin: Normal Color, Warm/Dry Progress/Results/Core Measures Suspected Sepsis SIRS Temperature: Pulse: Respiratory Rate: Laboratory Tests 09/19/21 14:26: White Blood Count 15.2H Blood Pressure / Mean: Laboratory Tests 09/19/21 14:26: Creatinine 0.69, Platelet Count 412H, Total Bilirubin 0.8 Results/Orders Lab Results Laboratory Tests Test 09/19/21 14:26 09/19/21 14:29 Range/Units White Blood Count 15.2 H 4.3-11.0 10^3/uL Red Blood Count 5.03 3.80-5.11 10^6/uL Hemoglobin 16.6 H 11.5-16.0 g/dL Hematocrit 46 35-52 % Mean Corpuscular Volume 92 80-99 fL Mean Corpuscular Hemoglobin 33 25-34 pg Mean Corpuscular Hemoglobin Concent 36 32-36 g/dL Red Cell Distribution Width 13.6 10.0-14.5 % Platelet Count 412 H 130-400 10^3/uL Mean Platelet Volume 9.6 9.0-12.2 fL Immature Granulocyte % (Auto) 0 % Neutrophils (%) (Auto) 80 H 42-75 % Lymphocytes (%) (Auto) 9 L 12-44 % Monocytes (%) (Auto) 10 0-12 % Eosinophils (%) (Auto) 0 0-10 % Basophils (%) (Auto) 0 0-10 % Neutrophils # (Auto) 12.2 H 1.8-7.8 10^3/uL Lymphocytes # (Auto) 1.4 1.0-4.0 10^3/uL Monocytes # (Auto) 1.6 H 0.0-1.0 10^3/uL Eosinophils # (Auto) 0.0 0.0-0.3 10^3/uL Basophils # (Auto) 0.1 0.0-0.1 10^3/uL Immature Granulocyte # (Auto) 0.1 0.0-0.1 10^3/uL Neutrophils % (Manual) 83 % Lymphocytes % (Manual) 6 % Monocytes % (Manual) 8 % Eosinophils % (Manual) 0 % Basophils % (Manual) 1 % Band Neutrophils 2 % Blood Morphology Comment NORMAL Sodium Level 139 135-145 MMOL/L Potassium Level 3.1 L 3.6-5.0 MMOL/L Chloride Level 94 L 98-107 MMOL/L Carbon Dioxide Level 26 21-32 MMOL/L Anion Gap 19 H 5-14 MMOL/L Blood Urea Nitrogen 11 7-18 MG/DL Creatinine 0.69 0.60-1.30 MG/DL Estimat Glomerular Filtration Rate 92 BUN/Creatinine Ratio 16 Glucose Level 148 H 70-105 MG/DL Calcium Level 9.3 8.5-10.1 MG/DL Corrected Calcium 9.1 8.5-10.1 MG/DL Total Bilirubin 0.8 0.1-1.0 MG/DL Aspartate Amino Transf (AST/SGOT) 24 5-34 U/L Alanine Aminotransferase (ALT/SGPT) 9 0-55 U/L Alkaline Phosphatase 81 40-136 U/L Total Protein 7.5 6.4-8.2 GM/DL Albumin 4.3 3.2-4.5 GM/DL Serum Test, Qualitative NEGATIVE NEGATIVE Serum Alcohol < 10 <10 MG/DL Urine Color ASIF H Urine Clarity SL CLOUDY Urine pH 6.0 5-9 Urine Specific [place] >=1.030 1.016-1.022 Urine Protein 1+ H NEGATIVE Urine Glucose (UA) NEGATIVE NEGATIVE Urine Ketones TRACE H NEGATIVE Urine Nitrite NEGATIVE NEGATIVE Urine Bilirubin 1+ H NEGATIVE Urine Urobilinogen 0.2 < = 1.0 MG/DL Urine Leukocyte Esterase 1+ H NEGATIVE Urine RBC (Auto) 2+ H NEGATIVE Urine RBC 5-10 H /HPF Urine WBC 5-10 H /HPF Urine Squamous Epithelial Cells 2-5 /HPF Urine Crystals NONE /LPF Urine Bacteria NEGATIVE /HPF Urine Casts NONE /LPF Urine Mucus SMALL H /LPF Urine Culture Indicated YES My Orders Orders - BETO DELAROSA APRN Cbc With Automated Diff (09/19/21 14:23) Comprehensive Metabolic Panel (09/19/21 14:23) Ed Iv/Invasive Line Start (09/19/21 14:23) Ua Culture If Indicated (09/19/21 14:23) Lorazepam Injection (Ativan Injection) (09/19/21 14:30) Lactated Ringers (Lr 1000 Ml Iv Solution (09/19/21 14:30) Ondansetron Injection (Zofran Injectio (09/19/21 14:30) Hcg,Qualitative Serum (09/19/21 14:23) Alcohol (09/19/21 14:27) Manual Differential (09/19/21 14:26) Urine Culture (09/19/21 14:29) Medications Given in ED Current Medications Medications Dose Ordered Sig/Talia Route Start Time Stop Time Status Last Admin Dose Admin Lorazepam 1 mg ONCE ONCE IVP 09/19/21 14:30 09/19/21 14:31 DC 09/19/21 14:37 1 MG Ondansetron HCl 8 mg ONCE ONCE IVP 09/19/21 14:30 09/19/21 14:31 DC 09/19/21 14:37 8 MG Vital Signs/I&O 09/19/21 14:17 Temp 36.5 Pulse 122 Resp 19 B/P (MAP) 113/95 (101) O2 Delivery Room Air Capillary Refill : Departure Impression Primary Impression: Anxiety Additional Impression: Alcohol withdrawal Disposition: 01 HOME, SELF-CARE Condition: Stable Departure-Patient Inst. Decision time for Depature: 15:15 Referrals: NO,LOCAL PHYSICIAN (PCP/Family) Primary Care Physician Patient Instructions: Anxiety, Adult ED BETO DELAROSA FACILITIES SUPERVISOR Sep 19, 2021 14:27
[2021-09-19] MEDS ORDERED: LACTATED RINGERS 1,000 ML IV SCH (14:30)
[2021-09-19] MEDS ORDERED: LORazepam INJ 2 MG/ML (ATIVAN) VIAL IVP ONE (14:30)
[2021-09-19] MEDS ORDERED: ONDANSETRON 4 MG/2 ML (SDV) Z0FRAN IVP ONE (14:30)
[2021-09-19 14:38] LABS: CLARITY,URINE SL CLOUDY; COLOR,URINE AMBER; GLUCOSE, URINE (UA) NEGATIVE (NEGATIVE); KETONES,URINE TRACE (NEGATIVE); LEUKOCYTE ESTERASE ,URINE 1+ (NEGATIVE); NITRITE,URINE NEGATIVE (NEGATIVE); PROTEIN,URINE 1+ (NEGATIVE)
[2021-09-19 14:42] LABS: BASOPHILS # (AUTO) 0.1 10^3/uL (0.0-0.1); BASOPHILS % (AUTO) 0 % (0-10); EOSINOPHILS % (AUTO) 0 % (0-10); HEMATOCRIT 46 % (35-52); HEMOGLOBIN 16.6 g/dL (11.5-16.0); LYMPHOCYTES # (AUTO) 1.4 10^3/uL (1.0-4.0); LYMPHOCYTES % (AUTO) 9 % (12-44); MEAN CORPUSCULAR HEMOGLOBIN 33 pg (25-34); MEAN CORPUSCULAR HGB CONC 36 g/dL (32-36); MEAN CORPUSCULAR VOLUME 92 fL (80-99); MEAN PLATELET VOLUME 9.6 fL (9.0-12.2); MONOCYTES # (AUTO) 1.6 10^3/uL (0.0-1.0); MONOCYTES % (AUTO) 10 % (0-12); NEUTROPHILS # (AUTO) 12.2 10^3/uL (1.8-7.8); NEUTROPHILS % (AUTO) 80 % (42-75); PLATELET COUNT 412 10^3/uL (130-400); WHITE BLOOD COUNT 15.2 10^3/uL (4.3-11.0)
[2021-09-19 14:56] LABS: BACTERIA,URINE NEGATIVE /HPF; BILIRUBIN,URINE 1+ (NEGATIVE)
[2021-09-19 15:01] LABS: BAND NEUTROPHILS 2 %; LYMPHOCYTES % (MANUAL) 6 %; NEUTROPHILS % (MANUAL) 83 %
[2021-09-19 15:02] LABS: BASOPHILS % (MANUAL) 1 %; EOSINOPHILS % (MANUAL) 0 %; MONOCYTES % (MANUAL) 8 %; RBC MORPH NORMAL
[2021-09-19 15:06] LABS: ALBUMIN 4.3 GM/DL (3.2-4.5); CHLORIDE 94 MMOL/L (98-107); POTASSIUM 3.1 MMOL/L (3.6-5.0); SODIUM 139 MMOL/L (135-145)
[2021-09-19 15:07] LABS: CALCIUM 9.3 MG/DL (8.5-10.1)
[2021-09-19 15:09] LABS: GLUCOSE 148 MG/DL (70-105); TOTAL PROTEIN 7.5 GM/DL (6.4-8.2)
[2021-09-19 15:10] LABS: BILIRUBIN,TOTAL 0.8 MG/DL (0.1-1.0); CARBON DIOXIDE 26 MMOL/L (21-32)
[2021-09-19 15:12] LABS: ALKALINE PHOSPHATASE 81 U/L (40-136); CREATININE SERUM 0.69 MG/DL (0.60-1.30); GFR ESTIMATED 92
[2021-09-19 15:13] LABS: BUN/CREATININE RATIO 16
[2021-09-19 15:15] LABS: ALANINE AMINOTRANSFERASE 9 U/L (0-55)
[2021-09-19 15:24] VITALS: BP 149/91
[2021-09-19] MEDS ORDERED: DIAZEPAM 5 MG (VALIUM) TABLET PO ONE (15:30)
== END 2021-09-19 15:24 | disposition home or self-care (01) ==
LOC: EDUNIT# 13:59 → ER 14:01
DX: F41.9 Anxiety disorder, unspecified (principal); F10.239 Alcohol dependence with withdrawal, unspecified; R00.0 Tachycardia, unspecified; I10 Essential (primary) hypertension; F32.9 Major depressive disorder, single episode, unspecified; Z79.899 Other long term (current) drug therapy
CPT/HCPCS: 36415; 80053; 80320; 81000; 84703; 85007; 85027; 87088

== ENCOUNTER 2022-01-02 06:56 | Emergency (ER) | payer MEDICAID ==
[~2022-01-02] VITALS: Ht 157.4 cm; Wt 65.9 kg
[2022-01-02] MEDS ORDERED: ONDANSETRON 4 MG/2 ML (SDV) Z0FRAN IVP ONE (07:30)
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
[2022-01-02 07:53] LABS: BASOPHILS # (AUTO) 0.1 10^3/uL (0.0-0.1); BASOPHILS % (AUTO) 1 % (0-10); EOSINOPHILS # (AUTO) 0.1 10^3/uL (0.0-0.3); EOSINOPHILS % (AUTO) 1 % (0-10); HEMATOCRIT 46 % (35-52); HEMOGLOBIN 16.3 g/dL (11.5-16.0); LYMPHOCYTES # (AUTO) 1.5 10^3/uL (1.0-4.0); LYMPHOCYTES % (AUTO) 13 % (12-44); MEAN CORPUSCULAR HEMOGLOBIN 33 pg (25-34); MEAN CORPUSCULAR HGB CONC 36 g/dL (32-36); MEAN CORPUSCULAR VOLUME 92 fL (80-99); MONOCYTES # (AUTO) 0.8 10^3/uL (0.0-1.0); MONOCYTES % (AUTO) 7 % (0-12); NEUTROPHILS # (AUTO) 9.5 10^3/uL (1.8-7.8); NEUTROPHILS % (AUTO) 79 % (42-75); PLATELET COUNT 442 10^3/uL (130-400)
[2022-01-02 08:02] LABS: ALBUMIN 4.2 GM/DL (3.2-4.5); POTASSIUM 3.5 MMOL/L (3.6-5.0)
[2022-01-02 08:03] LABS: CALCIUM 9.3 MG/DL (8.5-10.1)
[2022-01-02 08:05] LABS: TOTAL PROTEIN 7.6 GM/DL (6.4-8.2)
[2022-01-02 08:06] LABS: BILIRUBIN,TOTAL 0.8 MG/DL (0.1-1.0)
[2022-01-02 08:08] LABS: CREATININE SERUM 0.72 MG/DL (0.60-1.30)
[2022-01-02 08:10] LABS: PROTHROMBIN TIME PATIENT 13.6 SEC (12.2-14.7)
[2022-01-02 08:11] LABS: MAGNESIUM 1.8 MG/DL (1.6-2.4)
--- NOTE | 2022-01-02 08:18 | Diagnostic Imaging Report ---
Indication: Chest pain and anxiety. Comparison: 07/07/2021. Discussion: Single portable upright view of the chest was obtained. Normal heart size. No consolidation, pleural fluid, or pneumothorax. No osseous abnormality. Impression: 1. Negative chest. Dictated by: Dictated on workstation # [id number]
[2022-01-02] MEDS ORDERED: FAMOTIDINE 20MG/2ML IV (PEPCID) IVP ONE (10:00)
[2022-01-02] MEDS ORDERED: LACTATED RINGERS 1,000 ML IV ONE (10:00)
[2022-01-02] MEDS ORDERED: LORazepam INJ 2 MG/ML (ATIVAN) VIAL IVP ONE (10:00)
[2022-01-02] MEDS ORDERED: LORA-404 PO (10:49)
[2022-01-02] MEDS ORDERED: OMEP20CA18 PO (10:49)
[2022-01-02] MEDS ORDERED: ONDA4TAB11 SL (10:49)
[2022-01-02 11:08] VITALS: BP 117/83
== END 2022-01-02 11:01 | disposition home or self-care (01) ==
LOC: EDUNIT# 06:56 → ER 06:57
DX: R07.89 Other chest pain (principal); F41.9 Anxiety disorder, unspecified; R11.2 Nausea with vomiting, unspecified; R00.0 Tachycardia, unspecified; Z72.0 Tobacco use
CPT/HCPCS: 36415; 71045; 80053; 83735; 83874; 84484; 85025; 85610; 85730; 93005; 93041

== ENCOUNTER 2022-04-07 03:22 | Emergency (ER) | payer MEDICAID ==
[~2022-04-07 03:22] MED LIST changes: +OMEP20CA18 PO; +ONDA4TAB11 SL
--- NOTE | 2022-04-07 03:34 | ED General ---
General Stated Complaint: ANXIETY Source of Information: Patient (VERY DIFFICULT HISTORIAN AND APPEARS TO BE UNDER THE INFLUENCE OF SOME SUBSTANCE/S), EMS, Old Records History of Present Illness Date Seen by Provider: Apr 07, 2022 Time Seen by Provider: 03:24 Initial Comments PT ARRIVES VIA EMS FROM HOME PT STATES HER DAUGHTER LIVES WITH HER, BUT EMS REPORT THAT THEY DID NOT SEE ANYONE ELSE AT THE HOME STATES SHE WOKE UP ABOUT AN HOUR AGO WITH ANXIETY AND HAVING A PANIC ATTACK PT HAS XANAX AT HOME THAT SHE HAS BEEN PRESCRIBED FOR THIS PROBLEM, BUT DID NOT TAKE ANY--GIVES NO ANSWER TO WHY SHE DID NOT TAKE ANY PT DOES NOT HAVE ANY OTHER COMPLAINTS PT DOES NOT VOICE AND SUICIDAL OR HOMICIDAL THOUGHTS LMP: UNKNOWN PT THINKS SHE HAS HAD COVID VACCINE, BUT DOES NOT KNOW WHEN OR HOW MANY SHE HAS HAD PT STATES SHE HAS HAD COLD SYMPTOMS RECENTLY NO OTHER SYMPTOMS PT ADMITS TO DRINKING ALCOHOL "ABOUT 4 HOURS AGO" BUT CANNOT STATE HOW MUCH DENIES DRUG USE SMOKES 1 1/2 PPD PT WITH MULTIPLE VISITS WITH NEARLY ALL FOR C/O ANXIETY AND ALCOHOL RELATED COMPLAINTS. PER MED RECONCILIATION, PT WAS PRESCRIBED XANAX 0.5 MG #56 ON 03/01/22 AND 03/27/22, HAS BEEN PRESCRIBED EITHER XANAX OR ATIVAN EVERY MONTH. PCP: PATRICIA PSYCH: [facility] Allergies and Home Medications Allergies Coded Allergies: No Known Drug Allergies (Unverified , 05/30/21) Patient Home Medication List Home Medication List Reviewed: Yes Acetaminophen (Tylenol Extra Strength) 500 Mg Tablet, 1,000 MG PO Q8H PRN for PAIN-MILD (1-4), (Reported) Entered as Reported by: VIPUL MCCONNELL on 05/31/21 1015 Alprazolam (Alprazolam) 0.5 Mg Tablet, 0.5 MG PO BID Prescribed by: LYNSEY LITTLE on 06/01/21 1249 Ibuprofen (Ibuprofen) 200 Mg Tablet, 400-600 MG PO Q8H PRN for PAIN-MILD (1-4), (Reported) Entered as Reported by: VIPUL MCCONNELL on 05/31/21 1015 Lorazepam (Ativan) 0.5 Mg Tablet, 0.5 MG PO BID PRN for ANXIETY Prescribed by: BETO DELAROSA on 08/04/21 1200 Lorazepam (Ativan) 1 Mg Tablet, 1 MG PO Q8H PRN for ANXIETY Prescribed by: KELSIE CORNEJO on 09/19/21 0655 Lorazepam (Ativan) 0.5 Mg Tablet, 0.5 MG PO TID PRN for ANXIETY Prescribed by: INES BURROWS on 01/02/22 1050 Mirtazapine (Mirtazapine) 30 Mg Tablet, 30 MG PO HS, (Reported) Entered as Reported by: VIPUL MCOCNNELL on 05/31/21 1015 Multivitamin (Vitamins For Hair) 1 Each Tablet, 1 EACH PO DAILY, (Reported) Entered as Reported by: VIPUL MCCONNELL on 05/31/21 1015 Nitrofurantoin Monohyd/M-Cryst (Macrobid 100 mg Capsule) 100 Mg Capsule, 1 TAB PO BID Prescribed by: LEANEN TUCKER on 04/07/22 0418 Omeprazole (Omeprazole) 20 Mg Capsule.dr, 20 MG PO DAILY Prescribed by: INES BURROWS on 01/02/22 1049 Ondansetron (Ondansetron Odt) 4 Mg Tab.rapdis, 4 MG SL Q4H PRN for NAUSEA/VOMITING Prescribed by: INES BURROWS on 01/02/22 1049 Ondansetron (Ondansetron Odt) 8 Mg Tab.rapdis, 8 MG PO Q6H Prescribed by: LEANNE TUCKER on 04/07/22 0418 Pantoprazole Sodium (Protonix) 40 Mg Tablet.dr, 40 MG PO DAILY Prescribed by: LEANNE TUCKER on 04/07/22 0418 Propranolol HCl (Propranolol HCl) 40 Mg Tablet, 40 MG PO BID, (Reported) Entered as Reported by: VIPUL MCCONNELL on 05/31/21 1015 Quetiapine Fumarate (Quetiapine Fumarate) 200 Mg Tablet, 200 MG PO BID PRN for ANXIETY, (Reported) Entered as Reported by: VIPUL MCCONNELL on 05/31/21 1015 Sertraline HCl (Sertraline HCl) 100 Mg Tablet, 200 MG PO DAILY, (Reported) Entered as Reported by: VIPUL MCCONNELL on 05/31/21 1015 Sertraline HCl (Zoloft) 50 Mg Tablet, 50 MG PO DAILY Prescribed by: BETO DELAROSA on 08/04/21 1159 Review of Systems Review of Systems Constitutional: no symptoms reported EENTM: see HPI, nose congestion Respiratory: no symptoms reported Cardiovascular: no symptoms reported Gastrointestinal: no symptoms reported Genitourinary: no symptoms reported Musculoskeletal: no symptoms reported Skin: no symptoms reported Psychiatric/Neurological: See HPI, Anxiety Hematologic/Lymphatic: No Symptoms Reported Immunological/Allergic: no symptoms reported Past Uicqdyp-[id number]-Pwtypp Hx Patient Social History Tobacco Use?: Yes Tobacco type used: Cigarettes Smoking Status: Current Everyday Smoker Substance use?: Yes Substance type: Marijuana Alcohol Use?: Yes Alcohol type: Beer, Hard Liquor Alcohol Frequency: Daily Immunizations Up To Date Tetanus Booster (TDap): Unknown First/Initial COVID19 Vaccinat: NO VACCAINE Second COVID19 Vaccination Art: NO VACCAINE Seasonal Allergies Seasonal Allergies: Yes Past Medical History Surgery/Hospitalization HX: ANXIETY, DEPRESSION, PTSD, PAST HX OF PHYSICAL ABUSE, , HTN Surgeries: Yes Section Respiratory: No Cardiac: Yes Hypertension Neurological: No Genitourinary: No Gastrointestinal: No Musculoskeletal: No Endocrine: No HEENT: No Cancer: No Psychosocial: Yes (ALCOHOL ABUSE) Anxiety, PTSD, Depression Integumentary: No Blood Disorders: No Family Medical History No Pertinent Family Hx SOCIAL HISTORY: -SMOKES 1 1/2 PPD -DAILY ETOH USE/ABUSE -THC DAILY USE Physical Exam Vital Signs Vital Signs - First Documented 04/07/22 03:56 Pulse 71 Resp 20 B/P (MAP) 133/86 Pulse Ox 100 O2 Delivery Room Air Capillary Refill : Height, Weight, BMI Height: '" Weight: lbs. oz. kg; 25.00 BMI Method: General Appearance: Other (CONSTANT MOVEMENTS, SITTING VINCENTIAN-STYLE, THEN LAYING IN POSITION, THEN BACK TO VINCENTIAN-STYLE, ROCKING BACK AND FORTH, SPEECH SOMEWHAT ERRATIC, AND APPEARS TO BE UNDER THE INFLUENCE OF SOME SUBSTANCE/S. STRONG ODOR OF CIGARETTES , THC AND ALCOHOL; UNKEMPT. ) HEENT: PERRL/EOMI, Other (EDENTULOUS) Respiratory: Normal Breath Sounds, No Accessory Muscle Use, No Respiratory Distress Cardiovascular: Regular Rate, Rhythm, No Murmur Gastrointestinal: Non Tender, Soft Back: Normal Inspection Extremity: Normal Capillary Refill, Normal Inspection, No Pedal Edema Neurologic/Psychiatric: Alert, Oriented x3, No Motor/Sensory Deficits Skin: Normal Color, Warm/Dry, Tattoos/Piercings (TATTOOS), Other (NO EXTERNAL EVIDENCE OF TRAUMA. ) Progress/Results/Core Measures Suspected Sepsis SIRS Temperature: Pulse: Respiratory Rate: Laboratory Tests 04/07/22 03:58: White Blood Count 16.4H Blood Pressure / Mean: Laboratory Tests 04/07/22 03:58: Creatinine 0.69, Platelet Count 555H, Total Bilirubin 0.4 Results/Orders Lab Results Laboratory Tests Test 04/07/22 03:35 04/07/22 03:37 04/07/22 03:58 Range/Units Urine Color YELLOW Urine Clarity SL CLOUDY Urine pH 6.0 5-9 Urine Specific [place] >=1.030 1.016-1.022 Urine Protein 2+ H NEGATIVE Urine Glucose (UA) NEGATIVE NEGATIVE Urine Ketones 1+ H NEGATIVE Urine Nitrite NEGATIVE NEGATIVE Urine Bilirubin 1+ H NEGATIVE Urine Urobilinogen 1.0 < = 1.0 MG/DL Urine Leukocyte Esterase 1+ H NEGATIVE Urine RBC (Auto) 3+ H NEGATIVE Urine RBC 0-2 /HPF Urine WBC 2-5 /HPF Urine Squamous Epithelial Cells 2-5 /HPF Urine Crystals PRESENT H /LPF Urine Amorphous Sediment FEW ROGER PHOSPHATE H /LPF Urine Bacteria FEW H /HPF Urine Casts NONE /LPF Urine Mucus SMALL H /LPF Urine Culture Indicated YES Serum Test, Qualitative NEGATIVE NEGATIVE Urine Opiates Screen NEGATIVE NEGATIVE Urine Oxycodone Screen NEGATIVE NEGATIVE Urine Methadone Screen NEGATIVE NEGATIVE Urine Propoxyphene Screen NEGATIVE NEGATIVE Urine Barbiturates Screen NEGATIVE NEGATIVE Ur Tricyclic Antidepressants Screen POSITIVE H NEGATIVE Urine Phencyclidine Screen NEGATIVE NEGATIVE Urine Amphetamines Screen NEGATIVE NEGATIVE Urine Methamphetamines Screen NEGATIVE NEGATIVE Urine Benzodiazepines Screen POSITIVE H NEGATIVE Urine Cocaine Screen NEGATIVE NEGATIVE Urine Cannabinoids Screen POSITIVE H NEGATIVE Influenza Type A (RT-PCR) Not Detected Not Detecte Influenza Type B (RT-PCR) Not Detected Not Detecte SARS-CoV-2 RNA (RT-PCR) Not Detected Not Detecte White Blood Count 16.4 H 4.3-11.0 10^3/uL Red Blood Count 4.85 3.80-5.11 10^6/uL Hemoglobin 15.1 11.5-16.0 g/dL Hematocrit 43 35-52 % Mean Corpuscular Volume 89 80-99 fL Mean Corpuscular Hemoglobin 31 25-34 pg Mean Corpuscular Hemoglobin Concent 35 32-36 g/dL Red Cell Distribution Width 13.1 10.0-14.5 % Platelet Count 555 H 130-400 10^3/uL Mean Platelet Volume 9.0 9.0-12.2 fL Immature Granulocyte % (Auto) 1 % Neutrophils (%) (Auto) 79 H 42-75 % Lymphocytes (%) (Auto) 11 L 12-44 % Monocytes (%) (Auto) 9 0-12 % Eosinophils (%) (Auto) 0 0-10 % Basophils (%) (Auto) 1 0-10 % Neutrophils # (Auto) 13.0 H 1.8-7.8 10^3/uL Lymphocytes # (Auto) 1.8 1.0-4.0 10^3/uL Monocytes # (Auto) 1.4 H 0.0-1.0 10^3/uL Eosinophils # (Auto) 0.0 0.0-0.3 10^3/uL Basophils # (Auto) 0.1 0.0-0.1 10^3/uL Immature Granulocyte # (Auto) 0.1 0.0-0.1 10^3/uL Neutrophils % (Manual) 84 % Lymphocytes % (Manual) 11 % Monocytes % (Manual) 3 % Eosinophils % (Manual) 0 % Basophils % (Manual) 0 % Band Neutrophils 0 % Reactive Lymphocytes 2 % Blood Morphology Comment NORMAL Sodium Level 146 H 135-145 MMOL/L Potassium Level 3.2 L 3.6-5.0 MMOL/L Chloride Level 106 98-107 MMOL/L Carbon Dioxide Level 18 L 21-32 MMOL/L Anion Gap 22 H 5-14 MMOL/L Blood Urea Nitrogen 12 7-18 MG/DL Creatinine 0.69 0.60-1.30 MG/DL Estimat Glomerular Filtration Rate 108 BUN/Creatinine Ratio 17 Glucose Level 146 H 70-105 MG/DL Calcium Level 8.9 8.5-10.1 MG/DL Corrected Calcium 8.7 8.5-10.1 MG/DL Total Bilirubin 0.4 0.1-1.0 MG/DL Aspartate Amino Transf (AST/SGOT) 39 H 5-34 U/L Alanine Aminotransferase (ALT/SGPT) 22 0-55 U/L Alkaline Phosphatase 85 40-136 U/L Total Protein 7.3 6.4-8.2 GM/DL Albumin 4.2 3.2-4.5 GM/DL Serum Alcohol 180 H <10 MG/DL My Orders Orders - LEANNE TUCKER DO Ed Iv/Invasive Line Start (04/07/22 03:25) Monitor-Rhythm Ecg Trace Only (04/07/22 03:25) Alcohol (04/07/22 03:25) Cbc With Automated Diff (04/07/22 03:25) Comprehensive Metabolic Panel (04/07/22 03:25) Drug Screen Stat (Urine) (04/07/22 03:25) Hcg,Qualitative Serum (04/07/22 03:25) Ua Culture If Indicated (04/07/22 03:25) Ondansetron Injection (Zofran Injectio (04/07/22 04:00) Pantoprazole Injection (Protonix Injecti (04/07/22 04:00) Covid 19 Inhouse Test (04/07/22 03:48) Influenza A And B By Pcr (04/07/22 03:48) Isolation Central Supply Req (04/07/22 03:48) Urine Culture (04/07/22 03:35) Manual Differential (04/07/22 03:58) Ondansetron Injection (Zofran Injectio (04/07/22 04:30) Ed Iv/Invasive Line Start (04/07/22 04:27) Lactated Ringers (Lr 1000 Ml Iv Solution (04/07/22 04:30) Medications Given in ED Current Medications Medications Dose Ordered Sig/Talia Route Start Time Stop Time Status Last Admin Dose Admin Ondansetron HCl 8 mg ONCE ONCE IVP 04/07/22 04:00 04/07/22 04:01 DC 04/07/22 03:51 8 MG Ondansetron HCl 8 mg ONCE ONCE IVP 04/07/22 04:30 04/07/22 04:31 DC 04/07/22 04:31 8 MG Pantoprazole 40 mg ONCE ONCE IV 04/07/22 04:00 04/07/22 04:01 DC 04/07/22 03:51 40 MG Vital Signs/I&O 04/07/22 03:56 Pulse 71 Resp 20 B/P (MAP) 133/86 Pulse Ox 100 O2 Delivery Room Air Capillary Refill : Progress Note : Progress Note PT BEGAN HARSH, FORCED RETCHING SHORTLY AFTER ARRIVAL GIVEN ZOFRAN AND PROTONIX THIS BEHAVIOR STOPS WHEN DISTRACTED AND WHEN TOLD TO STOP. THEN PT IS IMMEDIATELY WANTING WATER. WALKED OUT INTO HALLWAY TO ASK FOR WATER, THEN WALKED BACK INTO ROOM AND THEN IMMEDIATELY WALKED TO BATHROOM. THEN IMMEDIATELY BACK OUT TO NURSE'S DESK TO ASK FOR WATER AGAIN, THEN C/O NAUSEA--SHE DOES THIS MULTIPLE TIMES. PT HAS BEEN REPEATEDLY ADVISED THAT SHE HAS BEEN RETCHING, WILL HOLD OFF ON ANYTHING BY MOUTH AT THIS TIME. SPEECH CLEAR, GAIT STEADY. NO FURTHER RETCHING FOR REMAINDER OF ER STAY. Departure Impression Primary Impression: ACUTE ALCOHOL INTOXICATION IN ACTIVE ALCOHOLIC Additional Impressions: Anxiety Alcoholism Marijuana use UTI (urinary tract infection) Disposition: HOME, SELF-CARE Condition: Improved Departure-Patient Inst. Decision time for Depature: 04:30 Referrals: NO,LOCAL PHYSICIAN (PCP/Family) Primary Care Physician Patient Instructions: Alcohol Use Disorder ED, Anxiety, Adult ED, Marijuana Use and Addiction (DC), Urinary Tract Infection, Adult ED Add. Discharge Instructions: HOME, REST TAKE YOUR MEDICATIONS PRESCRIBED CLEAR LIQUIDS, SIPS AT A TIME--WATER, BROTH, JELLO, GATORADE TOMORROW IF YOU ARE BETTER, ADD BRATS DIET TO CLEAR LIQUIDS--BANANAS, RICE, APPLESAUCE, TOAST, SALTINES. FOLLOW UP WITH YOUR DR THIS WEEK FOR FURTHER CARE--CALL IN THE MORNING TO SCHEDULE AN APPOINTMENT Scripts Ondansetron (Ondansetron Odt) 8 Mg Tab.rapdis 8 MG PO Q6H, #10 TAB Prov: LEANNE TUCKER DO 04/07/22 Pantoprazole Sodium (Protonix) 40 Mg Tablet.dr 40 MG PO DAILY, #15 TAB Prov: LEANNE TUCKER DO 04/07/22 Nitrofurantoin Monohyd/M-Cryst (Macrobid 100 mg Capsule) 100 Mg Capsule 1 TAB PO BID, #20 CAP Prov: LEANNE TUCKER DO 04/07/22 LEANNE TUCKER DO Apr 07, 2022 03:34
[2022-04-07 03:43] LABS: BILIRUBIN,URINE 1+ (NEGATIVE); CLARITY,URINE SL CLOUDY; COLOR,URINE YELLOW; GLUCOSE, URINE (UA) NEGATIVE (NEGATIVE); KETONES,URINE 1+ (NEGATIVE); LEUKOCYTE ESTERASE ,URINE 1+ (NEGATIVE); NITRITE,URINE NEGATIVE (NEGATIVE); PROTEIN,URINE 2+ (NEGATIVE)
[2022-04-07 03:54] LABS: AMPHETAMINE SCREEN, URINE NEGATIVE (NEGATIVE); BARBITURATE SCREEN URINE NEGATIVE (NEGATIVE); BENZODIAZEPINES SCREEN URINE POSITIVE (NEGATIVE); CANNABINOID SCREEN, URINE POSITIVE (NEGATIVE); COCAINE SCREEN URINE NEGATIVE (NEGATIVE); METHADONE STAT NEGATIVE (NEGATIVE); OPIATE SCREEN URINE NEGATIVE (NEGATIVE); OXYCODONE STAT NEGATIVE (NEGATIVE); PROPOXYPHENE STAT NEGATIVE (NEGATIVE); TRICYCLIC ANTIDEPRESSANTS SCRE POSITIVE (NEGATIVE)
[2022-04-07 03:55] LABS: AMORPHOUS SEDIMENT,UR FEW AMOR PHOSPHATE /LPF; BACTERIA,URINE FEW /HPF; RBC,URINE 0-2 /HPF
[2022-04-07] MEDS ORDERED: PANTOPRAZOLE 40 MG (PROTONIX) VIAL IV ONE (04:00)
[2022-04-07] MEDS ORDERED: ONDANSETRON 4 MG/2 ML (SDV) Z0FRAN IVP ONE ×2 (04:00→04:30)
[2022-04-07 04:06] LABS: BASOPHILS # (AUTO) 0.1 10^3/uL (0.0-0.1); BASOPHILS % (AUTO) 1 % (0-10); EOSINOPHILS % (AUTO) 0 % (0-10); HEMATOCRIT 43 % (35-52); HEMOGLOBIN 15.1 g/dL (11.5-16.0); LYMPHOCYTES # (AUTO) 1.8 10^3/uL (1.0-4.0); LYMPHOCYTES % (AUTO) 11 % (12-44); MEAN CORPUSCULAR HEMOGLOBIN 31 pg (25-34); MEAN CORPUSCULAR HGB CONC 35 g/dL (32-36); MEAN CORPUSCULAR VOLUME 89 fL (80-99); MONOCYTES # (AUTO) 1.4 10^3/uL (0.0-1.0); MONOCYTES % (AUTO) 9 % (0-12); NEUTROPHILS % (AUTO) 79 % (42-75); PLATELET COUNT 555 10^3/uL (130-400); WHITE BLOOD COUNT 16.4 10^3/uL (4.3-11.0)
[2022-04-07 04:15] LABS: ALBUMIN 4.2 GM/DL (3.2-4.5); POTASSIUM 3.2 MMOL/L (3.6-5.0)
[2022-04-07 04:17] LABS: CALCIUM 8.9 MG/DL (8.5-10.1)
[2022-04-07 04:18] LABS: TOTAL PROTEIN 7.3 GM/DL (6.4-8.2)
[2022-04-07] MEDS ORDERED: PANT40TA2 PO (04:18)
[2022-04-07] MEDS ORDERED: NITR-65 PO (04:18)
[2022-04-07] MEDS ORDERED: ONDA8TAB13 PO (04:18)
[2022-04-07 04:20] LABS: BILIRUBIN,TOTAL 0.4 MG/DL (0.1-1.0)
[2022-04-07 04:22] LABS: CREATININE SERUM 0.69 MG/DL (0.60-1.30)
[2022-04-07] MEDS ORDERED: LACTATED RINGERS 1,000 ML IV ONE (04:30)
[2022-04-07 04:36] LABS: BAND NEUTROPHILS 0 %; BASOPHILS % (MANUAL) 0 %; EOSINOPHILS % (MANUAL) 0 %; LYMPHOCYTES % (MANUAL) 11 %; MONOCYTES % (MANUAL) 3 %; NEUTROPHILS % (MANUAL) 84 %; RBC MORPH NORMAL; REACTIVE LYMPHOCYTES 2 %
== END 2022-04-07 04:35 | disposition home or self-care (01) ==
LOC: EDUNIT# 03:22 → ER 03:23
DX: F10.229 Alcohol dependence with intoxication, unspecified (principal); F41.9 Anxiety disorder, unspecified; N39.0 Urinary tract infection, site not specified; F12.10 Cannabis abuse, uncomplicated; F17.210 Nicotine dependence, cigarettes, uncomplicated; Z20.822 Contact with and (suspected) exposure to COVID-19; Z28.310 Unvaccinated for COVID-19; Y90.5 Blood alcohol level of 100-119 mg/100 ml
CPT/HCPCS: 36415; 80053; 80306; 80320; 81000; 84703; 85007; 85027; 87088; 87636; 93041

== ENCOUNTER 2022-11-20 18:53 | Emergency (ER) | payer MEDICAID ==
[~2022-11-20] VITALS: Ht 157.5 cm; Wt 72.6 kg
[~2022-11-20 18:53] MED LIST changes: +NITR-65 PO; +ONDA8TAB13 PO; +PANT40TA2 PO
[2022-11-20] MEDS ORDERED: ONDANSETRON 4 MG/2 ML (SDV) Z0FRAN IVP ONE (19:00)
[2022-11-20 19:06] LABS: BASOPHILS % (AUTO) 1 % (0-10); EOSINOPHILS % (AUTO) 1 % (0-10); HEMATOCRIT 47 % (35-52); HEMOGLOBIN 16.3 g/dL (11.5-16.0); LYMPHOCYTES % (AUTO) 15 % (12-44); MEAN CORPUSCULAR HEMOGLOBIN 31 pg (25-34); MEAN CORPUSCULAR HGB CONC 35 g/dL (32-36); MEAN CORPUSCULAR VOLUME 90 fL (80-99); MEAN PLATELET VOLUME 9.1 fL (9.0-12.2); MONOCYTES # (AUTO) 0.7 10^3/uL (0.0-1.0); MONOCYTES % (AUTO) 11 % (0-12); NEUTROPHILS # (AUTO) 4.7 10^3/uL (1.8-7.8); NEUTROPHILS % (AUTO) 73 % (42-75); PLATELET COUNT 381 10^3/uL (130-400); WHITE BLOOD COUNT 6.4 10^3/uL (4.3-11.0)
[2022-11-20 19:24] LABS: INR 0.9 (0.8-1.4); PROTHROMBIN TIME PATIENT 12.7 SEC (12.2-14.7)
[2022-11-20 19:29] LABS: ALBUMIN 3.8 GM/DL (3.2-4.5); BILIRUBIN,TOTAL 0.6 MG/DL (0.1-1.0); CALCIUM 9.2 MG/DL (8.5-10.1); CREATININE SERUM 0.69 MG/DL (0.60-1.30); POTASSIUM 3.3 MMOL/L (3.6-5.0); TOTAL PROTEIN 7.1 GM/DL (6.4-8.2)
[2022-11-20] MEDS ORDERED: ALPRAZolam 1 MG (XANAX) TAB PO ONE (19:30)
[2022-11-20] MEDS ORDERED: methylPREDNISolone 125 MG (Solu-MEDROL) VIAL IVP ONE (19:30)
[2022-11-20] MEDS ORDERED: RT-ALBUTEROL/IPRATROPIUM 3 ML (DUONEB) VIAL INH ONE (19:30)
--- NOTE | 2022-11-20 19:39 | ED Chest Pain ---
General Chief Complaint: Chest Pain Stated Complaint: CHEST PAIN - NAUSEA Nursing Triage Note: PT AMB TO RM 3 W C/O NAUSEA, CONGESTION, COUGH, AND BILAT UPPER CP AND TIGHTNESS SX 0930 YESTERDAY. PT A&OX4, STATES SHE HAS A LOT GOING ON RIGHT NOW AND BELIEVES THIS COULD POSSIBLY BE A PANIC ATTACK. Source: patient Exam Limitations: no limitations History of Present Illness Date Seen by Provider: Nov 20, 2022 Time Seen by Provider: 19:20 Initial Comments 47-year-old female presents to the ER with complaints of chest tightness that starts in the middle of her chest and radiates outwards. Patient also states "it is hard to catch my breath." States pain started yesterday. Denies radiation to shoulder, neck, back. Patient reports she has a history of anxiety, and states some of her pain and shortness of air might be related to her anxiety. States she usually takes Xanax twice a day but up to 4 times a day. States she has been out of her Xanax for couple of days due to a problem with insurance. Patient appears very anxious. She also complains of a headache, but took ibuprofen around 5 PM which relieved the pain. Reports congestion, cough, fever/chills, nausea and dry heaving. Denies diarrhea. Denies history of COPD, has a 20+ year smoking history. Her heart rate is elevated during exam around 115, but after provider left the room heart rate dropped to the 90s. Allergies and Home Medications Allergies Coded Allergies: No Known Drug Allergies (Unverified , 05/30/21) Patient Home Medication List Home Medication List Reviewed: Yes Acetaminophen (Tylenol Extra Strength) 500 Mg Tablet, 1,000 MG PO Q8H PRN for PAIN-MILD (1-4), (Reported) Entered as Reported by: VIPUL MCCONNELL on 05/31/21 1015 Alprazolam (Alprazolam) 0.5 Mg Tablet, 0.5 MG PO BID Prescribed by: LYNSEY LITTLE on 06/01/21 1249 Ibuprofen (Ibuprofen) 200 Mg Tablet, 400-600 MG PO Q8H PRN for PAIN-MILD (1-4), (Reported) Entered as Reported by: VIPUL MCCONNELL on 05/31/21 1015 Lorazepam (Ativan) 0.5 Mg Tablet, 0.5 MG PO BID PRN for ANXIETY Prescribed by: BETO DELAROSA on 08/04/21 1200 Lorazepam (Ativan) 1 Mg Tablet, 1 MG PO Q8H PRN for ANXIETY Prescribed by: KELSIE CORNEJO on 09/19/21 0655 Lorazepam (Ativan) 0.5 Mg Tablet, 0.5 MG PO TID PRN for ANXIETY Prescribed by: INES BURROWS on 01/02/22 1050 Mirtazapine (Mirtazapine) 30 Mg Tablet, 30 MG PO HS, (Reported) Entered as Reported by: VIPUL MCCONNELL on 05/31/21 1015 Multivitamin (Vitamins For Hair) 1 Each Tablet, 1 EACH PO DAILY, (Reported) Entered as Reported by: VIPUL MCCONNELL on 05/31/21 1015 Nitrofurantoin Monohyd/M-Cryst (Macrobid 100 mg Capsule) 100 Mg Capsule, 1 TAB PO BID Prescribed by: LEANNE TUCKER on 04/07/22 0418 Omeprazole (Omeprazole) 20 Mg Capsule.dr, 20 MG PO DAILY Prescribed by: INES BURROWS on 01/02/22 1049 Ondansetron (Ondansetron Odt) 4 Mg Tab.rapdis, 4 MG SL Q4H PRN for NAUSEA/VOMITING Prescribed by: INES BURROWS on 01/02/22 1049 Ondansetron (Ondansetron Odt) 8 Mg Tab.rapdis, 8 MG PO Q6H Prescribed by: LEANNE TUCKER on 04/07/22 0418 Pantoprazole Sodium (Protonix) 40 Mg Tablet.dr, 40 MG PO DAILY Prescribed by: LEANNE TUCKER on 04/07/22 0418 Propranolol HCl (Propranolol HCl) 40 Mg Tablet, 40 MG PO BID, (Reported) Entered as Reported by: VIPUL MCCONNELL on 05/31/21 1015 Quetiapine Fumarate (Quetiapine Fumarate) 200 Mg Tablet, 200 MG PO BID PRN for ANXIETY, (Reported) Entered as Reported by: VIPUL MCCONNELL on 05/31/21 1015 Sertraline HCl (Sertraline HCl) 100 Mg Tablet, 200 MG PO DAILY, (Reported) Entered as Reported by: VIPUL MCCONNELL on 05/31/21 1015 Sertraline HCl (Zoloft) 50 Mg Tablet, 50 MG PO DAILY Prescribed by: BETO DELAROSA on 08/04/21 1159 Review of Systems Review of Systems Constitutional: see HPI Past Apzuyvc-Ugkygw-Auntts Hx Patient Social History Tobacco Use?: Yes Tobacco type used: Cigarettes Smoking Status: Current Everyday Smoker Use of E-Cig and/or Vaping dev: No Substance use?: No Alcohol Use?: No Immunizations Up To Date Tetanus Booster (TDap): Unknown Influenza Vaccine Up-to-Date: No; Not Current First/Initial COVID19 Vaccinat: none Second COVID19 Vaccination Art: none Third COVID19 Vaccination Date: none COVID19 Vaccine Bevel Mill Operator: none Seasonal Allergies Seasonal Allergies: Yes Past Medical History Surgery/Hospitalization HX: ANXIETY, DEPRESSION, PTSD, PAST HX OF PHYSICAL ABUSE, , HTN Surgeries: Yes Section Respiratory: No Cardiac: Yes Hypertension Neurological: No Genitourinary: No Gastrointestinal: No Musculoskeletal: No Endocrine: No HEENT: No Cancer: No Psychosocial: Yes (ALCOHOL ABUSE) Anxiety, PTSD, Depression Integumentary: No Blood Disorders: No Family Medical History No Pertinent Family Hx SOCIAL HISTORY: -SMOKES 1 /2 PPD -DAILY ETOH USE/ABUSE -THC DAILY USE Physical Exam Vital Signs Vital Signs - First Documented 11/20/22 18:57 Temp 36.2 Pulse 106 Resp 26 B/P (MAP) 125/99 (108) Pulse Ox 96 O2 Delivery Room Air Capillary Refill : Less Than 3 Seconds Height, Weight, BMI Height: '" Weight: lbs. oz. kg; 29.00 BMI Method: General Appearance: Anxious, Moderate Distress Neck: Normal Inspection, Supple Respiratory: Lungs Clear, Normal Breath Sounds, No Accessory Muscle Use, No Respiratory Distress Cardiovascular: No Edema, No Gallop, No JVD, No Murmur, Tachycardia Extremity: Normal Inspection, Normal Range of Motion Neurologic/Psychiatric: Alert, Oriented x3 Skin: Normal Color, Warm/Dry Progress/Results/Core Measures Results/Orders Lab Results Laboratory Tests Test 11/20/22 18:46 11/20/22 19:42 Range/Units White Blood Count 6.4 4.3-11.0 10^3/uL Red Blood Count 5.23 H 3.80-5.11 10^6/uL Hemoglobin 16.3 H 11.5-16.0 g/dL Hematocrit 47 35-52 % Mean Corpuscular Volume 90 80-99 fL Mean Corpuscular Hemoglobin 31 25-34 pg Mean Corpuscular Hemoglobin Concent 35 32-36 g/dL Red Cell Distribution Width 13.6 10.0-14.5 % Platelet Count 381 130-400 10^3/uL Mean Platelet Volume 9.1 9.0-12.2 fL Immature Granulocyte % (Auto) 1 % Neutrophils (%) (Auto) 73 42-75 % Lymphocytes (%) (Auto) 15 12-44 % Monocytes (%) (Auto) 11 0-12 % Eosinophils (%) (Auto) 1 0-10 % Basophils (%) (Auto) 1 0-10 % Neutrophils # (Auto) 4.7 1.8-7.8 10^3/uL Lymphocytes # (Auto) 1.0 1.0-4.0 10^3/uL Monocytes # (Auto) 0.7 0.0-1.0 10^3/uL Eosinophils # (Auto) 0.0 0.0-0.3 10^3/uL Basophils # (Auto) 0.0 0.0-0.1 10^3/uL Immature Granulocyte # (Auto) 0.1 0.0-0.1 10^3/uL Prothrombin Time 12.7 12.2-14.7 SEC INR Comment 0.9 0.8-1.4 Activated Partial Thromboplast Time 28 24-35 SEC D-Dimer 0.21 0.00-0.49 UG/ML Sodium Level 139 135-145 MMOL/L Potassium Level 3.3 L 3.6-5.0 MMOL/L Chloride Level 106 98-107 MMOL/L Carbon Dioxide Level 22 21-32 MMOL/L Anion Gap 11 5-14 MMOL/L Blood Urea Nitrogen 5 L 7-18 MG/DL Creatinine 0.69 0.60-1.30 MG/DL Estimat Glomerular Filtration Rate 108 BUN/Creatinine Ratio 7 Glucose Level 114 H 70-105 MG/DL Calcium Level 9.2 8.5-10.1 MG/DL Corrected Calcium 9.4 8.5-10.1 MG/DL Magnesium Level 2.0 1.6-2.4 MG/DL Total Bilirubin 0.6 0.1-1.0 MG/DL Aspartate Amino Transf (AST/SGOT) 27 5-34 U/L Alanine Aminotransferase (ALT/SGPT) 17 0-55 U/L Alkaline Phosphatase 98 40-136 U/L Myoglobin 21.9 10.0-92.0 NG/ML Troponin I < 0.028 <0.028 NG/ML Total Protein 7.1 6.4-8.2 GM/DL Albumin 3.8 3.2-4.5 GM/DL Serum Alcohol < 10 <10 MG/DL Influenza Type A (RT-PCR) Not Detected Not Detecte Influenza Type B (RT-PCR) Not Detected Not Detecte SARS-CoV-2 RNA (RT-PCR) Detected H Not Detecte My Orders Orders - SAMUEL SILVA ORNAMENTAL PLASTERER HELPER Alprazolam Tablet (Xanax Tablet) (11/20/22 19:30) Albuterol/Ipra Inhalation Soln (Duoneb I (11/20/22 19:30) Svn Small Volume Nebulizer (11/20/22 19:26) Methylprednisolone Sod Succ (Solu-Medrol (11/20/22 19:30) Covid 19 Inhouse Test (11/20/22 19:26) Influenza A And B By Pcr (11/20/22 19:26) Fibrin Degradation Products (11/20/22 19:40) Potassium Chloride (Tablet) (K Dur Table (11/20/22 20:15) Medications Given in ED Current Medications Medications Dose Ordered Sig/Talia Route Start Time Stop Time Status Last Admin Dose Admin Albuterol/ Ipratropium 3 ml ONCE ONCE INH 11/20/22 19:30 11/20/22 19:31 DC 11/20/22 19:41 3 ML Alprazolam 1 mg ONCE ONCE PO 11/20/22 19:30 11/20/22 19:31 DC 11/20/22 19:41 1 MG Methylprednisolone Sodium Succinate 125 mg ONCE ONCE IVP 11/20/22 19:30 11/20/22 19:31 DC 11/20/22 19:34 125 MG Ondansetron HCl 8 mg ONCE ONCE IVP 11/20/22 19:00 11/20/22 19:01 DC 11/20/22 19:34 8 MG Potassium Chloride 40 meq ONCE ONCE PO 11/20/22 20:15 11/20/22 20:18 DC 11/20/22 20:17 40 MEQ Vital Signs/I&O 11/20/22 18:57 Temp 36.2 Pulse 106 Resp 26 B/P (MAP) 125/99 (108) Pulse Ox 96 O2 Delivery Room Air Blood Pressure Mean: 108 Progress Progress Note #1: Time: 20:30 Progress Note Patient seen and evaluated, sitting on bed, moderately anxious, moderate distress. Based on exam and symptoms differential diagnosis includes but is not limited to ID, COPD, PE, anxiety, benzo withdrawal, COVID/flu, pneumonia. Work- up initiated, CBC, CMP, troponin, magnesium, coags, D-dimer, EKG, chest x-ray, COVID/flu. DuoNeb, Solu-Medrol, Zofran, Xanax ordered. Progress Note #2: Time: 20:18 Progress Note Labs and x-ray reviewed. CBC shows slightly elevated RBC at 5.23, elevated hemoglobin at 16.3. CMP shows slightly decreased potassium at 3.3, oral potassium given here. Glucose 114. Troponin negative. Coags grossly normal. D-dimer negative at 0.21. Alcohol less than 10. Chest x-ray negative for any acute cardiopulmonary processes. Waiting on COVID/flu swab. Progress Note #3: Time: 21:04 Progress Note COVID test positive. Test results discussed with patient. Will prescribe prednisone and albuterol inhaler. Will not prescribe Paxlovid due to drug interactions with her Xanax, Seroquel, and mirtazapine. Patient given return precautions. Patient agreeable to discharge plan. Initial ECG Impression Date: Nov 20, 2022 Initial ECG Impression Time: 19:06 Initial ECG Rate: 95 Initial ECG Rhythm: Normal Sinus Initial ECG Intervals: Normal Initial ECG Impression: Normal Initial ECG Comparisson: Unchanged Diagnostic Imaging Diagonstic Imaging: Xray Plain Films/CT/US/NM/MRI: chest Comments [facility]. [place], [place] NAME: PRAVEENA FUENTES [facility] REC#: [id number] PT STATUS: REG ER : 1975 PHYSICIAN: INES ABREU MD ADMIT DATE: 11/20/22/ER Draft Date of Exam:11/20/22 CHEST 1 VIEW, AP/PA ONLY INDICATION: Chest pain. EXAMINATION: Chest, 11/20/2022. COMPARISON: 01/02/2022. FINDINGS: The cardiomediastinal silhouette is unremarkable. The pulmonary vasculature is within normal limits. The lungs and pleural spaces are clear. IMPRESSION: No evidence of an acute cardiopulmonary process. Dictated on workstation # [id number] Dict: 11/20/221935 Trans: 11/20/221940 [facility] [id number] Interpreted by: JAYME BUTLER MD Electronically signed by: Departure Impression Primary Impression: COVID Disposition: HOME, SELF-CARE Condition: Stable Departure-Patient Inst. Decision time for Depature: 21:06 Referrals: NO,LOCAL PHYSICIAN (PCP/Family) Primary Care Physician Patient Instructions: COVID-19 ED Add. Discharge Instructions: Take prednisone as prescribed. Use albuterol inhaler as needed for shortness of breath and wheezing. Use the inhaler with the spacer to help you get all the medication inhaled. Follow-up with the pharmacy regarding your prescription for Xanax. Return for any increased chest pain, increased shortness of breath, feeling as though you cannot catch your breath, recurrent, uncontrolled vomiting, or any other new, concerning, or worsening symptoms. All discharge instructions reviewed with patient and/or family. Voiced understanding. Scripts Albuterol Sulfate (VENTOLIN HFA) 1 Puff Puff 2 PUFF INH Q4H, #1 EA 1 PUFF = 90 MCG Prov: SAMUEL SILVA APRN 11/20/22 Prednisone (Prednisone) 20 Mg Tab 40 MG PO DAILY, #4 TAB Prov: SAMUEL SILVA APRN 11/20/22 SAMUEL SILVA APRN Nov 20, 2022 19:39
[2022-11-20] MEDS ORDERED: KCL 20 MEQ TAB (K-DUR) PO ONE (20:15)
[2022-11-20] MEDS ORDERED: RT-ALBUINH INH (21:03)
[2022-11-20] MEDS ORDERED: PRD20T PO (21:03)
[2022-11-20 21:09] VITALS: BP 113/88
== END 2022-11-20 21:09 | disposition home or self-care (01) ==
LOC: EDUNIT# 18:53 → ER 18:55
DX: U07.1 COVID-19 (principal); E87.6 Hypokalemia; R71.8 Other abnormality of red blood cells; F17.210 Nicotine dependence, cigarettes, uncomplicated; Z28.310 Unvaccinated for COVID-19
CPT/HCPCS: 36415; 71045; 80053; 80320; 83735; 83874; 84484; 85025; 85379; 85610; 85730; 87636; 93005

== ENCOUNTER 2022-11-22 17:13 | Emergency (ER) | payer MEDICAID ==
[~2022-11-22] VITALS: Ht 156 cm; Wt 72.6 kg
[~2022-11-22 17:13] MED LIST changes: +PRD20T PO; +RT-ALBUINH INH
[2022-11-22] MEDS ORDERED: ALPRAZolam 0.5 MG (XANAX) TAB PO SCH (17:30)
[2022-11-22] MEDS ORDERED: ALPR0.5T7 PO (17:38)
--- NOTE | 2022-11-22 17:38 | ED General ---
General Chief Complaint: COVID19 Suspect/Confirmed Stated Complaint: PANIC ATTACK, EYES SWOLLEN, COVID + Nursing Triage Note: PT STATES COVID + TESTED HERE MONDAY NIGHT, STATES HAVING A PANIC ATTACK Source of Information: Patient Exam Limitations: No Limitations History of Present Illness Date Seen by Provider: Nov 22, 2022 Time Seen by Provider: 17:23 Initial Comments Here with report of having COVID and having pretty significant anxiety now. She is normally on Xanax but they changed her prescription and she is having some problems getting it filled. She has been working to try to get that done today and is hopeful to get that filled tomorrow. Normally takes Xanax 0.5 mg 3 times daily as needed. She is completely out now. She is also currently on prednisone and is COVID-positive. She is also taking albuterol. Between prednisone, albuterol and COVID, she is quite anxious. Otherwise doing okay without respiratory distress Timing/Duration: 24 Hours Severity: Moderate Associated Systoms: Cough, Fever/Chills Allergies and Home Medications Allergies Coded Allergies: No Known Drug Allergies (Unverified , 05/30/21) Patient Home Medication List Home Medication List Reviewed: Yes Acetaminophen (Tylenol Extra Strength) 500 Mg Tablet, 1,000 MG PO Q8H PRN for PAIN-MILD (1-4), (Reported) Entered as Reported by: VIPUL MCCONNELL on 05/31/21 1015 Albuterol Sulfate (Ventolin Hfa) 1 Puff Puff, 2 PUFF INH Q4H Prescribed by: Dottie Cartwright on 11/20/22 210 Alprazolam (Alprazolam) 0.5 Mg Tablet, 0.5 MG PO BID Prescribed by: LYNSEY LITTLE on 06/01/21 1249 Ibuprofen (Ibuprofen) 200 Mg Tablet, 400-600 MG PO Q8H PRN for PAIN-MILD (1-4), (Reported) Entered as Reported by: VIPUL MCCONNELL on 05/31/21 1015 Lorazepam (Ativan) 0.5 Mg Tablet, 0.5 MG PO BID PRN for ANXIETY Prescribed by: BETO DELAROSA on 08/04/21 1200 Lorazepam (Ativan) 1 Mg Tablet, 1 MG PO Q8H PRN for ANXIETY Prescribed by: KELSIE CORNEJO on 09/19/21 0655 Lorazepam (Ativan) 0.5 Mg Tablet, 0.5 MG PO TID PRN for ANXIETY Prescribed by: INES BURROWS on 01/02/22 1050 Mirtazapine (Mirtazapine) 30 Mg Tablet, 30 MG PO HS, (Reported) Entered as Reported by: VIPUL MCCONNELL on 05/31/21 1015 Multivitamin (Vitamins For Hair) 1 Each Tablet, 1 EACH PO DAILY, (Reported) Entered as Reported by: VIPUL MCCONNELL on 05/31/21 1015 Nitrofurantoin Monohyd/M-Cryst (Macrobid 100 mg Capsule) 100 Mg Capsule, 1 TAB PO BID Prescribed by: LEANNE TUCKER on 04/07/22 0418 Omeprazole (Omeprazole) 20 Mg Capsule.dr, 20 MG PO DAILY Prescribed by: INES BURROWS on 01/02/22 1049 Ondansetron (Ondansetron Odt) 4 Mg Tab.rapdis, 4 MG SL Q4H PRN for NAUSEA/VOMITING Prescribed by: INES BURROWS on 01/02/22 1049 Ondansetron (Ondansetron Odt) 8 Mg Tab.rapdis, 8 MG PO Q6H Prescribed by: LEANNE TUCKER on 04/07/22 0418 Pantoprazole Sodium (Protonix) 40 Mg Tablet.dr, 40 MG PO DAILY Prescribed by: LEANNE TUCKER on 04/07/22 0418 Prednisone (Prednisone) 20 Mg Tab, 40 MG PO DAILY Prescribed by: Dottie Cartwright on 11/20/222102 Propranolol HCl (Propranolol HCl) 40 Mg Tablet, 40 MG PO BID, (Reported) Entered as Reported by: VIPUL MCCONNELL on 05/31/21 1015 Quetiapine Fumarate (Quetiapine Fumarate) 200 Mg Tablet, 200 MG PO BID PRN for ANXIETY, (Reported) Entered as Reported by: VIPUL MCCONNELL on 05/31/21 1015 Sertraline HCl (Sertraline HCl) 100 Mg Tablet, 200 MG PO DAILY, (Reported) Entered as Reported by: VIPUL MCCONNELL on 05/31/21 1015 Sertraline HCl (Zoloft) 50 Mg Tablet, 50 MG PO DAILY Prescribed by: BETO DELAROSA on 08/04/21 1159 Review of Systems Review of Systems Constitutional: No chills; fever EENTM: nose congestion, throat pain Respiratory: cough Psychiatric/Neurological: Anxiety Past Otafpth-Uhpzmu-Usyubm Hx Patient Social History Tobacco Use?: Yes Tobacco type used: Cigarettes Smoking Status: Current Everyday Smoker Substance use?: No Alcohol Use?: No Immunizations Up To Date Tetanus Booster (TDap): Unknown First/Initial COVID19 Vaccinat: none Second COVID19 Vaccination Art: none Third COVID19 Vaccination Date: none Seasonal Allergies Seasonal Allergies: Yes Past Medical History Surgery/Hospitalization HX: ANXIETY, DEPRESSION, PTSD, PAST HX OF PHYSICAL ABUSE, , HTN Surgeries: Yes Section Respiratory: No Cardiac: Yes Hypertension Neurological: No Genitourinary: No Gastrointestinal: No Musculoskeletal: No Endocrine: No HEENT: No Cancer: No Psychosocial: Yes (ALCOHOL ABUSE) Anxiety, PTSD, Depression Integumentary: No Blood Disorders: No Family Medical History Reviewed Nursing Family Hx No Pertinent Family Hx SOCIAL HISTORY: -SMOKES 1 1/2 PPD -DAILY ETOH USE/ABUSE -THC DAILY USE Physical Exam Vital Signs Vital Signs - First Documented 11/22/22 17:20 Temp 36.0 Pulse 95 Resp 20 B/P (MAP) 137/99 (112) Pulse Ox 95 O2 Delivery Room Air Capillary Refill : Less Than 3 Seconds Height, Weight, BMI Height: '" Weight: lbs. oz. kg; 29.00 BMI Method: General Appearance: WD/WN, Anxious Respiratory: No Respiratory Distress; No Wheezing; Other (Coarse sounding cough but otherwise no wheezes) Cardiovascular: Regular Rate, Rhythm, No Murmur Neurologic/Psychiatric: Alert, Oriented x3 Progress/Results/Core Measures Suspected Sepsis SIRS Temperature: Pulse: 95 Respiratory Rate: 20 Blood Pressure 137 /99 Mean: 112 Results/Orders My Orders Orders - TORRES FLETCHER MD Alprazolam Tablet (Xanax Tablet) (11/22/22 17:30) Vital Signs/I&O 11/22/22 17:20 Temp 36.0 Pulse 95 Resp 20 B/P (MAP) 137/99 (112) Pulse Ox 95 O2 Delivery Room Air Capillary Refill : Less Than 3 Seconds Blood Pressure Mean: 112 Progress Note : Progress Note Seen and evaluated. Xanax 0.5 mg p.o. given. Patient has multiple reasons for anxiety. I do not want her withdrawing and she has known Xanax prescriptions. I will write her for 4 tablets to try to get her sometime to get her new prescription. We will give her 1 now is already addressed. Discharged home with return precautions. Patient and family verbalized understanding instructions and agreement with plan. Departure Impression Primary Impression: Anxiety Additional Impression: COVID-19 virus infection Disposition: HOME, SELF-CARE Condition: Stable Departure-Patient Inst. Decision time for Depature: 17:35 Referrals: NO,LOCAL PHYSICIAN (PCP/Family) Primary Care Physician Patient Instructions: Anxiety, Adult (DC), COVID-19 Overview Add. Discharge Instructions: All discharge instructions reviewed with patient and/or family. Voiced understanding. Take medications as directed. You will need to get your Xanax refill through your provider. Call them tomorrow to assist. Continue other directions per previous discharge instructions for your COVID-19 infection. Return for worse pain, fever, vomiting, weakness, breathing problems or other concerns as needed. Scripts Alprazolam (Alprazolam) 0.5 Mg Tablet 0.5 MG PO TID PRN for ANXIETY for 2 Days, #4 TAB 0 Refills Prov: TORRES FLETCHER MD 11/22/22 TORRES FLETCHER MD Nov 22, 2022 17:38
[2022-11-22 17:46] VITALS: BP 137/99
== END 2022-11-22 17:45 | disposition home or self-care (01) ==
LOC: EDUNIT# 17:13 → ER 17:16
DX: U07.1 COVID-19 (principal); R05.9 Cough, unspecified; R50.9 Fever, unspecified; F41.9 Anxiety disorder, unspecified; F17.210 Nicotine dependence, cigarettes, uncomplicated; Z28.310 Unvaccinated for COVID-19
CPT/HCPCS: 99283

== ENCOUNTER 2023-02-10 19:13 | Emergency (ER) | payer MEDICAID ==
[~2023-02-10] VITALS: Ht 156 cm; Wt 75.6 kg
[2023-02-10] MEDS ORDERED: NS IV 1000 ML 1,000 ML IV STA (19:31)
--- NOTE | 2023-02-10 19:31 | ED Abdominal Pain ---
General Stated Complaint: ABDOMINAL PAIN History of Present Illness Date Seen by Provider: Feb 10, 2023 Time Seen by Provider: 19:28 Initial Comments 47-year-old female presents with lower abdominal pain has been going on for 3 days. She reports it started in the right quadrant is now diffuse across the bottom. She is having a hard time going to the bathroom, hard time both urinating and feels constipated. She reports chills, some nausea some vomiting for the last 2 days and just does not feel well. Allergies and Home Medications Allergies Coded Allergies: No Known Drug Allergies (Unverified , 05/30/21) Patient Home Medication List Home Medication List Reviewed: Yes Acetaminophen (Tylenol Extra Strength) 500 Mg Tablet, 1,000 MG PO Q8H PRN for PAIN-MILD (1-4), (Reported) Entered as Reported by: VIPUL MCCONNELL on 05/31/21 1015 Albuterol Sulfate (Ventolin Hfa) 1 Puff Puff, 2 PUFF INH Q4H Prescribed by: Dottie Cartwright on 11/20/22 210 Alprazolam (Alprazolam) 0.5 Mg Tablet, 0.5 MG PO BID Prescribed by: LYNSEY LITTLE on 06/01/21 1249 Alprazolam (Alprazolam) 0.5 Mg Tablet, 0.5 MG PO TID PRN for ANXIETY Prescribed by: TORRES FLETCHER on 11/22/22 1739 Ibuprofen (Ibuprofen) 200 Mg Tablet, 400-600 MG PO Q8H PRN for PAIN-MILD (1-4), (Reported) Entered as Reported by: VIPUL MCCONNELL on 05/31/21 1015 Lorazepam (Ativan) 0.5 Mg Tablet, 0.5 MG PO BID PRN for ANXIETY Prescribed by: BETO DELAROSA on 08/04/21 1200 Lorazepam (Ativan) 1 Mg Tablet, 1 MG PO Q8H PRN for ANXIETY Prescribed by: KELSIE CORNEJO on 09/19/21 0655 Lorazepam (Ativan) 0.5 Mg Tablet, 0.5 MG PO TID PRN for ANXIETY Prescribed by: INES BURROWS on 01/02/22 1050 Mirtazapine (Mirtazapine) 30 Mg Tablet, 30 MG PO HS, (Reported) Entered as Reported by: VIPUL MCCONNELL on 05/31/21 1015 Multivitamin (Vitamins For Hair) 1 Each Tablet, 1 EACH PO DAILY, (Reported) Entered as Reported by: VIPUL MCCONNELL on 05/31/21 1015 Nitrofurantoin Monohyd/M-Cryst (Macrobid 100 mg Capsule) 100 Mg Capsule, 1 TAB PO BID Prescribed by: LEANNE TUCKER on 04/07/22 041 Omeprazole (Omeprazole) 20 Mg Capsule.dr, 20 MG PO DAILY Prescribed by: INES UBRROWS on 01/02/22 1049 Ondansetron (Ondansetron Odt) 4 Mg Tab.rapdis, 4 MG SL Q4H PRN for NAUSEA/VOMITING Prescribed by: INES BURROWS on 01/02/22 1049 Ondansetron (Ondansetron Odt) 8 Mg Tab.rapdis, 8 MG PO Q6H Prescribed by: LEANNE TUCKER on 04/07/22 041 Pantoprazole Sodium (Protonix) 40 Mg Tablet.dr, 40 MG PO DAILY Prescribed by: LEANNE TUCKER on 04/07/22 041 Prednisone (Prednisone) 20 Mg Tab, 40 MG PO DAILY Prescribed by: Dottie Cartwright on 11/20/222102 Propranolol HCl (Propranolol HCl) 40 Mg Tablet, 40 MG PO BID, (Reported) Entered as Reported by: VIPUL MCCONNELL on 05/31/21 1015 Quetiapine Fumarate (Quetiapine Fumarate) 200 Mg Tablet, 200 MG PO BID PRN for ANXIETY, (Reported) Entered as Reported by: VIPUL MCCONNELL on 05/31/21 1015 Sertraline HCl (Sertraline HCl) 100 Mg Tablet, 200 MG PO DAILY, (Reported) Entered as Reported by: VIPUL MCCONNELL on 05/31/21 1015 Sertraline HCl (Zoloft) 50 Mg Tablet, 50 MG PO DAILY Prescribed by: BETO DELAROSA on 08/04/21 1155 Review of Systems Review of Systems Constitutional: chills, malaise EENTM: No Symptoms Reported Respiratory: Denies Cough, Denies Shortness of Air Cardiovascular: Denies Chest Pain, Denies Palpitations Gastrointestinal: Abdominal Pain, Nausea, Vomiting Genitourinary: See HPI Musculoskeletal: no symptoms reported Skin: no symptoms reported Psychiatric/Neurological: No Symptoms Reported Endocrine: No Symptoms Reported Past Kfapckk-Jyzgqq-Fmagxc Hx Immunizations Up To Date Tetanus Booster (TDap): Unknown First/Initial COVID19 Vaccinat: none Second COVID19 Vaccination Art: none Third COVID19 Vaccination Date: none Seasonal Allergies Seasonal Allergies: Yes Past Medical History Surgery/Hospitalization HX: ANXIETY, DEPRESSION, PTSD, PAST HX OF PHYSICAL ABUSE, , HTN Surgeries: Yes Section Respiratory: No Cardiac: Yes Hypertension Neurological: No Genitourinary: No Gastrointestinal: No Musculoskeletal: No Endocrine: No HEENT: No Cancer: No Psychosocial: Yes (ALCOHOL ABUSE) Anxiety, PTSD, Depression Integumentary: No Blood Disorders: No Family Medical History No Pertinent Family Hx SOCIAL HISTORY: -SMOKES 1 1/2 PPD -DAILY ETOH USE/ABUSE -THC DAILY USE Physical Exam Vital Signs Vital Signs - First Documented 02/10/23 19:25 Temp 36.4 Pulse 124 Resp 18 B/P (MAP) 125/107 (113) Pulse Ox 94 O2 Delivery Room Air Capillary Refill : Height/Weight/BMI Height: '" Weight: lbs. oz. kg; 29.00 BMI Method: General Appearance: mild distress, obese Respiratory: lungs clear, normal breath sounds Cardiovascular: regular rate, rhythm, tachycardia Gastrointestinal: No guarding; tenderness Neurologic/Psychiatric: alert, normal mood/affect, oriented x 3 Skin: normal color, warm/dry Focused Exam Lactate Level 02/10/23 19:30: Lactic Acid Level 2.09*H Lactic Acid Level Laboratory Tests Test 02/10/23 19:30 Lactic Acid Level 2.09 MMOL/L (0.50-2.00) *H Progress/Results/Core Measures Results/Orders Lab Results Laboratory Tests Test 02/10/23 19:30 Range/Units White Blood Count 10.9 4.3-11.0 10^3/uL Red Blood Count 5.27 H 3.80-5.11 10^6/uL Hemoglobin 16.7 H 11.5-16.0 g/dL Hematocrit 47 35-52 % Mean Corpuscular Volume 90 80-99 fL Mean Corpuscular Hemoglobin 32 25-34 pg Mean Corpuscular Hemoglobin Concent 35 32-36 g/dL Red Cell Distribution Width 14.0 10.0-14.5 % Platelet Count 407 H 130-400 10^3/uL Mean Platelet Volume 9.1 9.0-12.2 fL Immature Granulocyte % (Auto) 0 % Neutrophils (%) (Auto) 60 42-75 % Lymphocytes (%) (Auto) 28 12-44 % Monocytes (%) (Auto) 11 0-12 % Eosinophils (%) (Auto) 0 0-10 % Basophils (%) (Auto) 1 0-10 % Neutrophils # (Auto) 6.5 1.8-7.8 10^3/uL Lymphocytes # (Auto) 3.1 1.0-4.0 10^3/uL Monocytes # (Auto) 1.2 H 0.0-1.0 10^3/uL Eosinophils # (Auto) 0.0 0.0-0.3 10^3/uL Basophils # (Auto) 0.1 0.0-0.1 10^3/uL Immature Granulocyte # (Auto) 0.0 0.0-0.1 10^3/uL Urine Color YELLOW Urine Clarity CLEAR Urine pH 6.0 5-9 Urine Specific [place] <=1.005 1.016-1.022 Urine Protein NEGATIVE NEGATIVE Urine Glucose (UA) NEGATIVE NEGATIVE Urine Ketones NEGATIVE NEGATIVE Urine Nitrite NEGATIVE NEGATIVE Urine Bilirubin NEGATIVE NEGATIVE Urine Urobilinogen 0.2 < = 1.0 MG/DL Urine Leukocyte Esterase NEGATIVE NEGATIVE Urine RBC (Auto) 2+ H NEGATIVE Urine RBC 0-2 /HPF Urine WBC NONE /HPF Urine Squamous Epithelial Cells 5-10 /HPF Urine Crystals NONE /LPF Urine Bacteria TRACE /HPF Urine Casts NONE /LPF Urine Mucus NEGATIVE /LPF Urine Culture Indicated NO Sodium Level 139 135-145 MMOL/L Potassium Level 3.7 3.6-5.0 MMOL/L Chloride Level 103 98-107 MMOL/L Carbon Dioxide Level 20 L 21-32 MMOL/L Anion Gap 16 H 5-14 MMOL/L Blood Urea Nitrogen 8 7-18 MG/DL Creatinine 0.75 0.60-1.30 MG/DL Estimat Glomerular Filtration Rate 99 BUN/Creatinine Ratio 11 Glucose Level 88 70-105 MG/DL Lactic Acid Level 2.09 *H 0.50-2.00 MMOL/L Calcium Level 9.6 8.5-10.1 MG/DL Corrected Calcium 9.4 8.5-10.1 MG/DL Total Bilirubin 0.7 0.1-1.0 MG/DL Aspartate Amino Transf (AST/SGOT) 46 H 5-34 U/L Alanine Aminotransferase (ALT/SGPT) 31 0-55 U/L Alkaline Phosphatase 103 40-136 U/L C-Reactive Protein High Sensitivity 0.17 0.00-0.50 MG/DL Total Protein 7.5 6.4-8.2 GM/DL Albumin 4.3 3.2-4.5 GM/DL Lipase 12 8-78 U/L My Orders Orders - HALL,JOHN L DO Cbc With Automated Diff (02/10/23 19:31) Comprehensive Metabolic Panel (02/10/23 19:31) Hs C Reactive Protein (02/10/23 19:) Lactic Acid Analyzer (02/10/23:) Lipase (02/10/23:) Ua Culture If Indicated (02/10/23:) Ondansetron Injection (Zofran Injectio (02/10/23 19:45) Ns Iv 1000 Ml (Sodium Chloride 0.9%) (02/10/23 19:31) Ct Abdomen/Pelvis W (02/10/23 20:06) Iohexol Injection (Omnipaque 350 Mg/Ml 1 (02/10/23 20:15) Ns (Ivpb) (Sodium Chloride 0.9% Ivpb Bag (02/10/23 20:15) Medications Given in ED Current Medications Medications Dose Ordered Sig/Talia Route Start Time Stop Time Status Last Admin Dose Admin Iohexol 100 ml ONCE ONCE IV 02/10/23 20:15 02/10/23 20:16 DC 02/10/23 20:31 80 ML Ondansetron HCl 4 mg ONCE ONCE IVP 02/10/23 19:45 02/10/23 19:46 DC 02/10/23 19:40 4 MG Sodium Chloride 100 ml ONCE ONCE IV 02/10/23 20:15 02/10/23 20:16 DC 02/10/23 20:31 80 ML Vital Signs/I&O 02/10/23 19:25 Temp 36.4 Pulse 124 Resp 18 B/P (MAP) 125/107 (113) Pulse Ox 94 O2 Delivery Room Air Progress Progress Note : Progress Note Patient's diagnostic studies were ordered and reviewed interpreted by me. She had slight elevation of her hemoglobin on her CBC otherwise normal CBC. N egative CRP. Mild elevation of AST mild elevation of lactic that is nondiagnostic. Mild decrease in her CO2 and slight change in her anion gap. Patient was given normal saline along with some Zofran. She did not have any episodes of vomiting while in the ER. Patient CT abdomen and pelvis was ordered and reviewed by me initially with final interpretation per radiology report. There is no if no acute findings on her CT abdomen pelvis. Patient has nonspecific abdominal pain with no acute findings. I discussed supportive care with her. Recommend that she follow-up with her primary care provider if symptoms are not improving or return if they worsen. Patient was stable and discharged home Diagnostic Imaging Diagonstic Imaging: CT Plain Films/CT/US/NM/MRI: abdomen, pelvis Comments Date of Exam:02/10/23 CT ABDOMEN/PELVIS W PROCEDURE: CT abdomen and pelvis with contrast. TECHNIQUE: Multiple contiguous axial images were obtained through the abdomen and pelvis after administration of intravenous contrast. Auto Exposure Controls were utilized during the CT exam to meet ALARA standards for radiation dose reduction. All CT scans use one or more of the following dose optimizing techniques: automated exposure control, MA and/or KvP adjustment based on patient size and exam type or iterative reconstruction. INDICATION: Abdominal pain, fever and chills. FINDINGS: Lung bases are clear. Liver and gallbladder are unremarkable. Portal vein is patent. Common duct is not dilated. Pancreas is normal. Spleen is normal. Kidneys and adrenals appear normal. There is minimal calcific atherosclerosis of the aorta. Appendix is normal. Small bowel is not dilated. The colon is decompressed. Uterus appears normal. Adnexa are unremarkable. There is no intraperitoneal free air or free fluid. The urinary bladder is normal. IMPRESSION: No acute abnormality is seen in the abdomen or pelvis. Reviewed: Reviewed by Me, Reviewed/Discussed Departure Impression Primary Impression: Abdominal pain Qualified Codes: R10.30 - Lower abdominal pain, unspecified Disposition: HOME, SELF-CARE Condition: Stable Departure-Patient Inst. Referrals: NO,LOCAL PHYSICIAN (PCP/Family) Primary Care Physician Patient Instructions: Abdominal Pain, Adult ED Add. Discharge Instructions: Please follow-up with your primary care provider as needed if symptoms or not improving over the next couple days or continue to worsen. You may take Tylenol ibuprofen as needed. Drink plenty of fluids JOHN HALL DO Feb 10, 2023 19:31
[2023-02-10 19:39] LABS: BILIRUBIN,URINE NEGATIVE (NEGATIVE); CLARITY,URINE CLEAR; COLOR,URINE YELLOW; GLUCOSE, URINE (UA) NEGATIVE (NEGATIVE); KETONES,URINE NEGATIVE (NEGATIVE); LEUKOCYTE ESTERASE ,URINE NEGATIVE (NEGATIVE); NITRITE,URINE NEGATIVE (NEGATIVE); PROTEIN,URINE NEGATIVE (NEGATIVE)
[2023-02-10 19:44] LABS: BASOPHILS # (AUTO) 0.1 10^3/uL (0.0-0.1); BASOPHILS % (AUTO) 1 % (0-10); EOSINOPHILS % (AUTO) 0 % (0-10); HEMATOCRIT 47 % (35-52); HEMOGLOBIN 16.7 g/dL (11.5-16.0); LYMPHOCYTES # (AUTO) 3.1 10^3/uL (1.0-4.0); LYMPHOCYTES % (AUTO) 28 % (12-44); MEAN CORPUSCULAR HEMOGLOBIN 32 pg (25-34); MEAN CORPUSCULAR HGB CONC 35 g/dL (32-36); MEAN CORPUSCULAR VOLUME 90 fL (80-99); MEAN PLATELET VOLUME 9.1 fL (9.0-12.2); MONOCYTES # (AUTO) 1.2 10^3/uL (0.0-1.0); MONOCYTES % (AUTO) 11 % (0-12); NEUTROPHILS # (AUTO) 6.5 10^3/uL (1.8-7.8); NEUTROPHILS % (AUTO) 60 % (42-75); PLATELET COUNT 407 10^3/uL (130-400); WHITE BLOOD COUNT 10.9 10^3/uL (4.3-11.0)
[2023-02-10] MEDS ORDERED: ONDANSETRON 4 MG/2 ML (SDV) Z0FRAN IVP ONE (19:45)
[2023-02-10 19:48] LABS: BACTERIA,URINE TRACE /HPF; RBC,URINE 0-2 /HPF
[2023-02-10 20:05] LABS: ALBUMIN 4.3 GM/DL (3.2-4.5); BILIRUBIN,TOTAL 0.7 MG/DL (0.1-1.0); CALCIUM 9.6 MG/DL (8.5-10.1); CREATININE SERUM 0.75 MG/DL (0.60-1.30); POTASSIUM 3.7 MMOL/L (3.6-5.0); TOTAL PROTEIN 7.5 GM/DL (6.4-8.2)
[2023-02-10] MEDS ORDERED: NS 100 ML (IVPB) BAG IV ONE (20:15)
[2023-02-10] MEDS ORDERED: IOHEXOL 350 MG/ML 100 ML (OMNIPAQUE 350) VIAL IV ONE (20:15)
--- NOTE | 2023-02-10 20:45 | Diagnostic Imaging Report ---
PROCEDURE: CT abdomen and pelvis with contrast. TECHNIQUE: Multiple contiguous axial images were obtained through the abdomen and pelvis after administration of intravenous contrast. Auto Exposure Controls were utilized during the CT exam to meet ALARA standards for radiation dose reduction. All CT scans use one or more of the following dose optimizing techniques: automated exposure control, MA and/or KvP adjustment based on patient size and exam type or iterative reconstruction. INDICATION: Abdominal pain, fever and chills. FINDINGS: Lung bases are clear. Liver and gallbladder are unremarkable. Portal vein is patent. Common duct is not dilated. Pancreas is normal. Spleen is normal. Kidneys and adrenals appear normal. There is minimal calcific atherosclerosis of the aorta. Appendix is normal. Small bowel is not dilated. The colon is decompressed. Uterus appears normal. Adnexa are unremarkable. There is no intraperitoneal free air or free fluid. The urinary bladder is normal. IMPRESSION: No acute abnormality is seen in the abdomen or pelvis. Dictated by: Dictated on workstation # [id number]
[2023-02-10 21:10] VITALS: BP 110/67
== END 2023-02-10 21:11 | disposition home or self-care (01) ==
LOC: EDUNIT# 19:13 → ER 19:16
DX: R10.31 Right lower quadrant pain (principal); R74.01 Elevation of levels of liver transaminase levels; R74.02 Elevation of levels of lactic acid dehydrogenase [LDH]; E66.9 Obesity, unspecified; F17.210 Nicotine dependence, cigarettes, uncomplicated; Z68.29 Body mass index [BMI] 29.0-29.9, adult; Z28.310 Unvaccinated for COVID-19
CPT/HCPCS: 36415; 74177; 80053; 81000; 83605; 83690; 85025; 86141

== ENCOUNTER 2023-03-01 17:07 | Emergency (ER) | payer MEDICAID ==
[~2023-03-01] VITALS: Ht 157 cm; Wt 77.0 kg
[2023-03-01] MEDS ORDERED: NS IV 1000 ML 1,000 ML IV STA (17:46)
--- NOTE | 2023-03-01 17:52 | ED Abdominal Pain ---
General Chief Complaint: Abdominal/GI Problems Stated Complaint: STOMACH PAINS| ANXIETY Nursing Triage Note: ABDPAIN/VOM/DIARRHEA X2 DAYS. FAMILY HAS HAD IT. Source of Information: Patient Exam Limitations: No Limitations (RIGO GRIGGS) History of Present Illness Date Seen by Provider: March 01, 2023 Time Seen by Provider: 17:52 Initial Comments Patient is a 47-year-old female who presents ED with vomiting and diarrhea. Symptoms started 2 days ago. She reports at least 5 episodes of vomiting and diarrhea daily. Vomiting nonbilious without hematemesis. Diarrhea watery without any blood or mucus. She reports generalized abdominal cramping. She also reports her lower extremities have been cramping as well. She has a history of anxiety which she takes Xanax. Due to the vomiting has not been able to take her Xanax. She feels anxious. She has chills, body aches and fatigue. She was around her grandkids who had a GI bug 4 days ago. She feels like she has similar symptoms. She denies chest pain, cough, shortness of breath, sore throat, ear pain, visual changes. She states she feels feverish. She states she feels like she has had decreased urine output. (RIGO GRIGGS) Allergies and Home Medications Allergies Coded Allergies: No Known Drug Allergies (Unverified , 05/30/21) Patient Home Medication List Home Medication List Reviewed: Yes (RIGO GRIGGS) Acetaminophen (Tylenol Extra Strength) 500 Mg Tablet, 1,000 MG PO Q8H PRN for PAIN-MILD (1-4), (Reported) Entered as Reported by: VIPUL MCCONNELL on 05/31/21 1015 Albuterol Sulfate (Ventolin Hfa) 1 Puff Puff, 2 PUFF INH Q4H Prescribed by: Dottie Cartwright on 11/20/222102 Alprazolam (Alprazolam) 0.5 Mg Tablet, 0.5 MG PO BID Prescribed by: LYNSEY LITTLE on 06/01/21 1249 Alprazolam (Alprazolam) 0.5 Mg Tablet, 0.5 MG PO TID PRN for ANXIETY Prescribed by: TORRES FLETCHER on 11/22/22 9989 Ibuprofen (Ibuprofen) 200 Mg Tablet, 400-600 MG PO Q8H PRN for PAIN-MILD (1-4), (Reported) Entered as Reported by: VIPUL MCCONNELL on 05/31/21 1015 Lorazepam (Ativan) 0.5 Mg Tablet, 0.5 MG PO BID PRN for ANXIETY Prescribed by: BETO DELAROSA on 08/04/21 1200 Lorazepam (Ativan) 1 Mg Tablet, 1 MG PO Q8H PRN for ANXIETY Prescribed by: KELSIE CORNEJO on 09/19/21 0655 Lorazepam (Ativan) 0.5 Mg Tablet, 0.5 MG PO TID PRN for ANXIETY Prescribed by: INES BURROWS on 01/02/22 1050 Mirtazapine (Mirtazapine) 30 Mg Tablet, 30 MG PO HS, (Reported) Entered as Reported by: VIPUL MCCONNELL on 05/31/21 1015 Multivitamin (Vitamins For Hair) 1 Each Tablet, 1 EACH PO DAILY, (Reported) Entered as Reported by: VIPUL MCCONNELL on 05/31/21 1015 Nitrofurantoin Monohyd/M-Cryst (Macrobid 100 mg Capsule) 100 Mg Capsule, 1 TAB PO BID Prescribed by: LEANNE TUCKER on 04/07/22 041 Omeprazole (Omeprazole) 20 Mg Capsule.dr, 20 MG PO DAILY Prescribed by: INES BURROWS on 01/02/22 1049 Ondansetron (Ondansetron Odt) 4 Mg Tab.rapdis, 4 MG SL Q4H PRN for NAUSEA/VOMITING Prescribed by: INES BURROWS on 01/02/22 1049 Ondansetron (Ondansetron Odt) 8 Mg Tab.rapdis, 8 MG PO Q6H Prescribed by: LEANNE TUCKER on 04/07/22 0418 Ondansetron (Ondansetron Odt) 4 Mg Tab.rapdis, 4 MG SL Q4H PRN for NAUSEA/VOMITING Prescribed by: JAVI AKHTAR on 03/01/232041 Pantoprazole Sodium (Protonix) 40 Mg Tablet.dr, 40 MG PO DAILY Prescribed by: LEANNE TUCKER on 04/07/22 0418 Potassium Chloride (Potassium Chloride) 20 Meq Tablet.er, 20 MEQ PO DAILY Prescribed by: JAVI AKHTAR on 03/01/232042 Prednisone (Prednisone) 20 Mg Tab, 40 MG PO DAILY Prescribed by: Dottie Cartwright on 11/20/222102 Propranolol HCl (Propranolol HCl) 40 Mg Tablet, 40 MG PO BID, (Reported) Entered as Reported by: VIPUL MCCONNELL on 05/31/21 101 Quetiapine Fumarate (Quetiapine Fumarate) 200 Mg Tablet, 200 MG PO BID PRN for ANXIETY, (Reported) Entered as Reported by: VIPUL MCCONNELL on 05/31/21 101 Sertraline HCl (Sertraline HCl) 100 Mg Tablet, 200 MG PO DAILY, (Reported) Entered as Reported by: VIPUL MCCONNELL on 05/31/21 101 Sertraline HCl (Zoloft) 50 Mg Tablet, 50 MG PO DAILY Prescribed by: BETO DELAROSA on 08/04/21 1159 Review of Systems Review of Systems Constitutional: chills; No diaphoresis; malaise, weakness EENTM: No Double Vision, No Eye Pain, No Ear Pain, No Mouth Pain, No Mouth Swelling, No Throat Pain, No Throat Swelling Respiratory: Denies Cough, Denies Orthopnea Cardiovascular: Denies Chest Pain Gastrointestinal: Abdominal Pain; Denies Blood Streaked Stools; Diarrhea, Nausea; Denies Rectal Bleeding; Vomiting Genitourinary: Denies Burning, Denies Discharge, Denies Drainage; Other (Decreased urine output) Musculoskeletal: No back pain, No joint pain Skin: No change in color, No change in hair/nails Psychiatric/Neurological: Anxiety (RIGO GRIGGS) Past Notyzgi-Ubupdo-Htlcgi Hx Patient Social History Tobacco Use?: Yes Tobacco type used: Cigarettes Smoking Status: Current Everyday Smoker Substance use?: No Alcohol Use?: No (RIGO GRIGGS) Immunizations Up To Date Tetanus Booster (TDap): Unknown First/Initial COVID19 Vaccinat: none Second COVID19 Vaccination Art: none Third COVID19 Vaccination Date: none (RIGO GRIGGS) Seasonal Allergies Seasonal Allergies: Yes (RIGO GRIGGS) Past Medical History Surgery/Hospitalization HX: ANXIETY, DEPRESSION, PTSD, PAST HX OF PHYSICAL ABUSE, , HTN Surgeries: Yes Section Respiratory: No Cardiac: Yes Hypertension Neurological: No Genitourinary: No Gastrointestinal: No Musculoskeletal: No Endocrine: No HEENT: No Cancer: No Psychosocial: Yes (ALCOHOL ABUSE) Anxiety, PTSD, Depression Integumentary: No Blood Disorders: No (RIGO GRIGGS) Family Medical History No Pertinent Family Hx SOCIAL HISTORY: -SMOKES 1 1/2 PPD -DAILY ETOH USE/ABUSE -THC DAILY USE (RIGO GRIGGS) Physical Exam Vital Signs Vital Signs - First Documented 03/01/23 17:15 Temp 36.8 Pulse 128 Resp 16 B/P (MAP) 119/81 (94) Pulse Ox 95 O2 Delivery Room Air (INES ABREU MD) Vital Signs Capillary Refill : Less Than 3 Seconds (RIGO GRIGGS) Height/Weight/BMI Height: '" Weight: lbs. oz. kg; 31.00 BMI Method: General Appearance: WD/WN, no apparent distress HEENT: PERRL/EOMI, normal ENT inspection, TMs normal, pharynx normal Neck: non-tender, full range of motion, supple Respiratory: chest non-tender, lungs clear, normal breath sounds, no respiratory distress, no accessory muscle use Cardiovascular: regular rate, rhythm, no edema, no gallop, no JVD Gastrointestinal: normal bowel sounds, non tender, soft, no organomegaly, no pulsatile mass Extremities: normal range of motion, non-tender, normal inspection, no pedal edema, no calf tenderness Back: normal inspection, no CVA tenderness, no vertebral tenderness Neurologic/Psychiatric: data coordinator II-XII nml as tested, no motor/sensory deficits, alert, normal mood/affect, oriented x 3 Skin: normal color, warm/dry (RIGO GRIGGS) Progress/Results/Core Measures Results/Orders Lab Results Laboratory Tests Test 03/01/23 18:05 03/01/23 19:42 Range/Units White Blood Count 11.4 H 4.3-11.0 10^3/uL Red Blood Count 5.30 H 3.80-5.11 10^6/uL Hemoglobin 16.9 H 11.5-16.0 g/dL Hematocrit 48 35-52 % Mean Corpuscular Volume 91 80-99 fL Mean Corpuscular Hemoglobin 32 25-34 pg Mean Corpuscular Hemoglobin Concent 35 32-36 g/dL Red Cell Distribution Width 13.8 10.0-14.5 % Platelet Count 429 H 130-400 10^3/uL Mean Platelet Volume 9.4 9.0-12.2 fL Immature Granulocyte % (Auto) 1 % Neutrophils (%) (Auto) 78 H 42-75 % Lymphocytes (%) (Auto) 13 12-44 % Monocytes (%) (Auto) 8 0-12 % Eosinophils (%) (Auto) 1 0-10 % Basophils (%) (Auto) 1 0-10 % Neutrophils # (Auto) 8.9 H 1.8-7.8 10^3/uL Lymphocytes # (Auto) 1.5 1.0-4.0 10^3/uL Monocytes # (Auto) 0.9 0.0-1.0 10^3/uL Eosinophils # (Auto) 0.1 0.0-0.3 10^3/uL Basophils # (Auto) 0.1 0.0-0.1 10^3/uL Immature Granulocyte # (Auto) 0.1 0.0-0.1 10^3/uL Sodium Level 140 135-145 MMOL/L Potassium Level 2.9 L 3.6-5.0 MMOL/L Chloride Level 102 98-107 MMOL/L Carbon Dioxide Level 22 21-32 MMOL/L Anion Gap 16 H 5-14 MMOL/L Blood Urea Nitrogen 11 7-18 MG/DL Creatinine 0.69 0.60-1.30 MG/DL Estimat Glomerular Filtration Rate 108 BUN/Creatinine Ratio 16 Glucose Level 109 H 70-105 MG/DL Calcium Level 9.6 8.5-10.1 MG/DL Corrected Calcium 9.5 8.5-10.1 MG/DL Magnesium Level 1.8 1.6-2.4 MG/DL Total Bilirubin 0.6 0.1-1.0 MG/DL Aspartate Amino Transf (AST/SGOT) 20 5-34 U/L Alanine Aminotransferase (ALT/SGPT) 12 0-55 U/L Alkaline Phosphatase 120 40-136 U/L Total Protein 7.5 6.4-8.2 GM/DL Albumin 4.1 3.2-4.5 GM/DL Lipase < 4 L 8-78 U/L Urine Color YELLOW Urine Clarity CLEAR Urine pH 6.5 5-9 Urine Specific [place] 1.020 1.016-1.022 Urine Protein TRACE H NEGATIVE Urine Glucose (UA) NEGATIVE NEGATIVE Urine Ketones TRACE H NEGATIVE Urine Nitrite NEGATIVE NEGATIVE Urine Bilirubin 1+ H NEGATIVE Urine Urobilinogen 0.2 < = 1.0 MG/DL Urine Leukocyte Esterase NEGATIVE NEGATIVE Urine RBC (Auto) 2+ H NEGATIVE Urine RBC 10-25 H /HPF Urine WBC RARE /HPF Urine Squamous Epithelial Cells 10-25 H /HPF Urine Crystals NONE /LPF Urine Bacteria FEW H /HPF Urine Casts NONE /LPF Urine Mucus MODERATE H /LPF Urine Culture Indicated NO (INES ABREU MD) Vital Signs/I&O 03/01/23 03/01/23 17:15 20:48 Temp 36.8 36.8 Pulse 128 98 Resp 16 16 B/P (MAP) 119/81 (94) 115/80 Pulse Ox 95 96 O2 Delivery Room Air Room Air (INES ABREU MD) Blood Pressure Mean: 94 Departure Communication (PCP) Reviewed previous ER visits, H&P, lab testing. Patient was tachycardic but afebrile. Reviewed previous ER visits with elevated heart rate. She states she feels anxious and has not been able to take her Xanax. She was given a dose of Ativan. Due to the vomiting diarrhea CBC, CMP, lipase was ordered. She reports some generalized abdominal cramping but no current abdominal pain at this time. She states family members with similar symptoms. She appears in no acute distress. Was given Toradol, Zofran and started on liter fluid. CBC shows slight elevated white blood count at 11.4 potassium of 2.9. Anion gap is 16. Likely secondary to the vomiting and diarrhea. She was given oral potassium. 20 mill equivalent. Started on a liter of fluid. Urinalysis negative for infection but did note protein, ketone, blood in urine. Suspect she is d ehydrated. Recommend a second liter of fluid she refused. She states her and her need to go. She states she feels better at this time. I suspect this is likely viral. Reassessed her abdomen without any tenderness. Will discharge with potassium for the next 4 days discharge with Zofran for nausea. Discussed Imodium. No recent antibiotic use. Soft abdomen. Improvement in her heart rate to 98. If any worsening symptoms return back to ED such as abdominal pain, fever, blood or mucousy stool. Patient anxiety is much better at this time. Patient does not appear toxic. Patient tolerated p.o. fluid. (RIGO GRIGGS) Impression Primary Impression: Vomiting and diarrhea Disposition: 01 HOME, SELF-CARE Condition: Stable Departure-Patient Inst. Decision time for Depature: 20:41 (RIGO GRIGGS) Referrals: [facility] (PCP/Family) Primary Care Physician Patient Instructions: Nausea and Vomiting, Adult ED Add. Discharge Instructions: Recommend taking Zofran for nausea. Recommend Imodium for diarrhea. Recommend oral hydration. If any worsening symptoms return back to ED for further evaluation. Anti-inflammatories for abdominal cramping All discharge instructions reviewed with patient and/or family. Voiced understanding. Scripts Potassium Chloride (Potassium Chloride) 20 Meq Tablet.er 20 MEQ PO DAILY, #4 TAB Prov: RIGO GRIGGS 03/01/23 Ondansetron (Ondansetron Odt) 4 Mg Tab.rapdis 4 MG SL Q4H PRN for NAUSEA/VOMITING, #8 TAB Prov: RGIO GRIGGS 03/01/23 ATTENDING PHYSICIAN NOTE: I was physically present as attending physician in the emergency department d uring the care of this patient, but I was not directly involved in the decision making or delivery of care for this patient. (INES ABREU MD) RIGO GRIGGS March 01, 2023 17:52 INES ABREU MD March 03, 2023 06:43
[2023-03-01] MEDS ORDERED: KETOROLAC 30 MG/ML VIAL IVP ONE (18:00)
[2023-03-01] MEDS ORDERED: LORazepam INJ 2 MG/ML (ATIVAN) VIAL IVP ONE (18:00)
[2023-03-01] MEDS ORDERED: ONDANSETRON 4 MG/2 ML (SDV) Z0FRAN IVP ONE (18:00)
[2023-03-01 18:11] LABS: BASOPHILS # (AUTO) 0.1 10^3/uL (0.0-0.1); BASOPHILS % (AUTO) 1 % (0-10); EOSINOPHILS # (AUTO) 0.1 10^3/uL (0.0-0.3); EOSINOPHILS % (AUTO) 1 % (0-10); HEMATOCRIT 48 % (35-52); HEMOGLOBIN 16.9 g/dL (11.5-16.0); LYMPHOCYTES # (AUTO) 1.5 10^3/uL (1.0-4.0); LYMPHOCYTES % (AUTO) 13 % (12-44); MEAN CORPUSCULAR HEMOGLOBIN 32 pg (25-34); MEAN CORPUSCULAR HGB CONC 35 g/dL (32-36); MEAN CORPUSCULAR VOLUME 91 fL (80-99); MEAN PLATELET VOLUME 9.4 fL (9.0-12.2); MONOCYTES # (AUTO) 0.9 10^3/uL (0.0-1.0); MONOCYTES % (AUTO) 8 % (0-12); NEUTROPHILS # (AUTO) 8.9 10^3/uL (1.8-7.8); NEUTROPHILS % (AUTO) 78 % (42-75); PLATELET COUNT 429 10^3/uL (130-400); WHITE BLOOD COUNT 11.4 10^3/uL (4.3-11.0)
[2023-03-01 18:28] LABS: ALBUMIN 4.1 GM/DL (3.2-4.5); CHLORIDE 102 MMOL/L (98-107); POTASSIUM 2.9 MMOL/L (3.6-5.0); SODIUM 140 MMOL/L (135-145)
[2023-03-01 18:29] LABS: CALCIUM 9.6 MG/DL (8.5-10.1)
[2023-03-01 18:30] LABS: GLUCOSE 109 MG/DL (70-105)
[2023-03-01 18:31] LABS: TOTAL PROTEIN 7.5 GM/DL (6.4-8.2)
[2023-03-01 18:32] LABS: BILIRUBIN,TOTAL 0.6 MG/DL (0.1-1.0); CARBON DIOXIDE 22 MMOL/L (21-32)
[2023-03-01 18:34] LABS: ALKALINE PHOSPHATASE 120 U/L (40-136); CREATININE SERUM 0.69 MG/DL (0.60-1.30); GFR ESTIMATED 108
[2023-03-01 18:35] LABS: BUN/CREATININE RATIO 16
[2023-03-01 18:37] LABS: ALANINE AMINOTRANSFERASE 12 U/L (0-55); MAGNESIUM 1.8 MG/DL (1.6-2.4)
[2023-03-01 18:38] LABS: LIPASE < 4 U/L (8-78)
[2023-03-01] MEDS ORDERED: POTASSIUM CL 10MEQ/50ML IVPB 50 ML IV ONE (18:45)
[2023-03-01] MEDS ORDERED: KCL 20 MEQ TAB (K-DUR) PO ONE (18:45)
[2023-03-01 19:53] LABS: CLARITY,URINE CLEAR; COLOR,URINE YELLOW; GLUCOSE, URINE (UA) NEGATIVE (NEGATIVE); KETONES,URINE TRACE (NEGATIVE); LEUKOCYTE ESTERASE ,URINE NEGATIVE (NEGATIVE); NITRITE,URINE NEGATIVE (NEGATIVE); PH,URINE 6.5 (5-9); PROTEIN,URINE TRACE (NEGATIVE)
[2023-03-01 20:08] LABS: BACTERIA,URINE FEW /HPF; WBC,URINE RARE /HPF
[2023-03-01 20:17] LABS: BILIRUBIN,URINE 1+ (NEGATIVE)
[2023-03-01] MEDS ORDERED: ONDA4TAB11 SL (20:42)
[2023-03-01] MEDS ORDERED: POTA-51 PO (20:43)
[2023-03-01 20:48] VITALS: BP 115/80
== END 2023-03-01 20:48 | disposition home or self-care (01) ==
LOC: EDUNIT# 17:07 → ER 17:10
DX: R11.2 Nausea with vomiting, unspecified (principal); R19.7 Diarrhea, unspecified; F41.9 Anxiety disorder, unspecified; R10.84 Generalized abdominal pain; E87.6 Hypokalemia; D72.829 Elevated white blood cell count, unspecified; F17.210 Nicotine dependence, cigarettes, uncomplicated; Z79.899 Other long term (current) drug therapy
CPT/HCPCS: 36415; 80053; 81000; 83690; 83735; 85025

== ENCOUNTER 2023-03-18 19:52 | Emergency (ER) | payer MEDICAID ==
--- NOTE | 2023-03-18 20:14 | ED General ---
General Stated Complaint: ANXIETY/CHEST PAIN Source of Information: Patient, Old Records Exam Limitations: No Limitations History of Present Illness Date Seen by Provider: March 18, 2023 Time Seen by Provider: 19:57 Initial Comments 47-year-old female with past medical history most notable for anxiety coming in due to feeling anxious. The patient typically takes Xanax 0.5 mg 3 times a day. She has been taking this dosage for the past 20 days. Prior to that she took Xanax 3 times a day but at a lower dosage. She ran out of the Xanax yesterday and was unable to get into her prescriber. She has an appointment on Monday with this prescriber. She is on other medications for anxiety as well. Having some mild chest discomfort which she completely attributes to not having her Xanax. Denies any cardiac history, lower extremity swelling or pain, prior history of DVT or PE, no recent surgery, no hormone use. Allergies and Home Medications Allergies Coded Allergies: No Known Drug Allergies (Unverified , 05/30/21) Patient Home Medication List Home Medication List Reviewed: Yes Acetaminophen (Tylenol Extra Strength) 500 Mg Tablet, 1,000 MG PO Q8H PRN for PAIN-MILD (1-4), (Reported) Entered as Reported by: VIPUL MCCONNELL on 05/31/21 1015 Albuterol Sulfate (Ventolin Hfa) 1 Puff Puff, 2 PUFF INH Q4H Prescribed by: Dottie Cartwright on 11/20/22 2103 Alprazolam (Alprazolam) 0.5 Mg Tablet, 0.5 MG PO BID Prescribed by: LYNSEY LITTLE on 06/01/21 1249 Alprazolam (Alprazolam) 0.5 Mg Tablet, 0.5 MG PO TID PRN for ANXIETY Prescribed by: TORRES FLETCHER on 11/22/22 1739 Alprazolam (Xanax) 0.5 Mg Tablet, 0.5 MG PO TID PRN for ANXIETY Prescribed by: RIGO CAR on 03/18/232019 Ibuprofen (Ibuprofen) 200 Mg Tablet, 400-600 MG PO Q8H PRN for PAIN-MILD (1-4), (Reported) Entered as Reported by: VIPUL MCCONNELL on 05/31/21 1015 Lorazepam (Ativan) 0.5 Mg Tablet, 0.5 MG PO BID PRN for ANXIETY Prescribed by: BETO DELAROSA on 08/04/21 1200 Lorazepam (Ativan) 1 Mg Tablet, 1 MG PO Q8H PRN for ANXIETY Prescribed by: KELSIE CORNEJO on 09/19/21 0655 Lorazepam (Ativan) 0.5 Mg Tablet, 0.5 MG PO TID PRN for ANXIETY Prescribed by: INES BURROWS on 01/02/22 1050 Mirtazapine (Mirtazapine) 30 Mg Tablet, 30 MG PO HS, (Reported) Entered as Reported by: VIPUL MCCONNELL on 05/31/21 1015 Multivitamin (Vitamins For Hair) 1 Each Tablet, 1 EACH PO DAILY, (Reported) Entered as Reported by: VIPUL MCCONNELL on 05/31/21 1015 Nitrofurantoin Monohyd/M-Cryst (Macrobid 100 mg Capsule) 100 Mg Capsule, 1 TAB PO BID Prescribed by: LEANNE TUCKER on 04/07/22 041 Omeprazole (Omeprazole) 20 Mg Capsule.dr, 20 MG PO DAILY Prescribed by: INES BURROWS on 01/02/22 1049 Ondansetron (Ondansetron Odt) 4 Mg Tab.rapdis, 4 MG SL Q4H PRN for NAUSEA/VOMITING Prescribed by: INES BURROWS on 01/02/22 1049 Ondansetron (Ondansetron Odt) 8 Mg Tab.rapdis, 8 MG PO Q6H Prescribed by: LEANNE TUCKER on 04/07/22 041 Ondansetron (Ondansetron Odt) 4 Mg Tab.rapdis, 4 MG SL Q4H PRN for NAUSEA/VOMITING Prescribed by: JAVI AKHTAR on 03/01/232041 Pantoprazole Sodium (Protonix) 40 Mg Tablet.dr, 40 MG PO DAILY Prescribed by: LEANNE TUCKER on 04/07/22417 Potassium Chloride (Potassium Chloride) 20 Meq Tablet.er, 20 MEQ PO DAILY Prescribed by: AJVI AKHTAR on 03/01/232042 Prednisone (Prednisone) 20 Mg Tab, 40 MG PO DAILY Prescribed by: Dottie Cartwright on 11/20/222102 Propranolol HCl (Propranolol HCl) 40 Mg Tablet, 40 MG PO BID, (Reported) Entered as Reported by: VIPUL MCCONNELL on 05/31/21 101 Quetiapine Fumarate (Quetiapine Fumarate) 200 Mg Tablet, 200 MG PO BID PRN for ANXIETY, (Reported) Entered as Reported by: VIPUL MCCONNELL on 05/31/21 1015 Sertraline HCl (Sertraline HCl) 100 Mg Tablet, 200 MG PO DAILY, (Reported) Entered as Reported by: VIPUL MCCONNELL on 05/31/21 101 Sertraline HCl (Zoloft) 50 Mg Tablet, 50 MG PO DAILY Prescribed by: BETO DELAROSA on 08/04/21 1159 Review of Systems Review of Systems Constitutional: No fever EENTM: no symptoms reported Respiratory: no symptoms reported Cardiovascular: see HPI Psychiatric/Neurological: See HPI Past Swfaxik-Ftzgsb-Ckuthh Hx Patient Social History Tobacco Use?: Yes Tobacco type used: Cigarettes Immunizations Up To Date Tetanus Booster (TDap): Unknown First/Initial COVID19 Vaccinat: none Second COVID19 Vaccination Art: none Third COVID19 Vaccination Date: none Seasonal Allergies Seasonal Allergies: Yes Past Medical History Surgery/Hospitalization HX: ANXIETY, DEPRESSION, PTSD, PAST HX OF PHYSICAL ABUSE, , HTN Surgeries: Yes Section Respiratory: No Cardiac: Yes Hypertension Neurological: No Genitourinary: No Gastrointestinal: No Musculoskeletal: No Endocrine: No HEENT: No Cancer: No Psychosocial: Yes (ALCOHOL ABUSE) Anxiety, PTSD, Depression Integumentary: No Blood Disorders: No Family Medical History No Pertinent Family Hx SOCIAL HISTORY: -SMOKES 1 1/2 PPD -DAILY ETOH USE/ABUSE -THC DAILY USE Physical Exam Vital Signs Capillary Refill : Height, Weight, BMI Height: '" Weight: lbs. oz. kg; 31.00 BMI Method: General Appearance: Anxious Eyes: Bilateral Eye Normal Inspection HEENT: PERRL/EOMI, Normal ENT Inspection, Pharynx Normal Neck: Full Range of Motion, Normal Inspection, Non Tender, Supple Respiratory: Chest Non Tender, Lungs Clear, Normal Breath Sounds, No Accessory Muscle Use, No Respiratory Distress Cardiovascular: No Edema, Normal Peripheral Pulses, Tachycardia Gastrointestinal: Normal Bowel Sounds, Non Tender, Soft; No Distended, No Guarding Back: Normal Inspection, No CVA Tenderness, No Vertebral Tenderness Extremity: Normal Capillary Refill, Normal Inspection, Normal Range of Motion, Non Tender, No Calf Tenderness, No Pedal Edema Neurologic/Psychiatric: Alert, No Motor/Sensory Deficits, Normal Mood/Affect Skin: Normal Color, Warm/Dry Progress/Results/Core Measures Suspected Sepsis SIRS Temperature: Pulse: Respiratory Rate: Blood Pressure / Mean: Results/Orders My Orders Orders - RIGO CAR MD Ekg Tracing (03/18/23 20:11) Lorazepam Tablet (Ativan Tablet) (03/18/23 20:15) Chest 1 View, Ap/Pa Only (03/18/23 20:14) Medications Given in ED Current Medications Medications Dose Ordered Sig/Talia Route Start Time Stop Time Status Last Admin Dose Admin Lorazepam 1 mg ONCE ONCE PO 03/18/23 20:15 03/18/23 20:16 DC 03/18/23 20:20 1 MG Vital Signs/I&O Capillary Refill : Progress Note : Progress Note 47-year-old female with above history coming in due to running out of her Xanax. She has been taking Xanax for quite some time. ABCs were intact and vitals are stable on presentation although she is tachycardic. I suspect there is some extent of withdrawal from the benzodiazepines. We will give her Ativan here. Chest x-ray ordered and interpreted by me showing no pneumothorax, no pneumonia, normal cardiac silhouette. EKG with sinus tachycardia with no acute ischemic changes. The chest discomfort sounds anxious in nature, she has no cardiac history, and stating given she is out of her Xanax. I will write a prescription for Xanax to last until Monday when she sees her regular provider. She is low risk for PE per [place] criteria and is not showing any clinical signs of a DVT on exam. Lab work therefore not ordered at this time. I discussed the inherent risk of Xanax with withdrawal and how there are likely better medications that she could be transitioned to. She was then discharged home in stable condition with strict return precautions. ECG Initial ECG Impression Date: March 18, 2023 Initial ECG Impression Time: 20:24 Initial ECG Rate: 99 Initial ECG Rhythm: Normal Sinus Comment Narrow QRS, normal axis, no significant ST changes or T wave abnormalities, QTc 409 Diagnostic Imaging Diagonstic Imaging: Xray (chest) Comments On my interpretation no pneumothorax, normal cardiac silhouette, no obvious pneumonia, appears similar to prior chest x-ray NAME: PRAVEENA FUENTES [facility] REC#: [id number] PT STATUS: REG ER : 1975 PHYSICIAN: RIGO CAR MD ADMIT DATE: 03/18/23/ER Draft Date of Exam:03/18/23 CHEST 1 VIEW, AP/PA ONLY INDICATION: Chest pain. COMPARISON: 11/20/2022. FINDINGS: Single frontal view of the chest demonstrates normal heart size and pulmonary vascularity. The lungs are well aerated and clear. No large pleural effusion or pneumothorax is seen. The visualized osseous structures show no acute abnormality. IMPRESSION: No acute cardiopulmonary process. Dictated on workstation # [id number] Dict: 03/18/232021 Trans: 03/18/232022 PJE [id number] Interpreted by: BRENDAN PALMA MD Electronically signed by: Departure Impression Primary Impression: Anxiety Additional Impressions: Chest discomfort Medication refill Disposition: HOME, SELF-CARE Condition: Stable Departure-Patient Inst. Decision time for Depature: 20:45 Referrals: [facility] [place] (PCP/Family) Primary Care Physician Patient Instructions: Chest Pain, Adult ED Add. Discharge Instructions: You can recall if you stop taking a benzodiazepine such as Xanax immediately. You are likely experiencing some withdrawal symptoms. The Ativan we gave you today will help with this. A prescription for the Xanax that will last through Monday was sent to your pharmacy, but this is a medication that if you would like to stop, you would need to slowly stop it or change to a different medicine. If you take Benadryl, take 25 mg twice a day maximum. Scripts Alprazolam (Xanax) 0.5 Mg Tablet 0.5 MG PO TID PRN for ANXIETY for 3 Days, #9 TAB Prov: RIGO CAR MD 03/18/23 Work/School Note: Family Work Note, Patient Received Medical Care In the Emergency Department On: March 18, 2023 Patient Will Be Able to Return to Work/School On: March 19, 2023 Work Release Form Date Seen in the Emergency Department: March 18, 2023 Return to Work: March 19, 2023 Restrictions: No Restrictions RIGO CAR MD March 18, 2023 20:14
[2023-03-18] MEDS ORDERED: LORazepam 1 MG (ATIVAN) TAB PO ONE (20:15)
[2023-03-18] MEDS ORDERED: ALPR0.5T PO (20:19)
--- NOTE | 2023-03-18 20:23 | Diagnostic Imaging Report ---
INDICATION: Chest pain. COMPARISON: 11/20/2022. FINDINGS: Single frontal view of the chest demonstrates normal heart size and pulmonary vascularity. The lungs are well aerated and clear. No large pleural effusion or pneumothorax is seen. The visualized osseous structures show no acute abnormality. IMPRESSION: No acute cardiopulmonary process. Dictated by: Dictated on workstation # [id number]
[2023-03-18 20:40] VITALS: BP 117/83
== END 2023-03-18 20:39 | disposition home or self-care (01) ==
LOC: EDUNIT# 19:52 → ER 19:54
DX: F41.9 Anxiety disorder, unspecified (principal); R07.89 Other chest pain; Z76.0 Encounter for issue of repeat prescription; R00.0 Tachycardia, unspecified; F17.210 Nicotine dependence, cigarettes, uncomplicated; Z28.310 Unvaccinated for COVID-19
CPT/HCPCS: 71045; 93005

== ENCOUNTER 2023-07-20 15:01 | Emergency (ER) | payer MEDICAID ==
[~2023-07-20] VITALS: Ht 157 cm; Wt 68.0 kg
[~2023-07-20 15:01] MED LIST changes: +ALPR0.5T PO; +POTA-330 PO; -POTA-51 PO
--- NOTE | 2023-07-20 16:01 | ED Psychosocial ---
General Chief Complaint: Psych/Social Disorder Stated Complaint: ANXIETY ATTACK Nursing Triage Note: PT AMB TO FT1 WITH C/O ANXIETY AND PANIC ATTACKS. PT HAS BEEN OUT OF MEDS X2 DAYS Source: patient Exam Limitations: no limitations (BHAKTI PEREZ) History of Present Illness Date Seen by Provider: Jul 20, 2023 Time Seen by Provider: 15:51 Initial Comments 48yo F with PMH of anxiety disorder, depression, panic disorder, and ADHD presents to the ED with family with c/o panic attack that has been constant for the past 2 days. Pt states that she normally takes Xanax 0.5mg TID but ran out of her prescription 3-4 days ago. Pt says that she called her provider, Alisa Merino at [facility], today but was unable to get an appointment till Monday of next week. Pt is unable to name a trigger for panic attack but states that it's been constant since it started. Pt states that she has been experiencing clamminess, palpitations, perioral numbness, chest tightness, and SOA. Pt also notes that it feels like her stomach is in "knots". Pt attributes all her symptoms to her anxiety. Pt states that her prescription last filled 28 days ago with 89 pills. Pt states that she takes at least two daily. Pt's prescribing office was contacted and stated that pt's prescription was last filled on 06/14/23. Pt called on 07/12/23 to have prescription refilled but was told she needed to make an appointment and be drug tested prior to having prescription refilled. Pt states that she has recently moved to the area but has been seen multiple times in this ED with the exact same story, dating all the way back to May 2021 and most recently in February 2023. Pt also initially stated that she did not drink but on re-evaluation pt stated that she drinks occasionally and states that she needs to speak to Alisa because she thinks she needs "therapy and rehab". Pt states that she [facility] but notes that she did not go this week. Denies nausea, vomiting, diarrhea, fevers, chills, SI/HI, and urinary symptoms. Timing/Duration: constant Severity: mild Associated Symptoms: anxiety (BHAKTI PEREZ) Allergies and Home Medications Allergies Coded Allergies: No Known Drug Allergies (Unverified , 05/30/21) Patient Home Medication List Home Medication List Reviewed: Yes (BHAKTI PEREZ) Home Medication List Reviewed: Yes (BURAK WARNER MD) Acetaminophen (Tylenol Extra Strength) 500 Mg Tablet, 1,000 MG PO Q8H PRN for PAIN-MILD (1-4), (Reported) Entered as Reported by: VIPUL MCCONNELL on 05/31/21 1015 Albuterol Sulfate (Ventolin Hfa) 1 Puff Puff, 2 PUFF INH Q4H Prescribed by: Dottie Cartwright on 11/20/22 2103 Alprazolam (Alprazolam) 0.5 Mg Tablet, 0.5 MG PO BID Prescribed by: LYNSEY LITTLE on 06/01/21 1249 Alprazolam (Alprazolam) 0.5 Mg Tablet, 0.5 MG PO TID PRN for ANXIETY Prescribed by: TORRES FLETCHER on 11/22/22 1739 Alprazolam (Xanax) 0.5 Mg Tablet, 0.5 MG PO TID PRN for ANXIETY Prescribed by: RIGO CAR on 03/18/23 2020 Ibuprofen (Ibuprofen) 200 Mg Tablet, 400-600 MG PO Q8H PRN for PAIN-MILD (1-4), (Reported) Entered as Reported by: VIPUL MCCONNELL on 05/31/21 1015 Lorazepam (Ativan) 0.5 Mg Tablet, 0.5 MG PO BID PRN for ANXIETY Prescribed by: BETO DELAROSA on 08/04/21 1200 Lorazepam (Ativan) 1 Mg Tablet, 1 MG PO Q8H PRN for ANXIETY Prescribed by: KELSIE CORNEJO on 09/19/21 0655 Lorazepam (Ativan) 0.5 Mg Tablet, 0.5 MG PO TID PRN for ANXIETY Prescribed by: INES BURROWS on 01/02/22 1050 Mirtazapine (Mirtazapine) 30 Mg Tablet, 30 MG PO HS, (Reported) Entered as Reported by: VIPUL MCCONNELL on 05/31/21 1015 Multivitamin (Vitamins For Hair) 1 Each Tablet, 1 EACH PO DAILY, (Reported) Entered as Reported by: VIPUL MCCONNELL on 05/31/21 1015 Nitrofurantoin Monohyd/M-Cryst (Macrobid 100 mg Capsule) 100 Mg Capsule, 1 TAB PO BID Prescribed by: LEANNE TUCKER on 04/07/22417 Omeprazole (Omeprazole) 20 Mg Capsule.dr, 20 MG PO DAILY Prescribed by: INES BURROWS on 01/02/22 104 Ondansetron (Ondansetron Odt) 4 Mg Tab.rapdis, 4 MG SL Q4H PRN for NAUSEA/VOMITING Prescribed by: INES BURROWS on 01/02/22 104 Ondansetron (Ondansetron Odt) 8 Mg Tab.rapdis, 8 MG PO Q6H Prescribed by: LEANNE TUCKER on 04/07/22417 Ondansetron (Ondansetron Odt) 4 Mg Tab.rapdis, 4 MG SL Q4H PRN for NAUSEA/VOMITING Prescribed by: JAVI AKHTAR on 03/01/232041 Pantoprazole Sodium (Protonix) 40 Mg Tablet.dr, 40 MG PO DAILY Prescribed by: LEANNE TUCKER on 04/07/22417 Potassium Chloride (Potassium Chloride) 20 Meq Tablet.er, 20 MEQ PO DAILY Prescribed by: JAVI AKHTAR on 03/01/232042 Prednisone (Prednisone) 20 Mg Tab, 40 MG PO DAILY Prescribed by: Dottie Cartwright on 11/20/222102 Propranolol HCl (Propranolol HCl) 40 Mg Tablet, 40 MG PO BID, (Reported) Entered as Reported by: VIPUL MCCONNELL on 05/31/21 1015 Quetiapine Fumarate (Quetiapine Fumarate) 200 Mg Tablet, 200 MG PO BID PRN for ANXIETY, (Reported) Entered as Reported by: VIPUL MCCONNELL on 05/31/21 1015 Sertraline HCl (Sertraline HCl) 100 Mg Tablet, 200 MG PO DAILY, (Reported) Entered as Reported by: VIPUL MCCONNELL on 05/31/21 1015 Sertraline HCl (Zoloft) 50 Mg Tablet, 50 MG PO DAILY Prescribed by: BETO DELAROSA on 08/04/21 1159 Review of Systems Constitutional: no symptoms reported EENTM: no symptoms reported Respiratory: short of breath (secondary to anxiety) Cardiovascular: chest pain (chest tightness secondary to anxiety), palpitations (secondary to anxiety) Gastrointestinal: abdominal pain (secondary to anxiety) Genitourinary: no symptoms reported Musculoskeletal: no symptoms reported Skin: no symptoms reported Psychiatric/Neurological: Anxiety, Numbness (BHAKTI PEREZ) All Other Systems Reviewed Negative Unless Noted: Yes (BHAKTI PEREZ) Past Xcyndjq-Zrepka-Scgpzg Hx Patient Social History Tobacco Use?: Yes Tobacco type used: Cigarettes Substance use?: No Alcohol Use?: Yes Alcohol Frequency: Once in a while Pt feels they are or have been: No (BHAKTI PEREZ) Immunizations Up To Date Tetanus Booster (TDap): Unknown First/Initial COVID19 Vaccinat: none Second COVID19 Vaccination Art: none Third COVID19 Vaccination Date: none (BHAKTI PEREZ) Seasonal Allergies Seasonal Allergies: Yes (BHAKTI PEREZ) Past Medical History Surgery/Hospitalization HX: ANXIETY, DEPRESSION, PTSD, PAST HX OF PHYSICAL ABUSE, , HTN Surgeries: Yes Section Respiratory: Yes Asthma Cardiac: Yes Hypertension Neurological: Yes Headaches /Migraines Reproductive Disorders: No Genitourinary: No Gastrointestinal: No Musculoskeletal: No Endocrine: No HEENT: No Cancer: No Psychosocial: Yes (ALCOHOL ABUSE) Anxiety, PTSD, Depression Integumentary: No Blood Disorders: No (BHAKTI PEREZ) Family Medical History No Pertinent Family Hx SOCIAL HISTORY: -SMOKES 1 1/2 PPD -DAILY ETOH USE/ABUSE -THC DAILY USE (BHAKTI PEREZ) Physical Exam Vital Signs - First Documented 07/20/23 15:40 Temp 36.8 Pulse 120 Resp 20 B/P (MAP) 129/87 (101) Pulse Ox 99 O2 Delivery Room Air (BURAK WARNER MD) Capillary Refill : (BHAKTI PEREZ) Height, Weight, BMI Height: '" Weight: lbs. oz. kg; 27.00 BMI Method: General Appearance: WD/WN, no apparent distress HEENT: PERRL/EOMI Respiratory: lungs clear, normal breath sounds, no respiratory distress, no accessory muscle use Cardiovascular: no murmur, tachycardia Gastrointestinal: normal bowel sounds, non tender, soft Extremities: no pedal edema, no calf tenderness Neurologic/Psychiatric: alert, normal mood/affect, oriented x 3 Skin: normal color, warm/dry Lymphatic: no adenopathy (BHAKTI PEREZ) Progress/Results/Core Measures Results/Orders My Orders Orders - BURAK WARNER MD Quetiapine Immediate Release (Quetiapine (07/20/23 16:30) Hydroxyzine Oral (Hydroxyzine Oral) (07/20/23 16:30) (BURAK WARNER MD) Medications Given in ED (BURAK WARNER MD) Vital Signs/I&O (BURAK WARNER MD) Blood Pressure Mean: 101 Progress Progress Note : Time: 16:45 Progress Note Patient seen and examined by me. Evaluation today includes physical exam. Pertinent physical exam findings well-developed well-nourished female in mild distress due to her anxiety, slightly tearful. Physical exam is generally unremarkable. Normal vital signs. No acute neurologic deficits. Differential diagnosis includes anxiety/panic disorder, benzodiazepine seeking behavior I had a long discussion with the patient regarding her chronic benzo use/possible misuse. I called and spoke with the provider at [facility] and verified that the patient had missed an appointment for a urine drug screen to get refills of her Xanax. Patient history was a little concerning as she gave the medical student as well as the nurse differing stories than what she gave me. Patient stated to the medical student she had not contacted the clinic however she had called the clinic earlier in the month for refill and was advised of the drug screen. Patient states she has no recollection of this to me. I am concerned that the patient is overusing her Xanax and is addicted. I advised her that we would not be prescribing her any Xanax as she needs to complete the drug screen at the clinic. She was offered and given 50 mg of hydroxyzine p.o. Patient denies suicidal or homicidal ideation. She does not appear to be intoxicated at this time. I strongly encouraged her to get back into therapy and follow-up with mental health services. She verbalized understanding. All questions are sought and answered. Patient is stable for discharge. (BURAK WARNER MD) Departure Impression Primary Impression: Anxiety Additional Impression: Benzodiazepine dependence Disposition: 01 HOME, SELF-CARE Condition: Improved Departure-Patient Inst. Decision time for Depature: 16:45 (BURAK WARNER MD) Referrals: [facility] (PCP/Family) Primary Care Physician Patient Instructions: ALCOHOL AND SUBSTANCE ABUSE, Generalized Anxiety Disorder (DC) Add. Discharge Instructions: You need to follow up with [facility] and do your drug screen so that you can get your meds filled. Please take them *as prescribed*. You need to get back into Counselling for your Grief and Anxiety Disorder. Look into Substance Abuse Counselling or inpatient detox for your drinking, so that you can become the best and most healthy version of yourself, for you and the kids. Keep going to your [facility] Meetings. Try not to self-medicated with alcohol, as it is a depressant and will only worsen your symptoms. Return to the Emergency Department for any new, concerning or emergent complaints. [facility] [address] [place] [address] [facility] [phone] Verification and Attestation of Medical Student E/M Service A medical student performed and documented this service in my presence. I reviewed and verified all information documented by the medical student and made modifications to such information, when appropriate. I personally performed the physical exam and medical decision making. Burak Warner, Jul 20, 2023,16:50 (BURAK WARNER MD) Copy Copies To 1: MORGAN CHANG TAYLOR Jul 20, 2023 16:00 BURAK WARNER MD Jul 20, 2023 16:39
[2023-07-20] MEDS ORDERED: hydrOXYzine 25 MG CAPSULE PO ONE (16:30)
[2023-07-20] MEDS ORDERED: QUEtiapine IMMEDIATE RELEASE 200 MG TABLET PO ONE (16:30)
[2023-07-20 17:04] VITALS: BP 115/84
== END 2023-07-20 17:05 | disposition home or self-care (01) ==
LOC: EDUNIT# 15:01 → ER 15:03
DX: F13.280 Sedative, hypnotic or anxiolytic dependence with sedative, hypnotic or anxiolytic-induced anxiety disorder (principal); F17.210 Nicotine dependence, cigarettes, uncomplicated; Z28.310 Unvaccinated for COVID-19
CPT/HCPCS: 99283